=== PATIENT | male | born 1955 | race Caucasian/White ===

== ENCOUNTER 2017-02-02 13:23 | Observation (INO) | payer OTHER ==
[~2017-02-02] VITALS: Ht 182.9 cm; Wt 101.8 kg
[~2017-02-02 13:23] MED LIST: ASPI81TA28 PO; CLON1TAB3 PO; FLUO40CA8 PO; QUET1TAB34 PO
[2017-02-02] MEDS ORDERED: ASPIRIN 324 MG CHEW PO STA (14:16)
[2017-02-02] MEDS ORDERED: NITROGLYCERIN 0.4 MG SL PER TAB CHARGE SL STA (14:16)
--- NOTE | 2017-02-02 14:22 | EMERGENCY ROOM VISIT NOTE ---
History First contact with patient: 14:06 Chief Complaint: CHEST PAIN Stated Complaint: CHEST PAINS FOR TWO DAYS Nursing Triage Summary: Triage note: pt reports right sided chest pain yesterday "but it went away." pt reports right chest pain again started at 1200 today. History of Present Illness The patient is a 61 year old male who presents to the Emergency Room with complaints of chest pain. The patient states that he developed chest pain yesterday while working on his tractor. He states the pain was in the right anterior chest. It was associated with shortness of breath. He states that with time and rest it went away. The patient states that again today while eating approximately 2 hours ago he developed pain in the right anterior chest. He rates his discomfort a 7/10. He describes it as sharp and states it feels like someone punched him in the chest. The patient has had mild shortness of breath. The patient states that activity or walking seems to make the pain come on. He denies any earache, sore throat, cough, fever. He denies any abdominal pain, nausea or vomiting. He denies any extremity swelling. He denies any pain with deep inspiration. The patient has a history of TIA. He does take baby aspirin daily. The patient believes he had a normal stress test 4-5 years ago. The patient does not follow regularly with a primary care physician. He states he has not had his glucose, cholesterol or blood pressure monitored. The patient states that his father has had heart problems. The patient states that his mother of a myocardial infarction in her 70s. Review of Systems A 10 system review of systems was completed with positives and pertinent negatives listed in the HPI. Past Medical/Surgical History Medical Problems: (1) Chest pain (2) TIA (transient ischemic attack) Social History Smoking Status: Current Every Day Smoker Housing Status: lives with family Current/Historical Medications Scheduled Aspirin (Aspirin Ec), 81 MG PO DAILY Clonazepam (Klonopin), 1 MG PO HS Fluoxetine (Prozac), 40 MG PO DAILY Gabapentin (Neurontin), 600 MG PO BID Gabapentin (Neurontin), 1,200 MG PO HS Quetiapine Fumarate (Seroquel), 100 MG PO HS Allergies Coded Allergies: No Known Allergies (Unverified , 11/14/15) Physical Exam Vital Signs Date Time Temp Pulse Resp B/P Pulse Ox O2 Delivery O2 Flow Rate FiO2 02/02/17 16:00 81 23 130/75 95 Room Air 02/02/17 13:57 92 02/02/17 13:30 37.0 99 18 160/82 95 Room Air Physical Exam VITALS: Vitals are noted on the nurse's note and reviewed by myself. Vital signs stable. The patient is afebrile. He is not tachycardic, tachypneic or hypoxic. GENERAL: This is 61-year-old male, in no acute distress, nondiaphoretic, well- developed well-nourished. SKIN: The skin was without rashes, erythema, edema, or bruising. There is no tenting of the skin. Capillary reflex less than 2 seconds. HEAD: Normocephalic atraumatic. EARS: External auditory canals clear, tympanic membranes pearly hayward without erythema or effusion bilaterally. EYES: Pupils equal round and reactive to light and accommodation. Conjunctivae without injection, sclerae without icterus. Extraocular movements intact. NOSE: Patent, turbinates without inflammation or discharge. MOUTH: Mucous membranes moist. Tonsils are not enlarged. Pharynx without erythema or exudate. Uvula midline. Airway patent. Tongue does not deviate. NECK: Supple without nuchal rigidity. No JVD. HEART: Regular rate and rhythm without murmurs gallops or rubs. LUNGS: Clear to auscultation bilaterally without wheezes, rales or rhonchi. No retractions or accessory muscle use. ABDOMEN: Positive bowel sounds x 4. Soft, nontender, without masses or organomegaly. Lobato sign negative. MUSCULOSKELETAL: No muscle atrophy, erythema, or edema noted. Full range of motion in all extremities. Normal gait. Strength 5/5 throughout. NEURO: Patient was alert and oriented to person place and time. No focal neurological deficits. Medical Decision & Procedures ER Provider Diagnostic Interpretation: CHEST ONE VIEW PORTABLE CLINICAL HISTORY: Chest pain. COMPARISON STUDY: Chest CT January 02, 2011. FINDINGS: Lung volumes are normal. There is no pneumothorax or pleural effusion. There is no consolidation to suggest pneumonia. Mild interstitial thickening is present. This may be chronic. Cardiac size is at upper limits of normal. IMPRESSION: Mild interstitial thickening which is likely chronic. Interstitial lung disease is favored. No superimposed consolidation identified. Laboratory Results 02/02/17 14:36 Red Blood Count 4.65, Mean Corpuscular Volume 84.9, Mean Corpuscular Hemoglobin 28.6, Mean Corpuscular Hemoglobin Concent 33.7, Mean Platelet Volume 10.4, Neutrophils (%) (Auto) 57.3, Lymphocytes (%) (Auto) 24.0, Monocytes (%) (Auto) 14.3, Eosinophils (%) (Auto) 4.0, Basophils (%) (Auto) 0.4, Neutrophils # (Auto ) 4.11, Lymphocytes # (Auto) 1.72, Monocytes # (Auto) 1.03, Eosinophils # (Auto ) 0.29, Basophils # (Auto) 0.03 02/02/17 14:36 Test 02/02/17 14:36 White Blood Count 7.18 K/uL (4.8-10.8) Red Blood Count 4.65 M/uL (4.7-6.1) Hemoglobin 13.3 g/dL (14.0-18.0) Hematocrit 39.5 % (42-52) Mean Corpuscular Volume 84.9 fL (80-100) Mean Corpuscular Hemoglobin 28.6 pg (25-34) Mean Corpuscular Hemoglobin Concent 33.7 g/dl (32-36) Platelet Count 282 K/uL (130-400) Mean Platelet Volume 10.4 fL (7.4-10.4) Neutrophils (%) (Auto) 57.3 % Lymphocytes (%) (Auto) 24.0 % Monocytes (%) (Auto) 14.3 % Eosinophils (%) (Auto) 4.0 % Basophils (%) (Auto) 0.4 % Neutrophils # (Auto) 4.11 K/uL (1.4-6.5) Lymphocytes # (Auto) 1.72 K/uL (1.2-3.4) Monocytes # (Auto) 1.03 K/uL (0.11-0.59) Eosinophils # (Auto) 0.29 K/uL (0-0.5) Basophils # (Auto) 0.03 K/uL (0-0.2) RDW Standard Deviation 44.8 fL (36.4-46.3) RDW Coefficient of Variation 14.4 % (11.5-14.5) Immature Granulocyte % (Auto) 0.0 % Immature Granulocyte # (Auto) 0.00 K/uL (0.00-0.02) Prothrombin Time 11.3 SECONDS (9.0-12.0) Prothromb Time International Ratio 1.1 (0.9-1.1) Activated Partial Thromboplast Time 31.5 SECONDS (21.0-31.0) Partial Thromboplastin Ratio 1.2 Urine Color DK YELLOW Urine Appearance CLEAR (CLEAR) Urine pH 5.5 (4.5-7.5) Urine Specific [place] 1.026 (1.000-1.030) Urine Protein NEG (NEG) Urine Glucose (UA) NEG (NEG) Urine Ketones NEG (NEG) Urine Occult Blood NEG (NEG) Urine Nitrite NEG (NEG) Urine Bilirubin NEG (NEG) Urine Urobilinogen NEG (NEG) Urine Leukocyte Esterase NEG (NEG) Anion Gap 6.0 mmol/L (3-11) Est Creatinine Clear Calc Drug Dose 87.4 ml/min Estimated GFR () 82.4 Estimated GFR (Non- 71.1 BUN/Creatinine Ratio 16.2 (10-20) Calcium Level 8.2 mg/dl (8.5-10.1) Total Bilirubin 0.4 mg/dl (0.2-1) Aspartate Amino Transf (AST/SGOT) 32 U/L (15-37) Alanine Aminotransferase (ALT/SGPT) 30 U/L (12-78) Alkaline Phosphatase 53 U/L (45-117) Total Creatine Kinase 221 U/L (39-308) Creatine Kinase MB 5.7 ng/ml (0.5-3.6) Creatine Kinase MB Ratio 2.6 (0-3.0) Troponin I 0.449 ng/ml (0-0.045) Total Protein 7.0 gm/dl (6.4-8.2) Albumin 3.5 gm/dl (3.4-5.0) Globulin 3.5 gm/dl (2.5-4.0) Albumin/Globulin Ratio 1.0 (0.9-2) Medications Administered Medications (Trade) Dose Ordered Sig/James Route Start Time Stop Time Status Last Admin Dose Admin Aspirin (Aspirin Chew) 324 mg NOW STAT PO 02/02/17 14:16 02/02/17 14:18 DC 02/02/17 14:25 324 MG Nitroglycerin (Nitrostat Tab) 0.4 mg NOW STAT SL 02/02/17 14:16 02/02/17 14:18 DC 02/02/17 14:25 0.4 MG Procedure The patient was monitored on a director of cardiac cath lab. They maintained a normal sinus rhythm without ectopy. ECG Indication: chest pain Rate (beats per minute): 95 Rhythm: normal sinus Findings: no acute ischemic change Change: no significant change ED Course The patient was seen and examined. Previous visits were reviewed. The patient does not have a fever or leukocytosis. He does not have any significant electrolyte abnormalities. Troponin was elevated at 0.449. INR was 1.1. Urinalysis is negative. EKG does not reveal any acute ischemia or arrhythmia Chest x-ray does not reveal any acute finding The patient was given 325 mg oral aspirin and one 0.4 mg sublingual nitroglycerin. His pain resolved. The patient presents to the emergency department with exertional chest pain which is improved with nitroglycerin. He also has an elevated troponin. The patient likely has acute coronary syndrome. He requires further evaluation and management in the hospital. The case was discussed with the [facility] hospitalist service and they will evaluate the patient. The patient was also seen and examined by who agrees with the assessment and treatment plan. Medical Decision DIFFERENTIAL DIAGNOSIS: Aortic dissection, myocarditis, pericarditis, cervical disc disease, costochondritis, herpes zoster, rib fracture, pleuritis, pneumonia , pulmonary embolus, tension pneumothorax, anxiety disorder, somatoform disorder , choledocholithiasis, status, esophagitis, esophageal spasm, esophageal reflux , esophageal rupture, pancreatitis, peptic ulcer disease, cardiac ischemia, ST elevation VA, acute coronary syndrome, arrhythmia, coronary artery vasospasm. vavular heart disease, coronary artery disease, among others. Impression Primary Impression: Acute coronary syndrome Departure Information Referrals Miguel Ángel Rodriguez M.D. (PCP) Patient Instructions My [facility]
[2017-02-02 14:46] LABS: BASO % 0.4 %; BASO ABS # 0.03 K/uL (0-0.2); COMPLETE YES; HEMATOCRIT 39.5 % (42-52); LYMPH ABS # 1.72 K/uL (1.2-3.4); MEAN CELL VOLUME 84.9 fL (80-100); MEAN CORPUSCULAR HEMOGLOBIN 28.6 pg (25-34); MEAN CORPUSCULAR HGB CONC 33.7 g/dl (32-36); MEAN PLATELET VOLUME 10.4 fL (7.4-10.4); MONO % 14.3 %; NEUT % 57.3 %; PLATELET COUNT 282 K/uL (130-400); RED BLOOD COUNT 4.65 M/uL (4.7-6.1); WHITE BLOOD COUNT 7.18 K/uL (4.8-10.8)
[2017-02-02 14:58] LABS: INR 1.1 (0.9-1.1); PARTIAL THROMBOPLASTIN RATIO 1.2; PROTHROMBIN TIME (PATIENT) 11.3 SECONDS (9.0-12.0)
[2017-02-02 15:04] LABS: BUN/CREATININE RATIO 16.2 (10-20); CALCIUM 8.2 mg/dl (8.5-10.1); CREATININE 1.1 mg/dl (0.60-1.40); POTASSIUM 3.7 mmol/L (3.5-5.1)
--- NOTE | 2017-02-02 15:11 | EMERGENCY ROOM VISIT NOTE ---
ED Visit Note First contact with patient: 14:06 This Patient was discussed with the physician administrative assistant receptionist, Lashawn Burger PA-C. The pertinent historical and physical exam findings were confirmed. I agree with the studies ordered and with the interpretations of these studies. I agree with the disposition and care plan.
[2017-02-02 15:15] LABS: CKMB/CK RATIO 2.6 (0-3.0)
[2017-02-02 15:18] LABS: URINE APPEARANCE CLEAR (CLEAR); URINE BILIRUBIN NEG (NEG); URINE COLOR DK YELLOW; URINE NITRITE NEG (NEG); URINE PH 5.5 (4.5-7.5); URINE SPECIFIC GRAVITY 1.026 (1.000-1.030); UROBILINOGEN NEG (NEG); ZZUR CULT IF INDIC CLEAN CATCH NO
[2017-02-02 15:19] LABS: MANUAL MICROSCOPIC REQUIRED? NO; REVIEW REQ? NO
[2017-02-02] MEDS ORDERED: GABA600T PO (15:19)
[2017-02-02] MEDS ORDERED: NRN/600 PO (15:19)
--- NOTE | 2017-02-02 15:29 | DIAGNOSTIC IMAGING REPORT ---
CHEST ONE VIEW PORTABLE CLINICAL HISTORY: Chest pain. COMPARISON STUDY: Chest CT January 02, 2011. FINDINGS: Lung volumes are normal. There is no pneumothorax or pleural effusion. There is no consolidation to suggest pneumonia. Mild interstitial thickening is present. This may be chronic. Cardiac size is at upper limits of normal. IMPRESSION: Mild interstitial thickening which is likely chronic. Interstitial lung disease is favored. No superimposed consolidation identified. Electronically signed by: Keron Swift M.D. 02/02/2017 3:28 PM Dictated Date/Time: 02/02/2017 3:27 PM
--- NOTE | 2017-02-02 16:13 | History and Physical ---
History & Physical Date & Time of Service: Feb 02, 2017 at 15:58 Chief Complaint: Chest Pains For Two Days Primary Care Physician: Miguel Ángel Rodriguez M.D. History of Present Illness Source: patient, family This patient is a pleasant 61-year-old male that presents to the emergency department complaining of a burning right-sided chest pain that started yesterday afternoon when he was working on his tractor. It lasted approximately 1 hour. The pain returned today when the patient was eating lunch at [employer] with his . He also has associated shortness of breath. He thinks that his symptoms were worse when he was up working. Yesterday when he felt the pain he sat down, which seemed to improve the pain. He denies any nausea, sweating or heart palpitations. He does intermittently feel dizzy, however this is been going on for several years. He contributes this to side effects of gabapentin that he takes for chronic left-sided pain. The patient denies any personal history of coronary artery disease. He had a normal stress test many years ago. He does occasionally smoke cigarettes and cigars. He has a strong family history of cardiac disease. EKG done in the ER shows normal sinus rhythm. No signs of ischemia. History of prominent however is elevated at 0.449. 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) Multi-Drug Resistant Organisms History of MDRO: No Allergies Coded Allergies: No Known Allergies (Unverified , 11/14/15) Home Medications Scheduled Aspirin (Aspirin Ec), 81 MG PO DAILY Clonazepam (Klonopin), 1 MG PO HS Fluoxetine (Prozac), 40 MG PO DAILY Gabapentin (Neurontin), 600 MG PO BID Gabapentin (Neurontin), 1,200 MG PO HS Quetiapine Fumarate (Seroquel), 100 MG PO HS Review of Systems 10 system review performed and negative unless noted in HPI or below Physical Exam Vital Signs Date Time Temp Pulse Resp B/P Pulse Ox O2 Delivery O2 Flow Rate FiO2 02/02/17 13:57 92 02/02/17 13:30 37.0 99 18 160/82 95 Room Air General Appearance: no apparent distress Head: normocephalic Eyes: PERRL, EOMI ENT: + pertinent finding (oral mucosa slightly dry) Neck: no JVD Respiratory/Chest: lungs clear Cardiovascular: regular rate, rhythm Abdomen/GI: normal bowel sounds, non tender, soft Extremities/Musculoskelatal: no calf tenderness, + pertinent finding (trace pitting edema in the left lower extremity. No erythema or tenderness appreciated. No erythema or edema in the right lower extremity.) Neurologic/Psych: no motor/sensory deficits, oriented x 3 Skin: warm/dry Diagnostics Laboratory Results Results Past 24 Hours Test 02/02/17 14:36 Range/Units White Blood Count 7.18 4.8-10.8 K/uL Red Blood Count 4.65 4.7-6.1 M/uL Hemoglobin 13.3 14.0-18.0 g/dL Hematocrit 39.5 42-52 % Mean Corpuscular Volume 84.9 80-100 fL Mean Corpuscular Hemoglobin 28.6 25-34 pg Mean Corpuscular Hemoglobin Concent 33.7 32-36 g/dl Platelet Count 282 130-400 K/uL Mean Platelet Volume 10.4 7.4-10.4 fL Neutrophils (%) (Auto) 57.3 % Lymphocytes (%) (Auto) 24.0 % Monocytes (%) (Auto) 14.3 % Eosinophils (%) (Auto) 4.0 % Basophils (%) (Auto) 0.4 % Neutrophils # (Auto) 4.11 1.4-6.5 K/uL Lymphocytes # (Auto) 1.72 1.2-3.4 K/uL Monocytes # (Auto) 1.03 0.11-0.59 K/uL Eosinophils # (Auto) 0.29 0-0.5 K/uL Basophils # (Auto) 0.03 0-0.2 K/uL RDW Standard Deviation 44.8 36.4-46.3 fL RDW Coefficient of Variation 14.4 11.5-14.5 % Immature Granulocyte % (Auto) 0.0 % Immature Granulocyte # (Auto) 0.00 0.00-0.02 K/uL Prothrombin Time 11.3 9.0-12.0 SECONDS Prothromb Time International Ratio 1.1 0.9-1.1 Activated Partial Thromboplast Time 31.5 21.0-31.0 SECONDS Partial Thromboplastin Ratio 1.2 Urine Color DK YELLOW Urine Appearance CLEAR CLEAR Urine pH 5.5 4.5-7.5 Urine Specific [place] 1.026 1.000-1.030 Urine Protein NEG NEG Urine Glucose (UA) NEG NEG Urine Ketones NEG NEG Urine Occult Blood NEG NEG Urine Nitrite NEG NEG Urine Bilirubin NEG NEG Urine Urobilinogen NEG NEG Urine Leukocyte Esterase NEG NEG Sodium Level 140 136-145 mmol/L Potassium Level 3.7 3.5-5.1 mmol/L Chloride Level 106 98-107 mmol/L Carbon Dioxide Level 28 21-32 mmol/L Anion Gap 6.0 3-11 mmol/L Blood Urea Nitrogen 18 7-18 mg/dl Creatinine 1.10 0.60-1.40 mg/dl Est Creatinine Clear Calc Drug Dose 87.4 ml/min Estimated GFR () 82.4 Estimated GFR (Non- 71.1 BUN/Creatinine Ratio 16.2 10-20 Random Glucose 132 70-99 mg/dl Calcium Level 8.2 8.5-10.1 mg/dl Total Bilirubin 0.4 0.2-1 mg/dl Aspartate Amino Transf (AST/SGOT) 32 15-37 U/L Alanine Aminotransferase (ALT/SGPT) 30 12-78 U/L Alkaline Phosphatase 53 45-117 U/L Total Creatine Kinase 221 39-308 U/L Creatine Kinase MB 5.7 0.5-3.6 ng/ml Creatine Kinase MB Ratio 2.6 0-3.0 Troponin I 0.449 0-0.045 ng/ml Total Protein 7.0 6.4-8.2 gm/dl Albumin 3.5 3.4-5.0 gm/dl Globulin 3.5 2.5-4.0 gm/dl Albumin/Globulin Ratio 1.0 0.9-2 EKG Normal sinus rhythm Rate 95 bpm No ischemic changes noted No significant change when compared to previous EKG from 2013 Impression Assessment and Plan 61-year-old male presents emergency department with chest pain relieved with nitro. Story is fairly convincing for cardiac disease chest pain -observe in telemetry -Begin heparin drip -Cardiology consult -check echo -follow cardiac enzymes every 8 hr x 2 -daily EKG -EKG with worsening pain -continue ASA -Start low dose statin, b britany -continue nitroglycerin SL for CP -check lipids Hx interstitial lung dz-->at higher risk for PE. CP is somewhat atypical -? possible CT chest -start with BLE US History of chronic pain -Continue Neurontin 600 mg in the morning and 1200 mg at night Depression -Continue Prozac 40 mg daily, Seroquel 100 mg HS, Klonopin 1 mg HS DVT prophylaxis -Heparin drip as noted above -Teds, SCDs CODE STATUS -LEVEL I FULL CODE Level of Care Telemetry Resuscitation Status FULL RESUSCITATION VTE Prophylaxis VTE Risk Assessment Done? Y/N: Yes Given or contraindicated: Other Anticoagulation, T.E.D. Stockings, SCD's Reviewed: Pt Seen/Exam by Me History Physician Keeper Helper Supervision Note: I interviewed and examined the patient. Discussed with CIRA Palacios and agree with findings and plan as documented in the note. Any exceptions or clarifications are listed here: Patient is a 61-year-old male with a history of CVA with residual left-sided hemiparesis and chronic left-sided pain, depression, and headaches, who presents to the ER with intermittent right-sided chest pain since yesterday. His chest pain was relieved in the ER after being given aspirin and sublingual nitroglycerin. His initial troponin was elevated at 0.449. His ECG showed no acute ischemic changes. He has not noted any swelling in his lower extremities. He did have some associated shortness of breath with the chest pain. He has a history of chronic interstitial lung disease and pulmonary nodules for which he was lost to follow-up since he was seen by a door framer about 6 years ago. Vitals reviewed-hypertensive upon arrival No acute distress, AAO 3 Regular rate and rhythm, no murmurs gallops or rubs, normal S1-S2 Lungs clear to auscultation bilaterally except fine crackles at the left base Abdomen positive bowel sounds soft, nontender, nondistended, no hepatosplenomegaly Extremities trace pitting edema in the left leg Skin no rashes Patient is a 61-year-old male here with right-sided chest pain that came on with exertion was relieved with rest and with nitroglycerin, with a positive troponin. He is being admitted for NSTEMI. -Discussed case with airfield manager on-call -Starting heparin drip, beta britany, statin, aspirin, Nitropaste -Trend troponins -Check echo -Checking CT angiogram of the chest to rule out PE, checking Dopplers of the lower extremities given mild edema to rule out DVT Documented By: Alejandra Costa
[2017-02-02] MEDS ORDERED: ONDANSETRON INJ 2 MG/ML 2 ML VIAL IV PRN (16:15)
[2017-02-02] MEDS ORDERED: ACETAMINOPHEN 325 MG TAB PO PRN (16:15)
[2017-02-02] MEDS ORDERED: ALUMINUM/MAGNESIUM/SIMETH (MAALOX MAX) 30 ML UDC PO PRN (16:15)
[2017-02-02] MEDS ORDERED: IV FLUIDS COMPLETED PRN (16:45)
[2017-02-02] MEDS ORDERED: SODIUM CHLORIDE 0.9% 500ML 500 ML IV STA (17:18)
[2017-02-02] MEDS ORDERED: HEPARIN 25000 UNIT/500 ML D5W ONE (17:22)
[2017-02-02] MEDS ORDERED: OPTIRAY 320 IV PRN (17:30)
[2017-02-02] MEDS ORDERED: MoRPHine SULFATE 2 MG/ML CARP IV PRN (18:00)
--- NOTE | 2017-02-02 18:37 | DIAGNOSTIC IMAGING REPORT ---
CT ANGIOGRAM OF THE CHEST CLINICAL HISTORY: Right-sided chest pain COMPARISON STUDY: 12/23/2010, chest x-ray dated 02/02/2017 TECHNIQUE: Following the IV administration of 115 mL of [id number]-320, CT angiogram of the thorax was performed from the thoracic inlet to the lung bases utilizing the pulmonary embolus protocol. Images are reviewed in the axial, sagittal, and coronal planes. IV contrast was administered without complication. MIP imaging was performed. CT DOSE: 711.54 mGy.cm FINDINGS: Mediastinal and hilar lymph nodes are the upper limits of normal in size. There was no evidence of thoracic aortic dilatation. There were no pulmonary artery filling defects to indicate acute pulmonary embolism. No pleural effusions are visualized. There is no focal pulmonary consolidation. There is mild subpleural reticulation. There is subpleural cyst/honeycombing within the lung apices. There is a 5 mm left lower lobe pulmonary nodule as visualized in image #120/[id number]. There is a 4 mm subpleural left lower lobe pulmonary nodule as visualized in image #124/[id number]. There is a third 4 mm left lower lobe pulmonary nodule as visualized on image #133/[id number]. Each of these nodules were present the prior December 2010 study. IMPRESSION: 1. No CT evidence of acute pulmonary embolism 2. No evidence of acute parenchymal consolidation 3. Subcentimeter pulmonary nodules similar to 2011 4. Underlying interstitial lung disease with biapical subpleural honeycombing Electronically signed by: Chapin Mcdaniel M.D. 02/02/2017 6:36 PM Dictated Date/Time: 02/02/2017 6:25 PM
[2017-02-02 18:45] VITALS: BP 137/79; PULSE 85; TEMP 37
[2017-02-02 19:06] VITALS: BP 130/75; TEMP 37; O2SAT 95; Ht 182.9 cm; Wt 101.8 kg
[2017-02-02] MEDS: NITROGLYCERIN OINT 2% 1GM PACKET EXT SCH (19:19)
[2017-02-02 19:42] VITALS: BP 141/86; PULSE 77; TEMP 36.7; O2SAT 95
--- NOTE | 2017-02-02 21:11 | DIAGNOSTIC IMAGING REPORT ---
ULTRASOUND VENOUS DOPPLER LWR EXT BILA CLINICAL HISTORY: Leg swelling COMPARISON STUDY: No previous studies for comparison. FINDINGS: Real-time and color flow Doppler imaging were performed. Flow was seen within the femoral, popliteal and calf veins with no intraluminal thrombus demonstrated. The saphenous vein is patent. There is a small complex left-sided popliteal cyst. IMPRESSION: No evidence of lower extremity DVT. Electronically signed by: Chapin Mcdaniel M.D. 02/02/2017 9:10 PM Dictated Date/Time: 02/02/2017 9:10 PM
[2017-02-02] MEDS: METOPROLOL TARTRATE 25 MG TAB PO SCH (21:20)
[2017-02-02] MEDS ORDERED: NURSING VERBAL MED ORDER ONE (22:00)
[2017-02-02] MEDS: QUETIAPINE FUMARATE 100 MG TAB PO SCH (22:27)
[2017-02-02] MEDS: CLONAZEPAM 1 MG TAB PO SCH (22:27)
[2017-02-02] MEDS: GABAPENTIN 600 MG TAB PO SCH (22:27)
[2017-02-02 23:45] LABS: PARTIAL THROMBOPLASTIN RATIO 2.4
[2017-02-02 23:47] LABS: CKMB/CK RATIO 3.4 (0-3.0)
[2017-02-02 23:52] VITALS: BP 101/64; PULSE 61; TEMP 36.8; O2SAT 92
[2017-02-03] VITALS (9 sets, daily range): BP systolic 96–131; BP diastolic 61–74; PULSE 60–76; TEMP 36.6–36.8; O2SAT 93–98
[2017-02-03] MEDS: NITROGLYCERIN OINT 2% 1GM PACKET EXT SCH ×4 (01:03→18:28)
[2017-02-03 06:31] LABS: BASO % 0.4 %; BASO ABS # 0.03 K/uL (0-0.2); COMPLETE YES; EOS % 3.8 %; HEMATOCRIT 38.5 % (42-52); IG% 0.2 %; LYMPH % 23.6 %; LYMPH ABS # 1.92 K/uL (1.2-3.4); MEAN CELL VOLUME 85.7 fL (80-100); MEAN CORPUSCULAR HEMOGLOBIN 28.3 pg (25-34); MEAN PLATELET VOLUME 10.5 fL (7.4-10.4); MONO % 14.4 %; NEUT % 57.6 %; PLATELET COUNT 261 K/uL (130-400); RED BLOOD COUNT 4.49 M/uL (4.7-6.1); WHITE BLOOD COUNT 8.14 K/uL (4.8-10.8)
[2017-02-03 06:49] LABS: PARTIAL THROMBOPLASTIN RATIO 2.9
[2017-02-03 06:59] LABS: BUN/CREATININE RATIO 15.3 (10-20); CALCIUM 8.2 mg/dl (8.5-10.1); CREATININE 0.98 mg/dl (0.60-1.40); MAGNESIUM 2.5 mg/dl (1.8-2.4); POTASSIUM 4.1 mmol/L (3.5-5.1)
[2017-02-03 07:11] LABS: CHOLESTEROL/HDL RATIO 3.2; CKMB/CK RATIO 3.7 (0-3.0)
[2017-02-03 07:30] LABS: ESTIMATED AVERAGE GLUCOSE 123 mg/dl; HA1C FLAG Normal (Normal)
[2017-02-03] MEDS: ASPIRIN 81 MG ECTAB PO SCH (07:34)
[2017-02-03] MEDS: METOPROLOL TARTRATE 25 MG TAB PO SCH ×2 (07:35→20:45)
[2017-02-03] MEDS: FLUOXETINE HCL 20 MG CAP PO SCH (07:37)
[2017-02-03] MEDS ORDERED: ATORVASTATIN 20 MG TAB PO SCH (09:00)
[2017-02-03] MEDS: HEPARIN 25,000 UNIT/500ML D5W 500 ML IV PRN (09:04)
--- NOTE | 2017-02-03 10:35 | Hospitalist Progress Note ---
Hospitalist Progress Note Date of Service Feb 03, 2017. Subjective Pt evaluation today including: conversation w/ patient, conversation w/ family , physical exam, chart review Voiding: no voiding problems Respiratory: No cough, No dyspnea at rest, No dyspnea on exertion, No hemoptysis, No problem reported, No see HPI, No shortness of breath, No sputum, No wheezing Cardiovascular: No PND, No chest pain, No claudication, No edema, No orthopnea, No palpitations, No problem reported, No see HPI Abdomen: No GI bleeding, No constipation, No diarrhea, No nausea, No pain, No problem reported, No see HPI, No vomiting Medications Medications (Trade) Dose Ordered Sig/James Route Start Time Stop Time Status Last Admin Dose Admin Aspirin (Aspirin Chew) 324 mg NOW STAT PO 02/02/17 14:16 02/02/17 14:18 DC 02/02/17 14:25 324 MG Nitroglycerin (Nitrostat Tab) 0.4 mg NOW STAT SL 02/02/17 14:16 02/02/17 14:18 DC 02/02/17 14:25 0.4 MG Nitroglycerin (Nitroglycerin 2% Oint) 1 inch Q6H EXT 02/02/17 19:00 03/04/17 16:14 02/03/17 07:31 1 INCH Heparin Sodium/ Dextrose 1 ea Q15M N/A 02/02/17 17:00 02/02/17 17:29 DC 02/02/17 17:20 1 EA Metoprolol Tartrate (Lopressor Tab) 12.5 mg BID PO 02/02/17 21:00 03/04/17 20:59 02/03/17 07:35 12.5 MG Atorvastatin Calcium (Lipitor Tab) 20 mg QAM PO 02/03/17 09:00 03/05/17 08:59 02/03/17 07:36 20 MG Heparin Sodium/ Dextrose 99539 unit 25,000 unit STK-MED ONCE .ROUTE 02/02/17 17:22 02/02/17 17:23 DC 02/02/17 17:19 25,000 UNIT Sodium Chloride 500 ml @ 999 mls/hr Q31M STAT IV 02/02/17 17:18 02/02/17 17:48 DC 02/02/17 18:45 999 MLS/HR Heparin Sodium/ Dextrose (Heparin 25,000 Unit/500ml D5W) 500 ml @ 30 mls/hr [id number] PRN IV 02/02/17 17:30 03/04/17 17:29 02/03/17 09:04 32 MLS/HR Aspirin (Ecotrin Tab) 81 mg QAM PO 02/03/17 09:00 03/05/17 08:59 02/03/17 07:34 81 MG Fluoxetine HCl (Prozac Cap) 40 mg DAILY PO 02/03/17 09:00 03/05/17 08:59 02/03/17 07:37 40 MG Quetiapine Fumarate (seroQUEL TAB) 100 mg HS PO 02/02/17 22:30 03/04/17 22:29 02/02/17 22:27 100 MG Gabapentin (Neurontin Tab) 1,200 mg HS PO 02/02/17 22:30 03/04/17 22:29 02/02/17 22:27 1,200 MG Clonazepam (Klonopin Tab) 1 mg HS PO 02/02/17 22:30 03/04/17 22:29 02/02/17 22:27 1 MG Objective Vital Signs Date Time Temp Pulse Resp B/P Pulse Ox O2 Delivery O2 Flow Rate FiO2 02/03/17 07:55 36.8 72 18 131/69 96 02/03/17 04:26 36.8 60 20 96/61 94 Room Air 02/03/17 00:01 95 Room Air 02/02/17 23:52 36.8 61 18 101/64 92 Room Air 02/02/17 19:42 36.7 77 22 141/86 95 Room Air 02/02/17 19:06 37.0 23 130/75 95 Room Air 02/02/17 18:45 37.0 85 22 137/79 02/02/17 16:00 81 23 130/75 95 Room Air 02/02/17 13:57 92 02/02/17 13:30 37.0 99 18 160/82 95 Room Air Physical Exam General Appearance: WD/WN, no apparent distress Eyes: normal inspection, PERRL, EOMI ENT: normal ENT inspection, hearing grossly normal, TMs normal Neck: supple, no adenopathy, thyroid normal, no JVD Respiratory/Chest: chest non-tender, lungs clear, normal breath sounds Cardiovascular: regular rate, rhythm, no edema, no gallop, no JVD Abdomen: normal bowel sounds, non tender, soft, no organomegaly Extremities: normal range of motion, non-tender, normal inspection, no pedal edema 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, no motor/sensory deficits, alert, oriented x 3 Skin: normal color Laboratory Results Last 24 Hours Test 02/02/17 14:36 02/02/17 23:10 02/03/17 06:10 White Blood Count 7.18 K/uL 8.14 K/uL Red Blood Count 4.65 M/uL 4.49 M/uL Hemoglobin 13.3 g/dL 12.7 g/dL Hematocrit 39.5 % 38.5 % Mean Corpuscular Volume 84.9 fL 85.7 fL Mean Corpuscular Hemoglobin 28.6 pg 28.3 pg Mean Corpuscular Hemoglobin Concent 33.7 g/dl 33.0 g/dl Platelet Count 282 K/uL 261 K/uL Mean Platelet Volume 10.4 fL 10.5 fL Neutrophils (%) (Auto) 57.3 % 57.6 % Lymphocytes (%) (Auto) 24.0 % 23.6 % Monocytes (%) (Auto) 14.3 % 14.4 % Eosinophils (%) (Auto) 4.0 % 3.8 % Basophils (%) (Auto) 0.4 % 0.4 % Neutrophils # (Auto) 4.11 K/uL 4.69 K/uL Lymphocytes # (Auto) 1.72 K/uL 1.92 K/uL Monocytes # (Auto) 1.03 K/uL 1.17 K/uL Eosinophils # (Auto) 0.29 K/uL 0.31 K/uL Basophils # (Auto) 0.03 K/uL 0.03 K/uL RDW Standard Deviation 44.8 fL 45.0 fL RDW Coefficient of Variation 14.4 % 14.4 % Immature Granulocyte % (Auto) 0.0 % 0.2 % Immature Granulocyte # (Auto) 0.00 K/uL 0.02 K/uL Prothrombin Time 11.3 SECONDS Prothromb Time International Ratio 1.1 Activated Partial Thromboplast Time 31.5 SECONDS 62.6 SECONDS 74.4 SECONDS Partial Thromboplastin Ratio 1.2 2.4 2.9 Urine Color DK YELLOW Urine Appearance CLEAR Urine pH 5.5 Urine Specific [place] 1.026 Urine Protein NEG Urine Glucose (UA) NEG Urine Ketones NEG Urine Occult Blood NEG Urine Nitrite NEG Urine Bilirubin NEG Urine Urobilinogen NEG Urine Leukocyte Esterase NEG Sodium Level 140 mmol/L 142 mmol/L Potassium Level 3.7 mmol/L 4.1 mmol/L Chloride Level 106 mmol/L 108 mmol/L Carbon Dioxide Level 28 mmol/L 29 mmol/L Anion Gap 6.0 mmol/L 5.0 mmol/L Blood Urea Nitrogen 18 mg/dl 15 mg/dl Creatinine 1.10 mg/dl 0.98 mg/dl Est Creatinine Clear Calc Drug Dose 87.4 ml/min 95.9 ml/min Estimated GFR () 82.4 94.7 Estimated GFR (Non- 71.1 81.7 BUN/Creatinine Ratio 16.2 15.3 Random Glucose 132 mg/dl 103 mg/dl Calcium Level 8.2 mg/dl 8.2 mg/dl Magnesium Level 2.5 mg/dl 2.5 mg/dl Total Bilirubin 0.4 mg/dl 0.7 mg/dl Aspartate Amino Transf (AST/SGOT) 32 U/L 24 U/L Alanine Aminotransferase (ALT/SGPT) 30 U/L 25 U/L Alkaline Phosphatase 53 U/L 48 U/L Total Creatine Kinase 221 U/L 186 U/L 152 U/L Creatine Kinase MB 5.7 ng/ml 6.4 ng/ml 5.6 ng/ml Creatine Kinase MB Ratio 2.6 3.4 3.7 Troponin I 0.449 ng/ml 0.831 ng/ml 1.110 ng/ml Total Protein 7.0 gm/dl 6.6 gm/dl Albumin 3.5 gm/dl 3.2 gm/dl Globulin 3.5 gm/dl Albumin/Globulin Ratio 1.0 Estimated Average Glucose 123 mg/dl Hemoglobin A1c 5.9 % Direct Bilirubin 0.1 mg/dl Triglycerides Level 101 mg/dl Cholesterol Level 142 mg/dl HDL Cholesterol 44 mg/dl LDL Cholesterol, Calculated 78 mg/dl VLDL Cholesterol, Calculated 20 mg/dl Cholesterol/HDL Ratio 3.2 Diagnostic Results [~ rep ct add3]] CT ANGIOGRAM OF THE CHEST CLINICAL HISTORY: Right-sided chest pain COMPARISON STUDY: 12/23/2010, chest x-ray dated 02/02/2017 TECHNIQUE: Following the IV administration of 115 mL of [id number]-320, CT angiogram of the thorax was performed from the thoracic inlet to the lung bases utilizing the pulmonary embolus protocol. Images are reviewed in the axial, sagittal, and coronal planes. IV contrast was administered without complication. MIP imaging was performed. CT DOSE: 711.54 mGy.cm FINDINGS: Mediastinal and hilar lymph nodes are the upper limits of normal in size. There was no evidence of thoracic aortic dilatation. There were no pulmonary artery filling defects to indicate acute pulmonary embolism. No pleural effusions are visualized. There is no focal pulmonary consolidation. There is mild subpleural reticulation. There is subpleural cyst/honeycombing within the lung apices. There is a 5 mm left lower lobe pulmonary nodule as visualized in image #120/[id number]. There is a 4 mm subpleural left lower lobe pulmonary nodule as visualized in image #124/333. There is a third 4 mm left lower lobe pulmonary nodule as visualized on image #133/333. Each of these nodules were present the prior December 2010 study. IMPRESSION: 1. No CT evidence of acute pulmonary embolism 2. No evidence of acute parenchymal consolidation 3. Subcentimeter pulmonary nodules similar to 2011 4. Underlying interstitial lung disease with biapical subpleural honeycombing Electronically signed by: Chapin Mcdaniel M.D. Assessment and Plan CP right sided, No prior cardiac history. Troponins peaked at 1.0. CT chest is neg for PE EKG with no acute STT changes. Venous dopplers of LEs is neg. for DVT. Pt currently CP free. Will continue with NTG paste, ASA, Heparin gtt, statin, Spoke with Cardiology- OK to start POs. Will check TTE. For c.cath on Sunday
--- NOTE | 2017-02-03 12:34 | CARDIOLOGY PROGRESS NOTE ---
DATE: 02/03/2017 TIME: 11:49 a.m. SUBJECTIVE: Dr. Arshad evaluated Mr. Lewis last evening. His dictation was dictated but has not yet been transcribed into the medical record. Mr. Lewis had right-sided chest discomfort a few days ago with exertion which resolved with rest. Yesterday he had an episode for approximately 30 minutes which responded to nitroglycerin once again on the right side which was nonradiating. He also appears to may have had some mild shortness of breath. He has been chest pain free since admission. He denies shortness of breath, syncope, near syncope, palpitations or edema. He denies any bleeding. He does have a history of TIAs, but it has been quite some time and he cannot recall his last episode. OBJECTIVE: VITAL SIGNS: Temperature is 36.7 degrees, heart rate 76 beats per minute, respiration rate 16, blood pressure 110/74 mmHg, oxygen saturation 98% on room air, weight 103.2 kg. GENERAL: No acute distress. He is alert. NECK: No JVD. CARDIAC EXAM: No ventricular heave. Regular, normal S1, S2. No audible murmurs, rubs or gallops. LUNGS: Clear to auscultation bilaterally without wheezes, rales or rhonchi. ABDOMEN: Soft, nontender, nondistended, normoactive bowel sounds, no bruits noted. EXTREMITIES: 2+ radial pulses bilaterally. 2+ dorsalis pedis pulse bilaterally. No cyanosis or edema. PSYCHIATRIC: Affect appears appropriate. MEDICATIONS: Include aspirin 81 mg daily, Lipitor 20 mg daily, heparin drip per protocol, metoprolol 12.5 mg p.o. b.i.d., nitroglycerin ointment 1 inch q. 6 hours. Telemetry personally reviewed. No arrhythmia. Sinus rhythm. ECG on presentation demonstrated sinus rhythm at 95 beats per minute. Echocardiogram is pending. LABORATORY DATA: White blood cell count is 8.14, hemoglobin 12.7, platelets 261. Sodium 142, potassium 4.1, BUN 15, creatinine 0.98, magnesium 2.5. Troponin is 1.1 and climbing. It initially was 0.449. LDL 78, HDL 44, triglycerides 101. PTT 74.4. CT scan of the chest report reviewed. No pulmonary emboli. No evidence of acute parenchymal consolidation. There was subcentimeter pulmonary nodules similar to 2011. Underlying interstitial lung disease with biapical subpleural honeycombing. Lower extremity Doppler report reviewed. No evidence of lower extremity DVT. ASSESSMENT AND PLAN: 1. Acute non-ST elevation myocardial infarction: No further chest discomfort. Continue aspirin 81 mg daily. Continue heparin drip. Continue low-dose beta-britany. Recommend high intensity statin therapy. We discussed coronary angiography which has been recommended. Risks and benefits were discussed with him in detail. He was made aware that CT surgery is not available at this facility. There is no urgent indication for cardiac catheterization. This will likely be performed on Sunday. Keep n.p.o. after midnight. Echocardiogram is pending. 2. Repeat ECG. 3. Statin therapy: Recommend high intensity statin therapy and therefore atorvastatin will be increased to 40 mg daily given suspicion for ischemic heart disease. 4. Disposition: Cardiology will continue to follow. The patient's care has been discussed with the attending physician, Dr. Ng.
[2017-02-03 15:50] LABS: PARTIAL THROMBOPLASTIN RATIO 2.6
--- NOTE | 2017-02-03 18:35 | ECHOCARDIOGRAM REPORT ---
*NOTICE TO RECEIVING [employer] This information is strictly Confidential and protected under [place] law. [place] law prohibits you from making any further disclosure of this information unless further disclosure is expressly permitted by the written consent of the person to whom it pertains or is authorized by law. A general authorization for the release of medical or other information is not sufficient for this purpose. Hospital accepts no responsibility if the information is made available to any other person, INCLUDING THE PATIENT. Interpretation Summary * Name: ZEN MEDRANO Study Date: 02/03/2017 06:47 AM BP: 96/61 mmHg * Patient Location: [facility] [place] HR: 60 * : 1955 (M/d/yyyy) Gender: Male Height: 72 in * Age: 61 yrs Ethnicity: CA Weight: 238 lb * Ordering Physician: Jessika Palacios * Performed By: Carol Franco * * Reason For Study: CHEST PAIN * BSA: 2.3 m2 * -- Conclusions -- * 1. Normal left ventricular size and systolic function. EF 60-65%. No regional wall motion abnormalities. Mild left ventricular hypertrophy. * 2. Mildly dilated right ventricle with normal systolic function. * 3. No significant valvular abnormalities. * 4. Normal estimated right ventricular systolic pressure. * 5. No prior study available for comparison. Procedure Details * A complete two-dimensional transthoracic echocardiogram was performed (2D, M-mode, Doppler and color flow Doppler). Left Ventricle * Normal left ventricular size and systolic function. EF 60-65%. No regional wall motion abnormalities. Mild left ventricular hypertrophy. Right Ventricle * Mildly dilated right ventricle with normal systolic function. * The right ventricular systolic function is normal as assessed by tricuspid annular plane systolic excursion (TAPSE) (normal >1.5 cm). Atria * The left atrium is borderline dilated. * The right atrium is borderline dilated. * There is no evidence of atrial septal defect, but resolution does not allow assessment for a patent foramen ovale. Mitral Valve * The mitral valve is grossly normal. * There is no mitral valve stenosis. * Significant mitral regurgitation is absent. Tricuspid Valve * The tricuspid valve is not well visualized, but is grossly normal. * There is no tricuspid stenosis. * There is trace tricuspid regurgitation. Aortic Valve * The aortic valve is normal in structure and function. * The aortic valve is trileaflet. * No hemodynamically significant valvular aortic stenosis. * No aortic regurgitation is present. Pulmonic Valve * The pulmonary valve is inadequately visualized, but the Doppler data is adequate for interpretation. * There is no pulmonic valvular stenosis. * Trace pulmonic valvular regurgitation. Great Vessels * The aortic root is normal size. * Ascending aorta of normal dimension Pericardium/Pleural * There is no pericardial effusion. Great Vessels * Normal inferior vena cava size and collapsability with sniff indicates a normal right atrial pressure of 3 mmHg MMode 2D Measurements and Calculations IVSd 1.2 cm IVSs 2.0 cm LVIDd 4.7 cm LVIDs 3.1 cm LVPWd 1.0 cm LVPWs 1.8 cm IVS/LVPW 1.2 FS 34.9 % EDV(Teich) 102.0 ml ESV(Teich) 36.5 ml EF(Teich) 64.2 % EDV(cubed) 103.3 ml ESV(cubed) 28.5 ml EF(cubed) 72.5 % % IVS thick 62.1 % % LVPW thick 80.9 % LV mass(C)d 189.8 grams LV mass(C)dI 82.7 grams/m\S\2 LV mass(C)s 244.1 grams LV mass(C)sI 106.4 grams/m\S\2 SV(Teich) 65.4 ml SI(Teich) 28.5 ml/m\S\2 SV(cubed) 74.9 ml SI(cubed) 32.6 ml/m\S\2 Ao root diam 3.7 cm Ao root area 10.6 cm\S\2 ACS 1.9 cm LA dimension 3.6 cm asc Aorta Diam 3.6 cm LA/Ao 0.98 LVOT diam 2.2 cm LVOT area 3.8 cm\S\2 LVAd ap4 34.0 cm\S\2 LVLd ap4 8.7 cm EDV(MOD-sp4) 106.6 ml EDV(sp4-el) 113.1 ml LVAs ap4 18.7 cm\S\2 LVLs ap4 7.4 cm ESV(MOD-sp4) 39.6 ml ESV(sp4-el) 40.1 ml EF(MOD-sp4) 62.9 % EF(sp4-el) 64.5 % SV(MOD-sp4) 67.1 ml SI(MOD-sp4) 29.2 ml/m\S\2 SV(sp4-el) 72.9 ml SI(sp4-el) 31.8 ml/m\S\2 Doppler Measurements and Calculations MV E max varinder 96.0 cm/sec MV A max varinder 89.2 cm/sec MV E/A 1.1 MV dec time 0.24 sec Ao V2 max 116.4 cm/sec Ao max PG 5.4 mmHg Ao max PG (full) 2.1 mmHg DINORA(V,A) 3.0 cm\S\2 DINORA(V,D) 3.0 cm\S\2 LV V1 max PG 3.3 mmHg LV V1 max 91.5 cm/sec TV E max varinder 52.2 cm/sec PA V2 max 65.2 cm/sec PA max PG 1.7 mmHg TR max varinder 227.7 cm/sec RVSP(TR) 23.8 mmHg RAP systole 3.0 mmHg
[2017-02-03 18:39] LABS: BLOOD UREA NITROGEN 20 mg/dl (7-18); CALCIUM 8.4 mg/dl (8.5-10.1); CARBON DIOXIDE 25 mmol/L (21-32); CHLORIDE 107 mmol/L (98-107); GLUCOSE 106 mg/dl (70-99); SODIUM 141 mmol/L (136-145)
[2017-02-03] MEDS: CLONAZEPAM 1 MG TAB PO SCH (20:44)
[2017-02-03] MEDS: QUETIAPINE FUMARATE 100 MG TAB PO SCH (20:46)
[2017-02-03] MEDS: GABAPENTIN 600 MG TAB PO SCH (20:48)
[2017-02-04] VITALS (9 sets, daily range): BP systolic 110–138; BP diastolic 64–79; PULSE 62–70; TEMP 36.5–36.9; O2SAT 94–99
[2017-02-04] MEDS: HEPARIN 25,000 UNIT/500ML D5W 500 ML IV PRN ×2 (00:46→17:45)
[2017-02-04] MEDS: NITROGLYCERIN OINT 2% 1GM PACKET EXT SCH ×4 (01:37→19:00)
[2017-02-04 06:21] LABS: BASO % 0.5 %; BASO ABS # 0.03 K/uL (0-0.2); COMPLETE YES; EOS % 4.9 %; HEMATOCRIT 39.3 % (42-52); IG% 0.2 %; LYMPH % 36.6 %; LYMPH ABS # 2.24 K/uL (1.2-3.4); MEAN CELL VOLUME 86.2 fL (80-100); MEAN CORPUSCULAR HEMOGLOBIN 28.1 pg (25-34); MEAN CORPUSCULAR HGB CONC 32.6 g/dl (32-36); MEAN PLATELET VOLUME 11.2 fL (7.4-10.4); MONO % 17.8 %; PLATELET COUNT 275 K/uL (130-400); RED BLOOD COUNT 4.56 M/uL (4.7-6.1); WHITE BLOOD COUNT 6.12 K/uL (4.8-10.8)
[2017-02-04 06:39] LABS: PARTIAL THROMBOPLASTIN RATIO 2.7
[2017-02-04 06:54] LABS: BUN/CREATININE RATIO 17.5 (10-20); CALCIUM 8.6 mg/dl (8.5-10.1); POTASSIUM 4.1 mmol/L (3.5-5.1)
[2017-02-04] MEDS: ASPIRIN 81 MG ECTAB PO SCH (07:40)
[2017-02-04] MEDS: FLUOXETINE HCL 20 MG CAP PO SCH (07:41)
[2017-02-04] MEDS: ATORVASTATIN 20 MG TAB PO SCH (07:41)
[2017-02-04] MEDS: METOPROLOL TARTRATE 25 MG TAB PO SCH ×2 (07:41→21:19)
--- NOTE | 2017-02-04 10:56 | CARDIOLOGY PROGRESS NOTE ---
DATE: 02/04/2017 TIME: 10:12 a.m. SUBJECTIVE: Mr. Lewis denies any further chest pain. He did have a headache and the nitro paste was removed and his headache did resolve. He denies shortness of breath, syncope, near syncope, or palpitations. He denies bleeding such as melena, hematochezia, hematuria. OBJECTIVE: VITAL SIGNS: Temperature 36.8 degrees, heart rate 70 beats per minute, respiration rate 18, blood pressure 138/79 mmHg. Oxygen saturation 99% on room air, weight 102.9 kg. GENERAL: No acute distress. He is alert. NECK: No appreciable JVD. CARDIAC EXAM: No ventricular heave. Normal S1, S2, regular. No murmurs, rubs, or gallops. LUNGS: Clear to auscultation bilaterally without wheezes, rales or rhonchi. ABDOMEN: Soft, nontender, nondistended. Normoactive bowel sounds. EXTREMITIES: No cyanosis or edema. No palpable cords. PSYCHIATRIC: Affect appears appropriate. MEDICATIONS: Include aspirin 81 mg daily, atorvastatin 40 mg daily, heparin drip per protocol, metoprolol tartrate 12.5 mg p.o. b.i.d. ECG performed this morning personally reviewed. Sinus bradycardia at 59 beats per minute. Otherwise normal ECG. Echocardiogram performed yesterday demonstrated normal LV size, systolic function. EF 60-65%. Normal wall motion. Mild LVH. Mild RV dilation with normal systolic function. No significant valvular abnormalities. Normal estimated right ventricular systolic pressure. Telemetry personally reviewed. No arrhythmia. ASSESSMENT AND PLAN: 1. Acute non-ST elevation myocardial infarction: Peak troponin was slightly over 1. No wall motion abnormalities on echo. Unremarkable ECG. No further anginal symptoms. Continue aspirin 81 mg daily. Continue heparin drip. Continue high intensity statin therapy and beta britany as tolerated. Coronary angiography planned tentatively for tomorrow. No urgent indication for coronary angiography as he has been chest pain free. 2. Statin therapy: Continue high intensity statin therapy. 3. Headache: likely secondary from the nitrate therapy. The headache has resolved with discontinuation of the nitrate therapy. 4. Disposition: Cardiology will continue to follow. Cardiology care will be resumed by Dr. Arshad, who did the initial consultation on the day of admission.
--- NOTE | 2017-02-04 11:23 | Hospitalist Progress Note ---
Hospitalist Progress Note Date of Service Feb 04, 2017. Subjective Pt evaluation today including: conversation w/ patient, physical exam, chart review Voiding: no voiding problems Respiratory: No cough, No dyspnea at rest, No dyspnea on exertion, No hemoptysis, No problem reported, No see HPI, No shortness of breath, No sputum, No wheezing Cardiovascular: No PND, No chest pain, No claudication, No edema, No orthopnea, No palpitations, No problem reported, No see HPI Abdomen: No GI bleeding, No constipation, No diarrhea, No nausea, No pain, No problem reported, No see HPI, No vomiting Neurologic: No balance problems, No memory loss, No numbness/tingling, No paralysis, No problem reported, No see HPI, No vertigo, No weakness Medications Medications (Trade) Dose Ordered Sig/James Route Start Time Stop Time Status Last Admin Dose Admin Atorvastatin Calcium (Lipitor Tab) 20 mg QAM PO 02/03/17 09:00 02/03/17 11:57 DC 02/03/17 07:36 20 MG Aspirin (Ecotrin Tab) 81 mg QAM PO 02/03/17 09:00 03/05/17 08:59 02/03/17 07:34 81 MG Fluoxetine HCl (Prozac Cap) 40 mg DAILY PO 02/03/17 09:00 03/05/17 08:59 02/03/17 07:37 40 MG Objective Vital Signs Date Time Temp Pulse Resp B/P Pulse Ox O2 Delivery O2 Flow Rate FiO2 02/04/17 04:00 94 Room Air 02/04/17 03:47 36.6 68 18 128/64 94 Room Air 02/04/17 00:01 94 Room Air 02/04/17 00:00 36.5 64 18 127/66 94 Room Air 02/03/17 20:00 93 Room Air 02/03/17 19:32 36.6 74 16 128/67 93 Room Air 02/03/17 16:00 Room Air 02/03/17 15:36 36.6 68 16 122/72 95 Room Air 02/03/17 12:00 Room Air 02/03/17 11:29 36.7 76 16 110/74 98 02/03/17 08:00 96 Room Air 02/03/17 07:55 36.8 72 18 131/69 96 Physical Exam General Appearance: WD/WN, no apparent distress, + mild distress Eyes: PERRL, EOMI ENT: normal ENT inspection, hearing grossly normal Neck: supple, no adenopathy, thyroid normal Respiratory/Chest: chest non-tender, lungs clear Cardiovascular: regular rate, rhythm, no edema, no gallop, no JVD, no murmur Abdomen: normal bowel sounds, non tender, soft, no organomegaly Extremities: normal range of motion Neurologic/Psychiatric: county records management officer II-XII nml as tested Laboratory Results Last 24 Hours Test 02/03/17 15:24 02/03/17 17:50 02/03/17 18:53 02/03/17 22:15 Activated Partial Thromboplast Time 66.3 SECONDS Partial Thromboplastin Ratio 2.6 Sodium Level 141 mmol/L Potassium Level mmol/L 4.1 mmol/L Chloride Level 107 mmol/L Carbon Dioxide Level 25 mmol/L Anion Gap 9.0 mmol/L Blood Urea Nitrogen 20 mg/dl Creatinine 1.10 mg/dl Est Creatinine Clear Calc Drug Dose 85.4 ml/min Estimated GFR () 82.4 Estimated GFR (Non- 71.1 BUN/Creatinine Ratio 18.0 Random Glucose 106 mg/dl Calcium Level 8.4 mg/dl Troponin I 0.419 ng/ml Test 02/04/17 05:20 White Blood Count 6.12 K/uL Red Blood Count 4.56 M/uL Hemoglobin 12.8 g/dL Hematocrit 39.3 % Mean Corpuscular Volume 86.2 fL Mean Corpuscular Hemoglobin 28.1 pg Mean Corpuscular Hemoglobin Concent 32.6 g/dl Platelet Count 275 K/uL Mean Platelet Volume 11.2 fL Neutrophils (%) (Auto) 40.0 % Lymphocytes (%) (Auto) 36.6 % Monocytes (%) (Auto) 17.8 % Eosinophils (%) (Auto) 4.9 % Basophils (%) (Auto) 0.5 % Neutrophils # (Auto) 2.45 K/uL Lymphocytes # (Auto) 2.24 K/uL Monocytes # (Auto) 1.09 K/uL Eosinophils # (Auto) 0.30 K/uL Basophils # (Auto) 0.03 K/uL RDW Standard Deviation 45.6 fL RDW Coefficient of Variation 14.5 % Immature Granulocyte % (Auto) 0.2 % Immature Granulocyte # (Auto) 0.01 K/uL Activated Partial Thromboplast Time 69.6 SECONDS Partial Thromboplastin Ratio 2.7 Sodium Level 142 mmol/L Potassium Level 4.1 mmol/L Chloride Level 107 mmol/L Carbon Dioxide Level 27 mmol/L Anion Gap 8.0 mmol/L Blood Urea Nitrogen 18 mg/dl Creatinine 1.00 mg/dl Est Creatinine Clear Calc Drug Dose 93.8 ml/min Estimated GFR () 92.4 Estimated GFR (Non- 79.7 BUN/Creatinine Ratio 17.5 Random Glucose 97 mg/dl Calcium Level 8.6 mg/dl Diagnostic Results * Name: ZEN MEDRANO Study Date: 02/03/2017 06:47 AM BP: 96/61 mmHg * Patient Location: [facility] [place] HR: 60 * : 1955 (M/d/yyyy) Gender: Male Height: 72 in * Age: 61 yrs Ethnicity: NM Weight: 238 lb * Ordering Physician: Jessika Palacios * Performed By: Carol Franco * * Reason For Study: CHEST PAIN * BSA: 2.3 m2 * -- Conclusions -- * 1. Normal left ventricular size and systolic function. EF 60-65%. No regional wall motion abnormalities. Mild left ventricular hypertrophy. * 2. Mildly dilated right ventricle with normal systolic function. * 3. No significant valvular abnormalities. * 4. Normal estimated right ventricular systolic pressure. * 5. No prior study available for comparison. Procedure Details * A complete two-dimensional transthoracic echocardiogram was performed (2D, M-mode, Doppler and color flow Doppler). Left Ventricle * Normal left ventricular size and systolic function. EF 60-65%. No regional wall motion abnormalities. Mild left ventricular hypertrophy. Right Ventricle * Mildly dilated right ventricle with normal systolic function. * The right ventricular systolic function is normal as assessed by tricuspid annular plane systolic excursion (TAPSE) (normal >1.5 cm). Atria * The left atrium is borderline dilated. * The right atrium is borderline dilated. * There is no evidence of atrial septal defect, but resolution does not allow assessment for a patent foramen ovale. Mitral Valve * The mitral valve is grossly normal. * There is no mitral valve stenosis. * Significant mitral regurgitation is absent. Tricuspid Valve * The tricuspid valve is not well visualized, but is grossly normal. * There is no tricuspid stenosis. * There is trace tricuspid regurgitation. Aortic Valve * The aortic valve is normal in structure and function. * The aortic valve is trileaflet. * No hemodynamically significant valvular aortic stenosis. * No aortic regurgitation is present. Pulmonic Valve * The pulmonary valve is inadequately visualized, but the Doppler data is adequate for interpretation. * There is no pulmonic valvular stenosis. * Trace pulmonic valvular regurgitation. Great Vessels * The aortic root is normal size. * Ascending aorta of normal dimension Pericardium/Pleural * There is no pericardial effusion. Great Vessels * Normal inferior vena cava size and collapsability with sniff indicates a normal right atrial pressure of 3 mmHg Assessment and Plan CP right sided, No prior cardiac history. Pt remains CP free. Troponins peaked at 1.[address] chest is neg for PE EKG with no acute STT changes. Venous dopplers of LEs is neg. for DVT. Will continue with NTG paste, ASA, Heparin gtt, statin, Spoke with Cardiology- OK to start POs. TTE results noted. For c.cath on Sunday NPO x MN.
[2017-02-04] MEDS: CLONAZEPAM 1 MG TAB PO SCH (21:18)
[2017-02-04] MEDS: QUETIAPINE FUMARATE 100 MG TAB PO SCH (21:18)
[2017-02-04] MEDS: GABAPENTIN 600 MG TAB PO SCH (21:18)
[2017-02-05] VITALS (17 sets, daily range): BP systolic 107–131; BP diastolic 58–81; PULSE 54–69; TEMP 36.6–36.7; O2SAT 90–98
[2017-02-05] MEDS: NITROGLYCERIN OINT 2% 1GM PACKET EXT SCH ×4 (01:00→19:41)
[2017-02-05 06:27] LABS: BASO % 0.5 %; BASO ABS # 0.03 K/uL (0-0.2); COMPLETE YES; EOS % 5.1 %; HEMATOCRIT 40.3 % (42-52); IG% 0.2 %; LYMPH % 36.3 %; LYMPH ABS # 2.34 K/uL (1.2-3.4); MEAN CELL VOLUME 85.9 fL (80-100); MEAN CORPUSCULAR HEMOGLOBIN 28.8 pg (25-34); MEAN CORPUSCULAR HGB CONC 33.5 g/dl (32-36); MEAN PLATELET VOLUME 11.1 fL (7.4-10.4); MONO % 15.5 %; NEUT % 42.4 %; PLATELET COUNT 270 K/uL (130-400); RED BLOOD COUNT 4.69 M/uL (4.7-6.1); WHITE BLOOD COUNT 6.45 K/uL (4.8-10.8)
[2017-02-05 06:44] LABS: PARTIAL THROMBOPLASTIN RATIO 2.4
[2017-02-05 06:54] LABS: BUN/CREATININE RATIO 13.2 (10-20); CALCIUM 8.5 mg/dl (8.5-10.1); CREATININE 1.1 mg/dl (0.60-1.40); POTASSIUM 3.7 mmol/L (3.5-5.1)
[2017-02-05] MEDS: ATORVASTATIN 20 MG TAB PO SCH (07:19)
[2017-02-05] MEDS: ASPIRIN 81 MG ECTAB PO SCH (07:19)
[2017-02-05] MEDS: FLUOXETINE HCL 20 MG CAP PO SCH (07:20)
--- NOTE | 2017-02-05 07:57 | CARDIOLOGY CONSULTATION ---
DATE OF CONSULTATION: 02/02/2017 REFERRING PHYSICIAN: Alejandra Costa MD CHIEF COMPLAINT: Chest pain. HISTORY OF PRESENT ILLNESS: Mr. Julius Lewis is a 61-year-old gentleman without a known history of cardiac disease who yesterday noticed the onset of right-sided chest discomfort while he was working on a tractor. These symptoms were described as an aching sensation in the precordial area, primarily right-sided without radiation to the neck or back. The symptoms themselves were associated with some mild shortness of breath but no significant diaphoresis. The patient did change his activity and went and rested. The symptoms themselves resolved over the course of an hour without any other intervention. The patient was asymptomatic until the following day where he experienced the same symptoms of chest discomfort and breathing difficulty while eating. These symptoms persisted and he presented to [facility] where he was administered nitroglycerin with relief. The patient denies symptoms of this nature in the past. He does have left-sided chest and arm discomfort that is described as a tingling or atypical type of pain. This has been present since a cerebrovascular accident. In general, the patient is fairly sedentary. He appears to be limited by his painful legs. He is able to perform routine activities without limiting dyspnea or chest discomfort but more significant activity is limited by pain in his knees and legs. He denies symptoms of orthopnea or paroxysmal nocturnal dyspnea. He is noted to snore by his but has no diagnosis of obstructive sleep apnea. He occasionally notices a brief palpitation which lasts for several seconds and is not associated with the other symptoms. It does not appear to be associated with activity. It has not changed recently and has episodes of dizziness. He has never suffered a syncopal episode. At the time of his interview, the patient is feeling comfortable. He is having no symptoms of chest discomfort. He has no dyspnea currently. PAST MEDICAL HISTORY: Significant for: 1. Cerebrovascular accident, possibly multiple. He is well cultured in nature and diagnosed only after advanced imaging and interview with a neurologist. 2. Anxiety and depression. 3. Neurologic pain. PAST SURGICAL HISTORY: Includes surgery on the right hand. OUTPATIENT MEDICATIONS: Include aspirin, clonazepam, fluoxetine, gabapentin and Seroquel. MEDICAL ALLERGIES: No known medical allergies. FAMILY HISTORY: He has a family history of coronary artery disease but no premature coronary disease. 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 He has a history of tobacco abuse where he occasionally smokes a cigarette but does use smokeless tobacco as well. He denies significant alcohol use. REVIEW OF SYSTEMS: A complete 10-system review of systems was performed and the pertinent positives noted in the history of present illness. He denied any additional constitutional symptoms recently, such as fevers or chills or fatigue. He has not noticed any swelling in his lower extremities. He does report perhaps some weight gain and maybe increasing abdominal girth but this is over an extended period of time. He denies any change in his eating habits, bowel habits or bladder habits. The remainder of the review of systems was negative. PHYSICAL EXAMINATION: GENERAL: The patient does not appear to be in acute distress. He is a pleasant individual who is alert and oriented. His mood and affect appear normal. He answered all questions appropriately. VITAL SIGNS: Include blood pressure 160/82, his pulse was 99. HEENT: His sclerae are anicteric. Pupils are equal, reactive to light and accommodation. Extraocular movements were intact. Palpation of submandibular region did not reveal any significant lymphadenopathy. NECK: The carotids are palpable bilaterally. I do not appreciate any bruits on auscultation. There is no evidence of jugular venous distention. The thyroid is not enlarged. LUNGS: Auscultation of both lung lima reveal them to be clear. There were no rales, wheezes or rhonchi. He had normal respiratory effort without use of accessory muscles. CARDIAC: Revealed him to be in a regular rate and rhythm. S1 and S2 were normal. There were no murmurs on auscultation. PMI was not markedly displaced on palpation. ABDOMEN: Soft and nontender and slightly obese. EXTREMITIES: Evaluation of both wrists revealed radial pulses that are equal in intensity. There is no evidence of cyanosis or clubbing. Evaluation of lower extremities did not reveal any significant peripheral edema. SKIN: I do not appreciate any rashes on examination today. LABORATORY STUDIES: Include a white cell count of 7.1, hemoglobin of 13 and platelet count was 282. Sodium was 140, potassium was 3.7, BUN was 18, creatinine was 1.1. Liver function tests were normal. Troponin was 0.44, total CK was 221. A 12-lead EKG was obtained at the time of admission which revealed the patient to be in a sinus rhythm with no significant ST or T-wave changes. Single-view chest x-ray was also obtained which was reportedly normal. There was some interstitial thickening but no consolidation. ASSESSMENT AND PLAN: 1. Non-ST elevation myocardial infarction. The patient had relatively atypical chest pain symptoms with an elevation in his cardiac biomarkers, likely reflecting some ischemia from yesterday's event. He has some risk factors for coronary disease to include a history of cerebrovascular accident and tobacco abuse. His EKG is normal, maybe he is currently symptom free. It would seem reasonable at this point to treat him like an acute coronary syndrome based on the atypical nature of his symptoms. The possibility of pulmonary embolus is also being entertained. The patient has been placed on heparin infusion and he did receive aspirin. He has also been administered beta britany. At this point, given his hemodynamic stability and absence of additional symptoms, it seems reasonable to trend his biomarkers and consider coronary angiography for additional evaluation in the absence of an alternate etiology such as pulmonary embolus. 2. Tobacco abuse. The patient will be counseled regarding the need to discontinue tobacco use. FINAL RECOMMENDATIONS: 1. Continue heparin infusion for 48-72 hours. 2. Continue daily aspirin therapy. 3. Daily beta britany therapy. 4. Recommend institution of antilipid therapy according to current guidelines, certainly high dose of atorvastatin in the presence of suspected ACS and absence of pulmonary embolus. 5. Discontinue tobacco. 6. In the absence of pulmonary embolus will evaluate for etiology for elevations in troponin. Consider coronary angiography for additional diagnosis and potential therapy.
[2017-02-05] MEDS: HEPARIN 25,000 UNIT/500ML D5W 500 ML IV PRN (10:27)
[2017-02-05] MEDS: METOPROLOL TARTRATE 25 MG TAB PO SCH ×2 (10:45→21:09)
--- NOTE | 2017-02-05 10:57 | CARDIOLOGY PROGRESS NOTE ---
DATE: 02/05/2017 SUBJECTIVE: This morning, Mr. Lewis claims to be feeling well. He has no recurrent symptoms of chest discomfort. He denies significant breathing difficulty and has had no noticeable palpitations. He has not had any dizziness or lightheadedness. He has been ambulatory around the room without symptoms. PHYSICAL EXAMINATION: GENERAL: He was alert and oriented. His mood and affect appeared normal. He answered all questions appropriately. CURRENT VITAL SIGNS: Include a blood pressure 122/74 with a pulse of 65. HEENT: Sclerae anicteric. LUNGS: Auscultation of both lung lima reveals them to be clear. He had good air movement. CARDIAC: Revealed him to be in a regular rhythm without murmurs. LABORATORY STUDIES: Obtained today include a white cell count of 6.4, hemoglobin of 13.5, and a platelet count of 270. Sodium is 143, potassium is 3.7, BUN was 15, creatinine was 1.1. ASSESSMENT AND PLAN: The patient did undergo echocardiography which revealed preserved left ventricular systolic function without significant valvular disease. ASSESSMENT AND PLAN: 1. Non-ST elevation myocardial infarction. Despite the patient's atypical symptoms, he did have elevation in his cardiac biomarkers. He did have some risk factors of cardiac disease, and would seem reasonable to proceed with invasive evaluation. I did describe the risks, benefits and alternatives to cardiac angiography to the patient today and he is willing to proceed. He has been started on a standard regimen to consist of an aspirin and a beta britany as well as high dose atorvastatin. Will plan on additional therapy based on the results of his angiography.
[2017-02-05] MEDS ORDERED: NITROGLYCERIN/D5W 100MCG/ML 20ML SYR ONE (13:12)
[2017-02-05] MEDS ORDERED: FENTANYL CITRATE INJ 50 MCG/1 ML 2 ML VIAL ONE ×2 (13:12→13:59)
[2017-02-05] MEDS ORDERED: HEPARIN SOD (PORCINE) 1000 UNIT/ML 10 ML VIAL ONE (13:12)
[2017-02-05] MEDS ORDERED: MIDAZOLAM HCL 1 MG/ML 2ML VIAL ONE ×2 (13:12→14:23)
[2017-02-05] MEDS ORDERED: NiCARDipine HCL INJ 2.5 MG/ML 10 ML AMP ONE (13:12)
--- NOTE | 2017-02-05 13:38 | Procedure Note ---
Pre-Mod Sedation Assessment General Date of Moderate Sedation: Feb 05, 2017. Vital Signs: Vital Signs Past 12 Hours Date Time Temp Pulse Resp B/P Pulse Ox O2 Delivery O2 Flow Rate FiO2 02/05/17 12:00 Room Air 02/05/17 11:48 36.7 64 18 127/78 95 Room Air 02/05/17 08:00 Room Air 02/05/17 07:59 36.6 65 18 122/74 96 Room Air 02/05/17 05:20 36.6 54 16 118/58 95 Room Air 02/05/17 04:59 95 Room Air 02/05/17 04:00 54 16 118/58 94 Room Air Review Cardiovascular: regular rate, rhythm, no edema, no gallop, no JVD, no murmur, normal peripheral pulses Abdomen: non tender Lungs: lungs clear Pre-Sedation Airway Assessment Oral Cavity: Dentures Able to Visualize Vocal Cords: No Short Thick Neck: Yes Hx of Sleep Apnea: No Smoking Status: Current Every Day Smoker Mallampati Classification: Class III Procedure Planning Contraindications-for Mod Sed: None Yes Notes The planned sedation has been discussed with the patient and consent obtained. I have identified the patient, determined the appropriateness of sedation and have assessed the patient immediately prior to the procedure. All medicine(s) and interventions are by my order.
[2017-02-05] MEDS ORDERED: EPTIFIBATIDE 2 MG/ML 10 ML VIAL IV ONE (14:13)
[2017-02-05] MEDS ORDERED: EPTIFIBATIDE 0.75 MG/ML 75MG VIAL IV ONE (14:13)
[2017-02-05] MEDS ORDERED: CLOPIDOGREL BISULFATE 300 MG TAB PO ONE (14:14)
[2017-02-05] MEDS ORDERED: ONDANSETRON INJ 2 MG/ML 2 ML VIAL IV PRN (15:00)
[2017-02-05] MEDS ORDERED: ATROPINE SULFATE 0.1 MG/ML 5ML SYR IV PRN (15:00)
[2017-02-05] MEDS ORDERED: EPTIFIBATIDE BOLUS / DRIP IV ONE (15:00)
--- NOTE | 2017-02-05 15:02 | Procedure Note ---
Post-Mod Sedation Assessment General Date of Moderate Sedation Feb 05, 2017. Vital Signs: Vital Signs Past 12 Hours Date Time Temp Pulse Resp B/P Pulse Ox O2 Delivery O2 Flow Rate FiO2 02/05/17 14:48 65 16 141/87 98 Room Air 02/05/17 14:43 65 16 153/87 98 Room Air 02/05/17 14:38 63 16 121/62 98 Room Air 02/05/17 14:33 65 16 110/56 98 Room Air 02/05/17 12:00 Room Air 02/05/17 11:48 36.7 64 18 127/78 95 Room Air 02/05/17 08:00 Room Air 02/05/17 07:59 36.6 65 18 122/74 96 Room Air 02/05/17 05:20 36.6 54 16 118/58 95 Room Air 02/05/17 04:59 95 Room Air 02/05/17 04:00 54 16 118/58 94 Room Air Review - Discharge Criteria Vital Signs Stable: Yes Alert/Oriented/Conversant: Yes Returned to Baseline Mental St: Yes Nausea Absent/Minimal: Yes Pain/Discomfort/Absent/Minimal: Yes Normal/Baseline Respirations: Yes Active Bleeding?: No Pt Received D/C Instructions: N/A Prescriptions Given: None Specific Proced. D/C Criteria Distal Pulses Present (Cardiac: Yes Groin site assessed-Card Cath: N/A Voided Prior To Discharge: N/A Discharged Patients Adult Escort/Transportation: N/A
[2017-02-05] MEDS: SODIUM CHLORIDE 0.9% 1000ML 1,000 ML IV SCH ×2 (15:37→21:38)
[2017-02-05 15:45] LABS: BASO % 0.5 %; BASO ABS # 0.04 K/uL (0-0.2); HEMATOCRIT 40.6 % (42-52); IG% 0.1 %; LYMPH % 26.8 %; LYMPH ABS # 2.26 K/uL (1.2-3.4); MEAN CELL VOLUME 83.9 fL (80-100); MEAN CORPUSCULAR HEMOGLOBIN 28.1 pg (25-34); MEAN PLATELET VOLUME 10.7 fL (7.4-10.4); MONO % 12.8 %; NEUT % 55.8 %; PLATELET COUNT 315 K/uL (130-400); RED BLOOD COUNT 4.84 M/uL (4.7-6.1); WHITE BLOOD COUNT 8.44 K/uL (4.8-10.8)
[2017-02-05 17:03] LABS: COMPLETE YES; MEAN CORPUSCULAR HGB CONC 33.5 g/dl (32-36)
--- NOTE | 2017-02-05 17:14 | Cardiac Catheterization ---
Procedure Note Procedure Date Feb 05, 2017. Pre-Procedure Diagnosis Non STEMI AUC Score 7 Post-Procedure Diagnosis Severe CAD, Successful PCI, Elevated Intracardiac Pressures Procedure(s) Performed Coronary Angiography, Left Heart Cath, PTCA, Drug Eluting Stent Portfolio Analyst Dr. Madison Music Orchestrator(s) Moy Fletcher, RTR Estimated Blood Loss 30 ml Medication(s) Clopidogrel (600 mg PO post PCI), Fentanyl, Heparin, Integrilin, Nicardipine ( Intra arterial and intracoronary), Versed, Lidocaine 1% Summary of Findings Clinical indications: Non ST elevation myocardial infarction. Catheterization site: 6 [place] slender glide sheath right radial artery. Diagnostic catheter: 5 [place] brachial 3.5 diagnostic catheter. Interventional equipment: 6 [place]ian JR4 guide catheter,Lyles Xience 4 X 23 mm drug-eluting stent,Lyles 4.5 X 12 mm NC Trek, [place] guidewire. Protocol: Following performance of diagnostic angiography PCI was performed. Left heart catheterization was performed using the brachial 3.5 diagnostic catheter. Intravenous heparin and Integrilin were given to achieve therapeutic activated clotting time. The stent was deployed in a direct fashion to the mid RCA at a pressure of 18 atmospheres for duration of 45 seconds. Three balloon inflations were performed with the noncompliant balloon to maximum pressure of 18 atmospheres and maximum duration of 18 seconds. Follow-up angiography was then performed from orthogonal projections with the guidewire in place and the guidewire withdrawn. Hemostasis: Terumo TR band. Complications: None. Findings: Fluoroscopy reveals mild coronary calcifications. The coronary circulation was right dominant. Large caliber left main without obstructive disease giving rise to medium caliber left anterior descending and left circumflex coronary arteries. The very proximal LAD had a 10-20% stenosis. It then gave rise to a small caliber 1st diagonal artery which had a 0-10% stenosis. It then gave rise to a small caliber 2nd diagonal artery which also had a 0-10% stenosis. The mid LAD had a 10-20% stenosis. The latter mid LAD gave rise to a small caliber 3rd diagonal artery. The distal LAD terminated at the apex as a very small caliber vessel. The very proximal left circumflex gave rise to a long small to medium caliber marginal artery. 20% proximal marginal stenosis. Following the origin of marginal circumflex became a very small caliber vessel. The mid circumflex gave rise to a very small caliber 2nd marginal artery. The right coronary was a large caliber vessel. Ostial and very proximal 30% stenosis. Could not exclude catheter-induced spasm. On final angiograms of the RCA there appeared to be a 20% ostial and proximal stenosis. The proximal RCA had a 20-30% stenosis. The mid RCA had a 90% eccentric and discrete lesion. Appearance of an ulcerated plaque. Associated thrombus. The distal RCA gave rise to a long small to medium caliber acute marginal artery with Lobo extensive inferior distribution. The distal RCA at 10 -20% stenosis. The distal RCA then gave rise to a small caliber and short posterior descending artery without obstructive disease. It then gave rise to a long medium caliber posterolateral artery which had 0-10% stenosis. JOSETTE 3 flow on diagnostic angiography. Following stent deployment the residual stenosis in the mid RCA was 0-10%. JOSETTE 3 flow. No dissection, thrombus, perforation, or distal embolic event. Plan: Intravenous Integrilin for 18 hours. Dual antiplatelet therapy for at least 1 year. Aspirin therapy indefinitely. AVA-inhibitor, beta-britany, and statin therapy. Hemodynamics Rest Ao: 122/70/92 mm Hg Final Ao: 124/72/93 mm Hg LV: 112/34 mm Hg Recommendations Medical therapy and/or Counseling, PCI without planned CABG Specimens None Radiation Exposure (mGy) 3032 Contrast (mls) 170 ml Visipaque Fluids (cc crystalloids) 115 Drains None Anesthesia IV versed,fentanyl. Lidocaine 1 % for local anesthesia. Procedural Complication(s) None Disposition PCU ACC Data Cardiac Status Clinical evaluation leading to the procedure CAD Presntation: Non STEMI Anginal Classification: CCS IV Heart Failure: No Cardiogenic Shock w/in 24Hrs: No Cardiac Arrest w/in 24Hrs: No Imaging studies past 6 months: Yes (Echocardiogram 02/03/17 with normal LV wall motion, LVEF 60-65%.) Stress studies past 6 months: No Standard Exercise Stress Test: No Stress Echocardiogram: No Stress Testing w/SPECT MPI: No Cardiac CTA: No Coronary Anatomy Dominant: Right Left Main (% Stenosis): Normal LAD (% Stenosis): Proximal (10-20), Mid (10-20) D1 (% Stenosis): Proximal (0-10), Mid (0-10) D2 (% Stenosis): Proximal (0-10), Mid (0-10) OM1 (% Stenosis): Proximal (20) OM2 (% Stenosis): Normal RCA (% Stenosis): Ostial (20), Proximal (20,20-30), Mid (Discrete,eccentric 90 % bracketed by 30% stenoses), Distal (10-20) R PDA (% Stenosis): Normal R PL1 (% Stenosis): Proximal (0-10) AM (% Stenosis): Normal Left Ventricular Angiography EF (%): NA Diagnostic Physician's Name: Ronny Madison M.D. Status: Elective Closure Device Percutaneous Entry Location: Radial Closure Device: Radial Band Recommendations: Medical therapy and/or Counseling, PCI without planned CABG PCI Indication: PCI for high risk Non-STEMI Lesion Segment Name: Mid RCA Culprit Artery: Yes Stenosis Prior to Rx (%): 90 Chronic Total Occlusion: No IVUS: No FFR: No Pre-Procedure OJSETTE Flow: 3 Lesion Complexity: Non-High/Non-C Lesion Length (mm): 19 Thrombus Present: Yes Bifurcation Lesion: No Guidewire Across Lesion: Yes Guidewire: Stenosis Post-Procedure (%): 0-10 Post-Procedure JOSETTE Flow: 3 Device(s) Deployed: Yes Type of Device(s): Xience 4 X 23 mm ANDREINA. Post dilated with 4.5 X 12 mm NC balloon. Intraprocedure Events Significant Dissection: No Perforation: No
--- NOTE | 2017-02-05 18:55 | Progress Note ---
Subjective Date of Service: Feb 05, 2017. Subjective Pt evaluation today including: conversation w/ patient, physical exam, chart review, lab review, review of inpatient medication list feeling good no chest pain post cath notes fairly poor eating habits fairly nil exercise habits has trouble w OA of knees but willing to make changes minimal but (+) tobacco use (smoking but not daily) believes should be easy to quit that totally Problem List Medical Problems: (1) Acute coronary syndrome Status: Acute Review of Systems ros otherwise negative except for as above Objective Vital Signs Date Time Temp Pulse Resp B/P Pulse Ox O2 Delivery O2 Flow Rate FiO2 02/05/17 18:00 66 20 112/67 93 Room Air 02/05/17 17:00 67 18 120/76 94 Room Air 02/05/17 16:30 58 16 107/78 92 Room Air 02/05/17 16:05 98 Room Air 02/05/17 16:00 69 20 131/76 94 Room Air 02/05/17 15:45 68 17 112/71 90 Room Air 02/05/17 15:30 116/72 02/05/17 15:15 67 20 119/65 92 Room Air 02/05/17 14:48 65 16 141/87 98 Room Air 02/05/17 14:43 65 16 153/87 98 Room Air 02/05/17 14:38 63 16 121/62 98 Room Air 02/05/17 14:33 65 16 110/56 98 Room Air 02/05/17 12:00 Room Air 02/05/17 11:48 36.7 64 18 127/78 95 Room Air 02/05/17 08:00 Room Air 02/05/17 07:59 36.6 65 18 122/74 96 Room Air 02/05/17 05:20 36.6 54 16 118/58 95 Room Air 02/05/17 04:59 95 Room Air 02/05/17 04:00 54 16 118/58 94 Room Air 02/05/17 00:01 Room Air 02/04/17 23:04 36.6 62 18 110/64 95 Room Air 02/04/17 20:00 Room Air 02/04/17 18:55 36.8 64 18 138/70 97 Room Air Physical Exam General Appearance: no apparent distress Eyes: EOMI ENT: hearing grossly normal Neck: trachea midline Respiratory/Chest: no respiratory distress, no accessory muscle use Neurologic/Psychiatric: recovery agent II-XII nml as tested, alert, normal mood/affect Skin: normal color, warm/dry Laboratory Results Last 24 Hours Test 02/05/17 05:08 02/05/17 08:07 02/05/17 14:06 02/05/17 14:34 White Blood Count 6.45 K/uL Red Blood Count 4.69 M/uL Hemoglobin 13.5 g/dL Hematocrit 40.3 % Mean Corpuscular Volume 85.9 fL Mean Corpuscular Hemoglobin 28.8 pg Mean Corpuscular Hemoglobin Concent 33.5 g/dl Platelet Count 270 K/uL Mean Platelet Volume 11.1 fL Neutrophils (%) (Auto) 42.4 % Lymphocytes (%) (Auto) 36.3 % Monocytes (%) (Auto) 15.5 % Eosinophils (%) (Auto) 5.1 % Basophils (%) (Auto) 0.5 % Neutrophils # (Auto) 2.74 K/uL Lymphocytes # (Auto) 2.34 K/uL Monocytes # (Auto) 1.00 K/uL Eosinophils # (Auto) 0.33 K/uL Basophils # (Auto) 0.03 K/uL RDW Standard Deviation 44.9 fL RDW Coefficient of Variation 14.3 % Immature Granulocyte % (Auto) 0.2 % Immature Granulocyte # (Auto) 0.01 K/uL Activated Partial Thromboplast Time 62.7 SECONDS Partial Thromboplastin Ratio 2.4 Sodium Level 143 mmol/L Potassium Level 3.7 mmol/L Chloride Level 107 mmol/L Carbon Dioxide Level 29 mmol/L Anion Gap 7.0 mmol/L Blood Urea Nitrogen 15 mg/dl Creatinine 1.10 mg/dl Est Creatinine Clear Calc Drug Dose 85.3 ml/min Estimated GFR () 82.4 Estimated GFR (Non- 71.1 BUN/Creatinine Ratio 13.2 Random Glucose 107 mg/dl Calcium Level 8.5 mg/dl 25-Hydroxy Vitamin D Total 18.3 ng/ml Kaolin Activated Coagulation Time 343 SECONDS 281 SECONDS Test 02/05/17 15:27 White Blood Count 8.44 K/uL Red Blood Count 4.84 M/uL Hemoglobin 13.6 g/dL Hematocrit 40.6 % Mean Corpuscular Volume 83.9 fL Mean Corpuscular Hemoglobin 28.1 pg Mean Corpuscular Hemoglobin Concent 33.5 g/dl Platelet Count 315 K/uL Mean Platelet Volume 10.7 fL Neutrophils (%) (Auto) 55.8 % Lymphocytes (%) (Auto) 26.8 % Monocytes (%) (Auto) 12.8 % Eosinophils (%) (Auto) 4.0 % Basophils (%) (Auto) 0.5 % Neutrophils # (Auto) 4.71 K/uL Lymphocytes # (Auto) 2.26 K/uL Monocytes # (Auto) 1.08 K/uL Eosinophils # (Auto) 0.34 K/uL Basophils # (Auto) 0.04 K/uL RDW Standard Deviation 44.5 fL RDW Coefficient of Variation 14.3 % Immature Granulocyte % (Auto) 0.1 % Immature Granulocyte # (Auto) 0.01 K/uL Assessment and Plan CAD w NSTEMI -med managmenet as ordered. discussed -lifestyle change discussed in depth -stable -hopefully home tomorrow
[2017-02-05] MEDS: EPTIFIBATIDE INJ 75 MG PREMIXED IV SCH (19:02)
[2017-02-05] MEDS: CLONAZEPAM 1 MG TAB PO SCH (21:05)
[2017-02-05] MEDS: GABAPENTIN 600 MG TAB PO SCH (21:07)
[2017-02-05] MEDS: QUETIAPINE FUMARATE 100 MG TAB PO SCH (21:07)
[2017-02-06 00:01] VITALS: O2SAT 98
[2017-02-06] MEDS: NITROGLYCERIN OINT 2% 1GM PACKET EXT SCH ×2 (01:00→07:00)
[2017-02-06] MEDS: EPTIFIBATIDE INJ 75 MG PREMIXED IV SCH ×2 (01:45→03:45)
[2017-02-06 04:00] VITALS: BP 111/71; PULSE 57; TEMP 36.5; O2SAT 94
[2017-02-06 05:57] LABS: PARTIAL THROMBOPLASTIN RATIO 1.2
[2017-02-06] MEDS: SODIUM CHLORIDE 0.9% 1000ML 1,000 ML IV SCH (06:34)
[2017-02-06 07:52] VITALS: BP 134/85; PULSE 70; TEMP 36.7; O2SAT 97
[2017-02-06] MEDS: ATORVASTATIN 20 MG TAB PO SCH (07:56)
[2017-02-06] MEDS: METOPROLOL TARTRATE 25 MG TAB PO SCH (07:56)
[2017-02-06] MEDS: FLUOXETINE HCL 20 MG CAP PO SCH (07:56)
[2017-02-06] MEDS: ASPIRIN 81 MG ECTAB PO SCH (07:56)
[2017-02-06] MEDS ORDERED: Integrelin infusion --> STOP ORDER ONE (08:00)
[2017-02-06] MEDS ORDERED: CLOPIDOGREL BISULFATE 75 MG TAB PO SCH (09:00)
[2017-02-06] MEDS ORDERED: ERGOCALCIFEROL 50,000 INTER.UNIT CAP PO SCH (09:00)
[2017-02-06] MEDS ORDERED: LISINOPRIL 5 MG TAB PO SCH (09:00)
[2017-02-06] MEDS ORDERED: ASPIRIN 81 MG ECTAB PO SCH (09:00)
[2017-02-06] MEDS ORDERED: CHOLECALCIFEROL 1000 INTER.UNIT TAB PO SCH (09:00)
[2017-02-06] MEDS ORDERED: LPT20 PO (10:28)
[2017-02-06] MEDS ORDERED: VTMD1000 PO (10:28)
[2017-02-06] MEDS ORDERED: LSN5 PO (10:28)
[2017-02-06] MEDS ORDERED: LPR25 PO (10:28)
[2017-02-06] MEDS ORDERED: PLV75 PO (10:28)
[2017-02-06] MEDS ORDERED: NTRGSL4 SL (10:28)
[2017-02-06] MEDS ORDERED: VTMD PO (10:28)
--- NOTE | 2017-02-06 10:42 | Discharge Instructions ---
Discharge Instructions Date of Service Feb 06, 2017. Admission Reason for Admission: Chest Pain Discharge Discharge Diagnosis / Problem: NSTEMI (small heart attack) Discharge Goals Goal(s): Improve disease control, Learn about illness, Diagnostic testing, Therapeutic intervention Activity Recommendations Activity Limitations: as noted below . Instructions / Follow-Up Instructions / Follow-Up our main goals here are what we'd call "secondary prevention" (ie - working as hard as we can to make sure this heart attack is your last) -meds -- as we discussed, meds alone are about 80% protective of you coming back with further problems // lifestyle changes alone are about 65% protective -- meaning (with a little "fudged math" that if you do everything right with lifestyle, and stick with your meds, there's about a 95% chance you won't be back! meds: aspirin and plavix (clopidogrel) -- these act as antiplatelet kind of blood thinners - when a heart attack happens, it's usually because a plaque in your coronary artery splits open, and your body reacts like you cut your finger -- by forming a clot -- so these meds act together to try to keep blood flowing through your coronaries. because of the stent, you'll likely need to be on both for at least a year. of course, with any blood thinner, there can be an increased risk of bleeding. if you have a cut or bleed that you can put pressure on, hold pressure continuously for 10 minutes. if it doesn't resolve with 10 minutes of pressure (or it's bleeding you can't put pressure on -- like pooping or vomiting blood) then come to the ER metoprolol - this is a blood pressure medicine in a class called beta blockers - it takes strain off your heart by slowing heart rate some and relaxing the heart muscle - reducing demand for blood flow. common side effects would be feeling weak/lightheaded or dizzy. if this happens, it usually goes away quickly as your body adapts to the meds; if it doesn't then dr blake or your clinical administrator might need to adjust things lisinopril - this is in a class of blood pressure meds called "david inhibitors" which reduces the production of a hormone that squeezes down the artery going to your kidneys. because kidneys take ~20% of all blood flow, meds like this can really reduce how hard your heart has to push, making far less demand on the heart wall. usually very well tolerated, about 1 out of 20 people will get an annoying dry cough (which stops if the med is stopped) and a very small percentage have kidneys that get upset at the lack of high pressure coming down the renal artery -- to screen for this we would want you to get labs (BMP) in about 1-2 weeks; however, for the huge majority of patients, having reduced pressure "banging" at their kidneys actually are quite protective. atorvastatin - this med serves two roles. "primary" risk reduction is that it will lower your cholesterol making you less quick to form new plaques/blockages ; "secondary" protection is that statin medicines (unlike other cholesterol meds ) actually stabilize the plaques that are already in your arteries, making the primary event of plaque rupture far less likely to happen lifestyle changes: -work towards a [facility] diet - heavy in fruits and vegetables, lean meats. low in saturated fats and simple/starchy/sugary carbs. as a fellow [facility], the bready and potatoey foods will probably be the toughest to get rid of. work on getting rid of the simple sugars like tea or cookies first, then work towards slowly eliminating the bread/potato type foods. as we discussed, eating something good doesn't undo the harm of eating something bad - so the overall goal is getting away from the lousy foods while adding in healthy ones -exercise - after cardiology gives you the "greenlight" we'll want you to work towards a goal of 30 minutes of light cardiovascular exercise a day. with your knees, something like a recumbent exercise bike is probably the best and easiest option -tobacco - smoking is SO corrosive on your arteries that everything above will be exceedingly less effective if you continue to smoke. since you're not smoking much and you're pretty sure it'll be easy to quit - we'd recommend you never smoke again. if you're having trouble quitting, talk more with dr blake about options to help "mariana" harpal sun instructions: Home Care: * Take your medications exactly as directed. Don't skip doses. * Remember that recovery after a heart attack takes time. Plan to rest for at lease 4-8 weeks while you recover. Then return to normal activity when your doctor says it's okay. * Ask your doctor about joining a heart rehabilitation program. * Tell your doctor if you are feeling depressed. Feelings of sadness are common after a heart attack, but it is important that you speak to someone if you are feeling overwhelmed by these feelings. * If you are having chest pain, call 911 for an ambulance. Do NOT drive yourself to the hospital. * Ask your family members to learn CPR. * Learn to take your own blood pressure and pulse. Keep a record of your results. Ask your doctor when you should seek emergency medical attention. He or she will tell you which blood pressure reading is dangerous. Lifestyle Changes: * Maintain a healthy weight. Get help to lose any extra pounds. * Cut back on salt. * Limit canned, dried, packaged, and fast foods. * Don't add salt to your food. * Season foods with herbs instead of salt when you cook. * Break the smoking habit. Enroll in a stop-smoking program to improve your chances of success. * Limit fatty foods. * Check your lipid levels regularly. (Your doctor can show you how to do this.) * Build up your activity according to your doctor's recommendation. * Ask your doctor when it's okay to resume sexual activity. * Tell your doctor about any erectile dysfunction (ED) medication you are taking. Some ED medications are not safe if you take certain heart medications. * Try to manage stress. Follow Up: It is important for you to keep your follow up appointments with your medical provider. Current Hospital Diet Patient's current hospital diet: AHA Diet (Heart Healthy) Discharge Diet Recommended Diet: AHA Diet (Heart Healthy) (as we discussed - move to a "mediterannean" kind of diet - really heavy in fruits and vegetables, lean meats. low in saturated "bad" fats and low in sugary/starchy "bad" carbs) Pending Studies Studies pending at discharge: no Laboratory Results Hemoglobin A1c Test 02/03/17 06:10 Range/Units Estimated Average Glucose 123 mg/dl Hemoglobin A1c 5.9 H 4.5-5.6 % Lipid Panel Test 02/03/17 06:10 Range/Units Triglycerides Level 101 0-150 mg/dl Cholesterol Level 142 0-200 mg/dl HDL Cholesterol 44 mg/dl Cholesterol/HDL Ratio 3.2 LDL Cholesterol, Calculated 78 mg/dl Medical Emergencies . Who to Call and When: Medical Emergencies: If at any time you feel your situation is an emergency, please call 911 immediately. Call 911 immediately or go to your nearest Emergency Room if you experience any of the following: Warning Signs and Symptoms of a Heart Attack * Chest pain that is not relieved by medication * Shortness of breath . Non-Emergent Contact Non-Emergency issues call your: Primary Care Provider, Slack Cooper . . "Provider Documentation" section prepared by Andre Gomes. AMI Core Measures Reason no ASA as I/P: Treatment provided - N/A Reason no ASA at D/C: Treatment provided - N/A Reason no statin as I/P: Treatment provided - N/A Reason no statin at D/C: Treatment provided - N/A VTE Core Measure Inpt VTE Proph given/why not?: Other Anticoagulation, T.E.D. Stockings, SCD's
[2017-02-06 11:22] VITALS: BP 134/85; PULSE 70; TEMP 36.7; O2SAT 97
--- NOTE | 2017-02-06 14:51 | CARDIOLOGY PROGRESS NOTE ---
DATE: 02/06/2017 SUBJECTIVE: This morning, Mr. Lewis claims to be feeling good. He has been ambulatory around his room without difficulties. No recurrent chest discomfort, no significant shortness of breath, no pain in his wrist or right arm. PHYSICAL EXAMINATION: GENERAL: He is alert and oriented. His mood and affect appear normal. VITAL SIGNS: Include blood pressure of 138/85 with pulse of 70. HEENT: Sclerae are anicteric. LUNGS: Auscultation of lungs reveal the reveals them to be clear. CARDIAC EXAMINATION: Revealed him to be in regular rate and rhythm. I did not appreciate any murmurs on exam. EXTREMITIES: Evaluation of his right wrist revealed good radial pulse without evidence of cyanosis or clubbing. He had a warm hand. ASSESSMENT AND PLAN: Non-ST elevation myocardial infarction. The patient is doing well, subsequent to percutaneous coronary intervention involving the right coronary yesterday. He has been started adequate medical regimen to include beta britany, AVA inhibitor, aspirin, Plavix and atorvastatin. He has not had any recurrent symptoms. At this point we will plan on following patient in the clinic in 1-2 weeks' time for continued management of coronary artery disease. LIZY
--- NOTE | 2017-02-06 19:07 | Discharge Summary ---
Discharge Summary Date of Service Feb 06, 2017. Discharge Summary Admission Date: Feb 02, 2017 at 16:20 Discharge Date: Feb 06, 2017 Discharge Disposition: Home Principal Diagnosis: NSTEMI, CAD Procedures: Procedure Note Procedure Date Feb 05, 2017. Pre-Procedure Diagnosis Non STEMI AUC Score 7 Post-Procedure Diagnosis Severe CAD, Successful PCI, Elevated Intracardiac Pressures Procedure(s) Performed Coronary Angiography, Left Heart Cath, PTCA, Drug Eluting Stent Hearing Aid Specialist Dr. Madison Ware[employer] Traffic Supervisor(s) Moy Fletcher RTR Estimated Blood Loss 30 ml Medication(s) Clopidogrel (600 mg PO post PCI), Fentanyl, Heparin, Integrilin, Nicardipine ( Intra arterial and intracoronary), Versed, Lidocaine 1% Hemodynamics Rest Ao: 122/70/92 mm Hg Final Ao: 124/72/93 mm Hg LV: 112/34 mm Hg Recommendations Medical therapy and/or Counseling, PCI without planned CABG Specimens None Radiation Exposure (mGy) 3032 Contrast (mls) 170 ml Visipaque Fluids (cc crystalloids) 115 Drains None Anesthesia IV versed,fentanyl. Lidocaine 1 % for local anesthesia. Procedural Complication(s) None Disposition PCU ACC Data Cardiac Status Clinical evaluation leading to the procedure CAD Presntation: Non STEMI Anginal Classification: CCS IV Heart Failure: No Cardiogenic Shock w/in 24Hrs: No Cardiac Arrest w/in 24Hrs: No Imaging studies past 6 months: Yes (Echocardiogram 02/03/17 with normal LV wall motion, LVEF 60-65%.) Stress studies past 6 months: No Standard Exercise Stress Test: No Stress Echocardiogram: No Stress Testing w/SPECT MPI: No Cardiac CTA: No Coronary Anatomy Dominant: Right Left Main (% Stenosis): Normal LAD (% Stenosis): Proximal (10-20), Mid (10-20) D1 (% Stenosis): Proximal (0-10), Mid (0-10) D2 (% Stenosis): Proximal (0-10), Mid (0-10) OM1 (% Stenosis): Proximal (20) OM2 (% Stenosis): Normal RCA (% Stenosis): Ostial (20), Proximal (20,20-30), Mid (Discrete,eccentric 90 % bracketed by 30% stenoses), Distal (10-20) R PDA (% Stenosis): Normal R PL1 (% Stenosis): Proximal (0-10) AM (% Stenosis): Normal Left Ventricular Angiography EF (%): NA Diagnostic Physician's Name: Ronny Madison M.D. Status: Elective Closure Device Percutaneous Entry Location: Radial Closure Device: Radial Band Recommendations: Medical therapy and/or Counseling, PCI without planned CABG PCI Indication: PCI for high risk Non-STEMI Lesion Segment Name: Mid RCA Culprit Artery: Yes Stenosis Prior to Rx (%): 90 Chronic Total Occlusion: No IVUS: No FFR: No Pre-Procedure JOSETTE Flow: 3 Lesion Complexity: Non-High/Non-C Lesion Length (mm): 19 Thrombus Present: Yes Bifurcation Lesion: No Guidewire Across Lesion: Yes Guidewire: Stenosis Post-Procedure (%): 0-10 Post-Procedure JOSETTE Flow: 3 Device(s) Deployed: Yes Type of Device(s): Xience 4 X 23 mm ANDREINA. Post dilated with 4.5 X 12 mm NC balloon. Intraprocedure Events Significant Dissection: No Perforation: No Hemoglobin A1c Test 02/03/17 06:10 Range/Units Estimated Average Glucose 123 mg/dl Hemoglobin A1c 5.9 H 4.5-5.6 % Lipid Panel Test 02/03/17 06:10 Range/Units Triglycerides Level 101 0-150 mg/dl Cholesterol Level 142 0-200 mg/dl HDL Cholesterol 44 mg/dl Cholesterol/HDL Ratio 3.2 LDL Cholesterol, Calculated 78 mg/dl ULTRASOUND VENOUS DOPPLER LWR EXT BILA CLINICAL HISTORY: Leg swelling COMPARISON STUDY: No previous studies for comparison. FINDINGS: Real-time and color flow Doppler imaging were performed. Flow was seen within the femoral, popliteal and calf veins with no intraluminal thrombus demonstrated. The saphenous vein is patent. There is a small complex left-sided popliteal cyst. IMPRESSION: No evidence of lower extremity DVT. Electronically signed by: Chapin Mcdaniel M.D. 02/02/2017 9:10 PM Dictated Date/Time: 02/02/2017 9:10 PM [~ rep ct add3]] CT ANGIOGRAM OF THE CHEST CLINICAL HISTORY: Right-sided chest pain COMPARISON STUDY: 12/23/2010, chest x-ray dated 02/02/2017 TECHNIQUE: Following the IV administration of 115 mL of [id number]-320, CT angiogram of the thorax was performed from the thoracic inlet to the lung bases utilizing the pulmonary embolus protocol. Images are reviewed in the axial, sagittal, and coronal planes. IV contrast was administered without complication. MIP imaging was performed. CT DOSE: 711.54 mGy.cm FINDINGS: Mediastinal and hilar lymph nodes are the upper limits of normal in size. There was no evidence of thoracic aortic dilatation. There were no pulmonary artery filling defects to indicate acute pulmonary embolism. No pleural effusions are visualized. There is no focal pulmonary consolidation. There is mild subpleural reticulation. There is subpleural cyst/honeycombing within the lung apices. There is a 5 mm left lower lobe pulmonary nodule as visualized in image #120/[id number]. There is a 4 mm subpleural left lower lobe pulmonary nodule as visualized in image #124/[id number]. There is a third 4 mm left lower lobe pulmonary nodule as visualized on image #133/[id number]. Each of these nodules were present the prior December 2010 study. IMPRESSION: 1. No CT evidence of acute pulmonary embolism 2. No evidence of acute parenchymal consolidation 3. Subcentimeter pulmonary nodules similar to 2011 4. Underlying interstitial lung disease with biapical subpleural honeycombing Electronically signed by: Chapin Mcdaniel M.D. 02/02/2017 6:36 PM Dictated Date/Time: 02/02/2017 6:25 PM Consultations: cardiology Medication Reconciliation New Medications: Nitroglycerin (Nitrostat) 0.4 Mg/1 Tab Subl 1 TAB SL UD PRN for Chest Pain, #30 TAB Atorvastatin (Atorvastatin Calcium) 20 Mg Tab 40 MG PO QAM, #30 TAB Cholecalciferol (Vitamin D3) 1,000 Inter.unit Tab 2000 INTER.UNIT PO QAM, #30 TAB Clopidogrel Bisulfate (Clopidogrel) 75 Mg Tab 75 MG PO QAM, #30 TAB Ergocalciferol (Vitamin D) 50,000 Interunit Cap 51631 INTERUNIT PO Tu@0900, #8 CAP Lisinopril (Lisinopril) 5 Mg Tab 5 MG PO QAM, #30 TAB Metoprolol Tartrate (Lopressor) 25 Mg Tab 12.5 MG PO BID, #30 TAB Continued Medications: Aspirin (Aspirin Ec) 81 Mg Tab 81 MG PO DAILY Clonazepam (Klonopin) 1 Mg Tab 1 MG PO HS, TAB Fluoxetine (Prozac) 40 Mg Cap 40 MG PO DAILY, 0 Refills Gabapentin (Neurontin) 600 Mg Tab 600 MG PO BID, TAB TAKE IN AM AFTERNOON Gabapentin (Neurontin) 600 Mg Tab 1200 MG PO HS, TAB Quetiapine Fumarate (Seroquel) 100 Mg Tab 100 MG PO HS, TAB Discharge Exam Physical Exam: General Appearance: no apparent distress ENT: hearing grossly normal Neck: trachea midline Respiratory/Chest: no respiratory distress, no accessory muscle use Neurologic/Psychiatric: health and safety coordinator II-XII nml as tested, alert, normal mood/affect Skin: normal color, warm/dry Hospital Course CAD w NSTEMI -med managmenet as ordered. discussed meds in detail med by med w indications, ADRs, risks/benefits -discussed lifestyle change again in detail discussing diet, exercise (once given the OK by cardiology) and urgent/immediate need for tobacco cessation -pt, and daughter present for discussion safe/stable for home PCP f/u in short order, cardiology later this month Total Time Spent: Greater than 30 minutes This includes examination of the patient, discharge planning, medication reconciliation, and communication with other providers. Discharge Instructions Please refer to the electronic Patient Visit Report (Discharge Instructions) for additional information. Additional Copies To Miguel Ángel Rodriguez M.D.; Miguel Ángel Arshad MD
[2017-03-29] MEDS ORDERED: TRMCR115 TOP (17:04)
[2017-03-29] MEDS ORDERED: ANT25 PO (17:04)
[2017-03-29] MEDS ORDERED: ZVRO EXT (19:09)
[2017-07-28] MEDS ORDERED: ATV/1 PO (17:21)
[2017-07-28] MEDS ORDERED: ONDA4TAB46 PO (17:21)
[2017-07-28] MEDS ORDERED: TEMA-79 PO (17:21)
[2017-07-28] MEDS ORDERED: PRVC/40 PO (17:21)
[2017-07-28] MEDS ORDERED: ASPI81TA28 PO (17:21)
[2017-07-28] MEDS ORDERED: TACR1CAP PO ×2 (17:21)
[2017-07-28] MEDS ORDERED: AZAT50TA17 PO (17:21)
[2017-07-28] MEDS ORDERED: OMEP20CA9 PO (17:21)
[2017-07-28] MEDS ORDERED: MAGN1TAB19 PO (17:21)
[2017-07-28] MEDS ORDERED: FAMO20TA11 PO (17:21)
[2017-07-28] MEDS ORDERED: PRED-301 PO (17:21)
== END 2017-02-06 11:45 | disposition home or self-care (01) ==
LOC: ENRESERVTM → ENRESERVDT → C.EDB 13:25 → C.2E 16:20
PROVIDERS: ADMIT Family Medicine; ATTEND Family Medicine
DX: I21.4 Non-ST elevation (NSTEMI) myocardial infarction (principal); I25.10 Atherosclerotic heart disease of native coronary artery without angina pectoris; I69.354 Hemiplegia and hemiparesis following cerebral infarction affecting left non-dominant side; F32.9 Major depressive disorder, single episode, unspecified; F17.210 Nicotine dependence, cigarettes, uncomplicated; F17.290 Nicotine dependence, other tobacco product, uncomplicated; F17.220 Nicotine dependence, chewing tobacco, uncomplicated; Z79.82 Long term (current) use of aspirin; Z79.899 Other long term (current) drug therapy; Z82.49 Family history of ischemic heart disease and other diseases of the circulatory system

== ENCOUNTER 2017-03-28 21:22 | Observation (INO) | payer OTHER ==
[~2017-03-28] VITALS: Ht 167.6 cm; Wt 93.0 kg
[~2017-03-28 21:22] MED LIST changes: +GABA600T PO; +LPR25 PO; +LPT20 PO; +LSN5 PO; +NRN/600 PO; +NTRGSL4 SL; +PLV75 PO; +VTMD PO; +VTMD1000 PO
[2017-03-28 23:07] LABS: BASO % 0.3 %; BASO ABS # 0.02 K/uL (0-0.2); COMPLETE YES; EOS % 2.4 %; HEMATOCRIT 40.4 % (42-52); IG% 0.1 %; LYMPH ABS # 1.51 K/uL (1.2-3.4); MEAN CELL VOLUME 85.6 fL (80-100); MEAN CORPUSCULAR HEMOGLOBIN 28.4 pg (25-34); MEAN CORPUSCULAR HGB CONC 33.2 g/dl (32-36); MEAN PLATELET VOLUME 10.4 fL (7.4-10.4); MONO % 14.7 %; NEUT % 63.5 %; PLATELET COUNT 296 K/uL (130-400); RED BLOOD COUNT 4.72 M/uL (4.7-6.1); WHITE BLOOD COUNT 7.96 K/uL (4.8-10.8)
[2017-03-28] MEDS ORDERED: MECLIZINE HCL 25 MG TAB PO STA (23:11)
[2017-03-28 23:15] LABS: ALT/SGPT 22 U/L (12-78); BLOOD UREA NITROGEN 17 mg/dl (7-18); BUN/CREATININE RATIO 15.3 (10-20); CALCIUM 8.8 mg/dl (8.5-10.1); CARBON DIOXIDE 29 mmol/L (21-32); CHLORIDE 105 mmol/L (98-107); GLUCOSE 122 mg/dl (70-99); POTASSIUM 3.7 mmol/L (3.5-5.1); SODIUM 140 mmol/L (136-145)
[2017-03-28 23:18] LABS: ALB/GLOB RATIO 0.8 (0.9-2); ALKALINE PHOSPHATASE 53 U/L (45-117); AST/SGOT 16 U/L (15-37)
[2017-03-29] VITALS (7 sets, daily range): BP systolic 99–139; BP diastolic 56–73; PULSE 61–69; TEMP 36.6–36.9; O2SAT 94–96; Ht 167.6 cm; Wt 93.0 kg
--- NOTE | 2017-03-29 00:21 | EMERGENCY ROOM VISIT NOTE ---
History Report prepared by Donavan: Byron Prince Under the Supervision of: Dr. yTrell Cedeno M.D. First contact with patient: 23:05 Chief Complaint: DIZZY Stated Complaint: DIZZY Nursing Triage Summary: Dizziness. Dizzy since he was discharged from the hospital s/p CO one month ago. History of Present Illness The patient is a 61 year old male who presents to the Emergency Room with complaints of constant dizziness beginning 3 hours ago. He states "it feels like the world is spinning". He states that his symptoms have improved since they began. He also complains of body soreness. The patient denies any headache , neck pain, or visual changes. He states that he occasionally has blurred vision. He states that he has had dizziness recently, but not as severely as today. Per family, the patient "didn't feel good" earlier this week. The patient notes that he had heart attack about a month ago, and had a stent placed. Source of History: patient, family Onset: 3 hours ago Quality: other (dizziness) Timing: constant Associated Symptoms: No headache, No neck pain Note: The patient also complains of body soreness and occasional blurred vision. He denies any visual changes. Review of Systems See HPI for pertinent positives & negatives. A total of 10 systems reviewed and were otherwise negative. Past Medical & Surgical Medical Problems: (1) Chest pain (2) TIA (transient ischemic attack) (3) Vertigo Family History No pertinent family history stated. Social History Smoking Status: Current Some Day Smoker Marital Status: Housing Status: lives with family Occupation Status: retired Current/Historical Medications Scheduled Aspirin (Aspirin Ec), 81 MG PO DAILY Atorvastatin (Atorvastatin Calcium), 40 MG PO QAM Cholecalciferol (Vitamin D3), 2,000 INTER.UNIT PO QAM Clonazepam (Klonopin), 1 MG PO HS Clopidogrel Bisulfate (Clopidogrel), 75 MG PO QAM Ergocalciferol (Vitamin D), 50,000 INTERUNIT PO Tu@0900 Fluoxetine (Prozac), 40 MG PO DAILY Gabapentin (Neurontin), 600 MG PO BID Gabapentin (Neurontin), 1,200 MG PO HS Lisinopril (Lisinopril), 5 MG PO QAM Metoprolol Tartrate (Lopressor), 12.5 MG PO BID Quetiapine Fumarate (Seroquel), 100 MG PO HS Scheduled PRN Nitroglycerin (Nitrostat), 1 TAB SL UD PRN for Chest Pain Allergies Coded Allergies: No Known Allergies (Unverified , 03/29/17) Physical Exam Vital Signs Date Time Temp Pulse Resp B/P Pulse Ox O2 Delivery O2 Flow Rate FiO2 03/29/17 01:04 63 18 134/89 94 Room Air 03/29/17 01:03 69 03/29/17 00:00 67 18 123/79 94 Room Air 03/28/17 22:18 62 14 127/80 94 Room Air 03/28/17 21:32 69 119/75 75 132/86 74 144/86 03/28/17 21:28 65 03/28/17 21:27 37.1 69 17 128/82 94 Room Air Physical Exam GENERAL: Patient is well appearing and in minimal distress. Mildly drowsy. HEENT: No acute trauma, normocephalic atraumatic, mucous membranes moist, no nasal congestion, no scleral icterus. NECK: No stridor, no adenopathy, no meningismus, trachea is midline. LUNGS: No dyspnea. Clear to auscultation and equal bilaterally. No wheeze, no rhonchi. HEART: Regular rate and rhythm. No murmurs, rubs, gallops appreciated. ABDOMEN: Soft, nontender, bowel sounds positive, no masses appreciated, no peritonitis. BACK: No midline tenderness, no CVA tenderness EXTREMITIES: Normal motion all extremities, no cyanosis, no edema. NEUROLOGIC: Alert and oriented, no acute motor or sensory deficits, no focal weakness, cranial nerves grossly intact. SKIN: No rash, no jaundice, no diaphoresis Medical Decision & Procedures ER Provider Diagnostic Interpretation: CT results per statrad and my review. CT HEAD: Findings: No hemorrhage, hydrocephalus, early ischemic changes, or intracranial mass effect. Moderate underlying chronic microvascular ischemic changes. Chronic appearing lacunar infarct within the left thalamus. Grossly unremarkable appearance of unenhanced orbits and overlying soft tissues. Clear paranasal sinuses and mastoid air cells. Impression: No acute intracranial abnormality. X ray results are stated below per my interpretation: Chest: 1 view: No infiltrate, no effusion, normal cardiac border. Enlarged heart similar to previous. Chronic lung disease similar to previous. Laboratory Results 03/28/17 22:20 Red Blood Count 4.72, Mean Corpuscular Volume 85.6, Mean Corpuscular Hemoglobin 28.4, Mean Corpuscular Hemoglobin Concent 33.2, Mean Platelet Volume 10.4, Neutrophils (%) (Auto) 63.5, Lymphocytes (%) (Auto) 19.0, Monocytes (%) (Auto) 14.7, Eosinophils (%) (Auto) 2.4, Basophils (%) (Auto) 0.3, Neutrophils # (Auto ) 5.06, Lymphocytes # (Auto) 1.51, Monocytes # (Auto) 1.17, Eosinophils # (Auto ) 0.19, Basophils # (Auto) 0.02 03/28/17 22:20 Test 03/28/17 22:20 White Blood Count 7.96 K/uL (4.8-10.8) Red Blood Count 4.72 M/uL (4.7-6.1) Hemoglobin 13.4 g/dL (14.0-18.0) Hematocrit 40.4 % (42-52) Mean Corpuscular Volume 85.6 fL (80-100) Mean Corpuscular Hemoglobin 28.4 pg (25-34) Mean Corpuscular Hemoglobin Concent 33.2 g/dl (32-36) Platelet Count 296 K/uL (130-400) Mean Platelet Volume 10.4 fL (7.4-10.4) Neutrophils (%) (Auto) 63.5 % Lymphocytes (%) (Auto) 19.0 % Monocytes (%) (Auto) 14.7 % Eosinophils (%) (Auto) 2.4 % Basophils (%) (Auto) 0.3 % Neutrophils # (Auto) 5.06 K/uL (1.4-6.5) Lymphocytes # (Auto) 1.51 K/uL (1.2-3.4) Monocytes # (Auto) 1.17 K/uL (0.11-0.59) Eosinophils # (Auto) 0.19 K/uL (0-0.5) Basophils # (Auto) 0.02 K/uL (0-0.2) RDW Standard Deviation 42.3 fL (36.4-46.3) RDW Coefficient of Variation 13.4 % (11.5-14.5) Immature Granulocyte % (Auto) 0.1 % Immature Granulocyte # (Auto) 0.01 K/uL (0.00-0.02) Anion Gap 6.0 mmol/L (3-11) Est Creatinine Clear Calc Drug Dose 81.5 ml/min Estimated GFR () 82.4 Estimated GFR (Non- 71.1 BUN/Creatinine Ratio 15.3 (10-20) Calcium Level 8.8 mg/dl (8.5-10.1) Total Bilirubin 0.3 mg/dl (0.2-1) Aspartate Amino Transf (AST/SGOT) 16 U/L (15-37) Alanine Aminotransferase (ALT/SGPT) 22 U/L (12-78) Alkaline Phosphatase 53 U/L (45-117) Troponin I < 0.015 ng/ml (0-0.045) Total Protein 7.2 gm/dl (6.4-8.2) Albumin 3.3 gm/dl (3.4-5.0) Globulin 3.9 gm/dl (2.5-4.0) Albumin/Globulin Ratio 0.8 (0.9-2) Laboratory results as reviewed by me. Medications Administered Medications (Trade) Dose Ordered Sig/James Route Start Time Stop Time Status Last Admin Dose Admin Meclizine HCl (Antivert Tab) 25 mg NOW STAT PO 03/28/17 23:11 03/28/17 23:12 DC 03/28/17 23:16 25 MG ECG Indication: other (dizziness) Rate (beats per minute): 70 Rhythm: normal sinus Findings: no acute ischemic change, no ectopy ED Course 6: The patient was evaluated in room A2. A complete history and physical exam was performed. 2311: Ordered Antivert Tab 25 mg PO. 0008: I reassessed the patient. He is too unsteady to reach the bathroom, and would like to stay. 0021: Upon reevaluation, the patient is resting comfortably. Discussed results and treatment plan with the patient. He verbalized understanding and agreement with the treatment plan. The patient will be evaluated for further management. Medical Decision Differential diagnoses include Benign positional vertigo, Dehydration, Hypovolemia, Anemia, Tumor, Infection, Hypoglycemia, Electrolyte abnormalities, Cardiac sources, Intracerebral event, Toxicologic, Neurologic, as well as others were entertained. 61 yr old male arrives with vertiginous like symptoms keeping him from ambulating without difficulty. Meclizine without much improvement. Work-up benign other than noted old lacunar infarcts. Chronically unwell appearing male with persistent dizziness and recent cath will need to come in for stroke rule out and further evaluation. Stable throughout ED stay otherwise. No evidence of cardiac cause. Given on and off symptoms for several weeks, this just being more severe I do not feel that he would be TPA candidate, especially given minimal symptoms. Suspect BPPV / secondary to left ear effusion but can' t send home if unable to talk normally. Consults Time Called: 9 Consulting Physician: Dr. Pascual MIMS Returned Call: [phone] Discussed the patient's case. The patient will be evaluated for further treatment and disposition. Impression Primary Impression: Dizziness Additional Impressions: Ambulatory dysfunction Acute effusion of left ear Scribe Attestation The scribe's documentation has been prepared under my direction and personally reviewed by me in its entirety. I confirm that the note above accurately reflects all work, treatment, procedures, and medical decision making performed by me. Departure Information Dispostion Being Evaluated By Hospitalist Referrals Miguel Ángel Rodriguez M.D. (PCP) Patient Instructions My [facility] Stroke History Time Last Known Well 8pm Stroke t-PA Criteria Reviewed Does NOT meet criteria for t-PA Reason t-PA Not Given Treatment not indicated, Contraindicated Problem Qualifiers
[2017-03-29] MEDS ORDERED: MECLIZINE HCL 12.5 MG TAB PO PRN (00:45)
--- NOTE | 2017-03-29 00:55 | History and Physical ---
History & Physical Date & Time of Service: March 29, 2017 at 00:53 Chief Complaint: DIZZY Primary Care Physician: Miguel Ángel Rodriguez M.D. History of Present Illness Source: patient 61 y/o M Hx CAD and NSTEMI 01/19. Pt developed acute onset vertigo beginning at - He denies CP, SOB, palpitations. The pt states he had a suspected TIA . He does not know if he had a complete workup at that time. Social History Smoking Status: Current Some Day Smoker Marital Status: Housing status: lives with significant other Occupational Status: retired Multi-Drug Resistant Organisms History of MDRO: No Allergies Coded Allergies: No Known Allergies (Unverified , 03/29/17) Home Medications Scheduled Aspirin (Aspirin Ec), 81 MG PO DAILY Atorvastatin (Atorvastatin Calcium), 40 MG PO QAM Cholecalciferol (Vitamin D3), 2,000 INTER.UNIT PO QAM Clonazepam (Klonopin), 1 MG PO HS Clopidogrel Bisulfate (Clopidogrel), 75 MG PO QAM Ergocalciferol (Vitamin D), 50,000 INTERUNIT PO Tu@0900 Fluoxetine (Prozac), 40 MG PO DAILY Gabapentin (Neurontin), 600 MG PO BID Gabapentin (Neurontin), 1,200 MG PO HS Lisinopril (Lisinopril), 5 MG PO QAM Metoprolol Tartrate (Lopressor), 12.5 MG PO BID Quetiapine Fumarate (Seroquel), 100 MG PO HS Scheduled PRN Nitroglycerin (Nitrostat), 1 TAB SL UD PRN for Chest Pain Physical Exam Vital Signs Date Time Temp Pulse Resp B/P Pulse Ox O2 Delivery O2 Flow Rate FiO2 03/29/17 00:00 67 18 123/79 94 Room Air 03/28/17 22:18 62 14 127/80 94 Room Air 03/28/17 21:32 69 119/75 75 132/86 74 144/86 03/28/17 21:28 65 03/28/17 21:27 37.1 69 17 128/82 94 Room Air Diagnostics Laboratory Results Results Past 24 Hours Test 03/28/17 22:20 Range/Units White Blood Count 7.96 4.8-10.8 K/uL Red Blood Count 4.72 4.7-6.1 M/uL Hemoglobin 13.4 14.0-18.0 g/dL Hematocrit 40.4 42-52 % Mean Corpuscular Volume 85.6 80-100 fL Mean Corpuscular Hemoglobin 28.4 25-34 pg Mean Corpuscular Hemoglobin Concent 33.2 32-36 g/dl Platelet Count 296 130-400 K/uL Mean Platelet Volume 10.4 7.4-10.4 fL Neutrophils (%) (Auto) 63.5 % Lymphocytes (%) (Auto) 19.0 % Monocytes (%) (Auto) 14.7 % Eosinophils (%) (Auto) 2.4 % Basophils (%) (Auto) 0.3 % Neutrophils # (Auto) 5.06 1.4-6.5 K/uL Lymphocytes # (Auto) 1.51 1.2-3.4 K/uL Monocytes # (Auto) 1.17 0.11-0.59 K/uL Eosinophils # (Auto) 0.19 0-0.5 K/uL Basophils # (Auto) 0.02 0-0.2 K/uL RDW Standard Deviation 42.3 36.4-46.3 fL RDW Coefficient of Variation 13.4 11.5-14.5 % Immature Granulocyte % (Auto) 0.1 % Immature Granulocyte # (Auto) 0.01 0.00-0.02 K/uL Sodium Level 140 136-145 mmol/L Potassium Level 3.7 3.5-5.1 mmol/L Chloride Level 105 98-107 mmol/L Carbon Dioxide Level 29 21-32 mmol/L Anion Gap 6.0 3-11 mmol/L Blood Urea Nitrogen 17 7-18 mg/dl Creatinine 1.10 0.60-1.40 mg/dl Est Creatinine Clear Calc Drug Dose 81.5 ml/min Estimated GFR () 82.4 Estimated GFR (Non- 71.1 BUN/Creatinine Ratio 15.3 10-20 Random Glucose 122 70-99 mg/dl Calcium Level 8.8 8.5-10.1 mg/dl Total Bilirubin 0.3 0.2-1 mg/dl Aspartate Amino Transf (AST/SGOT) 16 15-37 U/L Alanine Aminotransferase (ALT/SGPT) 22 12-78 U/L Alkaline Phosphatase 53 45-117 U/L Troponin I < 0.015 0-0.045 ng/ml Total Protein 7.2 6.4-8.2 gm/dl Albumin 3.3 3.4-5.0 gm/dl Globulin 3.9 2.5-4.0 gm/dl Albumin/Globulin Ratio 0.8 0.9-2
[2017-03-29] MEDS ORDERED: PHARMACIST DISCHARGE MED REC CONSULT PRN (01:00)
[2017-03-29] MEDS ORDERED: IV FLUIDS COMPLETED PRN (02:30)
[2017-03-29] MEDS ORDERED: MAGNESIUM HYDROXIDE SUSP 30 ML UDC PO PRN (02:30)
[2017-03-29] MEDS ORDERED: ACETAMINOPHEN 325 MG TAB PO PRN (02:30)
[2017-03-29] MEDS ORDERED: ALUMINUM/MAGNESIUM/SIMETH (MAALOX MAX) 30 ML UDC PO PRN (02:30)
[2017-03-29] MEDS ORDERED: POLYETHYLENE (MIRALAX) 17 GM PACK PO PRN (02:30)
[2017-03-29] MEDS ORDERED: ONDANSETRON INJ 2 MG/ML 2 ML VIAL IV PRN (02:30)
--- NOTE | 2017-03-29 02:42 | History and Physical ---
History & Physical Date of Service March 29, 2017. History & Physical History of Present Illness Source: patient 61 y/o M Hx CAD and NSTEMI 01/19, TIAs, HTN. Pt presents following acute onset of dizziness/vertigo which began at 8pm. He denies a headache, CP, nausea/ vomiting or fevers. He is unable to ambulate at present as his balance is significantly impaired. Past Medical/Surgical History 1) CAD - NSTEMO 01/15 - ANDREINA to mid RCA 2) Hx TIAs - states he follows with Dr. Jacobs and his last TIA was 1-2 years prior 3) HTN 4) Depression Family History Both parents owing to an [place] Social History Stets he quit smoking 2 months prior Smoking Status: Former Smoker Multi-Drug Resistant Organisms History of MDRO: No Allergies Coded Allergies: No Known Allergies (Unverified , 03/29/17) Home Medications Scheduled Aspirin (Aspirin Ec), 81 MG PO DAILY Atorvastatin (Atorvastatin Calcium), 40 MG PO QAM Cholecalciferol (Vitamin D3), 2,000 INTER.UNIT PO QAM Clonazepam (Klonopin), 1 MG PO HS Clopidogrel Bisulfate (Clopidogrel), 75 MG PO QAM Ergocalciferol (Vitamin D), 50,000 INTERUNIT PO Tu@0900 Fluoxetine (Prozac), 40 MG PO DAILY Gabapentin (Neurontin), 600 MG PO BID Gabapentin (Neurontin), 1,200 MG PO HS Lisinopril (Lisinopril), 5 MG PO QAM Metoprolol Tartrate (Lopressor), 12.5 MG PO BID Quetiapine Fumarate (Seroquel), 100 MG PO HS Scheduled PRN Nitroglycerin (Nitrostat), 1 TAB SL UD PRN for Chest Pain Review of Systems Constitutional: No chills, No fever, No sweats Eyes: No eye pain, No worsening of vision ENT: No hearing loss, No nasal symptoms, No unusual epistaxis Respiratory: No cough, No sputum, No wheezing Cardiovascular: No PND, No chest pain, No orthopnea Abdomen: No nausea, No pain, No vomiting Musculoskeletal: No joint pain Genitourinary - Male: No dysuria, No hematuria, No urinary frequency, No urinary urgency Neurologic: + balance problems, + vertigo, No memory loss, No paralysis Psychiatric: No anhedonism, No depression symptoms Endocrine: No fatigue Hematologic / Lymphatic: No abnormal bleeding/bruising Integumentary: No rash Allergic / Immunologic: No environmental allergies Physical Ex - H&P Physical Exam General Appearance: + pertinent finding (Overweight middle-aged male who prefers to keep his eyes closed) Head: normocephalic, atraumatic Eyes: normal inspection, EOMI ENT: normal ENT inspection, pharynx normal Neck: supple, no JVD Respiratory/Chest: chest non-tender, lungs clear, normal breath sounds, no respiratory distress, no accessory muscle use Cardiovascular: regular rate, rhythm, no edema, no gallop, no JVD, no murmur, normal peripheral pulses Abdomen/GI: normal bowel sounds, non tender, soft Back: normal inspection, no CVA tenderness, no muscle spasm, normal range of motion Extremities/Musculoskelatal: normal inspection, no calf tenderness, normal capillary refill, no pedal edema, normal range of motion Neurologic/Psych: title i paraprofessional II-XII nml as tested, no motor/sensory deficits, + pertinent finding (exam is limited as his mobility is impaired by vertigo and coordination could not acurately be gauged ) Skin: normal color, warm/dry, no rash Diagnostics - H&P Diagnostics Impression - H&P Impression Assessment and Plan 61 y/o M Hx CAD and NSTEMI 01/19, TIAs, HTN. Pt presents following acute onset of dizziness/vertigo which began at 8pm. He denies a headache, CP, nausea/ vomiting or fevers. He is unable to ambulate at present as his balance is significantly impaired. 1) Acute vertigo - pt is high risk for CVA - previous MRI 01/17 states nonspecific white matter foci - does not specifically state evidence of CVA. Pt is currently taking ASA and Plavix owing to CAD. We will cont both. He is assigned to telemetry under a CVA protocol and will be evaluated by his Neurologist. An MRI/MRA and carotid US are pending. Statin dose increased. 2) CAD - no evidence of ACS - recent RCA stent - cont ASA, Plavix, Statin. 3) HTN - pts Lisinopril held pending r/o of a TIA/CVA 4) Depression - he had taken his meds including Quetiapine and Clonazepam prior to arrival which may be further impairing the evaluation. Full code - Heparin prophylaxis Total time for this admit including review of labs, meds, imaging, EKG - discussion with pt and ER attending 38 min Level of Care Telemetry Resuscitation Status FULL RESUSCITATION VTE Prophylaxis Given or contraindicated: Unfractionated heparin SQ
[2017-03-29] MEDS: NSS + 20MEQ KCL 1000ML 1,000 ML IV SCH ×2 (05:23→15:37)
[2017-03-29 06:35] LABS: ESTIMATED AVERAGE GLUCOSE 126 mg/dl; HA1C FLAG Normal (Normal)
--- NOTE | 2017-03-29 06:58 | DIAGNOSTIC IMAGING REPORT ---
CT OF THE HEAD WITHOUT CONTRAST CLINICAL HISTORY: Vertigo. COMPARISON STUDY: MRI of the brain January 06, 2015. CT DOSE: 614.27 mGy.cm TECHNIQUE: Helical axial images of the head were obtained without IV contrast. Automated exposure control was utilized for the study. FINDINGS: No acute intracranial hemorrhage, midline shift or mass effect is present. Ventricular system is normal. Basilar cisterns are patent. There are no extra-axial collections. Scattered white matter hypodensities suggest small vessel disease. A 6 mm lacunar infarct within the left thalamus or posterior limb of the left internal capsule is noted. There are no significant calvarial abnormalities. IMPRESSION: No acute intracranial findings. Electronically signed by: Keron Swift M.D. 03/29/2017 6:57 AM Dictated Date/Time: 03/29/2017 6:54 AM
--- NOTE | 2017-03-29 07:19 | DIAGNOSTIC IMAGING REPORT ---
BILATERAL CAROTID DOPPLER STUDY HISTORY: Stroke symptoms. COMPARISON: Carotid Doppler 05/18/2009. TECHNIQUE: Real-time, grayscale, and color Doppler sonography of the carotid arteries was performed. Imaging reviewed in the transverse and longitudinal planes. All measurements were calculated based on NASCET criteria. FINDINGS: Antegrade flow is seen in the bilateral vertebral arteries. The brachial pressures are hemodynamically similar. The peak systolic velocity within the right ICA is 55 cm/s. The right systolic ratio is 0.7. The peak systolic velocity within the left ICA is 48 cm/s. The left systolic ratio is 0.7. IMPRESSION: No hemodynamically significant stenosis seen within the carotid arteries. Electronically signed by: Diego Lam M.D. 03/29/2017 7:18 AM Dictated Date/Time: 03/29/2017 7:17 AM
--- NOTE | 2017-03-29 08:07 | DIAGNOSTIC IMAGING REPORT ---
CHEST ONE VIEW PORTABLE HISTORY: vertiginous symptoms COMPARISON: Chest 02/02/2017. FINDINGS: Mild chronic interstitial thickening. Stable mild cardiomegaly. No pneumothorax. No pleural effusions. No evidence for pulmonary edema. No new focal lung consolidations. IMPRESSION: Stable mild chronic interstitial thickening and mild cardiomegaly. Electronically signed by: Diego Lam M.D. 03/29/2017 8:06 AM Dictated Date/Time: 03/29/2017 8:05 AM
[2017-03-29] MEDS: GABAPENTIN 600 MG TAB PO SCH ×2 (08:13→13:27)
--- NOTE | 2017-03-29 08:47 | Neurology Consultation ---
Neurology Consultation Date of Consultation: March 29, 2017. Attending Physician: Reynaldo Garner MD Primary Care Physician: Miguel Ángel Rodriguez M.D. Reason for Consultation: vertigo History of Present Illness Source: patient, hospital records 61 year old male with a chief complaint of vertigo that began 3 hours LOW [employer], spinning sensation, associated tinnitus, currently improved, was worse with movement, no headache, vision change or weakness. PMH CAD, stent, on ASA/Plavix, also HTN BP normal upon arrival, ECG sinus rhythm CTH, no hemorrhage or acute process, does have chronic cerebrovascular disease. There is a chronic 6 mm lacunar infarct within the left thalamus. A carotid duplex is negative for hemodynamically significant stenosis. Past Medical/Surgical History Medical Problems: (1) Acute coronary syndrome Status: Acute (2) Acute effusion of left ear Status: Acute (3) Ambulatory dysfunction Status: Acute (4) Dizziness Status: Acute Family History noncontributory Social History Marital Status: Housing Status: lives with family Occupation Status: retired Allergies Coded Allergies: No Known Allergies (Unverified , 03/29/17) Current Inpatient Medications Current Inpatient Medications Medications (Trade) Dose Ordered Sig/James Route Start Time Stop Time Status Last Admin Dose Admin Aspirin (Ecotrin Tab) 81 mg DAILY PO 03/29/17 09:00 04/28/17 08:59 03/29/17 08:13 81 MG Cholecalciferol (Vitamin D Tab) 2,000 inter.unit QAM PO 03/29/17 09:00 04/28/17 08:59 03/29/17 08:12 2,000 INTER.UNIT Clonazepam (Klonopin Tab) 1 mg HS PO 03/29/17 21:00 04/28/17 20:59 Clopidogrel Bisulfate (plAVix TAB) 75 mg QAM PO 03/29/17 09:00 04/28/17 08:59 03/29/17 08:12 75 MG Fluoxetine HCl (Prozac Cap) 40 mg DAILY PO 03/29/17 09:00 04/28/17 08:59 03/29/17 08:12 40 MG Gabapentin (Neurontin Tab) 1,200 mg HS PO 03/29/17 21:00 04/28/17 20:59 Gabapentin (Neurontin Tab) 600 mg BID@0900,1400 PO 03/29/17 09:00 04/28/17 08:59 03/29/17 08:13 600 MG Metoprolol Tartrate (Lopressor Tab) 12.5 mg BID PO 03/29/17 09:00 04/28/17 08:59 03/29/17 08:13 12.5 MG Quetiapine Fumarate (seroQUEL TAB) 100 mg HS PO 03/29/17 21:00 04/28/17 20:59 Meclizine HCl 12.5 mg 12.5 mg Q6H PRN PO 03/29/17 00:45 04/28/17 00:44 Potassium Chloride/Sodium Chloride (Nss + 20meq KCl 1000ml) 1,000 ml @ 100 mls/hr Q10H IV 03/29/17 04:30 03/30/17 00:29 03/29/17 05:23 100 MLS/HR Atorvastatin Calcium (Lipitor Tab) 40 mg QAM PO 03/29/17 09:00 04/28/17 08:59 03/29/17 08:13 40 MG Miscellaneous Information (Pharmacist Discharge Med Rec Consult) 1 ea UD PRN N/A 03/29/17 01:00 04/28/17 00:59 Miscellaneous (Iv Fluids Completed) 1 ea PRN PRN N/A 03/29/17 02:30 03/29/18 02:29 Heparin Sodium (Porcine) (Heparin Sq 5000 Unit/0.5ml) 5,000 unit Q8 SQ 03/29/17 06:00 04/28/17 05:59 UNV Acetaminophen (Tylenol Tab) 650 mg Q4H PRN PO 03/29/17 02:30 04/28/17 02:29 Al Hydrox/Mg Hydrox/Simethicone (Maalox Max Susp) 15 ml Q4H PRN PO 03/29/17 02:30 04/28/17 02:29 Magnesium Hydroxide (Milk Of Magnesia Susp) 30 ml Q12H PRN PO 03/29/17 02:30 04/28/17 02:29 Ondansetron HCl (Zofran Inj) 4 mg Q6H PRN IV 03/29/17 02:30 04/28/17 02:29 Polyethylene (Miralax Powder Packet) 17 gm DAILY PRN PO 03/29/17 02:30 04/28/17 02:29 Review of Systems A full 10 point review of systems was obtained from this patient with pertinent positives and negatives described in the history of present illness. All other systems reviewed and are negative. Physical Exam Vital Signs (Past 24 Hrs): Date Time Temp Pulse Resp B/P Pulse Ox O2 Delivery O2 Flow Rate FiO2 03/29/17 07:59 36.8 62 18 131/69 96 03/29/17 04:00 96 Room Air 03/29/17 03:15 36.6 63 20 139/67 96 Room Air 03/29/17 02:53 37.1 64 18 112/64 94 03/29/17 02:00 61 18 96/58 94 Room Air 03/29/17 01:04 63 18 134/89 94 Room Air 03/29/17 01:03 69 03/29/17 00:00 67 18 123/79 94 Room Air 03/28/17 22:18 62 14 127/80 94 Room Air 03/28/17 21:32 69 119/75 75 132/86 74 144/86 03/28/17 21:28 65 03/28/17 21:27 37.1 69 17 128/82 94 Room Air The patient is a well-developed elderly male, no acute distress. He is alert and oriented to person place and time, recent and remote memory intact. He is able to name objects and repeat phrases. Reads text without difficulty. Fund of knowledge normal. Vocabulary normal. Attention and concentration normal. Visual lima full to confrontation. Visual acuity normal. Pupils equal round reactive to light and accommodation. Eye movements normal. No nystagmus. Facial sensation intact. There is no facial droop or facial weakness. Palate elevates to midline. Tongue protrudes to midline. Shoulder shrug and hearing intact bilaterally. Sensation intact to light touch, temperature, vibration, and proprioception for all 4 limbs. Deep tendon reflexes are 2+ for the arms and legs bilaterally. Plantar responses downgoing bilaterally. There is no dysmetria with finger to nose or heel to waller bilaterally. Ophthalmoscopic examination reveals normal-appearing optic nerves and posterior elements, no papilledema or hemorrhages. Carotid pulses normal bilaterally, no bruits. Musculoskeletal examination reveals normal strength and tone for all 4 limbs proximally and distally. No atrophy or fasciculations. Gait and station normal. Laboratory Results Past 24 Hours: 03/28/17 22:20 Red Blood Count 4.72, Mean Corpuscular Volume 85.6, Mean Corpuscular Hemoglobin 28.4, Mean Corpuscular Hemoglobin Concent 33.2, Mean Platelet Volume 10.4, Neutrophils (%) (Auto) 63.5, Lymphocytes (%) (Auto) 19.0, Monocytes (%) (Auto) 14.7, Eosinophils (%) (Auto) 2.4, Basophils (%) (Auto) 0.3, Neutrophils # (Auto ) 5.06, Lymphocytes # (Auto) 1.51, Monocytes # (Auto) 1.17, Eosinophils # (Auto ) 0.19, Basophils # (Auto) 0.02 03/28/17 22:20 Test 03/28/17 22:20 White Blood Count 7.96 K/uL (4.8-10.8) Red Blood Count 4.72 M/uL (4.7-6.1) Hemoglobin 13.4 g/dL (14.0-18.0) Hematocrit 40.4 % (42-52) Mean Corpuscular Volume 85.6 fL (80-100) Mean Corpuscular Hemoglobin 28.4 pg (25-34) Mean Corpuscular Hemoglobin Concent 33.2 g/dl (32-36) Platelet Count 296 K/uL (130-400) Mean Platelet Volume 10.4 fL (7.4-10.4) Neutrophils (%) (Auto) 63.5 % Lymphocytes (%) (Auto) 19.0 % Monocytes (%) (Auto) 14.7 % Eosinophils (%) (Auto) 2.4 % Basophils (%) (Auto) 0.3 % Neutrophils # (Auto) 5.06 K/uL (1.4-6.5) Lymphocytes # (Auto) 1.51 K/uL (1.2-3.4) Monocytes # (Auto) 1.17 K/uL (0.11-0.59) Eosinophils # (Auto) 0.19 K/uL (0-0.5) Basophils # (Auto) 0.02 K/uL (0-0.2) RDW Standard Deviation 42.3 fL (36.4-46.3) RDW Coefficient of Variation 13.4 % (11.5-14.5) Immature Granulocyte % (Auto) 0.1 % Immature Granulocyte # (Auto) 0.01 K/uL (0.00-0.02) Anion Gap 6.0 mmol/L (3-11) Est Creatinine Clear Calc Drug Dose 81.5 ml/min Estimated GFR () 82.4 Estimated GFR (Non- 71.1 BUN/Creatinine Ratio 15.3 (10-20) Estimated Average Glucose 126 mg/dl Hemoglobin A1c 6.0 % (4.5-5.6) Calcium Level 8.8 mg/dl (8.5-10.1) Total Bilirubin 0.3 mg/dl (0.2-1) Aspartate Amino Transf (AST/SGOT) 16 U/L (15-37) Alanine Aminotransferase (ALT/SGPT) 22 U/L (12-78) Alkaline Phosphatase 53 U/L (45-117) Troponin I < 0.015 ng/ml (0-0.045) Total Protein 7.2 gm/dl (6.4-8.2) Albumin 3.3 gm/dl (3.4-5.0) Globulin 3.9 gm/dl (2.5-4.0) Albumin/Globulin Ratio 0.8 (0.9-2) Impression Probably peripheral vertigo, (vestibular neuritis or BPPV) A small posterior circulation stroke cannot be excluded. Plan Check Brain MRI Continue aspirin and Plavix which this patient has been taking for quite some time and seems to be tolerating quite well. Further recommendations to be made pending completion of MRI
[2017-03-29] MEDS ORDERED: ATORVASTATIN 40 MG TAB PO SCH (09:00)
[2017-03-29] MEDS ORDERED: CHOLECALCIFEROL 1000 INTER.UNIT TAB PO SCH (09:00)
[2017-03-29] MEDS ORDERED: FLUOXETINE HCL 20 MG CAP PO SCH (09:00)
[2017-03-29] MEDS ORDERED: CLOPIDOGREL BISULFATE 75 MG TAB PO SCH (09:00)
[2017-03-29] MEDS ORDERED: METOPROLOL TARTRATE 25 MG TAB PO SCH (09:00)
[2017-03-29] MEDS ORDERED: ASPIRIN 81 MG ECTAB PO SCH (09:00)
[2017-03-29 11:04] LABS: INR 1.1 (0.9-1.1); PARTIAL THROMBOPLASTIN RATIO 1.2; PROTHROMBIN TIME (PATIENT) 11.5 SECONDS (9.0-12.0)
[2017-03-29] MEDS ORDERED: MAGIC MOUTHWASH PO SCH (11:30)
[2017-03-29] MEDS: HEPARIN SOD 5000 UNIT/0.5 ML CARP SQ SCH ×2 (13:27→14:43)
[2017-03-29] MEDS: DEXAMETHASONE CONC SOLN 3.75 MG, NYSTATIN SUSP 30 ML, DiphenhydrAMINE HCL SYRUP 300 MG,... PO SCH ×10 (13:27→16:17)
[2017-03-29] MEDS ORDERED: NURSING VERBAL MED ORDER ONE (16:00)
[2017-03-29] MEDS ORDERED: DIAZEPAM 5MG TAB PO SCH (17:00)
[2017-03-29] MEDS ORDERED: TRMCR115 TOP (17:04)
[2017-03-29] MEDS ORDERED: ANT25 PO (17:04)
[2017-03-29] MEDS ORDERED: ACYCLOVIR 5% OINT 15 GM TUBE EXT SCH (17:15)
--- NOTE | 2017-03-29 18:50 | DIAGNOSTIC IMAGING REPORT ---
Brain MRI WITHOUT CONTRAST HISTORY: Mental status change cava TECHNIQUE: Multiplanar multisequence MRI of the brain was performed without the use of contrast. COMPARISON STUDY: 01/06/2015 FINDINGS: No evidence for an acute ischemic event. Considerable chronic small vessel change of the periventricular and deep white matter regions. Ventricular system is midline. Internal moderate joint the sella and parasellar regions are unremarkable. Canals are symmetric. IMPRESSION: 1. No acute intracranial abnormality. 2. Considerable chronic small vessel change. 3. No change from the prior exam. Electronically signed by: Jason Johnson M.D. 03/29/2017 6:49 PM Dictated Date/Time: 03/29/2017 6:46 PM
[2017-03-29] MEDS ORDERED: ZVRO EXT (19:09)
--- NOTE | 2017-03-29 19:16 | Discharge Instructions ---
Discharge Instructions Date of Service March 29, 2017. Admission Reason for Admission: Vertigo Discharge Discharge Diagnosis / Problem: Vertigo, likely due to "BPV" (benign positional vertigo) from the right ear Discharge Goals Goal(s): Learn about illness, Diagnostic testing, Therapeutic intervention Activity Recommendations Activity Limitations: as noted below For the next 2 days recommend AGAINST driving or operating heavy machinery in the event you have an attack of vertigo. You may resume driving when you have not had any vertigo/dizziness AND you have not taken any vertigo medication FOR AT LEAST 24 hours. . Instructions / Follow-Up Instructions / Follow-Up From Dr. Tobin - 1. vertigo - * you likely have a condition called "BPV" - Benign Positional Vertigo * it is a problem of the inner ear * please see the dedicated handout for more details * please follow a low salt diet; this sometimes prevents symptoms * you can take meclizine every 6 hours as needed for symptoms * if you continue to experience attacks of vertigo, hearing difficulties, and ringing please obtain a referral to ENT ([id number]) to rule out a condition called Meniere's Disease 2. rash on left leg - * use triamcinolone cream three times a day in small amounts for about 10 days * change your soap to aveeno or dove or neutrogena when you take a bath * apply plenty of moisturizer to the affected area as well * see your family doctor if it persists 3. fever blisters - * you can use the sample of zovirax given at the hospital * apply the cream 5 x's a day for 4 days then stop Again your MRI scan did NOT show evidence of a stroke Please follow-up with your family doctor in 5-7 days Return to [facility] if - 1. your vertigo returns and it is not responding to the meclizine medication 2. you develop severe vomiting associated with vertigo 3. you develop visual difficulties associated with the vertigo 4. you develop problems walking when the vertigo is happening Current Hospital Diet Patient's current hospital diet: AHA Diet (Heart Healthy) Discharge Diet Recommended Diet: AHA Diet (Heart Healthy) Procedures Procedures Performed: MRI brain - no evidence of stroke or tumor. Pending Studies Studies pending at discharge: no Laboratory Results Hemoglobin A1c Test 03/28/17 22:20 Range/Units Estimated Average Glucose 126 mg/dl Hemoglobin A1c 6.0 H 4.5-5.6 % Lipid Panel Test 02/03/17 06:10 Range/Units Triglycerides Level 101 0-150 mg/dl Cholesterol Level 142 0-200 mg/dl HDL Cholesterol 44 mg/dl Cholesterol/HDL Ratio 3.2 LDL Cholesterol, Calculated 78 mg/dl Medical Emergencies . Who to Call and When: Medical Emergencies: If at any time you feel your situation is an emergency, please call 911 immediately. . Non-Emergent Contact Non-Emergency issues call your: Primary Care Provider Call Non-Emergent contact if: temperature is above 100.5, you have any medication questions . . "Provider Documentation" section prepared by Maulik Tobin. . VTE Core Measure Inpt VTE Proph given/why not?: SCD's
[2017-03-29] MEDS ORDERED: CLONAZEPAM 1 MG TAB PO SCH (21:00)
[2017-03-29] MEDS ORDERED: QUETIAPINE FUMARATE 100 MG TAB PO SCH (21:00)
[2017-03-29] MEDS ORDERED: GABAPENTIN 600 MG TAB PO SCH (21:00)
--- NOTE | 2017-04-03 23:32 | Discharge Summary ---
Discharge Summary Date of Service April 03, 2017. Discharge Summary Admission Date: March 29, 2017 at 02:29 Discharge Date: March 29, 2017 Discharge Disposition: Home Principal Diagnosis: peripheral vertigo - improved Problems/Secondary Diagnoses: 1. h/o TIA / stroke 2. CAD s/p NSTEMI 3. HSV fever blisters 4. chronic rash - left leg 5. HTN 6. hyperlipidemia Procedures: 1. MRI brain - IMPRESSION: 1. No acute intracranial abnormality. 2. Considerable chronic small vessel change. 3. No change from the prior exam. 2. Carotid duplex study negative for ICA stenosis. 3. CT head - old left-sided lacunar infarct. Consultations: neurology - Len Workman MD physical therapy Medication Reconciliation New Medications: Triamcinolone Acet (Triamcinolone Acetonide) 45 Appln/15 Gm Cr 1 APPLN TOP TID for 10 Days, #15 GM 0 Refills 0.1% cream; apply in thin amounts to rash on left ankle area Acyclovir (Zovirax) 45 Appln/15 Gm Oint 1 APPLN EXT five times daily for 4 Days, #1 apply to both lips Meclizine HCl (Meclizine HCl) 25 Mg Tab 25 MG PO Q6H PRN for dizziness/vertigo, #30 TAB 0 Refills Continued Medications: Aspirin (Aspirin Ec) 81 Mg Tab 81 MG PO DAILY Atorvastatin (Atorvastatin Calcium) 20 Mg Tab 40 MG PO QAM, #30 TAB Cholecalciferol (Vitamin D3) 1,000 Inter.unit Tab 2000 INTER.UNIT PO QAM, #30 TAB Clonazepam (Klonopin) 1 Mg Tab 1 MG PO HS, TAB Clopidogrel Bisulfate (Clopidogrel) 75 Mg Tab 75 MG PO QAM, #30 TAB Ergocalciferol (Vitamin D) 50,000 Interunit Cap 75210 INTERUNIT PO Tu@0900, #8 CAP Fluoxetine (Prozac) 40 Mg Cap 40 MG PO DAILY, 0 Refills Gabapentin (Neurontin) 600 Mg Tab 600 MG PO BID, TAB TAKE IN AM AFTERNOON Gabapentin (Neurontin) 600 Mg Tab 1200 MG PO HS, TAB Lisinopril (Lisinopril) 5 Mg Tab 5 MG PO QAM, #30 TAB Metoprolol Tartrate (Lopressor) 25 Mg Tab 12.5 MG PO BID, #30 TAB Nitroglycerin (Nitrostat) 0.4 Mg/1 Tab Subl 1 TAB SL UD PRN for Chest Pain, #30 TAB Quetiapine Fumarate (Seroquel) 100 Mg Tab 100 MG PO HS, TAB Discharge Exam Physical Exam: General Appearance: no apparent distress Eyes: PERRL, EOMI, + pertinent finding (nystagmus, horizontal, fast component to the right ) ENT: pharynx normal, + pertinent finding (HSV fever blisters on both lips ) Neck: no JVD Respiratory/Chest: lungs clear, no respiratory distress, no accessory muscle use Cardiovascular: regular rate, rhythm, no gallop, no murmur, normal peripheral pulses Abdomen / GI: normal bowel sounds, non tender, soft, no organomegaly Extremities: no pedal edema Neurologic/Psychiatric: no motor/sensory deficits, alert, normal mood/affect , normal reflexes, oriented x 3, + pertinent finding (no dysmetria with finger/ nose/finger maneuver ) Skin: + rash (left leg, over the achilles region) Hospital Course HISTORY OF PRESENT ILLNESS: 61 y/o male with history of CAD s/p NSTEMI 01/19, TIAs, and HTN who presented following the acute onset of dizziness/vertigo which began at 8pm on the night of admission. He denied a headache, chest pain, visual field cuts, nausea/ vomiting or fevers. He was unable to ambulate as his balance was significantly impaired. HOSPITAL COURSE: The patient's acute vertigo was felt to be peripheral in origin based on his negative MRI brain as well as his vestibular evaluation by physical therapy. His vertigo was likely due to BPV or labrynthitis. His presentation was felt NOT to be due to TIA. He quickly improved with use of meclizine as well as Lashanda Maneuver performed by physical therapy. During his brief stay telemetry, labs, and other imaging including carotid duplex were entirely normal. The patient mentioned chronic tinnitus and some hearing loss. If he continues with vertigo attacks associated with tinnitus and/or hearing loss consider ENT referral to rule out Meniere's disease. All other medical problems remained stable while hospitalized. Total Time Spent: Greater than 30 minutes This includes examination of the patient, discharge planning, medication reconciliation, and communication with other providers. Discharge Instructions Please refer to the electronic Patient Visit Report (Discharge Instructions) for additional information. Follow-Up see Dr. Miguel Ángel Rodriguez, PCP, within 1 week Additional Copies To Miguel Ángel Rodriguez M.D.
[2017-07-28] MEDS ORDERED: OMEP20CA9 PO (17:21)
[2017-07-28] MEDS ORDERED: FAMO20TA11 PO (17:21)
[2017-07-28] MEDS ORDERED: PRVC/40 PO (17:21)
[2017-07-28] MEDS ORDERED: TACR1CAP PO ×2 (17:21)
[2017-07-28] MEDS ORDERED: TEMA-79 PO (17:21)
[2017-07-28] MEDS ORDERED: ATV/1 PO (17:21)
[2017-07-28] MEDS ORDERED: MAGN1TAB19 PO (17:21)
[2017-07-28] MEDS ORDERED: PRED-301 PO (17:21)
[2017-07-28] MEDS ORDERED: ONDA4TAB46 PO (17:21)
[2017-07-28] MEDS ORDERED: ASPI81TA28 PO (17:21)
[2017-07-28] MEDS ORDERED: AZAT50TA17 PO (17:21)
== END 2017-03-29 19:50 | disposition home or self-care (01) ==
LOC: ENRESERVTM → ENRESERVDT → EDBD 21:22 → C.EDA 21:24 → C.2T 03-29 01:58 → UNDOADMOB 03-29 01:58 → C.2T 03-29 02:29 → UNDODISOB 03-29 19:50
PROVIDERS: ADMIT Internal Medicine; ATTEND Internal Medicine
DX: H81.11 Benign paroxysmal vertigo, right ear (principal); R42 Dizziness and giddiness; R21 Rash and other nonspecific skin eruption; B00.1 Herpesviral vesicular dermatitis; I25.10 Atherosclerotic heart disease of native coronary artery without angina pectoris; I10 Essential (primary) hypertension; Z95.5 Presence of coronary angioplasty implant and graft; Z79.82 Long term (current) use of aspirin; Z79.02 Long term (current) use of antithrombotics/antiplatelets; F32.9 Major depressive disorder, single episode, unspecified; Z87.891 Personal history of nicotine dependence; Z86.73 Personal history of transient ischemic attack (TIA), and cerebral infarction without residual deficits; Z79.899 Other long term (current) drug therapy

== ENCOUNTER → 2017-04-13 | Outpatient (CLI) | payer OTHER ==
[~2017-04-13] MED LIST changes: +ACYC5CRE4 TOP; +ANT25 PO; +ATOR-24 PO; +ATV/1 PO; +AZAT50TA17 PO; +CHOL1TAB46 PO; +CLOP1TAB15 PO; +FAMO20TA11 PO; +FLUO10CA48 PO; +LISI-729 PO; +MAGN1TAB19 PO; +MECL1TAB42 PO; +METO25TA56 PO; +NTRGSL/4 UT; +OMEP20CA9 PO; +ONDA4TAB46 PO; +OXYC-57 PO; +PANT40TA PO; +PRED-301 PO; +PRVC/40 PO; +SRQ/100 PO; +TACR1CAP PO; +TEMA-79 PO; +TRMCR115 TOP; +TRMCR515 TOP; +ZVRO EXT
[2017-04-13 17:05] LABS: BASO % 0.5 %; BASO ABS # 0.03 K/uL (0-0.2); COMPLETE YES; EOS % 4.5 %; HEMATOCRIT 41.4 % (42-52); IG% 0.2 %; LYMPH % 30.1 %; LYMPH ABS # 1.69 K/uL (1.2-3.4); MEAN CELL VOLUME 86.8 fL (80-100); MEAN CORPUSCULAR HEMOGLOBIN 28.3 pg (25-34); MEAN CORPUSCULAR HGB CONC 32.6 g/dl (32-36); MEAN PLATELET VOLUME 10.8 fL (7.4-10.4); MONO % 17.1 %; NEUT % 47.6 %; PLATELET COUNT 306 K/uL (130-400); RED BLOOD COUNT 4.77 M/uL (4.7-6.1); WHITE BLOOD COUNT 5.61 K/uL (4.8-10.8)
[2017-04-13 17:41] LABS: ALT/SGPT 24 U/L (12-78); BLOOD UREA NITROGEN 20 mg/dl (7-18); BUN/CREATININE RATIO 16.5 (10-20); CALCIUM 8.9 mg/dl (8.5-10.1); CARBON DIOXIDE 29 mmol/L (21-32); CHLORIDE 105 mmol/L (98-107); GLUCOSE 106 mg/dl (70-99); POTASSIUM 4.4 mmol/L (3.5-5.1); SODIUM 142 mmol/L (136-145)
[2017-04-13 17:52] LABS: ALB/GLOB RATIO 0.9 (0.9-2); ALKALINE PHOSPHATASE 57 U/L (45-117); AST/SGOT 22 U/L (15-37)
== END | disposition home or self-care (01) ==
LOC: C.LABBFT 17:15
PROVIDERS: ATTEND Physician Assistant Medical
DX: E55.9 Vitamin D deficiency, unspecified (principal); I25.10 Atherosclerotic heart disease of native coronary artery without angina pectoris

== ENCOUNTER → 2017-08-27 | Outpatient (CLI) | payer OTHER ==
[~2017-08-27] MED LIST changes: -ACYC5CRE4 TOP; -ANT25 PO; -ATOR-24 PO; -CHOL1TAB46 PO; -CLON1TAB3 PO; -CLOP1TAB15 PO; -FLUO10CA48 PO; -FLUO40CA8 PO; -GABA600T PO; -LISI-729 PO; -LPR25 PO; -LPT20 PO; -LSN5 PO; -MECL1TAB42 PO; -METO25TA56 PO; -NRN/600 PO; -NTRGSL/4 UT; -NTRGSL4 SL; -OXYC-57 PO; -PANT40TA PO; -PLV75 PO; -QUET1TAB34 PO; -SRQ/100 PO; -TRMCR115 TOP; -TRMCR515 TOP; -VTMD PO; -VTMD1000 PO; -ZVRO EXT
[2017-08-27 16:48] LABS: URINE APPEARANCE CLEAR (CLEAR); URINE BILIRUBIN NEG (NEG); URINE COLOR YELLOW; URINE NITRITE NEG (NEG); URINE PH 5.5 (4.5-7.5); URINE SPECIFIC GRAVITY 1.028 (1.000-1.030); UROBILINOGEN NEG (NEG)
[2017-08-27 16:56] LABS: MANUAL MICROSCOPIC REQUIRED? NO; REVIEW REQ? NO
== END | disposition home or self-care (01) ==
LOC: C.LAB1850 15:19
PROVIDERS: ATTEND Internal Medicine Clinical Cardiac Electrophysiology
DX: I25.10 Atherosclerotic heart disease of native coronary artery without angina pectoris (principal)

== ENCOUNTER 2017-09-24 14:48 | Inpatient (IN) | payer OTHER ==
[~2017-09-24] VITALS: Ht 167.6 cm; Wt 101.6 kg
[2017-09-24] MEDS ORDERED: ONDANSETRON INJ 2 MG/ML 2 ML VIAL IV STA (15:01)
--- NOTE | 2017-09-24 15:06 | EMERGENCY ROOM VISIT NOTE ---
History Report prepared by [place]: Luciana Rodgers Under the Supervision of: Dr. Asa Bentley D.O. 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 Right abdomen hematoma, abrasion. Pain 8/10. History of Present Illness The patient is a 62 year old male who presents to the Emergency Room with complaints of a laceration. He is accompanied by his . He reports he was grinding earlier today, around 1300 this afternoon, when a wheel came off, and flew into the RLQ of his abdomen. He rates his discomfort as an 8/10 in severity. He was wearing a flannel shirt at the time. He does not take daily blood thinners. His Tetanus injection is up to date. He denies any recent back pain or chest pain. Source of History: patient Onset: 1300 today Position: abdomen (RLQ) Symptom Intensity: 8/10 Timing: constant Associated Symptoms: No chest pain, No back pain Review of Systems See HPI for pertinent positives & negatives. A total of 10 systems reviewed and were otherwise negative. Past Medical & Surgical Medical Problems: (1) Chest pain (2) Hematoma (3) TIA (transient ischemic attack) (4) Vertigo Social History Smoking Status: Former Smoker Alcohol Use: occasionally Drug Use: none Marital Status: Housing Status: lives with family Occupation Status: retired Current/Historical Medications Scheduled Acyclovir Topical (Zovirax), 1 APPLN TOP 5XD Aspirin (Aspirin Ec), 81 MG PO DAILY Atorvastatin (Lipitor), 40 MG PO DAILY Cholecalciferol (Vitamin D3), 5,000 UNITS PO DAILY Clonazepam (Klonopin), 1 MG PO HS Clopidogrel (Plavix), 75 MG PO QAM Fluoxetine (Prozac), 10 MG PO DAILY Fluoxetine (Prozac), 40 MG PO DAILY Gabapentin (Neurontin), 600 MG PO AM& AFTERNOON Gabapentin (Neurontin), 1,200 MG PO HS Lisinopril (Zestril), 5 MG PO DAILY Metoprolol Tartrate (Lopressor) (Lopressor), 12.5 MG PO BID Nitroglycerin (Nitrostat), 0.4 MG UT PRN Pantoprazole (Protonix), 40 MG PO DAILY Quetiapine Fumarate (Seroquel), 100 MG PO HS Scheduled PRN Meclizine Hcl (Meclizine Hcl), 25 MG PO Q6H PRN for Dizziness or Vertigo Triamcinolone Acet (Triamcinolone Acetonide), 1 APPLN TOP TIDX 10DAYS PRN for UNDECIDED Allergies Coded Allergies: No Known Allergies (Unverified , 03/29/17) Physical Exam Vital Signs Date Time Temp Pulse Resp B/P (MAP) Pulse Ox O2 Delivery O2 Flow Rate FiO2 09/24/17 17:01 65 09/24/17 17:00 67 20 139/81 97 Room Air 09/24/17 15:40 65 20 144/92 97 Room Air 09/24/17 14:49 36.5 83 18 156/82 96 Room Air Physical Exam GENERAL: Patient is awake, alert, somewhat anxious appearing and uncomfortable. EYES: The conjunctivae are clear. The pupils are round and reactive. EARS, NOSE, MOUTH AND THROAT: The nose is without any evidence of any deformity. Mucous membranes are moist tongue is midline NECK: The neck is nontender and supple. RESPIRATORY: Normal respiratory effort is noted there is no evidence of wheezing rhonchi or rales CARDIOVASCULAR: Regular rate and rhythm noted there no murmurs rubs or gallops normal S1 normal S2 GASTROINTESTINAL: The abdomen is mildly distended and soft. There was a large area of ecchymosis and abrasion over the RLQ. The area is significantly tender to palpation. BACK: No midline tenderness or or step-off noted range of motion in flexion extension as well as rotation no signs of muscle spasm noted MUSCULOSKELETAL/EXTREMITIES: There is no evidence of gross deformity full range of motion is noted in the hips and shoulders SKIN: There is no obvious evidence of any rash. There are no petechiae, pallor or cyanosis noted. NEUROLOGIC: Patient is awake alert and oriented x3 Medical Decision & Procedures ER Provider Diagnostic Interpretation: SINGLE VIEW CHEST CLINICAL HISTORY: Generalized abdominal pain. FINDINGS: An AP, portable, upright chest radiograph is obtained. No prior studies are available for comparison at the time of dictation. The examination is degraded by portable technique and patient rotation. The heart is top normal for projection. The mediastinal contour is within normal limits. Nonspecific interstitial thickening is noted. No airspace consolidation or large pleural effusion is identified. No pneumothorax is seen. The skeletal structures appear osteopenic. There are healed left-sided rib fractures. IMPRESSION: No acute cardiopulmonary abnormality. Electronically signed by: Ascencion Wong M.D. 09/24/2017 3:40 PM ABD/PELVIS IV AND ORAL CONT CT DOSE: 987.79 mGycm HISTORY: Trauma trauma TECHNIQUE: Multiaxial CT images of the abdomen and pelvis were performed following the use of intravenous and oral contrast. A dose lowering technique was utilized adhering to the principles of ALARA. COMPARISON STUDY: None. FINDINGS: Lung bases are clear. The liver spleen and pancreas are unremarkable. Kidneys negative for hydronephrosis. There is 1.5 cm lower pole left renal cyst and a 1 cm mid pole right renal cyst. Pancreas is moderately fatty replaced. Bowel pattern throughout is considered nonobstructive. There is no evidence for free air or pneumatosis. Bladder is midline. There are findings of edematous change of the anterior right abdominal wall. There is mild edematous change of the right rectus musculature. Within the subcutaneous fat best seen on image 45 is a 4.5 x 4.2 cm round soft tissue structure contains several high density linear internal components. This suggests a posttraumatic hemorrhage. The very small high density component potentially relate to small active bleeding sources and less likely small foreign bodies given their configuration. There is moderate edematous changes subcutaneous fat anterior and inferior to the hematoma. There is no evidence for an intra-abdominal or intrapelvic post traumatic abnormality. There is moderate degenerative changes of the osseous structures throughout. No lytic or blastic process is identified. IMPRESSION: 1. Focal soft tissue edematous change anterolateral right mid abdominal wall. 2. There is a 4.5 x 4.2 cm rounded density seen centrally within this edematous region highly suggestive of posttraumatic hematoma. 3. Small linear slightly serpiginous foci of high density within the hematoma suggesting very small active foci of bleeding and less likely partially radiopaque foreign bodies. 4. No evidence for an acute intra-abdominal or intrapelvic abnormality. The above report was generated using voice recognition software. It may contain grammatical, syntax or spelling errors. Electronically signed by: Jason Johnson M.D. 09/24/2017 4:27 PM Laboratory Results 09/24/17 15:15 Red Blood Count 4.57, Mean Corpuscular Volume 85.6, Mean Corpuscular Hemoglobin 28.2, Mean Corpuscular Hemoglobin Concent 33.0, Mean Platelet Volume 10.5, Neutrophils (%) (Auto) 62.2, Lymphocytes (%) (Auto) 24.4, Monocytes (%) (Auto) 11.2, Eosinophils (%) (Auto) 1.6, Basophils (%) (Auto) 0.4, Neutrophils # (Auto ) 5.57, Lymphocytes # (Auto) 2.19, Monocytes # (Auto) 1.00, Eosinophils # (Auto ) 0.14, Basophils # (Auto) 0.04 Test 09/24/17 15:15 09/24/17 15:27 09/24/17 17:00 White Blood Count 8.96 K/uL (4.8-10.8) Red Blood Count 4.57 M/uL (4.7-6.1) Hemoglobin 12.9 g/dL (14.0-18.0) Hematocrit 39.1 % (42-52) Mean Corpuscular Volume 85.6 fL (80-100) Mean Corpuscular Hemoglobin 28.2 pg (25-34) Mean Corpuscular Hemoglobin Concent 33.0 g/dl (32-36) Platelet Count 272 K/uL (130-400) Mean Platelet Volume 10.5 fL (7.4-10.4) Neutrophils (%) (Auto) 62.2 % Lymphocytes (%) (Auto) 24.4 % Monocytes (%) (Auto) 11.2 % Eosinophils (%) (Auto) 1.6 % Basophils (%) (Auto) 0.4 % Neutrophils # (Auto) 5.57 K/uL (1.4-6.5) Lymphocytes # (Auto) 2.19 K/uL (1.2-3.4) Monocytes # (Auto) 1.00 K/uL (0.11-0.59) Eosinophils # (Auto) 0.14 K/uL (0-0.5) Basophils # (Auto) 0.04 K/uL (0-0.2) RDW Standard Deviation 42.1 fL (36.4-46.3) RDW Coefficient of Variation 13.6 % (11.5-14.5) Immature Granulocyte % (Auto) 0.2 % Immature Granulocyte # (Auto) 0.02 K/uL (0.00-0.02) Prothrombin Time 11.4 SECONDS (9.0-12.0) Prothromb Time International Ratio 1.1 (0.9-1.1) Activated Partial Thromboplast Time 32.4 SECONDS (21.0-31.0) Partial Thromboplastin Ratio 1.2 Bedside Hemoglobin 13.9 g/dl (14.0-18.0) Bedside Hematocrit 41 % (42-52) Bedside Sodium 140 mEq/L (135-144) Bedside Potassium 4.0 mEq/L (3.3-5.0) Bedside Chloride 101 mEq/L (101-112) Bedside Total CO2 27 mEq/l (24-31) Anion Gap 17.0 mmol/L (16-25) Bedside Blood Urea Nitrogen 20 mg/dl (7-18) Bedside Creatinine 1.2 mg/dl (0.6-1.3) Bedside Glucose (other) 90 mg/dl (70-99) Bedside Ionized Calcium (Best) 1.17 mmol/l (1.12-1.32) Urine Color YELLOW Urine Appearance CLEAR (CLEAR) Urine pH 6.5 (4.5-7.5) Urine Specific [place] <= 1.005 (1.000-1.030) Urine Protein NEG (NEG) Urine Glucose (UA) NEG (NEG) Urine Ketones NEG (NEG) Urine Occult Blood NEG (NEG) Urine Nitrite NEG (NEG) Urine Bilirubin NEG (NEG) Urine Urobilinogen NEG (NEG) Urine Leukocyte Esterase NEG (NEG) Laboratory results per my review. Medications Administered Medications (Trade) Dose Ordered Sig/James Route Start Time Stop Time Status Last Admin Dose Admin Morphine Sulfate (MoRPHine SULFATE INJ) 4 mg Q15M PRN IV 09/24/17 15:15 09/24/17 19:00 09/24/17 15:33 4 MG Ondansetron HCl (Zofran Inj) 4 mg NOW STAT IV 09/24/17 15:01 09/24/17 15:04 DC 09/24/17 15:33 4 MG ED Course 1458: The patient was evaluated in room A4. A complete history and physical examination were performed. 1501: Zofran 4 mg IV. 1515: Morphine Sulfate 4 mg IV. 1630: I reevaluated the patient. He is resting comfortably. 1655: I discussed the patients case with Dr. Hernandez, [facility] Surgery. The patient will be further evaluated. 1717: I discussed the patients case with Dr. Beckman [facility] Hospitalist. The patient will be further evaluated. 1730: I reevaluated the patient. He is feeling well and resting. I discussed his results and my recommendation he remain in the hospital for further evaluation and management and he verbalized complete understanding and agreement. Medical Decision Prior records/ancillary studies reviewed. Triage Nursing notes reviewed. The patient's history was concerning for traumatic injury Differential diagnosis: Etiologies such as fracture, dislocation, intra-abdominal, pneumothorax, intrathoracic , intracranial, neurologic, as well as other traumatic pathologies were entertained. The patient is a 62-year-old male who presented to the emergency department after an injury to his abdomen. The patient was using a feed grinder when the machinery fell apart and he was struck in the abdomen. The patient had a very significant hematoma on evaluation. There was an abrasion but no definite break in the skin. 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 The patient currently takes Plavix because he had a cardiac catheterization with a drug-eluting stent in February of this year. I discussed the patient's laboratory and radiographic studies with him. He was treated with IV fluids IV pain medicine and IV antiemetics. On subsequent reevaluation he was significantly improved but because of his findings I discussed his case with the on-call general surgeon as well as the on-call [facility] hospitalist group. They've agreed to evaluate the patient in the emergency department for further management and disposition. Medication Reconcilliation Current Medication List: was personally reviewed by me Blood Pressure Screening Patient's blood pressure: Elevated blood pressure Blood pressure disposition: Elevated BP felt to be situational Consults Time Called: 165 Consulting Physician: Dr. Hernandez, [facility] General Surgery Returned Call: 165 I discussed the patients case with Dr. Hernandez [facility] General Surgery. The patient will be further evaluated. Additional Consults: Time Called: 171 Consulted Physician: Dr. Beckman [facility] Hospitalist Returned Call: [phone] Additional Comments: I discussed the patients case with Dr. Beckman [facility] Hospitalist. The patient will be further evaluated. Impression Primary Impression: Blunt abdominal trauma Additional Impression: Rectus sheath hematoma Scribe Attestation The scribe's documentation has been prepared under my direction and personally reviewed by me in its entirety. I confirm that the note above accurately reflects all work, treatment, procedures, and medical decision making performed by me. Departure Information Dispostion Being Evaluated By Hospitalist Miguel Ángel Hamilton M.D. (PCP) Patient Instructions My [facility] Problem Qualifiers Primary Impression: Blunt abdominal trauma Encounter type: initial encounter Qualified Codes: S39.81XA - Other specified injuries of abdomen, initial encounter Additional Impression: Rectus sheath hematoma Encounter type: initial encounter Qualified Codes: S30.1XXA - Contusion of abdominal wall, initial encounter
[2017-09-24] MEDS ORDERED: OPTIRAY 320 IV PRN (15:15)
[2017-09-24 15:28] LABS: BASO % 0.4 %; BASO ABS # 0.04 K/uL (0-0.2); COMPLETE YES; EOS % 1.6 %; HEMATOCRIT 39.1 % (42-52); IG% 0.2 %; LYMPH % 24.4 %; LYMPH ABS # 2.19 K/uL (1.2-3.4); MEAN CELL VOLUME 85.6 fL (80-100); MEAN CORPUSCULAR HEMOGLOBIN 28.2 pg (25-34); MEAN PLATELET VOLUME 10.5 fL (7.4-10.4); MONO % 11.2 %; NEUT % 62.2 %; PLATELET COUNT 272 K/uL (130-400); RED BLOOD COUNT 4.57 M/uL (4.7-6.1); WHITE BLOOD COUNT 8.96 K/uL (4.8-10.8)
[2017-09-24] MEDS: MoRPHine SULFATE 4 MG/ML 1 ML CARP\\VIAL IV PRN ×2 (15:33→18:42)
[2017-09-24 15:37] LABS: INR 1.1 (0.9-1.1); PARTIAL THROMBOPLASTIN RATIO 1.2; PROTHROMBIN TIME (PATIENT) 11.4 SECONDS (9.0-12.0)
[2017-09-24 15:40] LABS: ISTAT CREATININE 1.2 mg/dl (0.6-1.3); ISTAT HEMOGLOBIN 13.9 g/dl (14.0-18.0); ISTAT IONIZED CALCIUM 1.17 mmol/l (1.12-1.32)
--- NOTE | 2017-09-24 15:42 | DIAGNOSTIC IMAGING REPORT ---
SINGLE VIEW CHEST CLINICAL HISTORY: Generalized abdominal pain. FINDINGS: An AP, portable, upright chest radiograph is obtained. No prior studies are available for comparison at the time of dictation. The examination is degraded by portable technique and patient rotation. The heart is top normal for projection. The mediastinal contour is within normal limits. Nonspecific interstitial thickening is noted. No airspace consolidation or large pleural effusion is identified. No pneumothorax is seen. The skeletal structures appear osteopenic. There are healed left-sided rib fractures. IMPRESSION: No acute cardiopulmonary abnormality. Electronically signed by: Ascencion Wong M.D. 09/24/2017 3:40 PM Dictated Date/Time: 09/24/2017 3:39 PM
--- NOTE | 2017-09-24 16:28 | DIAGNOSTIC IMAGING REPORT ---
ABD/PELVIS IV AND ORAL CONT CT DOSE: 987.79 mGycm HISTORY: Trauma trauma TECHNIQUE: Multiaxial CT images of the abdomen and pelvis were performed following the use of intravenous and oral contrast. A dose lowering technique was utilized adhering to the principles of ALARA. COMPARISON STUDY: None. FINDINGS: Lung bases are clear. The liver spleen and pancreas are unremarkable. Kidneys negative for hydronephrosis. There is 1.5 cm lower pole left renal cyst and a 1 cm mid pole right renal cyst. Pancreas is moderately fatty replaced. Bowel pattern throughout is considered nonobstructive. There is no evidence for free air or pneumatosis. Bladder is midline. There are findings of edematous change of the anterior right abdominal wall. There is mild edematous change of the right rectus musculature. Within the subcutaneous fat best seen on image 45 is a 4.5 x 4.2 cm round soft tissue structure contains several high density linear internal components. This suggests a posttraumatic hemorrhage. The very small high density component potentially relate to small active bleeding sources and less likely small foreign bodies given their configuration. There is moderate edematous changes subcutaneous fat anterior and inferior to the hematoma. There is no evidence for an intra-abdominal or intrapelvic post traumatic abnormality. There is moderate degenerative changes of the osseous structures throughout. No lytic or blastic process is identified. IMPRESSION: 1. Focal soft tissue edematous change anterolateral right mid abdominal wall. 2. There is a 4.5 x 4.2 cm rounded density seen centrally within this edematous region highly suggestive of posttraumatic hematoma. 3. Small linear slightly serpiginous foci of high density within the hematoma suggesting very small active foci of bleeding and less likely partially radiopaque foreign bodies. 4. No evidence for an acute intra-abdominal or intrapelvic abnormality. The above report was generated using voice recognition software. It may contain grammatical, syntax or spelling errors. Electronically signed by: Jason Johnson M.D. 09/24/2017 4:27 PM Dictated Date/Time: 09/24/2017 4:22 PM
[2017-09-24] MEDS ORDERED: ATOR-24 PO (16:45)
[2017-09-24] MEDS ORDERED: CLON1TAB3 PO (16:47)
[2017-09-24] MEDS ORDERED: CLOP1TAB15 PO (16:48)
[2017-09-24] MEDS ORDERED: FLUO10CA48 PO (16:49)
[2017-09-24] MEDS ORDERED: FLUO40CA8 PO (16:50)
[2017-09-24] MEDS ORDERED: NRN/600 PO ×2 (16:52→16:53)
[2017-09-24] MEDS ORDERED: LISI-729 PO (16:54)
[2017-09-24] MEDS ORDERED: MECL1TAB42 PO (16:56)
[2017-09-24] MEDS ORDERED: METO25TA56 PO (16:58)
[2017-09-24] MEDS ORDERED: NTRGSL/4 UT (16:59)
[2017-09-24] MEDS ORDERED: PANT40TA PO (17:03)
[2017-09-24] MEDS ORDERED: SRQ/100 PO (17:04)
[2017-09-24] MEDS ORDERED: CHOL1TAB46 PO (17:06)
[2017-09-24] MEDS ORDERED: TRMCR515 TOP (17:09)
[2017-09-24] MEDS ORDERED: ACYC5CRE4 TOP (17:11)
[2017-09-24 17:19] LABS: MANUAL MICROSCOPIC REQUIRED? NO; REVIEW REQ? NO; URINE APPEARANCE CLEAR (CLEAR); URINE BILIRUBIN NEG (NEG); URINE COLOR YELLOW; URINE NITRITE NEG (NEG); URINE PH 6.5 (4.5-7.5); URINE SPECIFIC GRAVITY <= 1.005 (1.000-1.030); UROBILINOGEN NEG (NEG)
[2017-09-24] MEDS ORDERED: ACETAMINOPHEN 325 MG TAB PO PRN (17:45)
[2017-09-24] MEDS ORDERED: ONDANSETRON INJ 2 MG/ML 2 ML VIAL IV PRN (17:45)
[2017-09-24] MEDS ORDERED: TRIAMCINOLONE ACET 0.1% CR 15 GM TUBE EXT PRN (17:45)
[2017-09-24] MEDS ORDERED: POLYETHYLENE (MIRALAX) 17 GM PACK PO PRN (17:45)
[2017-09-24] MEDS ORDERED: NITROGLYCERIN 0.4 MG SL PER TAB CHARGE UT PRN (17:45)
[2017-09-24] MEDS ORDERED: ALUMINUM/MAGNESIUM/SIMETH (MAALOX MAX) 30 ML UDC PO PRN (17:45)
[2017-09-24] MEDS ORDERED: MoRPHine SULFATE 2 MG/ML CARP IV PRN (17:45)
[2017-09-24] MEDS ORDERED: MECLIZINE HCL 25 MG TAB PO PRN (17:45)
[2017-09-24] MEDS ORDERED: MAGNESIUM HYDROXIDE SUSP 30 ML UDC PO PRN (17:45)
--- NOTE | 2017-09-24 17:57 | History and Physical ---
History & Physical Date & Time of Service: Sep 24, 2017 at 17:45 Chief Complaint: Large Lac To Abd From Head Wood Grinder Primary Care Physician: Miguel Ángel Rodriguez M.D. History of Present Illness Source: patient, family, clinic records, hospital records Patient is a pleasant 62 y/o male, with PMHx of CAD s/p NSTEMI w/ ANDREINA to mid RCA in February 2017, TIAs, HTN, depression, and GERD, who presented to the ED because of an injury to R mid abdomen. He was working under his car today with a universal grinder tool when it fell apart and hit him in the stomach. Denies laceration. Denies any other injuries. Pain is currently a 6/10. Patient denies any fever, chills, sweats, lightheadedness, dizziness, vision changes, CP, palpitations, edema, SOB, wheezing, cough, abdominal pain, nausea, vomiting, diarrhea, urinary symptoms, melena, numbness/tingling, weakness, anxiety/depression, or new skin discoloration/changes. Past Medical/Surgical History CAD TIAs HTN depression GERD Surgical history: s/p NSTEMI w/ ANDREINA to mid RCA in February 2017 Family History Mother and father- [place] Social History Smoking Status: Former Smoker Drug Use: none Marital Status: Housing status: lives with significant other Occupational Status: retired Multi-Drug Resistant Organisms History of MDRO: No Allergies Coded Allergies: No Known Allergies (Unverified , 03/29/17) Home Medications Scheduled Acyclovir Topical (Zovirax), 1 APPLN TOP 5XD Aspirin (Aspirin Ec), 81 MG PO DAILY Atorvastatin (Lipitor), 40 MG PO DAILY Cholecalciferol (Vitamin D3), 5,000 UNITS PO DAILY Clonazepam (Klonopin), 1 MG PO HS Clopidogrel (Plavix), 75 MG PO QAM Fluoxetine (Prozac), 10 MG PO DAILY Fluoxetine (Prozac), 40 MG PO DAILY Gabapentin (Neurontin), 600 MG PO AM& AFTERNOON Gabapentin (Neurontin), 1,200 MG PO HS Lisinopril (Zestril), 5 MG PO DAILY Metoprolol Tartrate (Lopressor) (Lopressor), 12.5 MG PO BID Nitroglycerin (Nitrostat), 0.4 MG UT PRN Pantoprazole (Protonix), 40 MG PO DAILY Quetiapine Fumarate (Seroquel), 100 MG PO HS Scheduled PRN Meclizine Hcl (Meclizine Hcl), 25 MG PO Q6H PRN for Dizziness or Vertigo Triamcinolone Acet (Triamcinolone Acetonide), 1 APPLN TOP TIDX 10DAYS PRN for UNDECIDED Physical Exam Vital Signs Date Time Temp Pulse Resp B/P (MAP) Pulse Ox O2 Delivery O2 Flow Rate FiO2 09/24/17 17:01 65 09/24/17 17:00 67 20 139/81 97 Room Air 09/24/17 15:40 65 20 144/92 97 Room Air 09/24/17 14:49 36.5 83 18 156/82 96 Room Air General Appearance: no apparent distress Head: normocephalic, atraumatic Eyes: normal inspection, PERRL ENT: hearing grossly normal Neck: supple Respiratory/Chest: lungs clear, no respiratory distress, no accessory muscle use Cardiovascular: regular rate, rhythm Abdomen/GI: normal bowel sounds, soft, + tenderness (R mid abdomen region ), + pertinent finding (+brusining and swelling to R mid abdomen region ) Back: normal inspection Extremities/Musculoskelatal: no calf tenderness, no pedal edema Neurologic/Psych: alert, normal mood/affect, oriented x 3 Skin: normal color, warm/dry, no rash Diagnostics Laboratory Results Results Past 24 Hours Test 09/24/17 15:15 09/24/17 15:27 09/24/17 17:00 Range/Units White Blood Count 8.96 4.8-10.8 K/uL Red Blood Count 4.57 4.7-6.1 M/uL Hemoglobin 12.9 14.0-18.0 g/dL Hematocrit 39.1 42-52 % Mean Corpuscular Volume 85.6 80-100 fL Mean Corpuscular Hemoglobin 28.2 25-34 pg Mean Corpuscular Hemoglobin Concent 33.0 32-36 g/dl Platelet Count 272 130-400 K/uL Mean Platelet Volume 10.5 7.4-10.4 fL Neutrophils (%) (Auto) 62.2 % Lymphocytes (%) (Auto) 24.4 % Monocytes (%) (Auto) 11.2 % Eosinophils (%) (Auto) 1.6 % Basophils (%) (Auto) 0.4 % Neutrophils # (Auto) 5.57 1.4-6.5 K/uL Lymphocytes # (Auto) 2.19 1.2-3.4 K/uL Monocytes # (Auto) 1.00 0.11-0.59 K/uL Eosinophils # (Auto) 0.14 0-0.5 K/uL Basophils # (Auto) 0.04 0-0.2 K/uL RDW Standard Deviation 42.1 36.4-46.3 fL RDW Coefficient of Variation 13.6 11.5-14.5 % Immature Granulocyte % (Auto) 0.2 % Immature Granulocyte # (Auto) 0.02 0.00-0.02 K/uL Prothrombin Time 11.4 9.0-12.0 SECONDS Prothromb Time International Ratio 1.1 0.9-1.1 Activated Partial Thromboplast Time 32.4 21.0-31.0 SECONDS Partial Thromboplastin Ratio 1.2 Bedside Hemoglobin 13.9 14.0-18.0 g/dl Bedside Hematocrit 41 42-52 % Bedside Sodium 140 135-144 mEq/L Bedside Potassium 4.0 3.3-5.0 mEq/L Bedside Chloride 101 101-112 mEq/L Bedside Total CO2 27 24-31 mEq/l Anion Gap 17.0 16-25 mmol/L Bedside Blood Urea Nitrogen 20 7-18 mg/dl Bedside Creatinine 1.2 0.6-1.3 mg/dl Bedside Glucose (other) 90 70-99 mg/dl Bedside Ionized Calcium (Best) 1.17 1.12-1.32 mmol/l Urine Color YELLOW Urine Appearance CLEAR CLEAR Urine pH 6.5 4.5-7.5 Urine Specific [place] <= 1.005 1.000-1.030 Urine Protein NEG NEG Urine Glucose (UA) NEG NEG Urine Ketones NEG NEG Urine Occult Blood NEG NEG Urine Nitrite NEG NEG Urine Bilirubin NEG NEG Urine Urobilinogen NEG NEG Urine Leukocyte Esterase NEG NEG Diagnostic Radiology SINGLE VIEW CHEST CLINICAL HISTORY: Generalized abdominal pain. FINDINGS: An AP, portable, upright chest radiograph is obtained. No prior studies are available for comparison at the time of dictation. The examination is degraded by portable technique and patient rotation. The heart is top normal for projection. The mediastinal contour is within normal limits. Nonspecific interstitial thickening is noted. No airspace consolidation or large pleural effusion is identified. No pneumothorax is seen. The skeletal structures appear osteopenic. There are healed left-sided rib fractures. IMPRESSION: No acute cardiopulmonary abnormality. Electronically signed by: Ascencion Wong M.D. 09/24/2017 3:40 PM Dictated Date/Time: 09/24/2017 3:39 PM The status of this report is Signed. Draft = Not yet reviewed or approved by Radiologist. Signed = Reviewed and approved by Radiologist. ABD/PELVIS IV AND ORAL CONT CT DOSE: 987.79 mGycm HISTORY: Trauma trauma TECHNIQUE: Multiaxial CT images of the abdomen and pelvis were performed following the use of intravenous and oral contrast. A dose lowering technique was utilized adhering to the principles of ALARA. COMPARISON STUDY: None. FINDINGS: Lung bases are clear. The liver spleen and pancreas are unremarkable. Kidneys negative for hydronephrosis. There is 1.5 cm lower pole left renal cyst and a 1 cm mid pole right renal cyst. Pancreas is moderately fatty replaced. Bowel pattern throughout is considered nonobstructive. There is no evidence for free air or pneumatosis. Bladder is midline. There are findings of edematous change of the anterior right abdominal wall. There is mild edematous change of the right rectus musculature. Within the subcutaneous fat best seen on image 45 is a 4.5 x 4.2 cm round soft tissue structure contains several high density linear internal components. This suggests a posttraumatic hemorrhage. The very small high density component potentially relate to small active bleeding sources and less likely small foreign bodies given their configuration. There is moderate edematous changes subcutaneous fat anterior and inferior to the hematoma. There is no evidence for an intra-abdominal or intrapelvic post traumatic abnormality. There is moderate degenerative changes of the osseous structures throughout. No lytic or blastic process is identified. IMPRESSION: 1. Focal soft tissue edematous change anterolateral right mid abdominal wall. 2. There is a 4.5 x 4.2 cm rounded density seen centrally within this edematous region highly suggestive of posttraumatic hematoma. 3. Small linear slightly serpiginous foci of high density within the hematoma suggesting very small active foci of bleeding and less likely partially radiopaque foreign bodies. 4. No evidence for an acute intra-abdominal or intrapelvic abnormality. The above report was generated using voice recognition software. It may contain grammatical, syntax or spelling errors. Electronically signed by: Jason Johnson M.D. 09/24/2017 4:27 PM Dictated Date/Time: 09/24/2017 4:22 PM The status of this report is Signed. Draft = Not yet reviewed or approved by Radiologist. Signed = Reviewed and approved by Radiologist Impression Assessment and Plan Patient is a pleasant 62 y/o male, with PMHx of CAD s/p NSTEMI w/ ANDREINA to mid RCA in February 2017, TIAs, HTN, depression, and GERD, who presented to the ED because of an injury to R mid abdomen. R mid abdominal hematoma: - Admit to med/surg - Stop Plavix and ASA- discussed w/ cardiology, Dr. White - IV Morphine and Percocet PRN for pain control - Obtain US tomorrow AM to monitor hematoma - Tetanus shot up-to-date - Follow H&H - General surgery consulted, appreciate recommendations CAD s/p NSTEMI w/ ANDREINA to mid RCA in February 2017- follows w/ Dr. Arshad: - Continue Lopressor 12.5 mg BID - Holding Plavix and ASA as above Depression: Continue Klonopin 1 mg HS, Prozac 50 mg daily, Seroquel 100 mg HS HTN: Continue Lisinopril 5 mg daily HLD: Continue Lipitor 40 mg daily GERD: Continue Protonix DVT prophylaxis: Chemical anticoagulation contraindicated due to hematoma Code Status: LEVEL I, FULL Dispo: From home, lives w/ family- no discharge needs anticipated PA Physician Supervision Note: I interviewed and examined the patient. Discussed with Kera BATEMAN and agree with findings and plan as documented in the note. Any exceptions or clarifications are listed here: None Patient instructed in the right abdomen wall with a pieces from a angle universal grinder tool sustaining a large rectus sheath hematoma with concern for active bleeding patient typically takes aspirin and Plavix due to recent cardiac intervention. Patient otherwise is hemodynamically stable and has only significant pain. Vital signs showed me afebrile blood pressures 139/81 heart rate 65 Cardiac exam is regular without murmurs lungs are clear abdomen is markedly tender there is a 6 cm ovoid ecchymotic area with abrasion within it however his overall right abdominal wall is markedly tender to touch General surgery is following with us were holding his aspirin and Plavix continue his antihypertensive antidepressant GERD treatment will follow with ultrasound assessment and hemoglobin in the morning Documented By: Obed Beckman Level of Care Med/Surg Resuscitation Status FULL RESUSCITATION VTE Prophylaxis VTE Risk Assessment Done? Y/N: Yes Risk Level: Moderate Given or contraindicated: Contraindicated
[2017-09-24 18:54] VITALS: O2SAT 95
[2017-09-24 19:00] VITALS: BP 156/88; PULSE 69; TEMP 36.7; O2SAT 96; Ht 167.6 cm; Wt 101.6 kg
--- NOTE | 2017-09-24 19:03 | SURGICAL CONSULTATION ---
DATE OF CONSULTATION: 09/24/2017 I have been asked by Dr. Bentley to see this 62-year-old male who was working with a rotary surface grinder in his home. He thought he caught something on the rotary surface grinder, it broke and a piece of which struck him on the right side of his abdomen just below the costal margin. He presented to the Emergency Room complaining of pain and swelling in that area. The pain and swelling is localized to that area. There is no generalized abdominal pain. He has not had any nausea or vomiting. He has not had any injury to any other part of his body. He is on Plavix, had he had a drug-eluting stent placed during a cardiac catheterization in February of this year. A CT scan of the abdomen and pelvis was obtained which shows a 4.5 x 4.2 cm rounded density essentially within an edematous region that is highly suggestive of posttraumatic hematoma. There is a small linear serpiginous foci of high density within the hematoma suggested very small active foci of bleeding and less likely partial radiopaque foreign body. PAST MEDICAL HISTORY: Includes chest pain, coronary artery disease status post stent placement, old MA, TIA and vertigo. MEDICATIONS: Please see H&P. ALLERGIES: None. PHYSICAL EXAMINATION: GENERAL: Reveals a gentleman who appears comfortable and in no acute distress. VITAL SIGNS: Blood pressure 139/81, heart rate 67, respirations 20, temperature 36.5, pulse oximetry is 97% on room air. HEENT: Reveals the sclerae to be anicteric. Mucous membranes are moist. ABDOMEN: Normoactive bowel sounds, is soft. There is an area of swelling in the right upper quadrant below the costal margin that has a purple color to it without evidence of skin disruption, but more of an abrasion. This is tender directly over that area, but there is no diffuse abdominal tenderness. LABORATORY DATA: WBC 8.96, H&H 12.9 and 39.1, and platelet count 272,000. RADIOLOGY: As per HPI. ASSESSMENT AND PLAN: This patient was struck in the abdomen by a portion of a rotary surface grinder. He has a hematoma of the abdominal wall without evidence of an intraabdominal component. He is on Plavix which cannot be discontinued due to his drug-eluting stent. Would continue to follow the hematoma and his H&H. I would not recommend surgical intervention immediately. I explained that to the patient. He understands. Thank you for allowing me to see this patient and participate in his care.
[2017-09-24] MEDS: ACYCLOVIR 5% OINT 15 GM TUBE EXT SCH (19:43)
[2017-09-24 20:07] LABS: ALT/SGPT 24 U/L (12-78); AST/SGOT 20 U/L (15-37); BLOOD UREA NITROGEN 20 mg/dl (7-18); BUN/CREATININE RATIO 16.2 (10-20); CALCIUM 8.7 mg/dl (8.5-10.1); CARBON DIOXIDE 29 mmol/L (21-32); CHLORIDE 103 mmol/L (98-107); CREATININE 1.22 mg/dl (0.60-1.40); GLUCOSE 91 mg/dl (70-99); POTASSIUM 3.9 mmol/L (3.5-5.1); SODIUM 138 mmol/L (136-145)
[2017-09-24 20:10] LABS: ALKALINE PHOSPHATASE 61 U/L (45-117)
[2017-09-24] MEDS ORDERED: CLONAZEPAM 1 MG TAB PO SCH (21:00)
[2017-09-24] MEDS ORDERED: QUETIAPINE FUMARATE 100 MG TAB PO SCH (21:00)
[2017-09-24] MEDS ORDERED: GABAPENTIN 600 MG TAB PO SCH (21:00)
[2017-09-24] MEDS: METOPROLOL TARTRATE 25 MG TAB PO SCH (22:00)
[2017-09-24 22:55] VITALS: BP 126/74; PULSE 65; TEMP 36.6; O2SAT 93
[2017-09-24] MEDS: OXYCODONE/ACETAMINOPHEN 5-325 TAB PO PRN (23:22)
[2017-09-25] MEDS: ACYCLOVIR 5% OINT 15 GM TUBE EXT SCH ×3 (05:56→12:39)
[2017-09-25 06:21] LABS: HEMATOCRIT 40.4 % (42-52); MEAN CELL VOLUME 86.7 fL (80-100); MEAN CORPUSCULAR HEMOGLOBIN 28.3 pg (25-34); MEAN CORPUSCULAR HGB CONC 32.7 g/dl (32-36); MEAN PLATELET VOLUME 10.5 fL (7.4-10.4); PLATELET COUNT 287 K/uL (130-400); RED BLOOD COUNT 4.66 M/uL (4.7-6.1); WHITE BLOOD COUNT 7.34 K/uL (4.8-10.8)
[2017-09-25 07:00] VITALS: BP 101/64; PULSE 60; TEMP 36.6; O2SAT 93
--- NOTE | 2017-09-25 08:10 | DIAGNOSTIC IMAGING REPORT ---
ULTRASOUND ABDOMINAL WALL NONVASCULAR CLINICAL HISTORY: Abdominal wall hematoma. COMPARISON STUDY: Abdominal CT dated 09/24/2017. FINDINGS: Real-time, grayscale, and color flow sonography of the right lower quadrant abdominal wall is performed at the site of interest. There is a complex hypoechoic collection which measures 5.2 x 3.4 x 3.6 cm. When correlated with recent CT scan this is consistent with a subcutaneous hematoma. No internal flow is seen on color imaging. IMPRESSION: There is a complex nonvascular hypoechoic fluid collection in the right lower quadrant abdominal wall at the site of interest. When correlated with yesterday's CT scan the appearance is consistent with a hematoma. Dictated: 09/25/2017 6:56 AM Transcribed: 09/25/2017 8:10 AM [facility] Electronically signed by: Ascencion Wong M.D. 09/25/2017 8:17 AM Dictated Date/Time: 09/25/2017 6:56 AM
[2017-09-25] MEDS: OXYCODONE/ACETAMINOPHEN 5-325 TAB PO PRN ×2 (08:17→15:16)
[2017-09-25] MEDS: METOPROLOL TARTRATE 25 MG TAB PO SCH (08:18)
[2017-09-25] MEDS: GABAPENTIN 600 MG TAB PO SCH ×2 (08:19→14:02)
[2017-09-25] MEDS ORDERED: PANTOprazole SOD 40 MG TAB PO SCH (09:00)
[2017-09-25] MEDS ORDERED: CHOLECALCIFEROL 1000 INTER.UNIT TAB PO SCH (09:00)
[2017-09-25] MEDS ORDERED: FLUOXETINE HCL 20 MG CAP PO SCH (09:00)
[2017-09-25] MEDS ORDERED: ATORVASTATIN 40 MG TAB PO SCH (09:00)
[2017-09-25] MEDS ORDERED: LISINOPRIL 5 MG TAB PO SCH (09:00)
[2017-09-25] MEDS ORDERED: FLUOXETINE HCL 10 MG CAP PO SCH (09:00)
--- NOTE | 2017-09-25 12:07 | Surgery Progress Note ---
Surgery Progress Note Date of Service Sep 25, 2017. Subjective + diet (tolerating diet), No nausea, No vomiting Pain unchanged Objective Vital Signs: Date Time Temp Pulse Resp B/P (MAP) Pulse Ox O2 Delivery O2 Flow Rate FiO2 09/25/17 08:00 Room Air 09/25/17 07:00 36.6 60 17 101/64 (76) 93 Room Air 09/24/17 23:20 Room Air 09/24/17 22:55 36.6 65 16 126/74 (91) 93 Room Air 09/24/17 19:00 36.7 69 15 156/88 Room Air 09/24/17 19:00 Room Air 09/24/17 19:00 36.7 69 15 156/88 (110) 96 Room Air 09/24/17 18:54 62 20 131/85 95 09/24/17 18:42 63 20 165/88 96 Room Air 09/24/17 17:01 65 09/24/17 17:00 67 20 139/81 97 Room Air 09/24/17 15:40 65 20 144/92 97 Room Air 09/24/17 14:49 36.5 83 18 156/82 96 Room Air Abdomen: normal bowel sounds, non distended, soft, + pertinent finding (Area of swelling has decreased in maximum diameter, ore surrounding ecchymosis) Laboratory Results: Results Past 24 Hours Test 09/24/17 15:15 09/24/17 15:27 09/24/17 17:00 09/25/17 06:00 Range/Units White Blood Count 8.96 7.34 4.8-10.8 K/uL Red Blood Count 4.57 4.66 4.7-6.1 M/uL Hemoglobin 12.9 13.2 14.0-18.0 g/dL Hematocrit 39.1 40.4 42-52 % Mean Corpuscular Volume 85.6 86.7 80-100 fL Mean Corpuscular Hemoglobin 28.2 28.3 25-34 pg Mean Corpuscular Hemoglobin Concent 33.0 32.7 32-36 g/dl Platelet Count 272 287 130-400 K/uL Mean Platelet Volume 10.5 10.5 7.4-10.4 fL Neutrophils (%) (Auto) 62.2 % Lymphocytes (%) (Auto) 24.4 % Monocytes (%) (Auto) 11.2 % Eosinophils (%) (Auto) 1.6 % Basophils (%) (Auto) 0.4 % Neutrophils # (Auto) 5.57 1.4-6.5 K/uL Lymphocytes # (Auto) 2.19 1.2-3.4 K/uL Monocytes # (Auto) 1.00 0.11-0.59 K/uL Eosinophils # (Auto) 0.14 0-0.5 K/uL Basophils # (Auto) 0.04 0-0.2 K/uL RDW Standard Deviation 42.1 43.6 36.4-46.3 fL RDW Coefficient of Variation 13.6 13.8 11.5-14.5 % Immature Granulocyte % (Auto) 0.2 % Immature Granulocyte # (Auto) 0.02 0.00-0.02 K/uL Prothrombin Time 11.4 9.0-12.0 SECONDS Prothromb Time International Ratio 1.1 0.9-1.1 Activated Partial Thromboplast Time 32.4 21.0-31.0 SECONDS Partial Thromboplastin Ratio 1.2 Sodium Level 138 136-145 mmol/L Potassium Level 3.9 3.5-5.1 mmol/L Chloride Level 103 98-107 mmol/L Carbon Dioxide Level 29 21-32 mmol/L Anion Gap 6.0 17.0 16-25 mmol/L Blood Urea Nitrogen 20 7-18 mg/dl Creatinine 1.22 0.60-1.40 mg/dl Est Creatinine Clear Calc Drug Dose 68.3 ml/min Estimated GFR () 72.2 Estimated GFR (Non- 62.3 BUN/Creatinine Ratio 16.2 10-20 Random Glucose 91 70-99 mg/dl Calcium Level 8.7 8.5-10.1 mg/dl Total Bilirubin 0.4 0.2-1 mg/dl Direct Bilirubin < 0.1 0-0.2 mg/dl Aspartate Amino Transf (AST/SGOT) 20 15-37 U/L Alanine Aminotransferase (ALT/SGPT) 24 12-78 U/L Alkaline Phosphatase 61 45-117 U/L Total Protein 7.6 6.4-8.2 gm/dl Albumin 3.8 3.4-5.0 gm/dl Lipase 57 73-393 U/L Bedside Hemoglobin 13.9 14.0-18.0 g/dl Bedside Hematocrit 41 42-52 % Bedside Sodium 140 135-144 mEq/L Bedside Potassium 4.0 3.3-5.0 mEq/L Bedside Chloride 101 101-112 mEq/L Bedside Total CO2 27 24-31 mEq/l Bedside Blood Urea Nitrogen 20 7-18 mg/dl Bedside Creatinine 1.2 0.6-1.3 mg/dl Bedside Glucose (other) 90 70-99 mg/dl Bedside Ionized Calcium (Best) 1.17 1.12-1.32 mmol/l Urine Color YELLOW Urine Appearance CLEAR CLEAR Urine pH 6.5 4.5-7.5 Urine Specific [place] <= 1.005 1.000-1.030 Urine Protein NEG NEG Urine Glucose (UA) NEG NEG Urine Ketones NEG NEG Urine Occult Blood NEG NEG Urine Nitrite NEG NEG Urine Bilirubin NEG NEG Urine Urobilinogen NEG NEG Urine Leukocyte Esterase NEG NEG Assessment & Plan Abdominal wall hematoma H&H stable Continue conservative measures No surgical indication at this time
[2017-09-25] MEDS ORDERED: OXYC-57 PO (14:26)
--- NOTE | 2017-09-25 14:44 | Discharge Instructions ---
Discharge Instructions Date of Service Sep 25, 2017. Admission Reason for Admission: Hematoma Discharge Discharge Diagnosis / Problem: hematoma Discharge Goals Goal(s): Decrease discomfort, Improve disease control, Diagnostic testing Activity Recommendations Activity Limitations: per Instructions/Follow-up section Please resume your previous activity slowly, take the next few days easy without too much activity. Do not drive if you take any Percoset Restart your Plavix (clopidegral) and aspirin tomorrow. Please have your blood drawn tomorrow and Sunday (09/28). You will need to have your blood drawn at the hospital on Sunday as the offices will be closed for the holidays Please follow up with Dr. Rodriguez within a week. The Nurse Navigator will call with appointment . Current Hospital Diet Patient's current hospital diet: AHA Diet (Heart Healthy) Discharge Diet Recommended Diet: AHA Diet (Heart Healthy) Procedures Procedures Performed: Abdomen ultrasound, xray and CT scan Pending Studies Studies pending at discharge: no Medical Emergencies . Who to Call and When: Medical Emergencies: If at any time you feel your situation is an emergency, please call 911 immediately. . Non-Emergent Contact Non-Emergency issues call your: Primary Care Provider Call Non-Emergent contact if: your pain is not controlled, your pain is concerning you, you have any medication questions . Past History Medical & Surgical History: (1) Rectus sheath hematoma . "Provider Documentation" section prepared by Marie Xiao. . VTE Core Measure Inpt VTE Proph given/why not?: Contraindicated
[2017-09-25 14:54] VITALS: BP 101/64; PULSE 60; TEMP 36.6; O2SAT 93
--- NOTE | 2017-09-25 17:24 | Discharge Summary ---
Discharge Summary Date of Service Sep 25, 2017. (Marie Xiao CRNP) Discharge Summary Admission Date: Sep 24, 2017 at 17:43 Discharge Date: Sep 25, 2017 Discharge Disposition: Home Principal Diagnosis: Hematoma Problems/Secondary Diagnoses: CAD, NSTEMI with ANDREINA to RCA in 2017, TIA, HTN, depression, GERD Procedures: Abd US 09/25/17 IMPRESSION: There is a complex nonvascular hypoechoic fluid collection in the right lower quadrant abdominal wall at the site of interest. When correlated with yesterday's CT scan the appearance is consistent with a hematoma Abd CT IMPRESSION: 1. Focal soft tissue edematous change anterolateral right mid abdominal wall. 2. There is a 4.5 x 4.2 cm rounded density seen centrally within this edematous region highly suggestive of posttraumatic hematoma. 3. Small linear slightly serpiginous foci of high density within the hematoma suggesting very small active foci of bleeding and less likely partially radiopaque foreign bodies. 4. No evidence for an acute intra-abdominal or intrapelvic abnormality. CXR IMPRESSION: No acute cardiopulmonary abnormality. (Maire Xiao CRNP) Medication Reconciliation New Medications: Oxycodone/Acetaminophen 5MG/325MG (Percocet 5MG/325MG) Tab 1 TAB PO Q4H PRN for Pain for 3 Days, #18 TAB PAIN Continued Medications: Acyclovir Topical (Zovirax) 5 % Cre 1 APPLN TOP 5XD, GM APPLY TO LIPS, NEEDED. Aspirin (Aspirin Ec) 81 Mg Tab 81 MG PO DAILY Atorvastatin (Lipitor) 40 Mg Tab 40 MG PO DAILY, TAB Cholecalciferol (Vitamin D3) 5,000 Unit Tab 5000 UNITS PO DAILY Clonazepam (Klonopin) 1 Mg Tab 1 MG PO HS, TAB Clopidogrel (Plavix) 75 Mg Tab 75 MG PO QAM, TAB Fluoxetine (Prozac) 10 Mg Cap 10 MG PO DAILY, CAP TAKE WITH 40MG = 50MG DAILY. Fluoxetine (Prozac) 40 Mg Cap 40 MG PO DAILY, CAP TAKE WITH 10MG = 50MG DAILY. Gabapentin (Neurontin) 600 Mg Tab 600 MG PO AM& AFTERNOON, TAB Gabapentin (Neurontin) 600 Mg Tab 1200 MG PO HS, TAB Lisinopril (Zestril) 5 Mg Tab 5 MG PO DAILY, TAB Meclizine Hcl (Meclizine Hcl) 25 Mg Tab 25 MG PO Q6H PRN for Dizziness or Vertigo, TAB Metoprolol Tartrate (Lopressor) (Lopressor) 25 Mg Tab 12.5 MG PO BID, TAB Nitroglycerin (Nitrostat) 0.4 Mg Tab 0.4 MG UT PRN, BTL NEEDED FOR CHEST PAIN : ONE TABLET UNDER THE TONGUE EVERY 5 MINUTES UP TO 3 DOSES. Pantoprazole (Protonix) 40 Mg Tab 40 MG PO DAILY, #30 TAB Quetiapine Fumarate (Seroquel) 100 Mg Tab 100 MG PO HS, TAB Triamcinolone Acet (Triamcinolone Acetonide) 45 Appln/15 Gm Cr 1 APPLN TOP TIDX 10DAYS PRN for UNDECIDED APPLY TO RASH ON LEFT ANKLE, NEEDED. Discharge Exam ROS Constitutional: no chills, aches, sweats or fever Respiratory: no sob,cough, sputum, or wheezing Cardiac: no chest pain, palpitations, edema, orthopnea or lightheadedness GI: 5/10 pain right abdomen, nausea, vomiting, diarrhea or constipation : no dysuria or hesitancy Extremities: no joint pain or weakness Skin: no rash PE General: no distress Eyes: normal inspection, PERLL Respiratory: chest non tender, clear to auscultation, normal breath sounds, no respiratory distress, no accessory muscle use Cardiac: regular rate and rhythm, no rub or gallop, no murmur, no edema, no jvd GI/: active bowel sounds, right abdominal tenderness, soft, non distended Extremities: normal range of motion, normal strength, non tender Neuro/Psych: alert and oriented x 3, normal mood and affect Skin: normal color, dry, right abdomen ecchymotic with scab and edema (Mraie Xiao ., PAUL) Hospital Course Mr. Lewis is a 62 year old male here with injury to right middle abdomen after working under his car 09/25/17 with a contour grinder when it fell apart and hit him in the stomach. PMHx of CAD s/p NSTEMI w/ ANDREINA to mid RCA in February 2017, TIAs , HTN, depression, and GERD. R rectus sheath hematoma: - Admitted to med/surg - CT abdomen showed rectus sheath hematoma - Plavix and ASA was stopped for 09/24- per discussion with cardiology. To be restarted 09/26 after discussing with surgery - IV Morphine and Percocet PRN for pain control in patient, home with 3 day supply of q4h percoset prn - US 09/25 showed that the hematoma was stable, H&H and vital signs supported this - Discussed discharge with surgery and they agreed that patient was stable to go today, 09/25 - follow up CBC tomorrow 09/26 and Friday 09/28 (Sunday labwork to be reviewed by myself as offices are closed) CAD s/p NSTEMI w/ ANDREINA to mid RCA in February 2017- follows w/ Dr. Arshad: - Continued Lopressor 12.5 mg BID -Plavix, ASA to restart 09/26 Depression: Continued Klonopin 1 mg HS, Prozac 50 mg daily, Seroquel 100 mg HS HTN: Continued Lisinopril 5 mg daily HLD: Continued Lipitor 40 mg daily GERD: Continued Protonix Total Time Spent: Less than 30 minutes This includes examination of the patient, discharge planning, medication reconciliation, and communication with other providers. (Marie Xiao CRNP) Attending Discharge Note & Attestation: Pt seen/examined, chart reviewed, discharge care plan d/w LEAD PERFORMANCE SUPPORT ANALYSTSATYA Xiao. I agree w/ the roberson components of her documentation. 62yo male who presented after sustaining trauma to his abdominal wall with development of a right-sided rectus sheath hematoma. He was admitted for observation and to trend his H/H and ensure he had no ongoing bleeding. Seen by surgery who recommended nonoperative management. On hospital day #2 an abdominal ultrasound showed his hematoma was stable/ unchanged in size; H/H remained stable. Although his asa/plavix were held during this stay surgery felt they could be resumed about 24 hours after discharge. He will return for repeat CBC in 3 days to ensure stability. Discharge exam - gen - nad heart - RRR lungs - CTA b/l abd - soft, right-sided hematoma with overlying ecchymoses, tender over this region, BS+ ext - no edema Maulik Tobin MD (Maulik Tobin MD) Discharge Instructions Please refer to the electronic Patient Visit Report (Discharge Instructions) for additional information. (Marie Xiao CRNP) Follow-Up SunOct 03 at 11:[address] Rodriguez's office w/ Radha Fuentes PA-C (Marie Xiao, PAUL) Additional Copies To Radha Fuentes P.A.
== END 2017-09-25 15:21 | disposition home or self-care (01) | DRG 605 ==
LOC: C.EDB 14:49 → C.MSW 17:43 → ENRESERV 17:55
PROVIDERS: ADMIT Internal Medicine; ATTEND Internal Medicine
DX: S30.1XXA Contusion of abdominal wall, initial encounter (principal); I25.10 Atherosclerotic heart disease of native coronary artery without angina pectoris; I10 Essential (primary) hypertension; F32.9 Major depressive disorder, single episode, unspecified; E78.5 Hyperlipidemia, unspecified; K21.9 Gastro-esophageal reflux disease without esophagitis; Z79.82 Long term (current) use of aspirin; Z79.02 Long term (current) use of antithrombotics/antiplatelets; Z87.891 Personal history of nicotine dependence; Z86.73 Personal history of transient ischemic attack (TIA), and cerebral infarction without residual deficits; Y93.H9 Activity, other involving exterior property and land maintenance, building and construction; W20.8XXA Other cause of strike by thrown, projected or falling object, initial encounter; Z95.5 Presence of coronary angioplasty implant and graft; Y92.009 Unspecified place in unspecified non-institutional (private) residence as the place of occurrence of the external cause

== ENCOUNTER 2019-07-22 15:36 | Inpatient (IN) ==
[2019-07-22] MEDS ORDERED: NITROGLYCERIN 2% OINTMENT 30GM TUBE EXT STA (16:16)
--- NOTE | 2019-07-22 16:35 | XRay Report ---
XR chest 1V portable CLINICAL HISTORY: Chest Pain dyspnea COMPARISON STUDY: 09/24/2017 FINDINGS: Mild stable chronic megaly. Lungs are clear. Diaphragms are smooth. No focal infiltrate. IMPRESSION: No acute process. Mild stable cardiomegaly. The above report was generated using voice recognition software. It may contain grammatical, syntax or spelling errors. Electronically signed by: Jason Johnson M.D. 07/22/2019 4:34 PM
[2019-07-22 16:38] LABS: Basophils # (auto) 0.03 K/uL (0-0.2); Basophils % (auto) 0.4 %; Eosinophils # (auto) 0.28 K/uL (0-0.5); Hematocrit (blood only) 40.6 % (42-52); Hemoglobin 13.4 g/dL (14.0-18.0); Immature Granulocytes # (auto) 0.01 K/uL (0.00-0.02); Immature Granulocytes % (auto) 0.1 %; Lymphocytes # (auto) 2.18 K/uL (1.2-3.4); Mean Corpuscular Hemoglobin 28.7 pg (25-34); Mean Corpuscular Volume 86.9 fL (80-100); Mean Platelet Volume 10.4 fL (7.4-10.4); Monocytes # (auto) 0.98 K/uL (0.11-0.59); Monocytes % (auto) 13.9 %; Neutrophils # (auto) 3.55 K/uL (1.4-6.5); Neutrophils % (auto) 50.6 %; Platelet Count 261 K/uL (130-400); RDW Coefficient of Variation 13.9 % (11.5-14.5); RDW Standard Deviation 44.2 fL (36.4-46.3); Red Blood Count 4.67 M/uL (4.7-6.1); White Blood Count 7.03 K/uL (4.8-10.8)
[2019-07-22 16:56] LABS: Albumin Level 3.8 gm/dl (3.4-5.0); BUN Creatinine Ratio 19.5 (10-20); Calcium 8.7 mg/dl (8.5-10.1); Creatinine Clr Calc Pharmacy 64.4 ml/min; Est GFR (African American) 66.4; Est GFR (Non-African American) 57.3
[2019-07-22 16:59] LABS: Bilirubin,Total 0.4 mg/dl (0.2-1); Globulin 3.7 gm/dl (2.5-4.0); Total Protein 7.5 gm/dl (6.4-8.2)
[2019-07-22] MEDS ORDERED: MoRPHine SULFATE 2 MG/ML CARP IV PRN (17:55)
[2019-07-22] MEDS ORDERED: ALUMINUM/MAGNESIUM SUSP 30 ML UDC PO PRN (17:55)
[2019-07-22] MEDS ORDERED: MAGNESIUM HYDROXIDE SUSP 30 ML UDC PO PRN (17:55)
[2019-07-22] MEDS ORDERED: ACETAMINOPHEN 325 MG TAB PO PRN (17:55)
[2019-07-22] MEDS ORDERED: ZOLPIDEM TARTRATE 5 MG TAB PO PRN (17:55)
[2019-07-22] MEDS ORDERED: NITROGLYCERIN SL 0.4 MG/TAB TAB SL PRN (17:55)
--- NOTE | 2019-07-22 17:55 | History & Physical Report ---
Date of Service July 22, 2019 Assessment & Plan (1) Unstable angina: Admit patient to telemetry Vitals as per protocol Continue aspirin and Plavix Serial cardiac enzymes, first set is negative EKG has no ST elevation, but nonspecific changes Repeat EKG as needed chest pain Patient was instructed to let us know immediately if he develop chest pain Nitropaste Sublingual nitro as needed chest pain Continue metoprolol Continue Lipitor Cardiology consult in [facility] for DVT prophylaxis (2) CAD (coronary artery disease): As above Patient said that he is compliant with his meds (3) Essential hypertension: Continue metoprolol 25 mg p.o. twice daily Currently controlled (4) Dyslipidemia: Continue Lipitor 40 mg p.o. daily Check lipids panel (5) Stroke syndrome: (6) Pre-diabetes: Continue Lipitor/aspirin/Plavix check hemoglobin A1c (7) Gastroesophageal reflux disease: Pepcid versus PPI History of Present Illness 63 years old man with past medical history of essential hypertension, dyslipidemia, GERD, CAD status post non-STEMI in 2017 with placement of ANDREINA to mid RCA. Patient was in his regular state of health until about 3 days ago when he started having intermittent substernal chest pain that referred to the base of his neck. Initially he thought it might be reflux. Pain is not related to exertion, has been coming on and off until today where the pain became more severe and more persistent localized in the substernal area and the base of the neck. Pain is associated with diaphoresis, shortness of breath, denies any dizziness. No aggravating or relieving factors. After presenting to the ED today pain was relieved by nitroglycerin. Patient did take his aspirin and Plavix this morning. Currently smoking. Strong family history for heart disease in all siblings Patient will be admitted for further evaluation and management rule out ACS Primary Care Provider: Miguel Ángel Rodriguez MD Allergies Allergy/AdvReac Type Severity Reaction Status Date / Time No Known Allergies Allergy Unknown Unverified 07/22/19 16:57 Home Medications Home Medications Medication Instructions Recorded Confirmed Type lisinopril 5 mg tablet 5 mg PO DAILY #30 tab 05/05/19 07/22/19 Rx aspirin 81 mg tablet 81 mg PO DAILY tab 05/24/19 07/22/19 History cholecalciferol (vitamin D3) 5,000 5,000 units PO DAILY #30 tab 05/24/19 07/22/19 History unit tablet dronabinol 5 mg capsule 5 mg PO QPM cap 05/24/19 07/22/19 History fluoxetine 40 mg capsule 40 mg PO DAILY #30 cap 05/24/19 07/22/19 History gabapentin 600 mg tablet 600 mg PO BID #120 tab 05/24/19 07/22/19 History meclizine 25 mg tablet 25 mg PO Q6 PRN tab 05/24/19 07/22/19 History metformin ER 500 mg 1,000 mg PO DAILY #60 tab 05/24/19 07/22/19 History tablet,extended release 24 hr metoprolol tartrate 25 mg tablet 12.5 mg PO BID #60 tab 05/24/19 07/22/19 History nitroglycerin 0.4 mg sublingual 0.4 mg SL Q5M PRN tab 05/24/19 07/22/19 History tablet clopidogrel 75 mg tablet 75 mg PO DAILY #30 tab 06/09/19 07/22/19 Rx quetiapine 100 mg tablet 100 mg PO HS #30 tab 06/13/19 07/22/19 Rx rosuvastatin 5 mg tablet 5 mg PO HS #30 tab 07/09/19 07/22/19 Rx pantoprazole 40 mg tablet,delayed 40 mg PO DAILY #30 tab 07/15/19 07/22/19 Rx release fluoxetine 10 mg PO DAILY 07/22/19 07/22/19 History gabapentin [Neurontin] 1,200 mg PO HS 07/22/19 07/22/19 History Past Med/Surg History Medical History Vitamin D deficiency (Acute) Stroke syndrome (Acute) Spinal stenosis (Acute) Pre-diabetes (Acute) Osteoarthritis of knee (Acute) NSTEMI (non-ST elevated myocardial infarction) (Acute) Multiple pulmonary nodules (Acute) Memory loss (Acute) Interstitial lung disease (Acute) Gastroesophageal reflux disease (Acute) Depression with anxiety (Acute) Common migraine without aura (Acute) Calcific tendinitis (Acute) Bilateral knee pain (Acute) BPV (benign positional vertigo) (Acute) Atherosclerosis of [place] coronary artery without angina pectoris (Acute) Anemia (Acute) Abdominal hematoma (Acute) Surgical History History of arthroscopy of knee Family History Brother Heart disease Alcoholism Idiopathic pulmonary fibrosis Mother Diabetes Social History Feels Safe at Home: Yes Smoking Status: Current every day smoker Review of Systems Review of Systems: Review of system Constitutional: No fever / no chills / no sweats / no weakness / no fatigue Eyes: no blurring of vision / no eye pain / no discharge / no redness ENT: no hearing loss / no epistaxis /no swallowing problems Respiratory: no cough / no wheezing / no SOB / no hemoptysis Cardiovascular: Chest pain with diaphoresis as mentioned above/ no lower extremity edema / no palpitation Abdomen: no pain / no nausea / no vomiting / no constipation Musculoskeletal: no joint pain / no muscle pain / no joint swelling Genitourinary: no dysuria / no incontinence / no urinary retention Neurologic: no focal weakness / no numbness/tingling / no ataxia Psychiatric: no depression symptoms / no anxiety / no insomnia Endocrine: no excessive thirst / no excessive urination Hematologic: no abnormal bleeding / no bruising / no LN swelling Skin: No rash / no pallor Physical Exam Physical Exam: Physical examination General obese but appears to be comfortable, not in acute distress HEENT: Atraumatic , normocephalic /no jaundice /no pallor /anicteric /no dry mucous membrane /normal external ear inspection Neck: Supple /no swelling /central trach Heart: S1/S2 normal/regular rate and rhythm/no gallop /no rub /no murmur Lungs: Clear to auscultation bilaterally/normal chest with expansion/no rhonchi/no rales/no wheezing/no use of accessory muscles of respiration Abdomen: Soft/nontender/no guarding/no rebound/no organomegaly/no pulsatile mass Musculoskeletal: No swelling/no edema/no tenderness/normal range of motion Neuro exam: Awake alert oriented 3/cranial nerves II through XII appear to be intact/sensation intact/moves all extremities/no abnormal movements Psychiatric evaluation: No depressed mood/normal affect Skin: No rash on exposed skin area/no erythema Extremity: Normal pulse/no pitting edema/no clubbing or cyanosis Endocrine/lymphatic: No obvious lymphadenopathy /no lymphedema Results & Data Vital Signs (Past 12 Hours) Vital Signs Temp Pulse Resp BP Pulse Ox 07/22/19 16:28 95 07/22/19 15:40 36.7 C 75 20 129/84 96 PG Care Time/CCT Total # of Minutes Spent Total Time Spent with Patient: Total time spent is greater than 50% in coordination of care (as documented) at patient's floor/unit and/or counseling patient:
[2019-07-22] MEDS ORDERED: MECLIZINE HCL 25 MG TAB PO PRN (17:59)
[2019-07-22] MEDS ORDERED: SODIUM CHLORIDE 0.9% 1000ML 1,000 ML IV SCH (18:00)
[2019-07-22] MEDS: METOPROLOL TARTRATE 25 MG TAB PO SCH (20:23)
[2019-07-22] MEDS: HEPARIN SOD 5,000 UNIT/0.5 ML VIAL SQ SCH (20:24)
[2019-07-22] MEDS: PANTOprazole 40 MG TAB PO SCH (20:26)
[2019-07-22] MEDS ORDERED: DRONABINOL 2.5 MG CAP PO SCH (21:00)
[2019-07-22] MEDS ORDERED: QUETIAPINE FUMARATE 100 MG TABLET PO SCH (21:00)
[2019-07-22] MEDS ORDERED: ROSUVASTATIN CALCIUM 5 MG TAB PO SCH (21:00)
[2019-07-22] MEDS ORDERED: GABAPENTIN 600 MG TAB PO SCH (21:00)
--- NOTE | 2019-07-22 22:12 | Emergency Department Note ---
Entered by Barby Barillas acting as a scribe for Obed Lucas MD History of Present Illness General Chief complaint: Cardiac Assessment Stated complaint: CHEST PAINS AND WEAKNESS LAST 2 DAYS Source: patient Limitations: no limitations History of Present Illness Onset (ago): hour(s) 2 Location: chest Radiation: non-radiation Pain Consistency: + constant Maximum Pain Intensity: 6 Current Pain Intensity: 5 (5-6) Quality: + constant Relieved By: + other (Nitroglycerin) Associated symptoms: + cough, + shortness of breath and + weakness The patient is a 63 year old male who presents to the Emergency Room with complaints of constant central chest pain that began 2 days ago. He rates the pain as a 5-6/10 in severity. The patient reports that these symptoms feel similar to those he experienced during his NSTEMI 2 years ago. The patient denies any radiation of the pain. He notes that drinking water provided some relief. The patient states that eating does not modify the pain. He complains of persistent weakness beginning two days ago. The patient complains of SOB with the chest pain. He complains of a cough. The patient denies any chest tightness/heaviness, abdominal pain, fevers, and new lower extremity swelling/pain. He notes that he took a Nitroglycerin this morning, and it provided some relief. Home Medications Home Medications Medication Instructions Recorded Confirmed Type lisinopril 5 mg tablet 5 mg PO DAILY #30 tab 05/05/19 07/22/19 Rx aspirin 81 mg tablet 81 mg PO DAILY tab 05/24/19 07/22/19 History cholecalciferol (vitamin D3) 5,000 5,000 units PO DAILY #30 tab 05/24/19 07/22/19 History unit tablet dronabinol 5 mg capsule 5 mg PO QPM cap 05/24/19 07/22/19 History fluoxetine 40 mg capsule 40 mg PO DAILY #30 cap 05/24/19 07/22/19 History gabapentin 600 mg tablet 600 mg PO BID #120 tab 05/24/19 07/22/19 History meclizine 25 mg tablet 25 mg PO Q6 PRN tab 05/24/19 07/22/19 History metformin ER 500 mg 1,000 mg PO DAILY #60 tab 05/24/19 07/22/19 History tablet,extended release 24 hr metoprolol tartrate 25 mg tablet 12.5 mg PO BID #60 tab 05/24/19 07/22/19 History nitroglycerin 0.4 mg sublingual 0.4 mg SL Q5M PRN tab 05/24/19 07/22/19 History tablet clopidogrel 75 mg tablet 75 mg PO DAILY #30 tab 06/09/19 07/22/19 Rx quetiapine 100 mg tablet 100 mg PO HS #30 tab 06/13/19 07/22/19 Rx rosuvastatin 5 mg tablet 5 mg PO HS #30 tab 07/09/19 07/22/19 Rx pantoprazole 40 mg tablet,delayed 40 mg PO DAILY #30 tab 07/15/19 07/22/19 Rx release fluoxetine 10 mg PO DAILY 07/22/19 07/22/19 History gabapentin [Neurontin] 1,200 mg PO HS 07/22/19 07/22/19 History Allergies Allergy/AdvReac Type Severity Reaction Status Date / Time No Known Allergies Allergy Unknown Unverified 07/22/19 16:57 Past Med/Surg History Medical History Vitamin D deficiency (Acute) Stroke syndrome (Acute) Spinal stenosis (Acute) Pre-diabetes (Acute) Osteoarthritis of knee (Acute) NSTEMI (non-ST elevated myocardial infarction) (Acute) Multiple pulmonary nodules (Acute) Memory loss (Acute) Interstitial lung disease (Acute) Gastroesophageal reflux disease (Acute) Depression with anxiety (Acute) Common migraine without aura (Acute) Calcific tendinitis (Acute) Bilateral knee pain (Acute) BPV (benign positional vertigo) (Acute) Atherosclerosis of [place] coronary artery without angina pectoris (Acute) Anemia (Acute) Abdominal hematoma (Acute) Surgical History History of arthroscopy of knee Family History Brother Heart disease Alcoholism Idiopathic pulmonary fibrosis Mother Diabetes Social History Preferred Language: Vincentian Communication Ability: Effective Critical Care Physician Required: No Beliefs That Will Affect Care: None Current Living Situation: Spouse Other Information That Helps Us Care for You: No Feels Safe at Home: Yes Safety Concerns: Feels Safe At This Time Smoking Status: Current every day smoker Tobacco Type: cigarettes and smokeless tobacco ; Cigarettes Per Day: 3 ; Do You Dip or Chew Tobacco: Yes ; Tobacco Cessation Education Requested by Patient: No Hx Alcohol Use: No Hx Substance Use: No Review of Systems See HPI for pertinent positives & negatives. and A total of 10 systems reviewed and were otherwise negative Physical Exam Vital Signs Vital Signs - 24 hr 07/22/19 15:40 07/22/19 16:28 07/22/19 16:30 Temperature 36.7 C Temperature Source Oral Sepsis Recent Fever Within 48 Hours No Sepsis New/Unexplained Change in Mental Status No Sepsis Action Taken by Nursing No Action Required Pulse Rate 75 62 Pulse Rate from SpO2 Sensor 64 Pulse Rhythm Regular Pulse Strength Normal Respiratory Rate 20 16 Respiratory Effort / Characteristics Non-Labored Spontaneous Respiratory Depth Normal Respiratory Pattern Regular Blood Pressure 129/84 157/80 H Blood Pressure Mean 99 105 Blood Pressure Position Sitting Pulse Oximetry 96 95 95 Oxygen Delivery Method Room Air Room Air 07/22/19 16:53 07/22/19 17:00 07/22/19 17:30 Temperature Temperature Source Sepsis Recent Fever Within 48 Hours Sepsis New/Unexplained Change in Mental Status Sepsis Action Taken by Nursing Pulse Rate 62 63 60 Pulse Rate from SpO2 Sensor 64 63 61 Pulse Rhythm Pulse Strength Respiratory Rate 16 21 18 Respiratory Effort / Characteristics Respiratory Depth Respiratory Pattern Blood Pressure 131/76 115/78 Blood Pressure Mean 94 90 Blood Pressure Position Pulse Oximetry 96 97 96 Oxygen Delivery Method Constitutional: Vital signs reviewed. Eyes: Pupils are equal round reactive to light. Conjunctiva are noninjected. ENT: Pharynx is clear without erythema or exudate. Mucous membranes are moist. Neck supple without meningeal signs. Respiratory: Mild expiratory wheeze at the right base only. No rales. Breath sounds are equal bilaterally. Cardiovascular: Regular rate and rhythm. No rubs or gallops. GI: Soft, nondistended and nontender. Bowel sounds are present. Musculoskeletal: No peripheral edema. No lower extremity tenderness. Integumentary: No cyanosis. Neurological: The patient is awake and alert. No focal deficits. Psychiatric: Normal affect. Course 161: The patient was evaluated in room B07. A complete history and physical exam was performed. 1716: I reevaluated the patient. He stated that he chest pain was completely gone. 1726: I spoke with Dr. Michael Bowling, [facility] hospitalist, about the patients case. Dr. Michael Bowling will further evaluate the patient. Consultations Consultation #1: I spoke with Dr. Michael Bowling, [facility] hospitalist, about the patients case. Dr. Michael Bowling will further evaluate the p atient. Time: 17:26 Administered Medications Acetaminophen (Tylenol) 650 mg PO Q4H PRN PRN Reason: Pain or Fever Stop: 08/21/19 17:54 Last Admin: 07/22/19 19:57 Dose: 650 mg Documented by: [id number] Dronabinol (Marinol) 5 mg PO PM DERIK Stop: 08/21/19 20:59 Last Admin: 07/22/19 20:25 Dose: 5 mg Documented by: [id number] Gabapentin (Neurontin) 1,200 mg PO HS DERIK Stop: 08/21/19 20:59 Last Admin: 07/22/19 20:26 Dose: 1,200 mg Documented by: [id number] Heparin Sodium (Porcine) (Heparin Sodium (Porcine)) 5,000 units SQ Q8 DERIK Stop: 08/21/19 21:59 Last Admin: 07/22/19 20:24 Dose: Not Given Documented by: [id number] Sodium Chloride (Nss 1000ml) 1,000 mls @ 60 mls/hr IV .[id number] DERIK Stop: 08/21/19 17:59 Last Admin: 07/22/19 20:00 Dose: 60 mls/hr Documented by: [id number] Metoprolol Tartrate (Lopressor) 12.5 mg PO BID DERIK Stop: 08/21/19 20:59 Last Admin: 07/22/19 20:23 Dose: Not Given Documented by: [id number] Morphine Sulfate (Morphine Sulfate) 2 mg IV Q30M PRN PRN Reason: Chest Pain Stop: 08/05/19 17:54 Last Admin: 07/22/19 19:07 Dose: 2 mg Documented by: [id number] Pantoprazole Sodium (Protonix) 40 mg PO DAILY DERIK Stop: 08/21/19 17:59 Last Admin: 07/22/19 20:26 Dose: 40 mg Documented by: [id number] Quetiapine Fumarate (Seroquel) 100 mg PO HS DERIK Stop: 08/21/19 20:59 Last Admin: 07/22/19 20:26 Dose: 100 mg Documented by: [id number] Rosuvastatin Calcium (Crestor) 5 mg PO HS DERIK Stop: 08/21/19 20:59 Last Admin: 07/22/19 20:25 Dose: 5 mg Documented by: [id number] Discontinued Medications Nitroglycerin (Nitro-Bid 2%) 1 inch EXT NOW STA Stop: 07/22/19 16:17 Last Admin: 07/22/19 16:43 Dose: 1 inch Documented by: [id number] Medical Decision Making Differential Diagnosis The differential diagnosis includes: unstable angina, AL, pleurisy, GERD, and pneumonia. Medical Records Attestation: I reviewed the patient's medical records. I did perform a limited focused review of portions of the patient's old chart on the electronic medical record. The patient has a record of NSTEMI with stent pl acement to the RCA in 2017. Home Medications Current Medication List: was personally reviewed by me Laboratory Data Attestation: I reviewed the patient's lab results. Result diagrams: 07/22/19 16:25 07/22/19 16:25 Lab Results 07/22/19 07/22/19 07/22/19 Range/Units 16:25 16:25 16:33 WBC 7.03 (4.8-10.8) K/uL RBC 4.67 L (4.7-6.1) M/uL Hgb 13.4 L (14.0-18.0) g/dL Hct 40.6 L (42-52) % MCV 86.9 (80-100) fL MCH 28.7 (25-34) pg MCHC 33.0 (32-36) g/dL RDW Std Deviation 44.2 (36.4-46.3) fL RDW Coeff of Huber 13.9 (11.5-14.5) % Plt Count 261 (130-400) K/uL MPV 10.4 (7.4-10.4) fL Immature Gran % (Auto) 0.1 % Neut % (Auto) 50.6 % Lymph % (Auto) 31.0 % [place] % (Auto) 13.9 % Eos % (Auto) 4.0 % Baso % (Auto) 0.4 % Immature Gran # (Auto) 0.01 (0.00-0.02) K/uL Neut # (Auto) 3.55 (1.4-6.5) K/uL Lymph # (Auto) 2.18 (1.2-3.4) K/uL [place] # (Auto) 0.98 H (0.11-0.59) K/uL Eos # (Auto) 0.28 (0-0.5) K/uL Baso # (Auto) 0.03 (0-0.2) K/uL Sodium 140 (136-145) mmol/L Potassium 4.0 (3.5-5.1) mmol/L Chloride 106 (98-107) mmol/L Carbon Dioxide 27 (21-32) mmol/L Anion Gap 7.0 (3-11) BUN 25 H (7-18) mg/dl Creatinine 1.30 (0.6-1.4) mg/dl Est Cr Clr Drug Dosing 64.4 ml/min Est GFR ( Amer) 66.4 Est GFR (Non-Af Amer) 57.3 BUN/Creatinine Ratio 19.5 (10-20) Glucose 120 H (70-99) mg/dl Calcium 8.7 (8.5-10.1) mg/dl Total Bilirubin 0.4 (0.2-1) mg/dl AST 19 (15-37) U/L ALT 24 (12-78) U/L Alkaline Phosphatase 53 (45-117) U/L POC Troponin I < 0.03 (0-0.045) ng/ml Total Protein 7.5 (6.4-8.2) gm/dl Albumin 3.8 (3.4-5.0) gm/dl Globulin 3.7 (2.5-4.0) gm/dl Albumin/Globulin Ratio 1.0 (0.9-2) Lipase 51 L (73-393) U/L Imaging Data Radiologist's Impression: Radiology results as stated below per my review and the radiologist's interpretation: XR chest 1V portable CLINICAL HISTORY: Chest Pain dyspnea COMPARISON STUDY: 09/24/2017 FINDINGS: Mild stable chronic megaly. Lungs are clear. Diaphragms are smooth. No focal infiltrate. IMPRESSION: No acute process. Mild stable cardiomegaly. The above report was generated using voice recognition software. It may contain grammatical, syntax or spelling errors. Electronically signed by: Jason Johnson M.D. 07/22/2019 4:34 PM ECG Data Attestation: I personally reviewed and interpreted this ECG as follows: Indication: chest pain Rate (beats per minute): 65 Rhythm: normal sinus Findings: no PVC and no ST elevation Blood Pressure Blood Pressure Findings: Normal blood pressure Blood Pressure Disposition: did not require urgent referral MDM Narrative I did evaluate the patient as noted above. The patient is presenting with chest pain which she states is similar to when he had his end STEMI. He did have an aspirin prior to arrival. IV access was established. The patient was placed on a continuous security monitor. I did order and personally review the patient's 12-lead EKG as described above. He does not have any acute ischemia on his twelve-lead EKG. I did order and personally reviewed the images of the ethan joseph's chest x-ray as described above. He has stable cardiomegaly. I did order and review the patient's blood work as noted in the electronic medical record. Troponin is negative. CBC and electrolytes are unremarkable other than a very mild anemia. I did treat patient with nitroglycerin paste 1 inch to the anterior chest wall. On reevaluation patient states his chest pain is completely resolved. I did discuss the test results with the patient. I did recommend hospitalization for further evaluation. I did discuss the case with the hospitalist and case assembler. Impression & Plan Chest pain, precordial Discharge Plan Visit Data *Final* Discharge Date/Time: 07/22/19 19:09 Chief Complaint: Cardiac Assessment Stated Complaint: CHEST PAINS AND WEAKNESS LAST 2 DAYS ED Provider: Obed Lucas Discharge Problem: Chest pain, precordial Patient Disposition: Admitted As Inpatient Discharge Instructions Interventions: ED Discharge Assessment Last Done: 07/22/19 19:09 The scribe's documentation has been prepared under my direction and personally reviewed by me in its entirety. I confirm that the note above accurately reflects all work, treatment, procedures, and medical decision making performed by me.
[2019-07-22] MEDS: NITROGLYCERIN 2% OINTMENT 30GM TUBE EXT SCH (23:32)
[2019-07-23] MEDS: NITROGLYCERIN 2% OINTMENT 30GM TUBE EXT SCH (05:30)
[2019-07-23] MEDS: HEPARIN SOD 5,000 UNIT/0.5 ML VIAL SQ SCH (05:30)
[2019-07-23 06:32] LABS: Basophils # (auto) 0.03 K/uL (0-0.2); Basophils % (auto) 0.4 %; Eosinophils # (auto) 0.26 K/uL (0-0.5); Eosinophils % (auto) 3.6 %; Hematocrit (blood only) 39.5 % (42-52); Hemoglobin 12.7 g/dL (14.0-18.0); Immature Granulocytes # (auto) 0.02 K/uL (0.00-0.02); Immature Granulocytes % (auto) 0.3 %; Lymphocytes % (auto) 21.9 %; Mean Corpuscular Hemoglobin 28.2 pg (25-34); Mean Corpuscular Hgb Conc 32.2 g/dL (32-36); Mean Corpuscular Volume 87.6 fL (80-100); Mean Platelet Volume 10.3 fL (7.4-10.4); Monocytes # (auto) 1.23 K/uL (0.11-0.59); Monocytes % (auto) 16.8 %; Neutrophils # (auto) 4.18 K/uL (1.4-6.5); Platelet Count 239 K/uL (130-400); RDW Standard Deviation 44.7 fL (36.4-46.3); Red Blood Count 4.51 M/uL (4.7-6.1); White Blood Count 7.32 K/uL (4.8-10.8)
[2019-07-23 06:43] LABS: Estimated Average Glucose 126 mg/dl
[2019-07-23 07:02] LABS: Alanine Aminotransferase 20 U/L (12-78); Albumin Level 3.2 gm/dl (3.4-5.0); Aspartate Aminotransferase 18 U/L (15-37); BUN Creatinine Ratio 20.7 (10-20); Blood Urea Nitrogen 23 mg/dl (7-18); Calcium 8.4 mg/dl (8.5-10.1); Carbon Dioxide 28 mmol/L (21-32); Chloride 108 mmol/L (98-107); Cholesterol 130 mg/dl (0-200); Creatinine Clr Calc Pharmacy 74.2 ml/min; Est GFR (African American) 80.3; Est GFR (Non-African American) 69.3; Glucose 100 mg/dl (70-99); Potassium 4.2 mmol/L (3.5-5.1); Sodium 141 mmol/L (136-145); Triglycerides 143 mg/dl (0-150); VLDL Cholesterol 29 mg/dl
[2019-07-23 07:06] LABS: Alkaline Phosphatase 46 U/L (45-117); Bilirubin,Total 0.7 mg/dl (0.2-1); Chol HDL Ratio 3; Globulin 3.4 gm/dl (2.5-4.0); HDL Cholesterol 38 mg/dl; LDL Cholesterol Calculated 63 mg/dl; Total Protein 6.6 gm/dl (6.4-8.2); Troponin I < 0.015 ng/ml (0-0.045)
[2019-07-23] MEDS: METOPROLOL TARTRATE 25 MG TAB PO SCH (08:44)
[2019-07-23] MEDS: PANTOprazole 40 MG TAB PO SCH (08:44)
[2019-07-23] MEDS ORDERED: CHOLECALCIFEROL 1,000 UNITS TAB PO SCH (09:00)
[2019-07-23] MEDS ORDERED: FLUOXETINE HCL 20 MG CAP PO SCH (09:00)
[2019-07-23] MEDS ORDERED: ASPIRIN 81 MG ECTAB PO SCH (09:00)
[2019-07-23] MEDS ORDERED: FLUOXETINE HCL 10 MG CAP PO SCH (09:00)
[2019-07-23] MEDS ORDERED: CLOPIDOGREL BISULFATE 75 MG TAB PO SCH (09:00)
[2019-07-23] MEDS ORDERED: GABAPENTIN 600 MG TAB PO SCH (09:00)
[2019-07-23] MEDS ORDERED: ATROPINE SULFATE 0.1 MG/ML 10ML SYR IV ONE (09:21)
[2019-07-23] MEDS ORDERED: DOBUTamine HCL 12.5 MG/ML 20 ML VIAL IV ONE (09:21)
[2019-07-23] MEDS ORDERED: METOPROLOL TARTRATE 1 MG/ML VIAL IV ONE (09:21)
--- NOTE | 2019-07-23 09:55 | Cardiology Consultation ---
Date of Consultation July 23, 2019 Assessment & Plan (1) CAD (coronary artery disease): He has a known history of coronary disease having previously undergone PCI to the mid RCA. At the time of his catheterization in 2017 he had very minor nonobstructive disease in the remaining territories. He has not followed up in Cardiology Clinic since that time. However, he has been maintained on dual anti- platelet therapy, metoprolol, lisinopril and rosuvastatin. Depending on the results of his evaluation today we could consider discontinuing his clopidogrel. (2) Chest pain, precordial: Some elements of his symptoms are concerning for coronary disease or unstable angina. However some of the character of his symptoms are atypical. The prolonged nature of his symptoms without elevations biomarkers also speaks against a coronary etiology. He seems to have difficulty recalling the events which occurred 2 years ago. I do not believe his current symptoms are similar to those experienced in 2017. Given his known disease in the atypical nature of his features in the absence of biomarker elevation I think a noninvasive evaluation would be helpful. Unfortunately, he cannot ambulate very far and were performed exercise stress testing. We will order a dobutamine echocardiogram. If the results of that test is normal he could certainly be discharged. Plavix could be discontinued at that time as well. History of Present Illness Reason for Consultation: Patient is 63-year-old gentle with a history of coronary disease having previously undergone percutaneous intervention in 2017 to the right coronary artery. He claims to have been in his usual state of health until several days ago. Without provocation patient began to experience symptoms of a stabbing chest discomfort and left precordium. He states this was moderate in intensity. At times it did radiate into the throat. He claims that it was constant in nature but waxed and waned in severity. It seemed to be slightly worse with activity and improved when sitting down. He did not find a specific position which improved discomfort. Breathing did not appear to make this discomfort worse. He does not seem to have worsening breathing over that period of time. He did not report symptoms of diaphoresis. He denies dizziness or lightheadedness. Again, the symptoms were fairly constant for 2 days. It did awaken him from sleep at times as well. Yesterday the symptoms seemed to have resolved however he became notably fatigued and weak. He states he had some difficulty doing routine activities due to the symptoms. He therefore presents to the hospital for evaluation. This morning claims to be feeling well. He states he is not currently having symptoms of chest discomfort. He did not report symptoms of dysphagia or odynophagia. He does report symptoms of reflux on occasion. He has not had nausea or vomiting. He has a chronic cough due to smoking. This is not worsened recently. No symptoms of fevers or chills. In general he is a sedentary person he is limited both by fatigue as well as knee discomfort. Attending Physician: Maulik Holedr MD Allergies Allergy/AdvReac Type Severity Reaction Status Date / Time No Known Allergies Allergy Unknown Unverified 07/22/19 16:57 Home Medications Home Medications Medication Instructions Recorded Confirmed Type lisinopril 5 mg tablet 5 mg PO DAILY #30 tab 05/05/19 07/22/19 Rx aspirin 81 mg tablet 81 mg PO DAILY tab 05/24/19 07/22/19 History cholecalciferol (vitamin D3) 5,000 5,000 units PO DAILY #30 tab 05/24/19 07/22/19 History unit tablet dronabinol 5 mg capsule 5 mg PO QPM cap 05/24/19 07/22/19 History fluoxetine 40 mg capsule 40 mg PO DAILY #30 cap 05/24/19 07/22/19 History gabapentin 600 mg tablet 600 mg PO BID #120 tab 05/24/19 07/22/19 History meclizine 25 mg tablet 25 mg PO Q6 PRN tab 05/24/19 07/22/19 History metformin ER 500 mg 1,000 mg PO DAILY #60 tab 05/24/19 07/22/19 History tablet,extended release 24 hr metoprolol tartrate 25 mg tablet 12.5 mg PO BID #60 tab 05/24/19 07/22/19 History nitroglycerin 0.4 mg sublingual 0.4 mg SL Q5M PRN tab 05/24/19 07/22/19 History tablet clopidogrel 75 mg tablet 75 mg PO DAILY #30 tab 06/09/19 07/22/19 Rx quetiapine 100 mg tablet 100 mg PO HS #30 tab 06/13/19 07/22/19 Rx rosuvastatin 5 mg tablet 5 mg PO HS #30 tab 07/09/19 07/22/19 Rx pantoprazole 40 mg tablet,delayed 40 mg PO DAILY #30 tab 07/15/19 07/22/19 Rx release fluoxetine 10 mg PO DAILY 07/22/19 07/22/19 History gabapentin [Neurontin] 1,200 mg PO HS 07/22/19 07/22/19 History Patient History Medical History Vitamin D deficiency (Acute) Stroke syndrome (Acute) Spinal stenosis (Acute) Pre-diabetes (Acute) Osteoarthritis of knee (Acute) NSTEMI (non-ST elevated myocardial infarction) (Acute) Multiple pulmonary nodules (Acute) Memory loss (Acute) Interstitial lung disease (Acute) Gastroesophageal reflux disease (Acute) Depression with anxiety (Acute) Common migraine without aura (Acute) Calcific tendinitis (Acute) Bilateral knee pain (Acute) BPV (benign positional vertigo) (Acute) Atherosclerosis of [place] coronary artery without angina pectoris (Acute) Anemia (Acute) Abdominal hematoma (Acute) Surgical History History of arthroscopy of knee Family History Brother Heart disease Alcoholism Idiopathic pulmonary fibrosis Mother Diabetes Social History Preferred Language: [place] Communication Ability: Effective Cream Dipper Required: No Beliefs That Will Affect Care: None Current Living Situation: Spouse Other Information That Helps Us Care for You: No Feels Safe at Home: Yes Safety Concerns: Feels Safe At This Time Smoking Status: Current every day smoker Tobacco Type: cigarettes and smokeless tobacco ; Cigarettes Per Day: 3 ; Do You Dip or Chew Tobacco: Yes ; Tobacco Cessation Education Requested by Patient: No Hx Alcohol Use: No Hx Substance Use: No Review of Systems Review of Systems: All systems reviewed & are unremarkable except as noted in HPI & below Per HPI. Physical Exam Physical Exam: The patient is alert and oriented. Mood and affect appeared normal. He answered all questions appropriately. HEENT: Pupils are equal and reactive to light and accommodation. Extraocular movements are intact. The sclerae are anicteric. Neuro: Cranial nerves intact Neck: Patient's neck is supple. He has palpable carotid pulses bilaterally w ithout bruits on auscultation. There is no evidence of jugular venous distention. The thyroid is not enlarged. Lungs: Clear to auscultation bilaterally. He has good air movement without use of accessory muscles. No rales wheezes or rhonchi. Cardiac: Heart demonstrates a regular rate and rhythm. Normal S1 and S2. No murmurs on examination. Pulses: The patient has palpable radial pulses bilaterally that are equal in intensity Extremities: There was no evidence of hypoperfusion. There is no cyanosis or clubbing. There is no edema. Skin: I did not appreciate any rashes on examination today. Results & Data Vital Signs (Past 12 Hours) Vital Signs Temp Pulse Resp BP Pulse Ox 07/23/19 08:13 36.5 C 56 L 17 142/77 H 95 07/23/19 05:22 36.5 C 57 L 19 118/71 94 07/22/19 23:54 36.5 C 57 L 16 107/64 94 Laboratory Results Abnormal Lab Results 07/22/19 07/22/19 07/22/19 16:25 16:25 16:33 WBC 7.03 RBC 4.67 L Hgb 13.4 L Hct 40.6 L MCV 86.9 MCH 28.7 MCHC 33.0 RDW Std Deviation 44.2 RDW Coeff of Huber 13.9 Plt Count 261 MPV 10.4 Immature Gran % (Auto) 0.1 Neut % (Auto) 50.6 Lymph % (Auto) 31.0 [place] % (Auto) 13.9 Eos % (Auto) 4.0 Baso % (Auto) 0.4 Immature Gran # (Auto) 0.01 Neut # (Auto) 3.55 Lymph # (Auto) 2.18 [place] # (Auto) 0.98 H Eos # (Auto) 0.28 Baso # (Auto) 0.03 Sodium 140 Potassium 4.0 Chloride 106 Carbon Dioxide 27 Anion Gap 7.0 BUN 25 H Creatinine 1.30 Est Cr Clr Drug Dosing 64.4 Est GFR ( Amer) 66.4 Est GFR (Non-Af Amer) 57.3 BUN/Creatinine Ratio 19.5 Glucose 120 H Estimat Average Glucose Hemoglobin A1c Calcium 8.7 Total Bilirubin 0.4 AST 19 ALT 24 Alkaline Phosphatase 53 POC Troponin I < 0.03 Troponin I Total Protein 7.5 Albumin 3.8 Globulin 3.7 Albumin/Globulin Ratio 1.0 Triglycerides Cholesterol LDL Cholesterol, Calc VLDL Cholesterol, Calc HDL Cholesterol Cholesterol/HDL Ratio Lipase 51 L 07/23/19 07/23/19 07/23/19 00:15 06:14 06:14 WBC 7.32 RBC 4.51 L Hgb 12.7 L Hct 39.5 L MCV 87.6 MCH 28.2 MCHC 32.2 RDW Std Deviation 44.7 RDW Coeff of [place] 14.0 Plt Count 239 MPV 10.3 Immature Gran % (Auto) 0.3 Neut % (Auto) 57.0 Lymph % (Auto) 21.9 [place] % (Auto) 16.8 Eos % (Auto) 3.6 Baso % (Auto) 0.4 Immature Gran # (Auto) 0.02 Neut # (Auto) 4.18 Lymph # (Auto) 1.60 [place] # (Auto) 1.23 H Eos # (Auto) 0.26 Baso # (Auto) 0.03 Sodium Potassium Chloride Carbon Dioxide Anion Gap BUN Creatinine Est Cr Clr Drug Dosing Est GFR ( Amer) Est GFR (Non-Af Amer) BUN/Creatinine Ratio Glucose Estimat Average Glucose 126 Hemoglobin A1c 6.0 H Calcium Total Bilirubin AST ALT Alkaline Phosphatase POC Troponin I Troponin I < 0.015 Total Protein Albumin Globulin Albumin/Globulin Ratio Triglycerides Cholesterol LDL Cholesterol, Calc VLDL Cholesterol, Calc HDL Cholesterol Cholesterol/HDL Ratio Lipase 07/23/19 06:14 WBC RBC Hgb Hct MCV MCH MCHC RDW Std Deviation RDW Coeff of Huber Plt Count MPV Immature Gran % (Auto) Neut % (Auto) Lymph % (Auto) [place] % (Auto) Eos % (Auto) Baso % (Auto) Immature Gran # (Auto) Neut # (Auto) Lymph # (Auto) [place] # (Auto) Eos # (Auto) Baso # (Auto) Sodium 141 Potassium 4.2 Chloride 108 H Carbon Dioxide 28 Anion Gap 5.0 BUN 23 H Creatinine 1.11 Est Cr Clr Drug Dosing 74.2 Est GFR ( Amer) 80.3 Est GFR (Non-Af Amer) 69.3 BUN/Creatinine Ratio 20.7 H Glucose 100 H Estimat Average Glucose Hemoglobin A1c Calcium 8.4 L Total Bilirubin 0.7 AST 18 ALT 20 Alkaline Phosphatase 46 POC Troponin I Troponin I < 0.015 Total Protein 6.6 Albumin 3.2 L Globulin 3.4 Albumin/Globulin Ratio 1.0 Triglycerides 143 Cholesterol 130 LDL Cholesterol, Calc 63 VLDL Cholesterol, Calc 29 HDL Cholesterol 38 Cholesterol/HDL Ratio 3 Lipase Diagnostic Findings Chest x-ray retained the time admission. No acute cardiopulmonary process. Echocardiogram obtained on 02/03/2017 revealed preserved LV systolic function. No significant valvular abnormalities. No wall motion abnormalities. ECG Additional Comments: Normal sinus rhythm. Normal EKG. PG Care Time/CCT Total # of Minutes Spent Total Time Spent with Patient: Total time spent is greater than 50% in coordination of care (as documented) at patient's floor/unit and/or counseling patient:
--- NOTE | 2019-07-23 13:11 | Discharge Summary ---
Date of Service July 23, 2019 Discharge Data Allergies Allergy/AdvReac Type Severity Reaction Status Date / Time No Known Allergies Allergy Unknown Unverified 07/22/19 16:57 Consultations 07/22/19 17:17 ED Decision to Admit Stat 07/22/19 17:55 Consult Cardiology Routine Hospital Course (1) Unstable angina: Admit patient to telemetry Vitals as per protocol Continue aspirin and Plavix Serial cardiac enzymes, first set is negative EKG has no ST elevation, but nonspecific changes Repeat EKG as needed chest pain Patient was instructed to let us know immediately if he develop chest pain Nitropaste Sublingual nitro as needed chest pain Continue metoprolol Continue Lipitor Cardiology consult in [facility] for DVT prophylaxis (2) CAD (coronary artery disease): As above Patient said that he is compliant with his meds (3) Essential hypertension: Continue metoprolol 25 mg p.o. twice daily Currently controlled (4) Dyslipidemia: Continue Lipitor 40 mg p.o. daily Check lipids panel (5) Stroke syndrome: (6) Pre-diabetes: Continue Lipitor/aspirin/Plavix check hemoglobin A1c (7) Gastroesophageal reflux disease: Pepcid versus PPI Discharge Plan Discharge Items Patient Disposition: Home - Self-Care Reason For Visit: UNSTABLE ANGINA Discharge Diagnosis: Gastroesophageal reflux Activity: Resume your previous activity Non-emergency contact: Primary Care Provider Call non-emergency contact if: you have any medication questions Follow-up/Referrals: Christiano Rodriguez MD [Primary Care Provider] - Diet: Regular Addtl Attending Provider Instructions: You were diagnosed with gastroesophageal reflux. Recommend taking pantoprazole regularly over the next 30 days then discuss with your primary care physician whether a longer course is warranted or possibly only need to take as needed. Stand-Alone Forms: My [facility] Medications and DC Order Prescriptions: No Action lisinopril 5 mg tablet 5 mg PO DAILY Qty: 30 RF: 5 clopidogrel 75 mg tablet 75 mg PO DAILY Qty: 30 RF: 5 quetiapine 100 mg tablet 100 mg PO HS Qty: 30 RF: 5 rosuvastatin 5 mg tablet 5 mg PO HS Qty: 30 RF: 5 pantoprazole 40 mg tablet,delayed release (DR/EC) 40 mg PO DAILY Qty: 30 RF: 5 aspirin 81 mg tablet 81 mg PO DAILY RF: 0 dronabinol 5 mg capsule 5 mg PO QPM RF: 0 fluoxetine 40 mg capsule 40 mg PO DAILY Qty: 30 RF: 0 gabapentin 600 mg tablet 600 mg PO BID Qty: 120 RF: 0 meclizine 25 mg tablet 25 mg PO Q6 PRN (Reason: dizzyness) RF: 0 metformin 500 mg tablet extended release 24 hr 1,000 mg PO DAILY Qty: 60 RF: 0 metoprolol tartrate 25 mg tablet 12.5 mg PO BID Qty: 60 RF: 0 nitroglycerin 0.4 mg tablet, sublingual 0.4 mg SL Q5M PRN (Reason: chest pain) RF: 0 cholecalciferol (vitamin D3) 5,000 unit tablet 5,000 units PO DAILY Qty: 30 RF: 0 gabapentin [Neurontin] 600 mg tablet 1,200 mg PO HS RF: 0 fluoxetine 10 mg capsule 10 mg PO DAILY RF: 0 Krames/Other Patient Handouts: A1C, Prediabetes, Diabetes Healthy Meals, Diabetes Carbs, Diabetes Exercise Benefits, Diabetes Exercise Get Started, Diabetes Activity Tips Admission Data Admit Date/Time: 07/22/19 17:55 Attending Provider: Maulik Holder Admit Provider: Michael Mathew Primary Care Provider: Christiano Rodriguez Other Providers: Michael Mathew ; Christiano Arshad
[2019-07-23] MEDS ORDERED: PERFLUTREN LIPID MICROSPHERE (DEFINITY) IV ONE (13:21)
[2019-07-24] MEDS ORDERED: LISINOPRIL 5 MG TAB PO SCH (09:00)
== END 2019-07-23 13:28 | disposition home or self-care (01) | DRG 303 ==
LOC: ED 15:36 → 2S 17:55 → SUATTDRO 17:55 → 2S 19:09

== ENCOUNTER 2022-02-16 06:35 | Observation (INO) ==
--- NOTE | 2022-02-02 14:30 | PAT Medication Instructions ---
Medication Instructions Date of Service February 02, 2022 Home Medications Medication Instructions Recorded rosuvastatin 5 mg tablet 5 mg PO HS #90 tab 03/18/21 metoprolol tartrate 25 mg tablet 12.5 mg PO BID #60 tab 11/21/21 quetiapine 100 mg tablet 100 mg PO HS #30 tab 12/08/21 aspirin 81 mg tablet,delayed release 81 mg PO QAM cholecalciferol (vitamin D3) 25 mcg (1,000 unit) capsule 25 mcg PO QAM gabapentin 600 mg tablet See Rx Instructions PO UD rosuvastatin 5 mg tablet 5 mg PO HS metoprolol tartrate 25 mg tablet 12.5 mg PO BID quetiapine 100 mg tablet 100 mg PO HS amitriptyline 25 mg tablet 25 mg PO HS clopidogrel 75 mg tablet 75 mg PO QAM duloxetine 60 mg capsule,delayed release 60 mg PO QAM hydrocodone 5 mg-acetaminophen 325 mg tablet 1 tab PO Q6H PRN lisinopril 5 mg tablet 20 mg PO QAM metformin 500 mg tablet,extended release 24 hr 1,000 mg PO QAM pantoprazole 40 mg tablet,delayed release 40 mg PO QAM Continue as directed gabapentin 600 mg tablet See Rx Instructions PO UD ASK your prescriber and surgeon aspirin 81 mg tablet,delayed release 81 mg PO QAM clopidogrel 75 mg tablet 75 mg PO QAM DO NOT take the morning of surgery cholecalciferol (vitamin D3) 25 mcg (1,000 unit) capsule 25 mcg PO QAM lisinopril 5 mg tablet 20 mg PO QAM metformin 500 mg tablet,extended release 24 hr 1,000 mg PO QAM Take morning of surgery With a small sip of water, OTHERWISE NOTHING TO EAT OR DRINK AFTER MIDNIGHT: metoprolol tartrate 25 mg tablet 12.5 mg PO BID duloxetine 60 mg capsule,delayed release 60 mg PO QAM hydrocodone 5 mg-acetaminophen 325 mg tablet 1 tab PO Q6H PRN(okay to take up to 4 hours prior to surgery if needed) pantoprazole 40 mg tablet,delayed release 40 mg PO QAM Take evening before surgery rosuvastatin 5 mg tablet 5 mg PO HS metoprolol tartrate 25 mg tablet 12.5 mg PO BID quetiapine 100 mg tablet 100 mg PO HS amitriptyline 25 mg tablet 25 mg PO HS hydrocodone 5 mg-acetaminophen 325 mg tablet 1 tab PO Q6H PRN(if needed) Other Notes If you have any questions please call us at [phone] or [phone] or [phone] or [phone]
--- NOTE | 2022-02-07 15:05 | Anesthesiology Consultation ---
Date of Service February 07, 2022 Assessment & Plan (1) Encounter for pre-operative examination: - COVID screening: Per assessment on 02/07: No known COVID-19 positive contacts or current COVID-19 related symptoms. Travel screen negative. Surgeon arranging preop COVID testing. Awaiting results. - Check BSG AM DOS - PCP office visit (01/30/22): "Osteoarthritis of both knees is severe and pain is uncontrolled. Goal is resolution of symptoms. He will continue with care of [facility] sports medicine and I did send a note to our nursing staff asking them to contact orthopedics to see if they can get patient on a surgical schedule to have TKA.. CAD is chronic and stable. Negative dobutamine stress test completed last month.. Dysphagia.. Increased dose of pantoprazole from 40 mg once daily to twice daily.. Strongly encouraged EGD, which patient declines at this time." - Cardiology office visit (12/05/21): "He is generally very inactive especially as he has residual of numbness on his left side with gait disturbance from a CVA many years ago. He also has n very limiting knee pain. He thinks he could get up a flight of stairs without getting S OB but has no stairs in his house and is not sure when he last tried to do so.. I will have him undergo a dobutamine stress test to help risk stratify prior to his surgery.. Lisinopril should be increased to 20 mg daily as his pressures have been slightly too high, especially given his history of CAD and stroke." - Cardiology addendum (12/28/21): "Mr. Lewis's stress echo was negative for inducible ischemia, no further testing needed prior to surgery. His RCRI calculation for 30-day risk of , [place] or cardiac arrest is 10.1%." - Medication instructions: patient made aware that in order for spinal anesthesia, Plavix needs to be held 7 days prior to surgery. Patient voiced understanding/will check if okay with prescriber. Chart Review Chart Review: Acceptable Risk for Surgery and Patient seen in Pre Admission Testing Teaching & Discussion Pre-Anesthesia Teaching/Discussion Notes: Instructed NPO after midnight before surgery,except medications with 15 cc of water. Medication instructions provided according to the PAT guidelines. History Surgery Operation Date: 02/16/22 09:10 Proposed Procedures p Left Total Knee Arthroplasty - González Jimenez MD Height/Weight Height: 5 ft 7 in Weight: 107.4 kg Allergies Allergy/AdvReac Type Severity Reaction Status Date / Time levofloxacin Allergy Intermediate Per Verified 02/07/22 09:31 records- redness/rash (pt denies) Medications Home Medications Medication Instructions Recorded Confirmed Last Taken aspirin 81 mg tablet,delayed 81 mg PO QAM 09/16/20 02/02/22 Unknown release cholecalciferol (vitamin D3) 25 25 mcg PO QAM 09/16/20 02/02/22 Unknown mcg (1,000 unit) capsule gabapentin 600 mg tablet See Rx Instructions PO UD tab 09/16/20 02/02/22 Unknown rosuvastatin 5 mg tablet 5 mg PO HS #90 tab 03/18/21 02/02/22 Unknown metoprolol tartrate 25 mg tablet 12.5 mg PO BID #60 tab 11/21/21 02/02/22 Unknown quetiapine 100 mg tablet 100 mg PO HS #30 tab 12/08/21 02/02/22 Unknown amitriptyline 25 mg tablet 25 mg PO HS 02/02/22 02/02/22 Unknown cholecalciferol (vitamin D3) 25 25 mcg PO QAM 02/02/22 02/02/22 Unknown mcg (1,000 unit) tablet (Vitamin D3) clopidogrel 75 mg tablet 75 mg PO QAM 02/02/22 02/02/22 Unknown duloxetine 60 mg capsule,delayed 60 mg PO QAM 02/02/22 02/02/22 Unknown release hydrocodone 5 mg-acetaminophen 325 1 tab PO Q6H PRN 02/02/22 02/02/22 Unknown mg tablet lisinopril 5 mg tablet 20 mg PO QAM 02/02/22 02/02/22 Unknown metformin 500 mg tablet,extended 1,000 mg PO QAM 02/02/22 02/02/22 Unknown release 24 hr pantoprazole 40 mg tablet,delayed 40 mg PO QAM 02/02/22 02/02/22 Unknown release Past Medical History Medical History Anemia Chronic- hgb baseline 12-13s Atherosclerosis of [place] coronary artery without angina pectoris BPV (benign positional vertigo) CAD (coronary artery disease) PCI to the mid RCA (2016) Chronic back pain Cervical, lumbar (No cervical ROM limitations per pt) Chronic obstructive pulmonary disease Common migraine without aura CVA (cerebral vascular accident) Remote hx (+ TIAs) > residual left sided tingling Depression with anxiety Gastroesophageal reflux disease History of COVID-19 Dx 08/2020 ([place]) > symptoms at time: cold symptoms > resolved Interstitial lung disease Memory loss Multiple pulmonary nodules NSTEMI (non-ST elevated myocardial infarction) Remote hx Osteoarthritis of knee Pre-diabetes Spinal stenosis Exercise / Class Metabolic Activity II 4-5 Yardwork/Stairs/Walk up hill (one FS (no CP, No SOB)) Past Family History Family History Brother Heart disease Alcoholism Idiopathic pulmonary fibrosis Mother Diabetes Past Surgical History Surgical History History of arthroscopy of knee History of cardiac cath Stent x1 (2016) History of esophagogastroduodenoscopy (EGD) History of hand surgery REPAIR NERVE/LACERATION RIGHT Past Anesthesia History No Hx of Anesthesia Complications and No Family Hx of Anesthesia Complications History of PONV No Hx of PONV and Hx of Motion Sickness Social History Smoking Status: Light tobacco smoker tobacco type: cigarettes and smokeless tobacco Smoking cigarettes per day: 1-2 cig/day (total tobacco use x several years) Do You Dip or Chew Tobacco: Yes (1 CAN PER WEEK > advised none DOS) Hx Alcohol Use: No Hx Substance Use: No Review of Systems Patient denies chest pain, shortness of breath, dyspnea on exertion, fever, chills, cough, wheezing, palpitations. Physical Exam Vital Signs VITALS BP 147/87 P 80 TEMP 98.2 SP02 96%RA RESP 18 PHYSICAL Full cervical extension range of motion. Full TMJ range of motion. TMD 3 finger breaths Mallampati Score 3 Dentition: full dentures upper/lower Lungs: clear throughout to auscultation Cardiac: regular rate and rhythm, no murmurs noted Spine: normal Carotid arteries: negative bruit Extremities: no edema Lab Results Anesthesia Preop Results Results Anesthesia Widget: WBC 8.25 K/uL (4.8-10.8) 02/07/22 Hgb 13.2 g/dL (14.0-18.0) L 02/07/22 Hct 40.2 % (42-52) L 02/07/22 Plt 300 K/uL (130-400) 02/07/22 Na 139 mmol/L (136-145) 02/07/22 K 4.5 mmol/L (3.5-5.1) 02/07/22 Cl 103 mmol/L (98-107) 02/07/22 CO2 29 mmol/L (21-32) 02/07/22 BUN 16 mg/dl (6-23) 02/07/22 Creat 1.17 mg/dl (0.6-1.4) 02/07/22 Glucose Level 108 mg/dl (70-99(Fasting)) H 02/07/22 PT 11.2 Seconds (9.0-12.0) 02/07/22 PTT 31.1 Seconds (21.0-31.0) H 02/07/22 INR 1.1 (0.9-1.1) 02/07/22 Urine Color Dark Yellow 02/07/22 Urine Appearance Clear (Clear) 02/07/22 Urine pH 7.5 (4.5-7.5) 02/07/22 Urine Specific [place] 1.023 (1.000-1.030) 02/07/22 Urine Protein Negative (Negative) 02/07/22 Urine Glucose (UA) Negative (Negative) 02/07/22 Urine Ketones Trace (Negative) H 02/07/22 Urine Blood Negative (Negative) 02/07/22 Urine Nitrite Negative (Negative) 02/07/22 Urine Bilirubin Negative (Negative) 02/07/22 Urine Urobilinogen Negative (Negative) 02/07/22 Urine Leukocyte Esterase Negative (Negative) 02/07/22 Blood Type A Positive 02/07/22 Antibody Screen NEGATIVE 02/07/22 Testing Laboratory Results 01/30/22 HGBA1C 6.1% Electrocardiogram Date: 12/05/21 NSR at 71bpm. Normal ECG. Stress Test Date: 12/26/21 Type: DSE Negative dobutamine stress echo and EKG for ischemia 93% MPHR. Rest EF 65%. Mild concentric LVH. Cardiac Catheterization Date: 02/05/17 Coronary Anatomy Dominant: Right Left Main (% Stenosis): Normal LAD (% Stenosis): Proximal (10-20), Mid (10-20) D1 (% Stenosis): Proximal (0-10), Mid (0-10) D2 (% Stenosis): Proximal (0-10), Mid (0-10) OM1 (% Stenosis): Proximal (20) OM2 (% Stenosis): Normal RCA (% Stenosis): Ostial (20), Proximal (20,20-30), Mid (Discrete,eccentric 90% bracketed by 30% stenoses), Distal (10-20) R PDA (% Stenosis): Normal R PL1 (% Stenosis): Proximal (0-10) AM (% Stenosis): Normal Xience 4 X 23 mm ANDREINA. Post dilated with 4.5 X 12 mm NC balloon. Other Testing Carotid doppler (06/17/20): No hemodynamically significant stenosis seen within the carotid arteries. Moderate plaque formation bilaterally
--- NOTE | 2022-02-08 15:06 | History & Physical Report ---
Date of Service February 08, 2022 Assessment & Plan (1) Osteoarthritis of left knee: Plan: PRE-OP Diagnosis: Left Knee osteoarthritis Planned Procedure: Left total knee arthroplasty Plan: Patient is scheduled to undergo this procedure at the [facility] with 23-hour observation admission on February 16, [address] González Jimenez. Risks and complications of the procedure such as: Infection, bleeding, pain, scarring, nerve or blood vessel damage, weakness, wound problems, stiffness, incomplete relief of symptoms, hardware failure, hardware loosening, wear, fracture, tendon or ligament injury, blood clots, embolism, heart attack stroke or were explained the patient his visit today. Informed consent to perform the procedure was obtained. Patient also understands the risks of proceeding with surgical invention during the COVID-19 pandemic. Patient is currently asymptomatic and understands that he will need to be tested prior to surgery. We have already obtained preoperative medical clearance from the patient's primary care provider Albina Jimenez PA-C and his blister packaging machine operator Marie MILLER. Patient is scheduled to meet with anesthesia the hospital later this morning. While there he will obtain a CBC with differential, complete metabolic panel, PT/INR, blood type and screen, urinalysis, urine culture and sensitivity, EKG, hemoglobin A1c and a nasal culture for MRSA. During today's visit we reviewed the total knee packet. We discussed antibiotic use following joint replacement surgery. I provided the patient with orders to obtain a walker, a raised toilet seat and a shower chair. We discussed prescriptions that the patient will be provided with upon discharge from the hospital for pain control. Patient states that [facility]-home physical therapy for the first 2 weeks postoperatively. I advised him that we will have him on his prescription Plavix and aspirin for DVT prophylaxis following surgery. Patient is scheduled for 2-week postoperative follow-up with myself on March 03 at 2:30 PM. At that appointment we will remove his dressings, provide him with an order for outpatient physical therapy along with his rehab protocol. History of Present Illness Chief Complaint: Chief Complaint: Bilateral knee pain left greater than right Primary Care Provider: NO PCP History of Present Illness (including history relevant to procedure): This 58-year-old male presents the clinic today for his preoperative history and physical. Patient states he has a 10 to 15-year history of bilateral knee pain. 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 Patient localizes most of his pain to the anteromedial medial and lateral aspects of the knees. He states he has had multiple corticosteroid injections in both knees in the past with good relief of his pain. He also states that he has had arthroscopic surgery in both knees several years ago. He states that the pain now is starting to affect his activities of daily living. Review Of Systems: A 12 point review of systems is performed is unremarkable except for those things stated in the HPI past medical history. Past Medical History: Problems: Osteoarthritis of knees, bilateral Polypharmacy Prediabetes Memory loss Neuropathy, peripheral CAD (coronary artery disease) Brain TIA Depression Tobacco user Myocardial infarction Hypercholesterolemia GERD Procedure History Procedure Procedure Date Comments PCI - Percutaneous coronary intervention 2019 EMG - Electromyography [facility]ilateral [facility]rosc[facility] Unremarkable study. No evidence of polyneuropathy, myopathy, or radiculopathy in the left arm or leg Allergies and Sensitivities: No Known Medication Allergies Social history: Patient states that he smokes 1 to 2 cigarettes/day. He denies alcohol or illicit drug use Family history: Noncontributory Current Home Meds: (Last Updated 02/07 13:55) DULoxetine (DULoxetine 60 mg oral delayed release capsule) 60 mg PO Daily QUEtiapine (QUEtiapine 100 mg oral tablet) 100 mg PO Daily acetaminophen-HYDROcodone (acetaminophen-HYDROcodone 325 mg-5 mg oral tablet) 1 tab PO q6h PRN: as needed for pain as needed for PAIN amitriptyline (amitriptyline 25 mg oral tablet) TAKE ONE TABLET BY MOUTH AT BEDTIME aspirin (aspirin 81 mg oral delayed release tablet) 81 mg PO Daily cholecalciferol (Vitamin D3 1000 intl units (25 mcg) oral capsule) 1,000 Int_Unit PO Daily clopidogrel (clopidogrel 75 mg oral tablet) 75 mg PO Daily gabapentin (gabapentin 600 mg oral tablet) 1,200 mg PO tid lisinopril (lisinopril 20 mg oral tablet) 20 mg PO Daily metFORMIN (MetFORMIN (Eqv-Glucophage XR) 500 mg oral tablet, extended release) TAKE 2 TABLETS BY MOUTH DAILY metoprolol (Metoprolol Tartrate 25 mg oral tablet) 12.5 mg PO bid nitroglycerin (nitroglycerin 0.4 mg sublingual tablet) PRN: chest pain 1 tab SL pantoprazole (pantoprazole 40 mg oral delayed release tablet) 40 mg PO bid for heartburn rosuvastatin (rosuvastatin 5 mg oral tablet) 5 mg PO Daily Initial Wt: 02/07 109.0 kg 240 lb Studies (relevant to the procedure): X-rays done include 3 views of each knee as well as long-leg alignment films. On the 3-view series, he has severe osteoarthritis, [id number] in the medial compartment of both knees with evidence of some early bone loss in the medial tibial plateau on the left knee. Tricompartmental osteophyte formation is noted. 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 Allergies Allergy/AdvReac Type Severity Reaction Status Date / Time levofloxacin Allergy Intermediate Per Verified 02/07/22 09:31 records- redness/rash (pt denies) Home Medications Medication Instructions Recorded Confirmed Type aspirin 81 mg tablet,delayed 81 mg PO QAM 09/16/20 02/02/22 History release cholecalciferol (vitamin D3) 25 25 mcg PO QAM 09/16/20 02/02/22 History mcg (1,000 unit) capsule gabapentin 600 mg tablet See Rx Instructions PO UD tab 09/16/20 02/02/22 History rosuvastatin 5 mg tablet 5 mg PO HS #90 tab 03/18/21 02/02/22 Rx metoprolol tartrate 25 mg tablet 12.5 mg PO BID #60 tab 11/21/21 02/02/22 Rx quetiapine 100 mg tablet 100 mg PO HS #30 tab 12/08/21 02/02/22 Rx amitriptyline 25 mg tablet 25 mg PO HS 02/02/22 02/02/22 History cholecalciferol (vitamin D3) 25 25 mcg PO QAM 02/02/22 02/02/22 History mcg (1,000 unit) tablet (Vitamin D3) clopidogrel 75 mg tablet 75 mg PO QAM 02/02/22 02/02/22 History duloxetine 60 mg capsule,delayed 60 mg PO QAM 02/02/22 02/02/22 History release hydrocodone 5 mg-acetaminophen 325 1 tab PO Q6H PRN 02/02/22 02/02/22 History mg tablet lisinopril 5 mg tablet 20 mg PO QAM 02/02/22 02/02/22 History metformin 500 mg tablet,extended 1,000 mg PO QAM 02/02/22 02/02/22 History release 24 hr pantoprazole 40 mg tablet,delayed 40 mg PO QAM 02/02/22 02/02/22 History release Past Med/Surg History Medical History Anemia Chronic- hgb baseline 12-13s Atherosclerosis of [place] coronary artery without angina pectoris BPV (benign positional vertigo) CAD (coronary artery disease) PCI to the mid RCA (2016) Chronic back pain Cervical, lumbar (No cervical ROM limitations per pt) Chronic obstructive pulmonary disease Common migraine without aura CVA (cerebral vascular accident) Remote hx (+ TIAs) > residual left sided tingling Depression with anxiety Gastroesophageal reflux disease History of COVID-19 Dx [place]/2020 ([place]) > symptoms at time: cold symptoms > resolved Interstitial lung disease Memory loss Multiple pulmonary nodules NSTEMI (non-ST elevated myocardial infarction) Remote hx Osteoarthritis of knee Pre-diabetes Spinal stenosis Surgical History History of arthroscopy of knee History of cardiac cath Stent x1 (2016) History of esophagogastroduodenoscopy (EGD) History of hand surgery REPAIR NERVE/LACERATION RIGHT Family History Brother Heart disease Alcoholism Idiopathic pulmonary fibrosis Mother Diabetes Social History Smoking Status: Light tobacco smoker Cigarettes Per Day: 1-2 cig/day (total tobacco use x several years); Second Hand Exposure: No; Hx Alcohol Use: No Hx Substance Use: No Preferred Language: Kazakh Communication Ability: Effective News Video Editor Required: No Beliefs That Will Affect Care: None Current Living Situation: Spouse current occupational status: disabled Feels Safe at Home: Yes Assistive Devices: Denture - Upper, Denture - Lower and Glasses Review of Systems All systems reviewed & are unremarkable except as noted in Subjective Physical Exam Physical Exam: Physical Exam: (relevant to the procedure, including heart and lung evaluation) General: Alert and oriented x3 with proper grooming and hygiene Eyes: Pupils are equal react to light with accommodation. Extraocular movements are intact Throat: Deferred due to COVID-19 precautions Cardiac: Regular rate and rhythm with no murmurs or gallops appreciated Lungs: Clear to auscultation throughout no wheezing, rales or rhonchi Abdomen: Mildly obese, nondistended, nontender with normoactive bowel sounds Extremities: Left knee: Extension to 40 degrees flexion to 108 degrees. Tenderness to palpation of the medial lateral joint space of the knee is flexed. Patella is not mobile due to arthritic change within the patellofemoral joint. There is no laxity with varus or valgus stressing. Patient is neurovascular intact in left lower extremity. Neuro: Cranial nerves II through XII are intact no motor or sensory deficit Skin: Normal appearance no open skin areas or discharge Results & Data ([facility]) Diagnostic Findings Studies (relevant to the procedure): X-rays done include 3 views of each knee as well as long-leg alignment films. On the 3-view series, he has severe osteoarthritis, [id number] in the medial compartment of both knees with evidence of some early bone loss in the medial tibial plateau on the left knee. Tricompartmental osteophyte formation is noted. 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
[~2022-02-16 06:35] MED LIST changes: +ACETAMINOPHEN 500 MG TAB PO SCH; -ASPI81TA28 PO; -ATV/1 PO; -AZAT50TA17 PO; +CeleBREX 200 MG CAP PO SCH; -FAMO20TA11 PO; +FAMOTIDINE 20 MG TAB PO SCH; +LR 500ML BOLUS, THEN 15ML/HR IV SCH; +LR 60ML/HR IV SCH; -MAGN1TAB19 PO; -OMEP20CA9 PO; -ONDA4TAB46 PO; -PRED-301 PO; -PRVC/40 PO; +ROPIVACAINE 0.5% HCL/PF 150 MG, BUPIVACAINE 0.75% MPF 20 ML, EPINEPHrine 0.15 MG, Ketor... INFIL SCH; +Scopolamine 1 MG TDSY TD SCH; -TACR1CAP PO; -TEMA-79 PO; +TRANEXAMIC ACID 1,000 MG **IV Intra-op IV SCH; +TRANEXAMIC ACID 1,000 MG **IV Pre-op IV SCH; +dexAMETHasone 4 MG TAB PO SCH; +traMADol HCL 50 MG TABLET PO SCH
[2022-02-16] MEDS ORDERED: PHENYLEPHRINE 100MCG/ML 5ML SYR ONE (07:35)
[2022-02-16] MEDS ORDERED: PROPOFOL IV EMULSION 10 MG/ML 20 ML VIAL IV ONE (07:35)
[2022-02-16] MEDS ORDERED: LIDOCAINE 2% 2 ML VIAL/AMP(20MG/ML) INFIL ONE (07:35)
[2022-02-16] MEDS ORDERED: ePHEDrine sulfate 50 MG/ML SYR ONE (07:35)
[2022-02-16] MEDS ORDERED: fentaNYL citrate 100 MCG/2 ML VIAL ONE (07:36)
[2022-02-16] MEDS ORDERED: MIDAZOLAM HCL 1 MG/ML 2ML VIAL ONE (07:36)
[2022-02-16] MEDS ORDERED: BUPIVACAINE 0.5 % 5 MG/1 ML PF 10ML VIAL ONE (07:43)
[2022-02-16] MEDS ORDERED: ePHEDrine sulfate 50 MG/ML AMP IV PRN (08:15)
[2022-02-16] MEDS ORDERED: ONDANSETRON INJ 2 MG/ML 2 ML VIAL IV PRN ×2 (08:15→11:52)
[2022-02-16] MEDS ORDERED: ATROPINE SULFATE 0.1 MG/ML 10ML SYR IV PRN (08:15)
--- NOTE | 2022-02-16 09:05 | History & Physical Bridge Note ---
Date of Service February 16, 2022 History & Physical Bridge Note I have examined the patient, reviewed the History & Physical and in the interval since the performance of the History & Physical I have noted the following changes of clinical significance: patient reports he stopped his aspirin and plavix on Sunday (2 days ago). His manager social responsibility recommended stopping 7 days ago. I told him we can still proceed with surgery, however, his risk of bleeding and blood transfusion is elevated. He would like to proceed. Will keep him overnight in the hospital for monitoring, physical therapy in AM. No other changes.
[2022-02-16] MEDS ORDERED: ORTHO JOINT ANESTHETIC ONE (09:14)
[2022-02-16] MEDS ORDERED: LABETALOL HCL IV 5 MG/ML 20ML IV ONE ×2 (10:10→10:13)
[2022-02-16] MEDS ORDERED: NEOSTIGMINE METHYLSULFATE 1 MG/ML 10ML VIAL ONE (10:11)
[2022-02-16] MEDS ORDERED: GLYCOPYRROLATE 0.2 MG/ML VIAL ONE (10:11)
[2022-02-16] MEDS ORDERED: ALBUTEROL HFA INHALER 8.5 GM ONE (10:11)
[2022-02-16] MEDS ORDERED: ONDANSETRON INJ 2 MG/ML 2 ML VIAL ONE (10:11)
[2022-02-16] MEDS ORDERED: ROCURONIUM BROMIDE 10 MG/ML 5 ML VIAL IV ONE (10:11)
[2022-02-16] MEDS ORDERED: TRANEXAMIC ACID 1,000 MG in 0.9 % SODIUM CHLORIDE 100 ML IR SCH (10:15)
--- NOTE | 2022-02-16 11:49 | Operative Report ---
Post Operative Report Pre & Post Diagnosis Operation Date: 02/16/22 09:20 Pre-Op Diagnosis: Left knee osteoarthritis, genu varum Post-Op Diagnosis: Left knee osteoarthritis, genu varum I identified the patient and participated in the time-out.: Yes Procedure Operation Date: 02/16/22 09:20 Actual Procedures p Left Total Knee Arthroplasty 22 modifier should be added due to the increased risk for medical complications and surgical complications as result of his severe genu varum, history of cardiac disease on blood thinners, and social determinants of health. González Jimenez MD Surgeon González Jimenez MD Life Skills Consultant Lewis Prasad MD, THERESA Gallardo PA-C, and Barby Post MS-2 Estimated Blood Loss 50 Findings Consistent with Post-Op Diagnosis Specimens Bone and soft tissue contents left knee Anesthesia Type General Regional Complications none Disposition Disposition: Recovery Room Indications 66-year-old male, with left knee osteoarthritis refractory to conservative management. X-rays demonstrate severe genu varum with the weightbearing axis passing medial to the medial tibial plateau on his standing long-leg films. He is developing some bony erosion of his medial tibial plateau. He has significant medical comorbidities including cardiac disease status post stenting on aspirin and Plavix. 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 It is not clear if he did not follow this instruction due to lack of understanding or some other social determinative health, but he did not stop his aspirin and Plavix until Sunday of this week, 2 days ago This precluded him from receiving a spinal anesthetic. I discussed with him that we could proceed with surgery however he would be at a slightly increased risk for hematoma and increased blood loss. Description of Procedure Patient was identified in the preoperative holding area where the surgical site, left knee, was marked. Patient was brought back to the operating room, placed on the operating room table, and IV sedation was administered. All bony prominences were padded. Perioperative antibiotics and tranexamic acid were administered. Exam under anesthesia was performed. This demonstrated an 8 degree flexion contracture and severe genu varum. Range of motion was a 200 degrees. Stable to varus and valgus stress test at 8 and 30 degrees. The s urgical site was prepped and draped in the normal sterile fashion. Prior to incision a multidisciplinary timeout was called. All in the room were in agreement. We began by exsanguinating the limb with an Esmarch bandage. Tourniquet was inflated to 250 mmHg. A 16 cm long incision was made over the anterior aspect of the knee. I dissected through the subcutaneous tissues to the level of the fascia. Full-thickness flaps were raised above the fascia. A median parapatellar arthrotomy was made. Half the fat pad was excised. A medial release was performed with Bovie electrocautery on the proximal tibia. Synovitis in the knee and suprapatellar pouch was removed. The patella was then everted and held with 2 towel clips. The thickness of the patella was measured at 26 mm. Patellar resection was performed. Caliper showed the patella thickness now to be 17 mm. A size 38 mm trial was placed and had a great fit. The 3 drill holes were placed then the trial button was placed. The patellar thickness was now 26 mm which I was very happy with. The patellar trial was then removed, the patella was everted and the knee was flexed up. Osteophytes were removed from the femoral condyles and intercondylar notch. The ACL and PCL were excised. Intramedullary drill guide was drilled into the femur. Distal femoral cutting guide was placed set at 5 degrees of valgus to resect 11 mm off the distal femur. Distal femoral resection was made without difficulty. The tibia was then exposed. The lateral meniscus was sharply excised. The tibial cutting jig was positioned to resect 10 mm off the less involved compartment. The jig was then pinned in position and the tibial cut was made. We then brought the knee into full extension. Lamina spreaders were placed. The medial meniscus was excised. The extension block was then placed for 6 mm thickness poly. This gave us full extension and excellent stability to varus and valgus. Next the knee was flexed up and the femoral sizing guide was placed. The patient sized to a size 7 femur. The 3 degree external rotation jig was used to create 2 holes in the distal femur. The jig was removed and the holes were compared to Whitesides axis and the epicondylar axis. We were happy with the rotation, and therefore placed a size three 4-in-1 cutting jig and pinned this into position. Our 4 cuts were made. The cutting jig was removed. The flexion block was then placed with the knee held at 90 degrees. There was excellent stability to varus and valgus at 90 degrees with no gapping medially or laterally. Next the box cutting jig was placed on the distal femur. The box cut was made and the femoral trial was impacted into position. The tibia was sized to a size 7 for a all polyethylene fixed-bearing component. The tibial tray was positioned in external rotation on the cut tibial surface and the knee was brought through a full range of motion. We then pinned the tibial tray into position and used the intramedullary drill followed by the keel punch. The trial polyethylene was then placed and the knee was brought through a full range of motion. I was very happy with the stability through a full range of motion, and the patellar tracking was excellent. Next the trial components were removed. A bone plug was made for the intramedullary drill hole in the distal femur to decrease the risk of hematoma in the knee. I then injected the posterior capsule and periosteum with the periarticular injection cocktail. The bone cuts were then irrigated and dried while the cement was mixed on the back table. The femoral component was cemented on first. Excess cement was removed. A lap sponge was placed over the femoral component for protection, then the tibia was subluxated anteriorly. The all polyethylene tibial component was then cemented in place. Again excess cement was removed. The knee was brought into full extension and held there until the cement cured. The patella was cemented and clamped. Dilute Betadine solution was then allowed to irrigate the knee while the cement cured. Once the cement was fully cured, the tourniquet was let down and meticulous hemostasis was ensured. The wound was irrigated out with copious amounts normal saline. The knee was brought through a full range of motion and we were very happy with the patella tracking and the stability. We then began to close. Interrupted 0 Vicryl suture was used to repair the patellar retinaculum in [id number] fashion. The quadriceps and patellar tendons were run with #1 Ethibond. The deep dermal layer was closed with interrupted 2-0 Vicryl. Dermabond and Zipline was used for the skin. A compressive dressing was placed. Patient's sedation was lifted and was transferred to recovery room in stable condition. Summary of implants: Depuy Attune Posterior Stabilized Cemented Femur, size 7 Attune All-polyethylene tibial component, posterior stabilized 6 mm thickness, size 7 Attune patella medialized dome, size 38 2 batches of simplex high viscosity bone cement Postoperative course: Patient will be admitted to the floor for pain control and monitoring. Weightbearing as tolerated with a walker with no knee range of motion for 48 hours. Resume aspirin and Plavix for DVT prophylaxis. I attest to the content of the Intraoperative Record and any orders documented therein. Any exceptions are noted below.
[2022-02-16] MEDS ORDERED: PHARMACY GLYCEMIC MGMT CONSULT PRN (11:52)
[2022-02-16] MEDS ORDERED: diphenhydrAMINE 50 MG/ML VIAL IV PRN (11:52)
[2022-02-16] MEDS ORDERED: TAMSULOSIN HCL 0.4 MG CAP PO PRN (11:52)
[2022-02-16] MEDS ORDERED: NALOXONE HCL 0.4 MG/1 ML VIAL/CARP IV PRN (11:52)
[2022-02-16] MEDS ORDERED: ALUMINUM/MAGNESIUM SUSP 30 ML UDC PO PRN (11:52)
[2022-02-16] MEDS ORDERED: bisacodyL 10 MG SUPP PR PRN (11:52)
[2022-02-16] MEDS ORDERED: METOCLOPRAMIDE HCL INJ 5 MG/ML 2 ML VIAL IV PRN (11:52)
[2022-02-16] MEDS ORDERED: MAGNESIUM HYDROXIDE SUSP 30 ML UDC PO PRN (11:52)
--- NOTE | 2022-02-16 11:52 | Operative Report ---
Post Operative Report Pre & Post Diagnosis Operation Date: 02/16/22 09:20 Pre-Op Diagnosis: Left knee osteoarthritis Post-Op Diagnosis: Left knee osteoarthritis I identified the patient and participated in the time-out.: Yes Procedure Operation Date: 02/16/22 09:20 Actual Procedures p Left Total Knee Arthroplasty(Left) - González Jimeenz MD Surgeon González Jimenez MD Hammer Smith Lewis Prasad MD, THERESA Gallardo PA-C, and Barby Post MS-2 Estimated Blood Loss 50 Findings Consistent with Post-Op Diagnosis Specimens none Description of Procedure I was present during the entire procedure assisting with positioning, prepping, draping, wound retraction, wound closure, dressing and immobilizer placement. Fellow also present. I served as an extra set of hands during the case. Please see Dr. Jimenez procedure note for specifics of the case. I attest to the content of the Intraoperative Record and any orders documented therein. Any exceptions are noted below.
--- NOTE | 2022-02-16 11:53 | Operative Report ---
Post Operative Report Pre & Post Diagnosis Operation Date: 02/16/22 09:20 Pre-Op Diagnosis: Left knee osteoarthritis Post-Op Diagnosis: Left knee osteoarthritis I identified the patient and participated in the time-out.: Yes Procedure Operation Date: 02/16/22 09:20 Actual Procedures p Left Total Knee Arthroplasty(Left) - González Jimenez MD Surgeon Rakan Jimenez MD Exploitation Analyst Lewis Prasad MD, THERESA Gallardo PA-C, and Barby Post MS-2 Estimated Blood Loss 50 Findings Consistent with Post-Op Diagnosis Consistent with post op diagnosis Specimens No specimens. Description of Procedure I participated in prepping dressing and assisted Dr. Jimenez during the procedure. Please see Dr. Jimenez note. I attest to the content of the Intraoperative Record and any orders documented therein. Any exceptions are noted below. Supervising Physician Co-Signing Physician Notes Dr. Jimenez
[2022-02-16] MEDS: fentaNYL citrate 100 MCG/2 ML VIAL IV PRN ×2 (11:55→12:21)
[2022-02-16] MEDS ORDERED: HYDROCODONE/ACETAMOPHEN 5/325MG TAB PO PRN (11:57)
[2022-02-16] MEDS ORDERED: KETOROLAC TROMETHAMINE 15 MG/ML VIAL IV SCH (12:00)
[2022-02-16] MEDS ORDERED: GABAPENTIN 600 MG TAB PO SCH ×2 (12:00→21:00)
[2022-02-16] MEDS: HYDROmorphone INJ 2 MG/ML SYR/VIAL IV PRN ×3 (12:30→12:56)
--- NOTE | 2022-02-16 12:39 | Anesthesiology Progress Note ---
Date of Service February 16, 2022 Anesthesia Post Procedure Vital Signs Vital Signs: Temp Pulse Pulse Resp BP Pulse Ox 02/16/22 12:30 92 H 19 127/88 93 02/16/22 12:20 87 17 117/86 95 02/16/22 12:10 75 12 124/89 98 02/16/22 12:00 76 12 120/85 98 02/16/22 11:53 36.1 C L 97 H 18 127/76 95 02/16/22 07:24 36.8 C 95 H 24 154/85 H 100 Pain Intensity Left Knee: Pain Intensity: 6 Transfer of Care Handoff Completed per policy Notes Mental Status: alert / awake / arousable and participated in evaluation Patient Amnestic to Procedure: Yes Nausea / Vomiting: adequately controlled Pain: adequately controlled Airway Patency, RR, SpO2: stable & adequate BP & HR: stable & adequate Hydration State: stable & adequate Anesthetic Complications: no major complications apparent and Pt Satisfied with anesthetic care
--- NOTE | 2022-02-16 12:47 | XRay Report ---
TWO VIEWS LEFT KNEE CLINICAL HISTORY: Postoperative examination. FINDINGS: AP and crosstable lateral portable views of the left knee are obtained. A left knee arthrop lasty is in near anatomic alignment. There has been undersurface remodeling of the patella. No acute fracture is seen. Anterior bandages in place. There are expected postoperative changes around the kne e including soft tissue edema and subcutaneous gas. IMPRESSION: Expected postoperative changes status post left knee arthroplasty. No acute fracture is s een. ACT 112: Negative or not required by law. Electronically signed by: Ascencion Wong M.D. 02/16/2022 12:46 PM
[2022-02-16] MEDS ORDERED: NovoLIN-N (NPH) PER UNIT CHARGE SQ ONE (14:00)
[2022-02-16] MEDS ORDERED: CARBOHYDRATES FOR HYPOGLYCEMIA PO PRN (14:00)
[2022-02-16] MEDS ORDERED: GLUCAGON FOR INJ 1 MG VIAL IM PRN (14:00)
[2022-02-16] MEDS ORDERED: GLUCOSE 10 TABS/TUBE PO PRN (14:00)
[2022-02-16] MEDS ORDERED: GLUCOSE 40% GEL 15 GM TUBE PO PRN (14:00)
[2022-02-16] MEDS ORDERED: DEXTROSE 50% 50 ML SYRINGE IV PRN (14:00)
--- NOTE | 2022-02-16 14:08 | Pharmacy Report ---
Pharmacy Glycemic Short Note 2 - Date of Service February 16, 2022 - Glycemic Short BSG Results (Last 24 hours): 02/16/22 02/16/22 07:09 11:56 POC Glucose 115 H 132 H OUTPATIENT ANTIDIABETIC REGIMEN: * metformin XR 1000 mg PO qAM * HbA1C = 6.2% (06/07/20) ASSESSMENT: * Mr Lewis is a 66 y/o M with a PMH of T2DM on oral medications. Patient underwent knee replacement today. He received dexamethasone 8 mg PO preop and 4 mg topically. * BSGs prior to surgery were 115-132 mg/dL. * For steroid hyperglycemia, will give NPH 25 units x 1 (0.3 units/kg of adjusted body weight- reduced dose due to time between dose of dexamethasone and administration of steroid). * Novolog weight-based stress of 2 * Hold metformin for now. PLAN FOR INPATIENT GLYCEMIC CONTROL: * Hold outpatient oral diabetes medications * Basal insulin * NPH 25 units SQ x 1 * Bolus insulin * NovoLog per scale ACHS or Q6hrs while NPO * Goal Range: Low 110 mg/dL - High 140 mg/dL * Correction Factor: 20 mg/dL/unit * Nutritional / Prandial insulin per carb ratio of 1 unit per 6 grams CHO consumed
[2022-02-16] MEDS ORDERED: Nursing to Pharmacy Communication SCH (14:15)
[2022-02-16] MEDS: ACETAMINOPHEN 500 MG TAB PO SCH ×2 (14:20→22:14)
[2022-02-16] MEDS: SODIUM CHLORIDE 0.9% 1000ML 1,000 ML IV SCH (14:21)
[2022-02-16] MEDS: INSULIN ASPART PER UNIT SC SCH ×3 (15:26→21:19)
[2022-02-16] MEDS: KETOROLAC TROMETHAMINE 15 MG/ML VIAL IV SCH ×2 (15:32→21:07)
[2022-02-16] MEDS: Scopolamine CHECK PATCH PLACEMENT SCH (16:23)
[2022-02-16] MEDS: oxyCODONE HCL IR 5 MG TAB (IMMEDIATE RELEASE) PO PRN ×2 (17:48→18:22)
[2022-02-16] MEDS: ceFAZolin 2000MG 2,000 MG/15 ML SYR IV SCH (18:23)
[2022-02-16] MEDS ORDERED: ROSUVASTATIN CALCIUM 5 MG TAB PO SCH (21:00)
[2022-02-16] MEDS ORDERED: SENNA 8.6 MG TAB PO SCH (21:00)
[2022-02-16] MEDS ORDERED: AMITRIPTYLINE HCL 25 MG TAB PO SCH (21:00)
[2022-02-16] MEDS ORDERED: CeleBREX 200 MG CAP PO SCH (21:00)
[2022-02-16] MEDS ORDERED: QUEtiapine FUMARATE 100 MG TABLET PO SCH (21:00)
[2022-02-16] MEDS: DOCUSATE SODIUM 100 MG CAP PO SCH (21:07)
[2022-02-16] MEDS: METOPROLOL TARTRATE 25 MG TAB PO SCH (21:09)
[2022-02-17] MEDS: SODIUM CHLORIDE 0.9% 1000ML 1,000 ML IV SCH (00:16)
[2022-02-17] MEDS: Scopolamine CHECK PATCH PLACEMENT SCH ×2 (00:17→09:08)
[2022-02-17] MEDS: KETOROLAC TROMETHAMINE 15 MG/ML VIAL IV SCH ×2 (02:25→09:25)
[2022-02-17] MEDS: ceFAZolin 2000MG 2,000 MG/15 ML SYR IV SCH (02:25)
[2022-02-17] MEDS: oxyCODONE HCL IR 5 MG TAB (IMMEDIATE RELEASE) PO PRN ×2 (05:00→09:07)
[2022-02-17] MEDS: ACETAMINOPHEN 500 MG TAB PO SCH (05:01)
[2022-02-17] MEDS ORDERED: Nursing to Pharmacy Communication SCH (05:15)
[2022-02-17 07:44] LABS: BUN Creatinine Ratio 21.8 (10-20); Calcium 8.1 mg/dl (8.5-10.1); Creatinine Clr Calc Pharmacy 61.1 ml/min; Est GFR (African American) 63.2 ml/min; Est GFR (Non-African American) 54.5 ml/min
[2022-02-17 07:51] LABS: Hematocrit (blood only) 33.1 % (42-52); Hemoglobin 10.7 g/dL (14.0-18.0); Mean Corpuscular Hemoglobin 28.7 pg (25-34); Mean Corpuscular Hgb Conc 32.3 g/dL (32-36); Mean Corpuscular Volume 88.7 fL (80-100); Mean Platelet Volume 10.4 fL (7.4-10.4); Platelet Count 252 K/uL (130-400); RDW Coefficient of Variation 13.8 % (11.5-14.5); RDW Standard Deviation 45.3 fL (36.4-46.3); Red Blood Count 3.73 M/uL (4.7-6.1); White Blood Count 19.03 K/uL (4.8-10.8)
[2022-02-17] MEDS ORDERED: MULTIVITAMIN TAB PO SCH (09:00)
[2022-02-17] MEDS ORDERED: DULoxetine HCL 60 MG CAP PO SCH (09:00)
[2022-02-17] MEDS ORDERED: CHOLECALCIFEROL 1,000 UNITS 25 MCG TAB PO SCH (09:00)
[2022-02-17] MEDS ORDERED: metFORMIN HCL ER 500 MG TABCR PO SCH ×2 (09:00)
[2022-02-17] MEDS ORDERED: PANTOprazole 40 MG TAB PO SCH (09:00)
[2022-02-17] MEDS ORDERED: NON-FORMULARY MEDICATION (Cholecalciferol (Vitamin D3) [Vitamin D3] 25 mcg (1,000 unit) Ta PO SCH (09:00)
[2022-02-17] MEDS ORDERED: ASPIRIN 81 MG ECTAB PO SCH (09:00)
[2022-02-17] MEDS ORDERED: lisinopril 20 MG TAB PO SCH (09:00)
[2022-02-17] MEDS ORDERED: CLOPIDOGREL BISULFATE 75 MG TAB PO SCH (09:00)
[2022-02-17] MEDS: METOPROLOL TARTRATE 25 MG TAB PO SCH (09:07)
[2022-02-17] MEDS: DOCUSATE SODIUM 100 MG CAP PO SCH (09:25)
[2022-02-17] MEDS: INSULIN ASPART PER UNIT SC SCH ×2 (09:25→12:30)
--- NOTE | 2022-02-17 09:40 | Orthopedic Progress Note ---
Date of Service February 17, 2022 Assessment & Plan (1) Osteoarthritis of left knee: Plan: Weight bearing as tolerated with walker to assist in ambulation Knee immobilizer when OOB x 48 hours after surgery. Can remove for PT/OT Dressing saturated, changed to new silverlon today. Home health/PT x 2 weeks with [facility] Frequently ice and elevate You may shower on Post op Day 3. Leave Silverlon dressing in tact. No baths, hot tubs or swimming pools. Keep incision clean and dry. DVT prophylaxis: Resume Plaxiv, Aspirin 81mg twice a day for 6 weeks, LEILA compression stockings for 3 weeks Pain control: oxycodone 5mg q 6 hours as needed, Tylenol 500-1000mg q 8 hours, diclofenac Keflex as prescribed for infection prophylaxis. Follow up as scheduled in 2 weeks with [facility]. Please call out office sooner if you have any questions or concerns Admission and Anticipated Discharge Date Admission Date: February 16, 2022 Subjective Pt was seen and examined bedside. POD #1 s/p total knee arthroplasty. Pt was admitted last night for observation. No major events over night. Vitals are stable. Labs unremarkable. X-rays show normal post operative changes. Pt reports they are doing well and pain is controlled. They are tolerating PO intake and voiding adequate amounts. Working well with PT/OT. Pt denies F/C, N/V/D, SOB, CP. Pt deemed medically stable and ready for discharge. Physical Exam Physical Exam: General: Pt laying in hospital bed AA&O, in NAD, calm and cooperative during exam Lower Extremity: Dressing in tact but saturated. Bloody drainage noted coming from Silverlong. Removed and reapplied silverlong dressing. Incisions clean, dry and with minimal drainage and no surrounding erythema, warmth or purulent drainage. Pt has full ROM of ankle and all 5 digits. Pt has 5/5 strength with resisted DF/PF. SLR in tact. Calf supple and non tender. NVI with sensation to light touch distally and good distal pulses present. Lower extremity noted to have good color and temperature with no signs of vascular or lymphatic insuff iciency. Results & Data ([facility]) Vital Signs (Past 12 Hours) Vital Signs Temp Pulse Resp BP Pulse Ox 02/17/22 08:22 36.6 C 83 18 124/70 100 02/17/22 02:26 36.9 C 84 108/66 95 02/16/22 21:59 36.9 C 92 H 16 106/64 91 Laboratory Results 02/17/22 02/17/22 02/16/22 Range/Units 07:01 07:01 20:34 WBC 19.03 H (4.8-10.8) K/uL RBC 3.73 L (4.7-6.1) M/uL Hgb 10.7 L (14.0-18.0) g/dL Hct 33.1 L (42-52) % MCV 88.7 (80-100) fL MCH 28.7 (25-34) pg MCHC 32.3 (32-36) g/dL RDW Std Deviation 45.3 (36.4-46.3) fL RDW Coeff of Huber 13.8 (11.5-14.5) % Plt Count 252 (130-400) K/uL MPV 10.4 (7.4-10.4) fL Absolute Nucleated RBC 0.00 (0-0) K/uL Nucleated RBC % (auto) 0.0 % Sodium 134 L (136-145) mmol/L Potassium 5.0 (3.5-5.1) mmol/L Chloride 103 (98-107) mmol/L Carbon Dioxide 24 (21-32) mmol/L Anion Gap 7 (3-11) BUN 29 H (6-23) mg/dl Creatinine 1.33 (0.6-1.4) mg/dl Est Cr Clr Drug Dosing 61.1 ml/min Est GFR ( Amer) 63.2 ml/min Est GFR (Non-Af Amer) 54.5 ml/min BUN/Creatinine Ratio 21.8 H (10-20) Glucose 123 H (70-99(Fasting)) mg/dl POC Glucose 157 H (70-99) mg/dl Calcium 8.1 L (8.5-10.1) mg/dl 02/16/22 02/16/22 02/16/22 Range/Units 17:09 14:20 11:56 WBC (4.8-10.8) K/uL RBC (4.7-6.1) M/uL Hgb (14.0-18.0) g/dL Hct (42-52) % MCV (80-100) fL MCH (25-34) pg MCHC (32-36) g/dL RDW Std Deviation (36.4-46.3) fL RDW Coeff of Huber (11.5-14.5) % Plt Count (130-400) K/uL MPV (7.4-10.4) fL Absolute Nucleated RBC (0-0) K/uL Nucleated RBC % (auto) % Sodium (136-145) mmol/L Potassium (3.5-5.1) mmol/L Chloride (98-107) mmol/L Carbon Dioxide (21-32) mmol/L Anion Gap (3-11) BUN (6-23) mg/dl Creatinine (0.6-1.4) mg/dl Est Cr Clr Drug Dosing ml/min Est GFR ( Amer) ml/min Est GFR (Non-Af Amer) ml/min BUN/Creatinine Ratio (10-20) Glucose (70-99(Fasting)) mg/dl POC Glucose 152 H 149 H 132 H (70-99) mg/dl Calcium (8.5-10.1) mg/dl
--- NOTE | 2022-02-17 11:32 | Discharge Summary ---
Date of Service February 17, 2022 Admission HPI Per Admitting Provider History of Present Illness (including history relevant to procedure): This 58-year-old male presents the clinic today for his preoperative history and physical. Patient states he has a 10 to 15-year history of bilateral knee pain. 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 Patient localizes most of his pain to the anteromedial medial and lateral aspects of the knees. He states he has had multiple corticosteroid injections in both knees in the past with good relief of his pain. He also states that he has had arthroscopic surgery in both knees several years ago. He states that the pain now is starting to affect his activities of daily living. Review Of Systems: A 12 point review of systems is performed is unremarkable except for those things stated in the HPI past medical history. Past Medical History: Problems: Osteoarthritis of knees, bilateral Polypharmacy Prediabetes Memory loss Neuropathy, peripheral CAD (coronary artery disease) Brain TIA Depression Tobacco user Myocardial infarction Hypercholesterolemia GERD Procedure History Procedure Procedure Date Comments PCI - Percutaneous coronary intervention 2018 EMG - Electromyography Bilateral knee arthrosc[facility] Un[facility]able [facility]. No evidence of polyneuropathy, myopathy, or radiculopathy in the left arm or leg Allergies and Sensitivities: No Known Medication Allergies Social history: Patient states that he smokes 1 to 2 cigarettes/day. He denies alcohol or illicit drug use Family history: Noncontributory Current Home Meds: (Last Updated 02/07 13:55) DULoxetine (DULoxetine 60 mg oral delayed release capsule) 60 mg PO Daily QUEtiapine (QUEtiapine 100 mg oral tablet) 100 mg PO Daily acetaminophen-HYDROcodone (acetaminophen-HYDROcodone 325 mg-5 mg oral tablet) 1 tab PO q6h PRN: as needed for pain as needed for PAIN amitriptyline (amitriptyline 25 mg oral tablet) TAKE ONE TABLET BY MOUTH AT BEDTIME aspirin (aspirin 81 mg oral delayed release tablet) 81 mg PO Daily cholecalciferol (Vitamin D3 1000 intl units (25 mcg) oral capsule) 1,000 Int_Unit PO Daily clopidogrel (clopidogrel 75 mg oral tablet) 75 mg PO Daily gabapentin (gabapentin 600 mg oral tablet) 1,200 mg PO tid lisinopril (lisinopril 20 mg oral tablet) 20 mg PO Daily metFORMIN (MetFORMIN (Eqv-Glucophage XR) 500 mg oral tablet, extended release) TAKE 2 TABLETS BY MOUTH DAILY metoprolol (Metoprolol Tartrate 25 mg oral tablet) 12.5 mg PO bid nitroglycerin (nitroglycerin 0.4 mg sublingual tablet) PRN: chest pain 1 tab SL pantoprazole (pantoprazole 40 mg oral delayed release tablet) 40 mg PO bid for heartburn rosuvastatin (rosuvastatin 5 mg oral tablet) 5 mg PO Daily Initial Wt: 02/07 109.0 kg 240 lb Studies (relevant to the procedure): X-rays done include 3 views of each knee as well as long-leg alignment films. On the 3-view series, he has severe osteoarthritis, [id number] in the medial compartment of both knees with evidence of some early bone loss in the medial tibial plateau on the left knee. Tricompartmental osteophyte formation is noted. 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 Admission Exam Per Admitting Provider Physical Exam: (relevant to the procedure, including heart and lung evaluation) General: Alert and oriented x3 with proper grooming and hygiene Eyes: Pupils are equal react to light with accommodation. Extraocular movements are intact Throat: Deferred due to COVID-19 precautions Cardiac: Regular rate and rhythm with no murmurs or gallops appreciated Lungs: Clear to auscultation throughout no wheezing, rales or rhonchi Abdomen: Mildly obese, nondistended, nontender with normoactive bowel sounds Extremities: Left knee: Extension to 40 degrees flexion to 108 degrees. Tenderness to palpation of the medial lateral joint space of the knee is flexed. Patella is not mobile due to arthritic change within the patellofemoral joint. There is no laxity with varus or valgus stressing. Patient is neurovascular intact in left lower extremity. Neuro: Cranial nerves II through XII are intact no motor or sensory deficit Skin: Normal appearance no open skin areas or discharge Principal Diagnosis Left Total knee arthroplasty Discharge Exam General: Pt laying in hospital bed AA&O, in NAD, calm and cooperative during exam Lower Extremity: Dressing in tact but saturated. Bloody drainage noted coming from Silver[place]. Removed and reapplied silverlong dressing. Incisions clean, dry and with minimal drainage and no surrounding erythema, warmth or purulent drainage. Pt has full ROM of ankle and all 5 digits. Pt has 5/5 strength with resisted DF/PF. SLR in tact. Calf supple and non tender. NVI with sensation to light touch distally and good distal pulses present. Lower extremity noted to have good color and temperature with no signs of vascular or lymphatic insufficiency. Discharge Data Allergies Allergy/AdvReac Type Severity Reaction Status Date / Time levofloxacin Allergy Intermediate Per Verified 02/16/22 07:19 records- redness/rash (pt denies) Procedures Performed Operation Date: 02/16/22 09:20 Actual Procedures p Left Total Knee Arthroplasty(Left) - González Jimenez MD Ordered Studies 02/16/22 05:00 US - OR guided needle placemen Routine Hospital Course (1) Osteoarthritis of left knee: Patient had an uneventful overnight stay following Left Total knee Arthroplasty. He is planning on going home today with in home PT. Weight bearing as tolerated with walker to assist in ambulation Knee immobilizer when OOB x 48 hours after surgery. Can remove for PT/OT Dressing saturated, changed to new silverlon today. Home health/PT x 2 weeks with [facility] Frequently ice and elevate You may shower on Post op Day 3. Leave Silverlon dressing in tact. No baths, hot tubs or swimming pools. Keep incision clean and dry. DVT prophylaxis: Resume Plaxiv, Aspirin 81mg twice a day for 6 weeks, LEILA compression stockings for 3 weeks Pain control: oxycodone 5mg q 6 hours as needed, Tylenol 500-1000mg q 8 hours, diclofenac Keflex as prescribed for infection prophylaxis. Follow up as scheduled in 2 weeks with [facility]. Please call out office sooner if you have any questions or concerns Total Time Total Time Spent Total Time Spent (In Minutes): 15 Discharge Plan Discharge Items Patient Disposition: Home - Home Health Services Reason For Visit: Bilateral Primary Osteoarthritis of Knee Discharge Diagnosis: Bilateral knee osteoarthritis Activity: As commented below Lifting: None Bathing: Keep incision dry Bathing Comment: May shower tomorrow Sexual Activity: Wait until after follow-up appointment Exercise/Sports: Wait until after follow-up appointment Driving/Machine Use: No driving until cleared by pre certification specialist Weightbearing: Left weightbearing Weightbearing Comment: as tolerated with immobilizer and walker assistance Non-emergency contact: Surgeon Call non-emergency contact if: you have any medication questions, your temperature is above 101.5, your wound has increased drainage and your wound pain has increased Follow-up/Referrals: PCP,NO [Primary Care Provider] - Diet: Carb Consistent or DM2 Addtl Attending Provider Instructions: Post-operative Instructions Dear Patient and Family/Friends, Before you are discharged from the hospital, it is important to know what to expect when you get home after surgery. To that end, we have created this sheet of discharge instructions which covers many commonly asked questions. Make sure you go through this sheet in its entirety with your nurse before you are discharged. Please note that we will go over the specifics of your surgery and recovery when you return for your first post-operative visit. Sincerely, Dr. Jimenez Medications 1. Oxycodone 5 mg: take 1-2 tabs every 4-6 hours as needed for post operative pain control. A prescription for this medication will be sent to your pharmacy. 2. Diclofenac Sodium 75 mg: take 1 tab twice daily for pain and inflammation relief post operatively. This will also be sent to your pharmacy with 1 refill. 3. Aspirin 81 mg: take 1 tab twice daily for the first 30 days post operatively for blood clot prevention. Please purchase. 4. Extra Strengtht Tylenol 500 mg: take 2 tabs every 6-8 hours as needed for additional pain control. Please purchase. 5. Cephalexin 500 mg: take 1 tab three times daily for 7 days post operatively for infection prevention. A prescription will be sent to your pharmacy. Pain Expect to be in a fair amount of pain after surgery. Remember, our goal is not to eliminate your pain, but to make it tolerable. It is a good idea to stay ahead of your pain by taking the medications you were prescribed once you get home. Typically, the pain starts improving 3-7 days after surgery. You should start weaning off the narcotic pain medication (oxycodone, hydrocodone, hydromorphone, morphine) as soon as your pain improves. Please call our office if your pain is not adequately controlled. Ice Ice your operative site at least 5 times a day for 15-30 minutes at a time. Make sure you have a thin cloth between the ice or cooling unit and your skin to prevent maza bite. This is especially important if you received a nerve block. Continue icing your operative site for the first 5-7 days after surgery, then as needed. Diet/Nausea/Vomiting Start by drinking clear liquids and eating crackers. If you can tolerate this, then you may resume your normal diet. If you feel nauseated or vomit, take Zofran/ondansetron (if prescribed). Please call our office if you have intractable nausea or vomiting, or, if after hours, you may go to the Emergency Room for help. Constipation Constipation is a common side effect of narcotic pain medication. If you have not had a bowel movement within 2 days after surgery, we recommend purchasing an over the counter laxative such as Milk of Magnesia, Dulcolax, or Miralax from a local pharmacy, and taking it as instructed. Call our clinic if any questions. Slings and Braces If you were placed in a sling or brace, it must be worn at all times, including sleep. You may remove your sling or brace for physical therapy, home exercises, and showering. The length of time you will be in your brace and range of motion restrictions depends on what surgery you had; these details will be reviewed at your first post-operative appointment. Nerve block The anesthesia team sometimes places a nerve block to help with post-operative pain control. This results in significant numbness and inability to move the extremity. The nerve block usually wears off in 8-12 hours, but sometimes can last up to 24 hours. Please call our office if you are still unable to move your extremity after 24 hours, unless you received a pain pump to take home. Nerve blocks typically wear off quickly, so start taking pain medication as soon as you start feeling soreness near your surgical site. Weight bearing and Range of Motion. Do not bear any weight through your operative extremity immediately after surgery. If you had upper extremity surgery, do not lift anything with that arm. If you are in a knee brace, keep it locked in place until your follow-up. We will discuss your weight bearing, range of motion, and lifting restrictions in detail at your first post-operative appointment. Continuous Passive Motion (CPM) Machine If you were prescribed a CPM machine, it will start after your first post- operative appointment, at which time we will give you instructions on the range of motion settings and duration of treatment Physical therapy You will be given a prescription for physical therapy or occupational therapy at your first post-operative appointment. Typically, patients start therapy within 1 week of surgery Wound care and showering We will inspect your wound at your first post-operative visit, and may do a dressing change at that time. Most patients will be in a water-proof dressing that is removed 14 days after surgery. It is normal to see some dried blood on the dressing. Do not remove your dressing, paper strips or sutures yourself unless you are given permission. Showering is allowed the day after surgery. Do not scrub or remove any dressings. The wound should not be submerged underwater (i.e. in a bathtub or p ool) until 4 weeks after surgery LEILA stockings If you were given white stockings, these are to be worn at all times except to shower (on both legs) for the first 2 weeks after surgery. Driving You may not drive while taking narcotic pain medication or while in a cast, splint, sling or brace. You, the patient, need to make the final determination about when you are safe to drive, however, the earliest you may consider driving after surgery is below: Hand/Wrist/Elbow Surgery: 3 days Shoulder Surgery: 2 weeks Hip,/Knee/Ankle Surgery: 4 weeks Fracture repair: 6 weeks Return to Work Your return to work depends on what surgery was done and what type of work you do. Please bring any paperwork your employer needs completed to your first post-operative visit. Also, bring a description of your job duties, as this helps us to understand what risks you may face at work. Travel Avoid long distance travel (greater than 1 hour) in airplanes and cars for the first 6 weeks after surgery. If you must travel, you need to have a Doppler ultrasound done before you travel to rule out a blood clot in your legs. Follow-up You should have a follow-up appointment already scheduled 1-2 days after surgery. If not, please contact our office to make this appointment before you leave the hospital. When to call the office It is normal to have swelling and bruising in the limb that was operated on. This will improve with time. It is also normal to have fevers for the first 2 days after surgery. Reasons you should call your doctor include: Uncontrolled pain; Nausea, vomiting, or constipation that does not improve with medication; Fevers over 101.5, chills, sweats; Drainage or bleeding from the wound; Foul odor; Spreading areas of redness; Any other concerns Pending Studies at Discharge: No Stand-Alone Forms: My [facility], Smoking Cessation Medications and DC Order Prescriptions: New oxycodone 5 mg tablet 5 mg PO Q4H Qty: 28 RF: 0 diclofenac sodium 75 mg tablet,delayed release (DR/EC) 75 mg PO BID 30 Days Qty: 60 RF: 1 cephalexin 500 mg capsule 500 mg PO TID 7 Days Qty: 21 RF: 0 Continued rosuvastatin 5 mg tablet 5 mg PO HS Qty: 90 RF: 3 metoprolol tartrate 25 mg tablet 12.5 mg PO BID Qty: 60 RF: 5 quetiapine 100 mg tablet 100 mg PO HS Qty: 30 RF: 5 gabapentin 600 mg tablet See Rx Instructions PO UD RF: 0 cholecalciferol (vitamin D3) 25 mcg (1,000 unit) capsule 25 mcg PO QAM RF: 0 clopidogrel 75 mg tablet 75 mg PO QAM RF: 0 hydrocodone-acetaminophen 5-325 mg Tablet 1 tab PO Q6H PRN (Reason: Pain) RF: 0 amitriptyline 25 mg Tablet 25 mg PO HS RF: 0 duloxetine 60 mg Capsule,Delayed Release(Dr/Ec) 60 mg PO QAM RF: 0 cholecalciferol (vitamin D3) [Vitamin D3] 25 mcg (1,000 unit) Tablet 25 mcg PO QAM RF: 0 pantoprazole 40 mg tablet,delayed release (DR/EC) 40 mg PO QAM RF: 0 lisinopril 5 mg tablet 20 mg PO QAM RF: 0 metformin 500 mg tablet extended release 24 hr 1,000 mg PO QAM RF: 0 Changed aspirin 81 mg tablet,delayed release (DR/EC) 81 mg PO BID Qty: 0 RF: 0 Discharge Orders: Discharge Order (Routine); Ordered 02/17/22 Ordered By: Maureen Caba Admission Data Admit Date/Time: 02/16/22 11:53 Attending Provider: González Jimenez Admit Provider: González Jimenez Primary Care Provider: PCP,NO Other Providers: [facility]
[2022-02-17] MEDS ORDERED: GABAPENTIN 600 MG TAB PO SCH (12:00)
== END 2022-02-17 13:05 | disposition home health service (06) ==
LOC: ASU 06:35 → 3E 06:35

== ENCOUNTER 2023-05-11 07:31 | Inpatient (IN) ==
[2023-05-11] MEDS ORDERED: predniSONE 50 MG TAB PO STA (07:44)
[2023-05-11] MEDS ORDERED: ALBUT/IPRATROP 3MG/0.5MG NEB 3 ML VIAL NEB STA ×2 (07:44→10:50)
--- NOTE | 2023-05-11 07:49 | Emergency Department Note ---
History of Present Illness General Chief Complaint: Shortness of Breath/Dyspnea Stated Complaint: BREATHING DIFF. Time Seen by Provider: 05/11/23 07:38 History of Present Illness Provider Complaint: shortness of breath and cough Onset (ago): day(s) (2) Severity: moderate Consistency/Duration: + progressively worsening Relieved By: + upright position Exacerbated By: + lying flat, + exertion and + coughing Known history of: COPD and congestive heart failure Associated symptoms: + cough, + wheezing, + sputum production, + orthopnea and + chest congestion; no palpitations or no abdominal pain Treatment prior to arrival: bronchodilator Related Data Home oxygen amount: none Home Medications Medication Instructions Recorded Confirmed Type cholecalciferol (vitamin D3) 25 0 mcg PO QAM 09/16/20 04/11/22 History mcg (1,000 unit) capsule gabapentin 600 mg tablet See Rx Instructions PO UD 09/16/20 05/11/23 History rosuvastatin 5 mg tablet 5 mg PO HS #90 tabs 03/18/21 05/11/23 Rx metoprolol tartrate 25 mg tablet 12.5 mg PO BID #60 tabs 11/21/21 05/11/23 Rx quetiapine 100 mg tablet 100 mg PO HS #30 tabs 12/08/21 05/11/23 Rx cholecalciferol (vitamin D3) 25 0 mcg PO QAM 02/02/22 04/11/22 History mcg (1,000 unit) tablet (Vitamin D3) clopidogrel 75 mg tablet 75 mg PO QAM 02/02/22 05/11/23 History duloxetine 60 mg capsule,delayed 60 mg PO QAM 02/02/22 05/11/23 History release hydrocodone 5 mg-acetaminophen 325 1 tab PO HS PRN Pain 02/02/22 05/11/23 History mg tablet metformin 500 mg tablet,extended 1,000 mg PO QAM 02/02/22 05/11/23 History release 24 hr pantoprazole 40 mg tablet,delayed 40 mg PO QAM 02/02/22 05/11/23 History release lisinopril 20 mg tablet 20 mg PO QAM 04/11/22 05/11/23 History amitriptyline 50 mg tablet 50 mg PO HS 05/11/23 05/11/23 History aspirin 81 mg tablet,delayed 0 mg PO BID 05/11/23 History release Allergies Allergy/AdvReac Type Severity Reaction Status Date / Time No Known Allergies Allergy Unverified 05/11/23 08:46 Past Med/Surg History Medical History Anemia Chronic- hgb baseline 12-13s Atherosclerosis of [place] coronary artery without angina pectoris BPV (benign positional vertigo) CAD (coronary artery disease) PCI to the mid RCA (2016) Chronic back pain Cervical, lumbar (No cervical ROM limitations per pt) Chronic obstructive pulmonary disease Common migraine without aura CVA (cerebral vascular accident) Remote hx (+ TIAs) > residual left sided tingling Depression with anxiety Gastroesophageal reflux disease History of COVID-19 Dx 08/2020 ([place]) > symptoms at time: cold symptoms > resolved Interstitial lung disease Memory loss Multiple pulmonary nodules NSTEMI (non-ST elevated myocardial infarction) Remote hx Osteoarthritis of knee Pre-diabetes Spinal stenosis Surgical History History of arthroscopy of knee History of cardiac cath Stent x1 (2016) History of esophagogastroduodenoscopy (EGD) History of hand surgery REPAIR NERVE/LACERATION RIGHT Family History Brother Heart disease Alcoholism Idiopathic pulmonary fibrosis Mother Diabetes Social History Smoking Status: Light tobacco smoker Tobacco Type: Cigarettes Cigarettes Per Day: 1-2 cig/day (total tobacco use x several years); Second Hand Exposure: No; Do You Dip or Chew Tobacco: Yes (1 CAN PER WEEK > advised none DOS); Hx Alcohol Use: No Hx Substance Use: No Preferred Language: Albanian Communication Ability: Effective Alley Cleaner Required: No Beliefs That Will Affect Care: None marital status: Current Living Situation: Spouse current occupational status: disabled Feels Safe at Home: Yes Assistive Devices: Walker Physical Exam Vital Signs: Vital Signs - 24 hr 05/11/23 07:42 05/11/23 07:42 05/11/23 07:42 Temperature 36.9 C Temperature Source Oral Pulse Rate 110 H Pulse Rate [Apical ] Pulse Rate from Sp O2 Sensor Pulse Rhythm Regular Pulse Rhythm [Apic al] Pulse Strength Normal Pulse Strength [Ap ical] Respiratory Rate 18 Respiratory Effort / Characteristics Non-Labored Non-Labored Respiratory Depth Normal Normal Respiratory Patter n Regular Regular Blood Pressure 145/87 H Blood Pressure [Ri ght Arm] Blood Pressure Roxanna n 106 Blood Pressure Roxanna n [Right Arm] Pulse Oximetry 92 Oxygen Delivery Me thod Room Air Room Air Room Air Oxygen Flow Rate Sepsis Recent Feve r Within 48 Hours No Sepsis New/Unexpla ined Change in Men alexis Status No Sepsis Action Take n by Nursing No Action Required 05/11/23 07:42 05/11/23 07:37 05/11/23 08:14 Temperature Temperature Source Pulse Rate 110 H 112 H Pulse Rate [Apical ] 110 H Pulse Rate from Sp O2 Sensor 106 H Pulse Rhythm Pulse Rhythm [Apic al] Regular Pulse Strength Pulse Strength [Ap ical] Normal Respiratory Rate 18 18 Respiratory Effort / Characteristics Non-Labored Respiratory Depth Normal Respiratory Patter n Regular Blood Pressure 145/87 H Blood Pressure [Ri ght Arm] 145/87 H Blood Pressure Roxanna n 106 Blood Pressure Roxanna n [Right Arm] 106 Pulse Oximetry 92 93 Oxygen Delivery Me thod Room Air Nasal Cannula Oxygen Flow Rate 2 Sepsis Recent Feve r Within 48 Hours Sepsis New/Unexpla ined Change in Men alexis Status Sepsis Action Take n by Nursing 05/11/23 09:16 05/11/23 09:30 05/11/23 09:31 Temperature Temperature Source Pulse Rate 106 H 106 H Pulse Rate [Apical ] Pulse Rate from Sp O2 Sensor 98 H 107 H Pulse Rhythm Pulse Rhythm [Apic al] Pulse Strength Pulse Strength [Ap ical] Respiratory Rate 24 21 Respiratory Effort / Characteristics Respiratory Depth Respiratory Patter n Blood Pressure 125/84 141/78 H Blood Pressure [Ri ght Arm] Blood Pressure Roxanna n 97 84 Blood Pressure Roxanna n [Right Arm] Pulse Oximetry 95 92 Oxygen Delivery Me thod Oxygen Flow Rate 2 Sepsis Recent Feve r Within 48 Hours Sepsis New/Unexpla ined Change in Men alexis Status Sepsis Action Take n by Nursing 05/11/23 09:31 05/11/23 07:40 05/11/23 10:00 Temperature Temperature Source Pulse Rate 103 H 95 H Pulse Rate [Apical ] Pulse Rate from Sp O2 Sensor 105 H 96 H Pulse Rhythm Pulse Rhythm [Apic al] Pulse Strength Pulse Strength [Ap ical] Respiratory Rate 25 H 20 Respiratory Effort / Characteristics Respiratory Depth Respiratory Patter n Blood Pressure 156/94 H Blood Pressure [Ri ght Arm] Blood Pressure Roxanna n 114 Blood Pressure Roxanna n [Right Arm] Pulse Oximetry 94 89 L 96 Oxygen Delivery Me thod Room Air Oxygen Flow Rate 2 Sepsis Recent Feve r Within 48 Hours Sepsis New/Unexpla ined Change in Men alexis Status Sepsis Action Take n by Nursing 05/11/23 11:00 05/11/23 11:31 05/11/23 12:17 Temperature Temperature Source Pulse Rate 99 H 101 H Pulse Rate [Apical ] Pulse Rate from Sp O2 Sensor 95 H 98 H Pulse Rhythm Pulse Rhythm [Apic al] Pulse Strength Pulse Strength [Ap ical] Respiratory Rate 18 22 Respiratory Effort / Characteristics Respiratory Depth Respiratory Patter n Blood Pressure 157/92 H 151/87 H Blood Pressure [Ri ght Arm] Blood Pressure Roxanna n 113 108 Blood Pressure Roxanna n [Right Arm] Pulse Oximetry 96 94 Oxygen Delivery Me thod Oxygen Flow Rate 2 2 Sepsis Recent Feve r Within 48 Hours Sepsis New/Unexpla ined Change in Men alexis Status Sepsis Action Take n by Nursing 05/11/23 13:00 05/11/23 13:01 Temperature Temperature Source Pulse Rate Pulse Rate [Apical ] Pulse Rate from Sp O2 Sensor 107 H 105 H Pulse Rhythm Pulse Rhythm [Apic al] Pulse Strength Pulse Strength [Ap ical] Respiratory Rate 21 Respiratory Effort / Characteristics Respiratory Depth Respiratory Patter n Blood Pressure 131/88 Blood Pressure [Ri ght Arm] Blood Pressure Roxanna n 102 Blood Pressure Roxanna n [Right Arm] Pulse Oximetry 96 95 Oxygen Delivery Me thod Oxygen Flow Rate 2 Sepsis Recent Feve r Within 48 Hours Sepsis New/Unexpla ined Change in Men alexis Status Sepsis Action Take n by Nursing Physical Exam: Physical Exam GENERAL: oriented to person, place, and time. appears well-developed and well- nourished. HENT: Exam performed. - Head: Normocephalic and atraumatic. EYES: Conjunctivae and EOM are normal. Right eye exhibits no discharge. Left eye exhibits no discharge. No scleral icterus. NECK: Normal range of motion. Neck supple. No JVD present. CV: Normal rate, regular rhythm, normal heart sounds and intact distal pulses. There is no peripheral edema. Palpable radial pulses bue. PULM/CHEST: Expiratory wheezes bilaterally. Inspiratory rales at the left base. Rhonchi bilaterally. ABD: The abdomen is soft. There is no tenderness. NEURO: Motor and sensation grossly intact. SKIN: Skin is warm and dry. He is not diaphoretic. PSYCH: normal mood and affect. Behavior is normal. Judgment and thought content normal. Course Course 0738: The patient was evaluated in room C11. A complete history and physical exam was performed Cardiac monitoring: An order was placed for continuous cardiac monitoring. The monitor shows a rate of 110 with sinus rhythm interpreted by me Patient is found to be hypoxic on room air 2 L supplemental oxygen was applied via nasal cannula which improved the patient's oxygen saturations. 0910: Vital signs stable on supplemental oxygen via nasal cannula. Patient's chest x-ray shows a possible infiltrate versus mass. Will obtain CT of the chest given his long smoking history to make sure there is no lung mass. 1050: Vital signs stable on supplemental oxygen via nasal cannula. CT of the chest shows no infiltrate no lung mass. Labs are within normal limits. Is thought that the patient was having a COPD exacerbation. Patient given multiple DuoNebs and steroids in the emergency department will be [facility] team. Dr. Barton notified. Administered Medications Discontinued Medications Albuterol (Albut/Ipratrop 3mg/0.5mg Neb 3 Ml Vial) 3 ml NEB NOW STA; Protocol Stop: 05/11/23 07:45 Last Admin: 05/11/23 07:58 Dose: 3 ml Documented By: MICHAEL Albuterol (Albut/Ipratrop 3mg/0.5mg Neb 3 Ml Vial) 3 ml NEB NOW STA; Protocol Stop: 05/11/23 10:51 Last Admin: 05/11/23 11:45 Dose: 3 ml Documented By: MICHEAL Ioversol (Optiray 320 100ml) 92 ml IV ONCE ONE Stop: 05/11/23 09:47 Last Admin: 05/11/23 09:47 Dose: 92 ml Documented By: CASSY Lorazepam (Lorazepam 0.5 Mg Tab) 0.5 mg PO NOW STA Stop: 05/11/23 08:15 Last Admin: 05/11/23 08:24 Dose: 0.5 mg Documented By: MICHAEL Prednisone (Prednisone 50 Mg Tab) 50 mg PO NOW STA Stop: 05/11/23 07:45 Last Admin: 05/11/23 07:58 Dose: 50 mg Documented By: MICHAEL Medical Decision Making Laboratory Data Attestation: I reviewed the patient's lab results. 05/11/23 07:54 07/07/23 07:54 Lab Results 05/11/23 05/11/23 05/11/23 Range/Units 07:51 07:51 07:53 WBC (4.8-10.8) K/ul RBC (4.70-6.10) M/uL Hgb (14.0-18.0) g/dl Hct (42.0-52.0) % MCV (80.0-100.0) fL MCH (25.0-34.0) pg MCHC (32.0-36.0) g/dL RDW Std Deviation (36.4-46.3) fL RDW Coeff of Huber (11.5-14.5) % Plt Count (130-400) K/uL MPV (9.4-12.4) fL Immature Gran % (Auto) % Neut % (Auto) % Lymph % (Auto) % [place] % (Auto) % Eos % (Auto) % Baso % (Auto) % Neut # (Auto) (1.40-6.50) K/uL Lymph # (Auto) (1.2-3.4) K/uL [place] # (Auto) (0.11-0.59) K/uL Eos # (Auto) (0-0.50) K/uL Baso # (Auto) (0-0.2) K/uL Immature Gran # (Auto) (0.01-0.20) K/uL PT (9.0-12.0) Seconds INR (0.9-1.1) APTT (21.0-31.0) Seconds PTT Ratio VBG pH 7.36 (7.36-7.41) VBG pCO2 51 H (38-50) mmHg VBG pO2 31 mmHg VBG HCO3 29 mmol/L VBG O2 Saturation < 60.0 % VBG Base Excess 2.4 mEq/L Sodium (136-145) mmol/L Potassium (3.5-5.1) mmol/L Chloride (98-107) mmol/L Carbon Dioxide (21-32) mmol/L Anion Gap (3-11) BUN (6-23) mg/dl Creatinine (0.6-1.4) mg/dl Est Cr Clr Drug Dosing ml/min Est GFR ( Amer) ml/min Est GFR (Non-Af Amer) ml/min BUN/Creatinine Ratio (10-20) Glucose (70-99(Fasting)) mg/dl Calcium (8.6-10.3) mg/dl Total Bilirubin (0.2-1.0) mg/dl AST (13-39) U/L ALT (7-52) U/L Alkaline Phosphatase (34-104) U/L Troponin I High Sens (0-20) pg/ml B-Natriuretic Peptide 49 (0-100) pg/ml Total Protein (6.0-8.3) gm/dl Albumin (3.4-5.0) gm/dl Globulin (2.5-4.0) gm/dl Albumin/Globulin Ratio (0.9-2) Lipase (11-82) U/L SARS-CoV-2 (PCR) NEGATIVE (Negative) Influenza Type A (PCR) Negative (Neg) Influenza Type B (PCR) Negative (Neg) RSV (RT-PCR) Negative (Neg) 05/11/23 05/11/23 05/11/23 Range/Units 07:54 07:54 07:54 WBC 10.02 (4.8-10.8) K/ul RBC 4.92 (4.70-6.10) M/uL Hgb 13.8 L (14.0-18.0) g/dl Hct 42.3 (42.0-52.0) % MCV 86.0 (80.0-100.0) fL MCH 28.0 (25.0-34.0) pg MCHC 32.6 (32.0-36.0) g/dL RDW Std Deviation 43.0 (36.4-46.3) fL RDW Coeff of Huber 13.9 (11.5-14.5) % Plt Count 310 (130-400) K/uL MPV 10.5 (9.4-12.4) fL Immature Gran % (Auto) 0.3 % Neut % (Auto) 62.5 % Lymph % (Auto) 21.5 % [place] % (Auto) 11.8 % Eos % (Auto) 3.4 % Baso % (Auto) 0.5 % Neut # (Auto) 6.27 (1.40-6.50) K/uL Lymph # (Auto) 2.15 (1.2-3.4) K/uL [place] # (Auto) 1.18 H (0.11-0.59) K/uL Eos # (Auto) 0.34 (0-0.50) K/uL Baso # (Auto) 0.05 (0-0.2) K/uL Immature Gran # (Auto) 0.03 (0.01-0.20) K/uL PT 11.3 (9.0-12.0) Seconds INR 1.0 (0.9-1.1) APTT 31.9 H (21.0-31.0) Seconds PTT Ratio 1.1 VBG pH (7.36-7.41) VBG pCO2 (38-50) mmHg VBG pO2 mmHg VBG HCO3 mmol/L VBG O2 Saturation % VBG Base Excess mEq/L Sodium 136 (136-145) mmol/L Potassium 4.0 (3.5-5.1) mmol/L Chloride 101 (98-107) mmol/L Carbon Dioxide 28 (21-32) mmol/L Anion Gap 7 (3-11) BUN 17 (6-23) mg/dl Creatinine 1.15 (0.6-1.4) mg/dl Est Cr Clr Drug Dosing 70.4 ml/min Est GFR ( Amer) 74.8 ml/min Est GFR (Non-Af Amer) 64.6 ml/min BUN/Creatinine Ratio 14.8 (10-20) Glucose 144 H (70-99(Fasting)) mg/dl Calcium 9.1 (8.6-10.3) mg/dl Total Bilirubin 0.7 (0.2-1.0) mg/dl AST 24 (13-39) U/L ALT 15 (7-52) U/L Alkaline Phosphatase 75 (34-104) U/L Troponin I High Sens 10.1 (0-20) pg/ml B-Natriuretic Peptide (0-100) pg/ml Total Protein 7.3 (6.0-8.3) gm/dl Albumin 3.9 (3.4-5.0) gm/dl Globulin 3.4 (2.5-4.0) gm/dl Albumin/Globulin Ratio 1.1 (0.9-2) Lipase 4 L (11-82) U/L SARS-CoV-2 (PCR) (Negative) Influenza Type A (PCR) (Neg) Influenza Type B (PCR) (Neg) RSV (RT-PCR) (Neg) Imaging Data Attestation: I personally reviewed and interpreted this imaging study as follows: My Impression: Chest x-ray: Bilateral infiltrates Radiologist's Impression: Chest X-Ray 05/11/23 08:34 XR chest 1V portable CLINICAL HISTORY: Chest pain, nonspecific COMPARISON STUDY: Chest CT December and chest radiograph 2022. FINDINGS: There is no pneumothorax or pleural effusion. Interstitial thickening is unchanged. This is likely chronic. There is no definite consolidation to suggest pneumonia. 3.9 x 1.4 cm right midlung density is noted. Cardiomegaly is unchanged. No evidence for pulmonary edema. IMPRESSION: 1. No definite acute cardiopulmonary findings. 2. 3.9 x 1.4 cm right midlung opacity. This is of questionable significance and may reflect interstitial thickening. However, a small focus of pneumonia or less likely a pulmonary lesion could appear similar. Follow-up PA and lateral chest radiographs are recommended. ACT 112: Negative or not required by law. Electronically signed by: Keron Swift M.D. 05/11/2023 9:[address] 05/11/23 09:[address] WITH CONTRAST CT DOSE: 983.09 mGy.cm HISTORY: Abnormal chest x-ray. Shortness of breath. Smoking history. Lung mass vs pneumonia TECHNIQUE: Multiaxial CT images of the chest were performed following the intravenous administration of contrast. A dose lowering technique was utilized adhering to the principles of ALARA. COMPARISON: Chest x-ray 05/11/2023. Chest CT 12/26/2022. FINDINGS: The central airways are patent. No pneumothorax. No pleural effusion. Emphysema and chronic interstitial thickening again noted. There is subpleural reticulation and honeycombing suggestive of mild fibrotic change. This is similar to the prior study. No new focal lung consolidations to suggest a pneumonia. No evidence for pulmonary edema. Scattered subcentimeter pulmonary nodules measure up to 5 mm. These remain unchanged. No new pulmonary nodules identified. There are healing right posterior eighth and ninth rib fractures. No acute fractures identified within the chest. Normal thyroid gland. Moderate calcified plaque within the coronary arteries. No evidence for an aortic dissection. The heart is normal in size. Normal caliber esophagus. No mediastinal or hilar lymphadenopathy. Limited views of the upper abdomen demonstrate a normal spleen and adrenal glands. Hepatic steatosis is noted. The main pulmonary arteries are patent. IMPRESSION: 1. Healing right posterior rib fractures. No pneumothorax. 2. Emphysema and mild fibrotic change again noted. 3. No new focal lung consolidations to suggest a pneumonia. 4. Stable scattered subcentimeter pulmonary nodules. 5. Hepatic steatosis. ACT 112: Negative or not required by law. Electronically signed by: Diego Lam M.D. 05/11/2023 10:43 AM ECG Data Attestation: I personally reviewed and interpreted this ECG as follows: Interpretation: Sinus tachycardia with a rate of 108. UT QRS and QTc intervals within normal limits. No ST elevation or ST depression. [facility] Narrative 0738: The patient was evaluated in room C11. A complete history and physical exam was performed Cardiac monitoring: An order was placed for continuous cardiac monitoring. The monitor shows a rate of 110 with sinus rhythm interpreted by me Patient is found to be hypoxic on room air 2 L supplemental oxygen was applied via nasal cannula which improved the patient's oxygen saturations. 0910: Vital signs stable on supplemental oxygen via nasal cannula. Patient's chest x-ray shows a possible infiltrate versus mass. Will obtain CT of the chest given his long smoking history to make sure there is no lung mass. 1050: Vital signs stable on supplemental oxygen via nasal cannula. CT of the chest shows no infiltrate no lung mass. Labs are within normal limits. Is thought that the patient was having a COPD exacerbation. Patient given multiple DuoNebs and steroids in the emergency department will be [facility] team. Dr. Barton notified. Impression & Plan Hypoxia, COPD (chronic obstructive pulmonary disease), Diffuse interstitial pulmonary fibrosis Critical Care Time Critical Care Time: Yes Total Critical Care Time: 63 I have personally spent greater than 63 minutes of critical care time in the direct management of this patient. This includes bedside care, interpretation of diagnostic studies, and testing, discussion with consultants, patient, and family members, and other required patient management activities. This 63 minutes is in excess of all separately billable procedures. Discharge Plan Visit Data Chief Complaint: Shortness of Breath/Dyspnea Stated Complaint: BREATHING DIFF. ED Provider: Michael Alberto Discharge Problem: Hypoxia, COPD (chronic obstructive pulmonary disease), Diffuse interstitial pulmonary fibrosis Patient Disposition: Admitted As Inpatient Forms Stand Alone Forms: My [facility] Prescriptions Prescriptions: No Action rosuvastatin 5 mg tablet 5 mg PO HS Qty: 90 3RF metoprolol tartrate 25 mg tablet 12.5 mg PO BID Qty: 60 5RF quetiapine 100 mg tablet 100 mg PO HS Qty: 30 5RF gabapentin 600 mg tablet See Rx Instructions PO UD Rx Instructions: 600 MG PM/1200 MG HS cholecalciferol (vitamin D3) 25 mcg (1,000 unit) capsule 0 mcg PO QAM Rx Instructions: Pharmacist unable to verify lisinopril 20 mg tablet 20 mg PO QAM clopidogrel 75 mg tablet 75 mg PO QAM hydrocodone-acetaminophen 5-325 mg Tablet 1 tab PO HS PRN (Reason: Pain) duloxetine 60 mg Capsule,Delayed Release(Dr/Ec) 60 mg PO QAM cholecalciferol (vitamin D3) [Vitamin D3] 25 mcg (1,000 unit) Tablet 0 mcg PO QAM Rx Instructions: Pharmacist unable to verify pantoprazole 40 mg tablet,delayed release (DR/EC) 40 mg PO QAM metformin 500 mg tablet extended release 24 hr 1,000 mg PO QAM amitriptyline 50 mg tablet 50 mg PO HS aspirin 81 mg tablet,delayed release (DR/EC) 0 mg PO BID Rx Instructions: pharmacist unable to verify Referrals Referrals: Albina Jimenez PA-C [Primary Care Provider] -
[2023-05-11] MEDS ORDERED: LORazepam 0.5 MG TAB PO STA (08:14)
[2023-05-11 08:28] LABS: Base Excess VBG 2.4 mEq/L; HCO3 VBG 29 mmol/L; Oxygen Saturation VBG < 60.0 %; PCO2 VBG 51 mmHg (38-50); PO2 VBG 31 mmHg; pH VBG 7.36 (7.36-7.41)
--- NOTE | 2023-05-11 09:05 | XRay Report ---
XR chest 1V portable CLINICAL HISTORY: Chest pain, nonspecific COMPARISON STUDY: Chest CT December and chest radiograph 2022. FINDINGS: There is no pneumothorax or pleural effusion. Interstitial thickening is unchanged. This is likely chronic. There is no definite consolidation to suggest pneumonia. 3.9 x 1.4 cm right midlung density is noted. Cardiomegaly is unchanged. No evidence for pulmonary edema. IMPRESSION: 1. No definite acute cardiopulmonary findings. 2. 3.9 x 1.4 cm right midlung opacity. This is of questionable significance and may reflect interstit ial thickening. However, a small focus of pneumonia or less likely a pulmonary lesion could appear si milar. Follow-up PA and lateral chest radiographs are recommended. ACT 112: Negative or not required by law. Electronically signed by: Keron Swift M.D. 05/11/2023 9:04 AM
[2023-05-11 09:06] LABS: Influenza A virus by PCR Negative (Neg); Influenza B virus by PCR Negative (Neg); RSV by PCR Negative (Neg); SARS CoV2 RNA(COVID-19) Ceph NEGATIVE (Negative)
[2023-05-11 09:26] LABS: Albumin Globulin Ratio 1.1 (0.9-2); Albumin Level 3.9 gm/dl (3.4-5.0); BUN Creatinine Ratio 14.8 (10-20); Bilirubin,Total 0.7 mg/dl (0.2-1.0); Calcium 9.1 mg/dl (8.6-10.3); Creatinine Clr Calc Pharmacy 70.4 ml/min; Est GFR (African American) 74.8 ml/min; Est GFR (Non-African American) 64.6 ml/min; Globulin 3.4 gm/dl (2.5-4.0); Total Protein 7.3 gm/dl (6.0-8.3)
[2023-05-11 09:32] LABS: Troponin I High Sensitivity 10.1 pg/ml (0-20)
[2023-05-11] MEDS ORDERED: OPTIRAY 320 100ml IV ONE (09:46)
[2023-05-11 09:57] LABS: Basophils # (auto) 0.05 K/uL (0-0.2); Basophils % (auto) 0.5 %; Eosinophils # (auto) 0.34 K/uL (0-0.50); Eosinophils % (auto) 3.4 %; Hematocrit (blood only) 42.3 % (42.0-52.0); Hemoglobin 13.8 g/dl (14.0-18.0); Immature Granulocytes # (auto) 0.03 K/uL (0.01-0.20); Immature Granulocytes % (auto) 0.3 %; Lymphocytes # (auto) 2.15 K/uL (1.2-3.4); Lymphocytes % (auto) 21.5 %; Mean Corpuscular Hgb Conc 32.6 g/dL (32.0-36.0); Mean Platelet Volume 10.5 fL (9.4-12.4); Monocytes # (auto) 1.18 K/uL (0.11-0.59); Monocytes % (auto) 11.8 %; Neutrophils # (auto) 6.27 K/uL (1.40-6.50); Neutrophils % (auto) 62.5 %; Platelet Count 310 K/uL (130-400); RDW Coefficient of Variation 13.9 % (11.5-14.5); Red Blood Count 4.92 M/uL (4.70-6.10); White Blood Count 10.02 K/ul (4.8-10.8)
[2023-05-11 10:02] LABS: Partial Thromboplastin Ratio 1.1; Partial Thromboplastin Time 31.9 Seconds (21.0-31.0); Prothrombin Time 11.3 Seconds (9.0-12.0)
--- NOTE | 2023-05-11 10:44 | CT Scan Report ---
CHEST CT WITH CONTRAST CT DOSE: 983.09 mGy.cm HISTORY: Abnormal chest x-ray. Shortness of breath. Smoking history. Lung mass vs pneumonia TECHNIQUE: Multiaxial CT images of the chest were performed following the intravenous administration of contrast. A dose lowering technique was utilized adhering to the principles of ALARA. COMPARISON: Chest x-ray 05/11/2023. Chest CT 12/26/2022. FINDINGS: The central airways are patent. No pneumothorax. No pleural effusion. Emphysema and chronic interstitial thickening again noted. There is subpleural reticulation and honeycombing suggestive of mild fibrotic change. This is similar to the prior study. No new focal lung consolidations to sugges t a pneumonia. No evidence for pulmonary edema. Scattered subcentimeter pulmonary nodules measure up to 5 mm. These remain unchanged. No new pulmonary nodules identified. There are healing right posteri or eighth and ninth rib fractures. No acute fractures identified within the chest. Normal thyroid gla nd. Moderate calcified plaque within the coronary arteries. No evidence for an aortic dissection. The heart is normal in size. Normal caliber esophagus. No mediastinal or hilar lymphadenopathy. Limited views of the upper abdomen demonstrate a normal spleen and adrenal glands. Hepatic steatosis is noted . The main pulmonary arteries are patent. IMPRESSION: 1. Healing right posterior rib fractures. No pneumothorax. 2. Emphysema and mild fibrotic change again noted. 3. No new focal lung consolidations to suggest a pneumonia. 4. Stable scattered subcentimeter pulmonary nodules. 5. Hepatic steatosis. ACT 112: Negative or not required by law. Electronically signed by: Diego Lam M.D. 05/11/2023 10:43 AM
--- NOTE | 2023-05-11 11:20 | History & Physical Report ---
Date of Service May 11, 2023 Assessment & Plan (1) COPD (chronic obstructive pulmonary disease): Plan: Acute on chronic COPD with hypoxia Afebrile, nodules noted on CTchest Wheezing significantly improved following steroid and nebulizer No PFTs available for review, no history of home inhaler use Incentive spirometry, flutter valve 5-day course of azithromycin 5-day course of prednisone Wean oxygen as needed, do not hyper oxygenate Recommend PFTs as outpatient once at respiratory baseline, likely will benefit from home inhaler regimen Tobacco cessation counseling provided Currently on 3 L of oxygen, no home requirements. History of PCI Continue DAPT Troponin negative, no chest pain or angina with presenting symptoms High sensitive troponin is normal No acute ischemic changes on EKG, sinus tachycardia Continue metoprolol Continue lisinopril Depression/anxiety With recent deaths in the family. Request talking to psych liaison Continue duloxetine, amitriptyline, quetiapine DM Metformin held, converted to basal bolus insulin. Goal BSG [id number]. Glucose checks AC/at bedtime DVT prophylaxis: Lovenox Diet: Heart healthy, DM 2. No history of heart failure or Lasix use CODE STATUS: Full code (2) Diffuse interstitial pulmonary fibrosis: (3) Pre-diabetes: History of Present Illness Primary Care Provider: Albina Jimenez PA-C Wheezing x2 days No fevers, chils, or sweats +cough, nonproductive NO nausea/abdominal pain. No diarrhea or constipation. No chest pain or chest pressure. No pain on deep inspiration. Does feel a little tight on deep breathing Hx PCI with heart stent 2-3 years ago. Kept on DAPT due to high risk and tobacco. No history of lasix need. No home oxygen requirements. On 3L in ER but improved. Did not take any pills this morning. Denies sleep apnea. Medical History: Reviewed Medications: Reviewed Surgical History: Reviewed Family history: Reviewed Allergies: Reviewed. 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 No etoh. Code Status: Allergies Allergy/AdvReac Type Severity Reaction Status Date / Time No Known Allergies Allergy Unverified 05/11/23 08:46 Home Medications Medication Instructions Recorded Confirmed Type cholecalciferol (vitamin D3) 25 0 mcg PO QAM 11/12/20 06/07/22 History mcg (1,000 unit) capsule gabapentin 600 mg tablet See Rx Instructions PO UD 09/16/20 05/11/23 History rosuvastatin 5 mg tablet 5 mg PO HS #90 tabs 03/18/21 05/11/23 Rx metoprolol tartrate 25 mg tablet 12.5 mg PO BID #60 tabs 11/21/21 05/11/23 Rx quetiapine 100 mg tablet 100 mg PO HS #30 tabs 12/08/21 05/11/23 Rx cholecalciferol (vitamin D3) 25 0 mcg PO QAM 02/02/22 04/11/22 History mcg (1,000 unit) tablet (Vitamin D3) clopidogrel 75 mg tablet 75 mg PO QAM 02/02/22 05/11/23 History duloxetine 60 mg capsule,delayed 60 mg PO QAM 02/02/22 05/11/23 History release hydrocodone 5 mg-acetaminophen 325 1 tab PO HS PRN Pain 02/02/22 05/11/23 History mg tablet metformin 500 mg tablet,extended 1,000 mg PO QAM 02/02/22 05/11/23 History release 24 hr pantoprazole 40 mg tablet,delayed 40 mg PO QAM 02/02/22 05/11/23 History release lisinopril 20 mg tablet 20 mg PO QAM 04/11/22 05/11/23 History amitriptyline 50 mg tablet 50 mg PO HS 05/11/23 05/11/23 History aspirin 81 mg tablet,delayed 0 mg PO BID 05/11/23 History release Past Med/Surg History Medical History Anemia Chronic- hgb baseline 12-13s Atherosclerosis of [place] coronary artery without angina pectoris BPV (benign positional vertigo) CAD (coronary artery disease) PCI to the mid RCA (2016) Chronic back pain Cervical, lumbar (No cervical ROM limitations per pt) Chronic obstructive pulmonary disease Common migraine without aura CVA (cerebral vascular accident) Remote hx (+ TIAs) > residual left sided tingling Depression with anxiety Gastroesophageal reflux disease History of COVID-19 Dx 08/2020 ([place]) > symptoms at time: cold symptoms > resolved Interstitial lung disease Memory loss Multiple pulmonary nodules NSTEMI (non-ST elevated myocardial infarction) Remote hx Osteoarthritis of knee Pre-diabetes Spinal stenosis Surgical History History of arthroscopy of knee History of cardiac cath Stent x1 (2017) History of esophagogastroduodenoscopy (EGD) History of hand surgery REPAIR NERVE/LACERATION RIGHT Family History Brother Heart disease Alcoholism Idiopathic pulmonary fibrosis Mother Diabetes Social History Smoking Status: Light tobacco smoker Tobacco Type: Cigarettes Cigarettes Per Day: 1-2 cig/day (total tobacco use x several years); Second Hand Exposure: No; Do You Dip or Chew Tobacco: Yes (1 CAN PER WEEK > advised none DOS); Hx Alcohol Use: No Hx Substance Use: No Preferred Language: [place] Islander 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 NAD. Cooperative. HEENT: Atraumatic, normocephalic. Vision/hearing grossly intact Pulm: Trace expiratory wheezing. No rales or crackles symmetrical chest rise. No increased work of breathing. No respiratory distress. Cardiac: RRR, -mrg. Radial pulses intact and symmetrical. Abdominal: Nontender, nondistended, soft. BS present. Extremities: Warm, dry. No edema Results & Data Results & Data Vital Signs (Past 12 Hours) Vital Signs Temp Pulse Pulse Resp BP BP Pulse Ox 05/11/23 11:00 99 H 18 157/92 H 96 05/11/23 10:00 95 H 20 156/94 H 96 05/11/23 07:40 89 L 05/11/23 09:31 103 H 25 H 94 05/11/23 09:31 141/78 H 05/11/23 09:30 106 H 21 92 05/11/23 09:16 106 H 24 125/84 95 05/11/23 08:14 112 H 05/11/23 07:37 110 H 18 145/87 H 93 05/11/23 07:42 110 H 18 145/87 H 92 05/11/23 07:42 05/11/23 07:42 05/11/23 07:42 36.9 C 110 H 18 145/87 H 92 O2 Del Method O2 Flow Rate 05/11/23 11:00 2 05/11/23 10:00 2 05/11/23 07:40 Room Air 05/11/23 09:31 05/11/23 09:31 05/11/23 09:30 05/11/23 09:16 2 05/11/23 08:14 05/11/23 07:37 Nasal Cannula 2 05/11/23 07:42 Room Air 05/11/23 07:42 Room Air 05/11/23 07:42 Room Air 05/11/23 07:42 Room Air PG Care Time/CCT Total # of Minutes Spent Total Time Spent with Patient: Total time spent is greater than 50% in coordination of care (as documented) at patient's floor/unit and/or counseling patient: Coding Level of Care Code 79778 INT INP/OBS CARE MIN Diagnoses COPD (chronic obstructive pulmonary disease) J44.9 Diffuse interstitial pulmonary fibrosis J84.10 Pre-diabetes R73.03
[2023-05-11] MEDS ORDERED: PLASMA-LYTE A 500 ML IV ONE (12:38)
[2023-05-11] MEDS ORDERED: DEXTROSE 50% 50 ML SYRINGE IV PRN (15:07)
[2023-05-11] MEDS ORDERED: GLUCAGON FOR INJ 1 MG VIAL SQ PRN (15:07)
[2023-05-11] MEDS ORDERED: PHARMACY GLYCEMIC MGMT CONSULT PRN (15:07)
[2023-05-11] MEDS ORDERED: GLUCOSE 10 TAB/TUBE PO PRN (15:07)
[2023-05-11] MEDS ORDERED: ALBUT/IPRATROP 3MG/0.5MG NEB 3 ML VIAL NEB PRN (15:07)
[2023-05-11] MEDS ORDERED: CARBOHYDRATES FOR HYPOGLYCEMIA PO PRN (15:07)
[2023-05-11] MEDS ORDERED: ACETAMINOPHEN 325 MG TAB PO PRN (15:07)
[2023-05-11] MEDS ORDERED: AZITHROMYCIN 250 MG TAB PO ONE (15:07)
[2023-05-11] MEDS ORDERED: HYDROCODONE/ACETAMOPHEN 5/325MG TAB PO PRN (15:07)
[2023-05-11] MEDS ORDERED: GLUCOSE 40% GEL 15 GM TUBE PO PRN (15:07)
[2023-05-11] MEDS: ASPIRIN 81 MG ECTAB PO SCH (15:58)
[2023-05-11] MEDS: INSULIN ASPART PER UNIT CHARGE SC SCH ×2 (18:04→21:43)
[2023-05-11] MEDS ORDERED: GABAPENTIN 600 MG TAB PO SCH (21:00)
[2023-05-11] MEDS ORDERED: AMITRIPTYLINE HCL 50 MG TAB PO SCH (21:00)
[2023-05-11] MEDS ORDERED: ROSUVASTATIN CALCIUM 5 MG TAB PO SCH (21:00)
[2023-05-11] MEDS ORDERED: QUEtiapine FUMARATE 100 MG TABLET PO SCH (21:00)
[2023-05-11] MEDS: LANTUS PER UNIT CHARGE SQ SCH (21:44)
[2023-05-11] MEDS: METOPROLOL TARTRATE 25 MG TAB PO SCH (21:45)
--- NOTE | 2023-05-12 06:54 | Electrocardiogram Report ---
Test Reason : Blood Pressure : / mmHG Vent. Rate : 108 BPM Atrial Rate : 108 BPM P-R Int : 160 ms QRS Dur : 084 ms QT Int : 336 ms P-R-T Axes : 058 -01 061 degrees QTc Int : 450 ms Sinus tachycardia Otherwise normal ECG When compared with ECG of 26-DEC-2022 10:28, Premature ventricular complexes are no longer Present Confirmed by Jamison Pichardo ([id number]) on 05/12/2023 6:54:27 AM Referred By: REFERRED SELF Confirmed By:Jamison Pichardo
[2023-05-12] MEDS ORDERED: BENZONATATE 100 MG CAPSULE PO ONE (08:30)
[2023-05-12 08:43] LABS: Estimated Average Glucose 160 mg/dl; Hemoglobin A1C 7.2 % (4.5-5.6)
[2023-05-12] MEDS: METOPROLOL TARTRATE 25 MG TAB PO SCH (08:49)
[2023-05-12] MEDS: ASPIRIN 81 MG ECTAB PO SCH (08:49)
[2023-05-12] MEDS: INSULIN ASPART PER UNIT CHARGE SC SCH ×2 (08:54→13:08)
[2023-05-12] MEDS: LANTUS PER UNIT CHARGE SQ SCH (08:54)
[2023-05-12] MEDS ORDERED: AZITHROMYCIN 250 MG TAB PO SCH (09:00)
[2023-05-12] MEDS ORDERED: predniSONE 20 MG TAB PO SCH (09:00)
[2023-05-12] MEDS ORDERED: DULoxetine HCL 60 MG CAP PO SCH (09:00)
[2023-05-12] MEDS ORDERED: lisinopril 20 MG TAB PO SCH (09:00)
[2023-05-12] MEDS ORDERED: CLOPIDOGREL BISULFATE 75 MG TAB PO SCH (09:00)
[2023-05-12] MEDS ORDERED: PANTOprazole 40 MG TAB PO SCH (09:00)
--- NOTE | 2023-05-12 09:24 | Discharge Summary ---
Date of Service May 12, 2023 Admission HPI Per Admitting Provider Wheezing x2 days No fevers, chils, or sweats +cough, nonproductive NO nausea/abdominal pain. No diarrhea or constipation. No chest pain or chest pressure. No pain on deep inspiration. Does feel a little tight on deep breathing Hx PCI with heart stent 2-3 years ago. Kept on DAPT due to high risk and tobacco. No history of lasix need. No home oxygen requirements. On 3L in ER but improved. Did not take any pills this morning. Denies sleep apnea. Medical History: Reviewed Medications: Reviewed Surgical History: Reviewed Family history: Reviewed Allergies: Reviewed. 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 No etoh. Code Status: Admission Exam Per Admitting Provider General: A&Ox3. NAD. Cooperative. HEENT: Atraumatic, normocephalic. Vision/hearing grossly intact Pulm: Trace expiratory wheezing. No rales or crackles symmetrical chest rise. No increased work of breathing. No respiratory distress. Cardiac: RRR, -mrg. Radial pulses intact and symmetrical. Abdominal: Nontender, nondistended, soft. BS present. Extremities: Warm, dry. No edema Principal Diagnosis acute on presumed chronic COPD Discharge Exam Constitutional: well appearing, no acute distress HEENT: normocephalic, no conjunctival injection CV: regular rhythm, regular rate, no murmur, no LE edema Respiratory: Expiratory wheezing of RLL. Adequate air movement throughout although mildly diminished. No rhonchi or crackles. No increased work of breathing. Repeat dry cough noted. MSK: no gross deformities noted Skin: warm, dry, no rashes Neuro: alert, oriented, no FND noted Discharge Data Allergies Allergy/AdvReac Type Severity Reaction Status Date / Time No Known Allergies Allergy Unverified 05/11/23 08:46 Consultations 05/11/23 10:49 ED Decision to Admit Stat 05/11/23 11:51 Consult Behavioral Health Liaison Routine Ordered Studies 05/11/23 09:08 CT chest diagnostic w con Stat IMPRESSION: 1. Healing right posterior rib fractures. No pneumothorax. 2. Emphysema and mild fibrotic change again noted. 3. No new focal lung consolidations to suggest a pneumonia. 4. Stable scattered subcentimeter pulmonary nodules. 5. Hepatic steatosis. Hospital Course (1) COPD (chronic obstructive pulmonary disease): Pt is a 67 yo male with PMH of TIAs, migraine w/ aura, CAD s/p PCI, DM, and GERD presenting due to shortness of breath. Acute on ?chronic COPD - Afebrile, nodules noted on CTchest - Wheezing significantly improved following steroid and nebulizer - No PFTs available for review, no history of home inhaler use - discharged to complete 5 day courses of azithromycin and prednisone - discharge with albuterol inhaler PRN, tessalon for symptomatic relief from cough - recommend PFTs as outpatient once at respiratory baseline; may need ma intenance inhalers pending results - tobacco cessation counseling provided History of PCI - continue DAPT; no need for aspirin BID (daily is sufficient) - troponin negative, no chest pain or angina with presenting symptoms - no acute ischemic changes on EKG, sinus tachycardia - continue metoprolol and lisinopril Depression/anxiety - with recent deaths in the family; psych liaison gave him some resources - continue duloxetine, amitriptyline, quetiapine DM - metformin held, converted to basal bolus insulin while inpatient - A1c 7.2% - may resume outpatient regimen upon discharge VTE ppx: Lovenox Diet: Heart healthy, DM 2 Code: Full (2) Diffuse interstitial pulmonary fibrosis: (3) H/O cardiac catheterization: (4) Depression with anxiety: (5) Multiple pulmonary nodules: (6) Diabetes mellitus: Total Time Total Time Spent Total Time Spent (In Minutes): as per attending attestation Discharge Plan Discharge Items Patient Disposition: Home - Self-Care Reason For Visit: AHRF 2/2 COPD Discharge Diagnosis: presumed COPD exacerbation Activity: Per Instructions section Non-emergency contact: Primary Care Provider Call non-emergency contact if: you have any medication questions and your symptoms worsen Follow-up/Referrals: Albina Jimenez PA-C [Primary Care Provider] - (hospital f/u presumed COPD exacerbation) Diet: Carb Consistent or DM2 Addtl Attending Provider Instructions: You were admitted to the hospital for difficulty breathing/shortness of breath. A chest xray and CT scan were perfomed which showed no pneumonia but did note some emphysema and signs of chronic lung disease. To treat this, you were given nebulizer treatments and steroids. You should discuss pulmonary function testing with your PCP. This is the testing used to diagnose COPD. Due to your history of smoking, you should also ask your PCP about annual lung cancer screening with low dose CT scans. You can also decrease your aspirin to once per day instead of twice per day. You may also discuss this with your PCP. A discharge summary will be sent to your primary care physician to ensure continuity of care. Please bring this discharge summary with you to your next office appointment so that your provider can review it at that time. Medications: Your medication list has been reviewed and reconciled upon discharge to ensure accuracy and continuity of care. An updated list of all your medications is included with your hospital discharge paperwork. Please review this list closely and make note of any changes to your medications. - You have been prescribed tessalon perles (benzonatate). These are for symptomatic relief from coughing. - Azithromycin is an antibiotic that was prescribed to help decrease inflammation in your lungs. You should continue this once per day for the next 3 days. You were sent home from the hospital with Sunday's dose but you will have to pick pulling machine tender the rest of the medication at your pharmacy. - You should continue the steroid, prednisone, 2 tablets once per day for the next 4 days. This also helps to decrease inflammation. You were sent home from the hospital with Sunday's dose but you will have to pick pulling machine tender the rest of the medication at your pharmacy. - You have also been prescribed an inhaler called albuterol. This is to be used as needed for shortness of breath. After your pulmonary function tests, you may need a maintenance inhaler that you will take everyday. - Otherwise, continue your medications as prior to your hospitalization. Follow up appointments: - Make a follow up appointment with your PCP within the next week. It is very important that you follow up with them shortly after discharge from the hospital. - Keep all of your follow up appointments as already scheduled. If you cannot make an appointment, notify your provider. CONTACT YOUR PRIMARY CARE PROVIDER if you experience any of the following: - Difficulty following your treatment plan - Difficulty taking any of your medications CALL 911 OR GO TO THE EMERGENCY DEPARTMENT if you experience any of the following: - Sudden, severe abdominal pain or nausea/vomiting - Severe chest pain or chest pain that radiates to your jaw or arm - Sudden, severe shortness of breath or difficulty breathing Pending Studies at Discharge: No Stand-Alone Forms: [facility], Smoking Cessation Medications and DC Order Prescriptions: New aspirin 81 mg Tablet,Delayed Release (Dr/Ec) 81 mg PO DAILY Qty: 30 0RF azithromycin 250 mg tablet 250 mg PO DAILY 2 Days Qty: 2 0RF Rx Instructions: start on day 2 of therapy benzonatate 100 mg capsule 100 mg PO TID PRN (Reason: cough) Qty: 10 0RF albuterol sulfate 90 mcg/actuation HFA aerosol inhaler 2 inh inhalation Q6H PRN (Reason: shortness of breath or wheezing) Qty: 8.5 1RF azithromycin 250 mg Tablet 250 mg PO QAM Qty: 2 0RF albuterol sulfate [Ventolin HFA] 90 mcg/actuation Hfa Aerosol Inhaler 2 puff inhalation Q6H PRN (Reason: shortness of breath or wheezing) Qty: 6.7 0RF prednisone 20 mg tablet 40 mg PO DAILY 3 Days Qty: 6 0RF Continued rosuvastatin 5 mg tablet 5 mg PO HS Qty: 90 3RF metoprolol tartrate 25 mg tablet 12.5 mg PO BID Qty: 60 5RF quetiapine 100 mg tablet 100 mg PO HS Qty: 30 5RF gabapentin 600 mg tablet See Rx Instructions PO UD Rx Instructions: 600 MG PM/1200 MG HS cholecalciferol (vitamin D3) 25 mcg (1,000 unit) capsule 0 mcg PO QAM Rx Instructions: Pharmacist unable to verify lisinopril 20 mg tablet 20 mg PO QAM clopidogrel 75 mg tablet 75 mg PO QAM hydrocodone-acetaminophen 5-325 mg Tablet 1 tab PO HS PRN (Reason: Pain) duloxetine 60 mg Capsule,Delayed Release(Dr/Ec) 60 mg PO QAM cholecalciferol (vitamin D3) [Vitamin D3] 25 mcg (1,000 unit) Tablet 0 mcg PO QAM Rx Instructions: Pharmacist unable to verify pantoprazole 40 mg tablet,delayed release (DR/EC) 40 mg PO QAM metformin 500 mg tablet extended release 24 hr 1,000 mg PO QAM amitriptyline 50 mg tablet 50 mg PO HS Discontinued aspirin 81 mg tablet,delayed release (DR/EC) 0 mg PO BID Rx Instructions: pharmacist unable to verify Discharge Orders: Discharge Order (Routine); Ordered 05/12/23 Ordered By: Mary Kilpatrick/Other Patient Handouts: COPD Using Inhalers, Diagnosing COPD Admission Data Admit Date/Time: 05/11/23 11:50 Attending Provider: Andre Gomes Admit Provider: González Souza Primary Care Provider: Albina Jimenez Other Providers: González Souza Other Interventions: Discharge Summary Assessment (RN) Last Done: 05/12/23 14:55 Supervising Physician Co-Signing Physician Notes I personally examined the patient and verified all roberson points of history and exam, discussed case, and agree with decision making with Dr Kulkarni feeling better breathing better would like to go home. family present. pt smoking, family trying to quit as well vitals noted nad heent nc at mmm breathing unlabored no accessory muscles good effort skin no rashes no pallor or icterus bronchitis - probable COPD exacerbation but last PFTs years ago. treat as bronchitis for now: prednisone, zithromax, prn albuterol. PFTs ~4wks then anticipate LAMA/LABA/ICS if COPD confirmed. extensive d/w pt and family on smoke cessation/stress/depression interface. otherwise as above close outpt follow up Resident Activity Tracking Resident Involvement: Resident Care Provided Care Provided: Adult Hospital Medicine
[2023-05-12] MEDS ORDERED: UMECLIDINIUM BROMIDE 62.5MCG/BLISTER 7 PUFFS/INHALER INH SCH (09:30)
[2023-05-12] MEDS ORDERED: FLUTICASONE/VILANTEROL 100/25MCG 14 PUFFS/INHALER INH SCH (09:45)
[2023-05-12] MEDS ORDERED: ALBUTEROL HFA 8 GM INHALER INH ONE ×2 (12:45→14:00)
[2023-05-12] MEDS ORDERED: AZITHROMYCIN 250 MG TAB PO ONE (12:48)
[2023-05-12] MEDS ORDERED: predniSONE 20 MG TAB PO ONE (12:49)
[2023-05-12] MEDS ORDERED: GABAPENTIN 600 MG TAB PO SCH (14:00)
--- NOTE | 2023-05-12 16:39 | Billing Data ---
Date of Service May 12, 2023 Coding Level of Care Code 40448 IN/OBS DISCH 30 MIN/LESS
[2023-05-13] MEDS ORDERED: predniSONE 20 MG TAB PO SCH (09:00)
[2023-05-13] MEDS ORDERED: LANTUS PER UNIT CHARGE SQ SCH (09:00)
[2023-05-13] MEDS ORDERED: AZITHROMYCIN 250 MG TAB PO SCH (09:00)
[2023-05-13] MEDS ORDERED: ALBUTEROL HFA 8 GM INHALER INH SCH (09:00)
== END 2023-05-12 15:30 | disposition home or self-care (01) | DRG 192 ==
LOC: ED 07:31 → SUATTDRO 11:50 → 3N 11:50

== ENCOUNTER 2025-10-01 15:22 | Inpatient (IN) ==
--- NOTE | 2025-10-01 16:06 | Emergency Department Note ---
History of Present Illness General Chief complaint: Knee Injury/Pain Stated complaint: FELL/HURT KNEE RT Time Seen by Provider: 10/01/25 15:37 Source: patient Mode of arrival: ambulatory Limitations: no limitations History of Present Illness Maximum Pain Intensity: 10 Patient is a 70-year-old male who presents with right knee pain after a fall yesterday. Sustained a ground-level fall after he had a syncopal event yesterday. Landed on his front. Unknown head injury. Since then he has had pain in his right knee and difficulty bearing weight. No obvious deformity or open fracture noted. He is currently being worked up for recurrent syncopal events and recently had an implantable recorder placed. He denies any headache, neck pain, lightheadedness, dizziness, chest pain, shortness of breath, nausea, vomiting, back pain. He is on Plavix at baseline. Home Medications Medication Instructions Recorded Confirmed Type gabapentin 600 mg tablet 600 mg PO TID 09/16/20 10/01/25 History rosuvastatin 5 mg tablet 5 mg PO HS #90 tabs 03/18/21 10/01/25 Rx metoprolol tartrate 25 mg tablet 12.5 mg (1/2 x 25 mg) PO BID #60 11/21/21 10/01/25 Rx tabs quetiapine 100 mg tablet 100 mg PO HS #30 tabs 12/08/21 10/01/25 Rx clopidogrel 75 mg tablet (Plavix) 75 mg PO QAM 02/02/22 10/01/25 History duloxetine 60 mg capsule,delayed 60 mg PO QAM 02/02/22 10/01/25 History release hydrocodone 5 mg-acetaminophen 325 1 tab PO HS PRN Pain 02/02/22 10/01/25 History mg tablet metformin 500 mg tablet,extended 1,000 mg PO QAM 02/02/22 10/01/25 History release 24 hr pantoprazole 40 mg tablet,delayed 40 mg PO BID 02/02/22 10/01/25 History release albuterol sulfate 90 mcg/actuation 2 puff inhalation Q6H PRN 06/02/25 10/01/25 Rx aerosol inhaler (Ventolin HFA) shortness of breath or wheezing #6.7 grams ipratropium 0.5 mg-albuterol 3 mg 3 ml inhalation Q8H PRN shortness 06/02/25 10/01/25 Rx (2.5 mg base)/3 mL nebulization of breath or wheezing #180 mL soln nebulizers (Aeroneb Go Nebulizer) #1 ea 06/02/25 09/03/25 Rx amitriptyline 100 mg tablet 100 mg PO HS 10/01/25 10/01/25 History amlodipine 10 mg tablet 10 mg PO HS 10/01/25 10/01/25 History lisinopril 40 mg tablet 40 mg PO DAILY 10/01/25 10/01/25 History Allergies Allergy/AdvReac Type Severity Reaction Status Date / Time No Known Allergies Allergy Verified 10/01/25 16:12 Past Med/Surg History Problem List (Updated 10/01/25 @ 17:16 by Len Chand MD) Syncope (Acute) Syncope COPD exacerbation (Acute) Shortness of breath (Acute) Acute hypoxemic respiratory failure (Acute) Latent tuberculosis Marijuana smoker in remission Current smoker Obesity Bronchiectasis 07/04/23 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) Diabetes mellitus Hypoxia (Acute) Encounter for pre-operative examination Pancytopenia Hyperkalemia Chronic kidney disease, stage 3 (moderate) CUBA (acute kidney injury) 08/20/20 Influenza-like symptoms (Acute) Non-ST elevation [place] (NSTEMI) (Acute) Chest tightness (Acute) 08/20/20 Dyspnea (Acute) Reactive airway disease (Acute) Pulmonary fibrosis (Acute) Diffuse interstitial pulmonary fibrosis (Chronic 01/22/13) COVID-19 (Acute) Myalgia (Acute) Fever (Acute) Numbness and tingling of left leg 06/07/20 Tingling of left arm and left side of face 06/07/20 Atypical chest pain Dyslipidemia Essential hypertension Vitamin D deficiency (Acute) Stroke syndrome (Acute) Left side "tingling" 02/07/22 Spinal stenosis (Acute) Osteoarthritis of knee (Acute) Multiple pulmonary nodules (Acute) Memory loss (Acute) Interstitial lung disease (Acute) Gastroesophageal reflux disease (Acute) controlled, stable per pt Depression with anxiety (Acute) Common migraine without aura (Acute) Bilateral knee pain (Acute) Atherosclerosis of [place] coronary artery without angina pectoris (Acute) Anemia (Acute) Chronic- hgb baseline 12-13s Abdominal hematoma (Acute) 02/07/22 Vertigo Chest pain 06/19/18 Rib pain on left side (Acute) 06/19/18 Calcific tendonitis of right shoulder (Acute) Medical History (Updated 10/01/25 @ 17:16 by Len Chand MD) Needle phobia Unique anesthetic considerations on preoperative anesthesia assessment Pt reports he would like sedation as soon as possible for pre-op anxiety BPV (benign positional vertigo) rare, controlled, stable per pt Osteoarthritis Depression Multiple pulmonary nodules monitored by [facility] Short-term memory loss GERD (gastroesophageal reflux disease) controlled, stable per pt Spinal stenosis HTN (hypertension) controlled, stable per pt Dyslipidemia Dyspnea on exertion History of pancytopenia pt not sure Combined pulmonary fibrosis and emphysema (CPFE) does not use rescue inhaler/denies maintenance medications. Denies oxygen use. History of myocardial infarction approx 2016/ stent x1. Atypical chest pain hx and reports chest pain on occ - pt reports told could be related to acid reflux, goes away with a drink of water. Occurs frequently but none over the last week. History of anemia History of TIA (transient ischemic attack) multiple - most recent : pt doesn't know, reports a long time ago . History of stroke approx 2016 : residual: left side tingling. Latent tuberculosis monitored by [facility] Polio mentioned April 2024 - [facility]. Hearing loss CKD (chronic kidney disease) stage 3, GFR 30-59 ml/min Poor historian Diabetes mellitus NIDDM History of COVID-19 Dx 08/2020 > denies hospitalization > resolved Chronic back pain Cervical, lumbar (No cervical ROM limitations per pt) CAD (coronary artery disease) stent to the mid RCA (2016) Surgical History S/P cervical spinal fusion History of lumbar surgery Hx of appendectomy History of total knee replacement left 02/16/2222 Grade 2 view, MAC 3, ETT 8 + PNB. *precluded from neuraxial anesthesia as had taken clopidogrel 2 days prior to surgery per operative report. History of hand surgery REPAIR NERVE/LACERATION RIGHT History of esophagogastroduodenoscopy (EGD) History of cardiac cath Stent x1 (2016), [facility]; f/u PCP History of arthroscopy of knee left knee Family History Brother Heart disease Alcoholism Idiopathic pulmonary fibrosis Mother Diabetes Social History Smoking Status: Current every day smoker Tobacco Type: Cigarettes Cigarettes Per Day: 2-3 per day/advised; Second Hand Exposure: No; Do You Dip or Chew Tobacco: Yes; Hx Alcohol Use: Yes Alcohol type: hard liquor Hx Substance Use: No Preferred Language: Namibian Communication Ability: Effective Communication Ability Comment: Some impairment of reading and writing. Practice Support Specialist Required: No Beliefs That Will Affect Care: None marital status: Current Living Situation: Alone current occupational status: disabled Feels Safe at Home: Yes Assistive Devices: Cane Review of Systems Review of systems negative outside of positive findings mentioned in HPI. Physical Exam Vital Signs Vital Signs - 24 hr 10/01/25 15:26 10/01/25 16:00 10/01/25 16:00 Temperature 36.3 C L Temperature Source Temporal Artery Scan Pulse Rate 97 H 94 H Pulse Rate [Apical] 94 H Pulse Rhythm Regular Pulse Rhythm [Apical] Regular Pulse Strength [Apical] Normal Respiratory Rate 18 22 22 Respiratory Effort / Characteristics Non-Labored Spontaneous Respiratory Depth Normal Respiratory Pattern Regular Blood Pressure 125/69 Blood Pressure [Right Arm] 113/72 Blood Pressure Mean 87 Blood Pressure Mean [Right Arm] 85 Blood Pressure Position [Right Arm] Lying Pulse Oximetry 96 95 95 Oxygen Delivery Method Room Air Room Air Sepsis Recent Fever Within 48 Hours No Sepsis New/Unexplained Change in Mental Status No Sepsis Action Taken by Nursing No Action Required 10/01/25 16:11 Temperature Temperature Source Pulse Rate 97 H Pulse Rate [Apical] Pulse Rhythm Pulse Rhythm [Apical] Pulse Strength [Apical] Respiratory Rate Respiratory Effort / Characteristics Respiratory Depth Respiratory Pattern Blood Pressure Blood Pressure [Right Arm] Blood Pressure Mean Blood Pressure Mean [Right Arm] Blood Pressure Position [Right Arm] Pulse Oximetry Oxygen Delivery Method Sepsis Recent Fever Within 48 Hours Sepsis New/Unexplained Change in Mental Status Sepsis Action Taken by Nursing See below Constitutional WD/WN, vitals as above Respiratory normal respiratory effort, lungs clear to auscultation Cardiovascular RRR, no murmur, no edema Vessels: dorsalis pedis pulses present Gastrointestinal (Abdomen) normal bowel sounds, soft, nontender, no hepatosplenomegaly Musculoskeletal no cyanosis or clubbing, extremities motor strength 5/5 Spine: normal cervical ROM, no cervical spinal tenderness, no thoracic spinal tenderness and no lumbar spinal tenderness Mild effusion noted to the right anterior knee joint, flexion is limited secondary to pain, no laxity with varus or valgus stress of the knee joint, no high riding patella or evidence of quadricep rupture unable to assess ligamentous or meniscus injury based on pain tolerance Course Administered Medications Discontinued Medications Hydrocodone Bitart/Acetaminophen (Hydrocodone/Acetaminophen 10/325 Tab) 1 tab PO ONCE ONE Stop: 10/01/25 15:45 Last Admin: 10/01/25 16:43 Dose: 1 tab Documented By: TRELL Medical Decision Making Differential Diagnosis DDx includes but not limited to: Cardiac arrhythmia, orthostatic hypotension, vasovagal event, tibial plateau fracture, patellar fracture, ligamentous injury, bony contusion Medical Records Attestation: I reviewed the patient's medical records. Home Medications Current Medication List: was personally reviewed by me Laboratory Data Attestation: I reviewed the patient's lab results. 10/01/25 15:58 10/01/25 15:58 Lab Results 10/01/25 Range/Units 15:58 WBC 14.48 H (4.8-10.8) K/ul RBC 4.64 L (4.70-6.10) M/uL Hgb 13.3 L (14.0-18.0) g/dL Hct 39.5 L (42.0-52.0) % MCV 85.1 (80.0-100.0) fL MCH 28.7 (25.0-34.0) pg MCHC 33.7 (32.0-36.0) g/dL RDW Std Deviation 44.1 (36.4-46.3) fL RDW Coeff of Huber 14.4 (11.5-14.5) % Plt Count 303 (130-400) K/uL MPV 9.9 (9.4-12.4) fL Immature Gran % (Auto) 0.3 % Neut % (Auto) 66.1 % Lymph % (Auto) 15.2 % Wilkin % (Auto) 16.2 % Eos % (Auto) 1.7 % Baso % (Auto) 0.5 % Neut # (Auto) 9.58 H (1.40-6.50) K/uL Lymph # (Auto) 2.20 (1.20-3.40) K/uL Wilkin # (Auto) 2.35 H (0.11-0.59) K/uL Eos # (Auto) 0.24 (0.00-0.50) K/uL Baso # (Auto) 0.07 (0.00-0.20) K/uL Immature Gran # (Auto) 0.04 (0.01-0.20) K/uL Sodium 133 L (136-145) mmol/L Potassium 4.3 (3.5-5.1) mmol/L Chloride 100 (98-107) mmol/L Carbon Dioxide 24 (21-32) mmol/L Anion Gap 9 (3-11) BUN 27 H (6-23) mg/dl Creatinine 1.65 H (0.6-1.4) mg/dl Est Cr Clr Drug Dosing Not Reportable eGFR 43.85 BUN/Creatinine Ratio 16.4 (10-20) Glucose 169 H (70-99(Fasting)) mg/dl Calcium 9.3 (8.6-10.3) mg/dl Magnesium 2.0 (1.7-2.4) mg/dl Total Bilirubin 0.3 (0.2-1.0) mg/dl AST 19 (13-39) U/L ALT 12 (7-52) U/L Alkaline Phosphatase 58 (34-104) U/L Troponin I High Sens 5.9 (0-20) pg/ml Total Protein 7.8 (6.0-8.3) gm/dl Albumin 4.5 (3.4-5.0) gm/dl Globulin 3.3 (2.5-4.0) gm/dl Albumin/Globulin Ratio 1.4 (0.9-2) Imaging Data Radiologist's Impression: Chest X-Ray 10/01/25 15:35 Technique: A frontal view of the chest was obtained Comparison is made the prior examination dated 04/10/2025 Findings: Again seen are multifocal interstitial opacities throughout both lungs. The heart size is within normal limits. No pleural effusion or pneumothorax is seen. There is no definite pulmonary nodule. No fracture is noted. There is thoracic degenerative disc disease. There is a device projecting over the left heart Impression: Persistent multifocal interstitial opacities throughout both lungs, which could be due to chronic interstitial lung disease. A follow-up chest CT could be considered ACT 112: Positive. There are findings on this exam that require communication between the performing entity and the patient following Patient Test Result Information Act ([place] ACT 112) guidelines. Electronically signed by Yanick Mohan 10-01-2025 4:[address] 10/01/25 15:43 EXAM: CT Head Without Intravenous Contrast INDICATION: Syncope. Fall. TECHNIQUE: Axial computed tomography images of the head/brain without intravenous contrast. Sagittal and/or coronal reformats are provided. Sagittal and coronal reformatted images were created and reviewed. This CT exam was performed using one or more of the following dose reduction techniques: automated exposure control, adjustment of the mA and/or kV according to patient size, and/or use of iterative reconstruction technique. COMPARISON: 12/26/2022 FINDINGS: Limitations: None. Brain and extra-axial spaces: There is age appropriate cortical atrophy and chronic ischemic periventricular white matter hypodensity. No acute infarct, hemorrhage or mass noted. Bones/joints: No acute changes. Soft tissues: No acute abnormality noted. Vasculature: No acute abnormality noted. Sinuses: Moderate chronic right maxillary sinus thickening noted. Mastoid air cells: No mastoid effusion. Orbits: No acute abnormality noted. IMPRESSION: 1. Cerebral atrophy. No acute changes. 2. Chronic right maxillary sinusitis. ACT 112: N/A Electronically signed by Bailee Slater 10-01-2025 4:30 PM Knee X-Ray 10/01/25 15:43 Clinical History: Trauma 3 views of the right knee are submitted for review. Findings: No fracture or dislocation is seen. There is joint space narrowing and osteophyte formation in all 3 compartments. No other osseous abnormality is identified. There are no radiopaque foreign bodies. Impression: Severe right knee osteoarthritis Electronically signed by Yanick Mohan 10-01-2025 4:51 PM ECG Data Attestation: I personally reviewed and interpreted this ECG as follows: Indication: + syncope Rate (beats per minute): 93 Rhythm: + sinus rhythm ECG Intervals/blocks: + First degree AV block, + Normal QRS and + Normal QT ECG Penn Laird: + Normal ECG ST segments: + Normal ST segments Comparison ECG Date: from (04/10/2025) Change: the following changes noted (1st degree AV block is new ) MDM Narrative patient 70-year-old male presents after a syncopal event with right knee pain. No concerning prodrome prior to the syncope. He has had similar events in the past and currently has an implantable loop recorder in place. Unfortunately he does not have the kailash set up for the recorder and I did reach out to [facility] to see if they were able to transmit any readings from his event yesterday. Currently patient is asymptomatic outside of right knee pain. He did report he landed on his right knee. Unknown head injury. CT of the head nonconcerning. X-ray of the right knee consistent with severe osteoarthritis. Suspicion for possible occult fracture. CT of the right knee was then ordered. Patient is medium risk for adverse event per Ip[place] syncope score and will be admitted for observation stay. Impression & Plan Syncope Discharge Plan Visit Data Chief Complaint: Knee Injury/Pain Stated Complaint: FELL/HURT KNEE RT ED Provider: Len Chand Discharge Problem: Syncope Patient Disposition: Admitted As Inpatient Condition: Good Forms Stand Alone Forms: My [facility] [place] Prescriptions Prescriptions: No Action rosuvastatin 5 mg tablet 5 mg PO HS Qty: 90 3RF metoprolol tartrate 25 mg tablet 12.5 mg PO BID Qty: 60 5RF quetiapine 100 mg tablet 100 mg PO HS Qty: 30 5RF gabapentin 600 mg tablet 600 mg PO TID albuterol sulfate [Ventolin HFA] 90 mcg/actuation HFA aerosol inhaler 2 puff inhalation Q6H PRN (Reason: shortness of breath or wheezing) Qty: 6.7 4RF Patient Comments: does not use ipratropium-albuterol 0.5 mg-3 mg(2.5 mg base)/3 mL solution for nebulization 3 ml inhalation Q8H PRN (Reason: shortness of breath or wheezing) Qty: 180 3RF (DME) nebulizers [Aeroneb Go Nebulizer] Misc See Rx Instructions .MEDSUPPLY Qty: 1 0RF Rx Instructions: With tubing and supplies. J44.9. J45.9. clopidogrel [Plavix] 75 mg tablet 75 mg PO QAM hydrocodone-acetaminophen 5-325 mg Tablet 1 tab PO HS PRN (Reason: Pain) duloxetine 60 mg Capsule,Delayed Release(Dr/Ec) 60 mg PO QAM pantoprazole 40 mg tablet,delayed release (DR/EC) 40 mg PO BID metformin 500 mg tablet extended release 24 hr 1,000 mg PO QAM Patient Comments: currently on hold as of 10/15/23 amlodipine 10 mg tablet 10 mg PO HS lisinopril 40 mg Tablet 40 mg PO DAILY amitriptyline 100 mg Tablet 100 mg PO HS Referrals Referrals: Albina Jimenez PA-C [Primary Care Provider] -
[2025-10-01 16:11] LABS: Hematocrit (blood only) 39.5 % (42.0-52.0); Hemoglobin 13.3 g/dL (14.0-18.0); Immature Granulocytes # (auto) 0.04 K/uL (0.01-0.20); Immature Granulocytes % (auto) 0.3 %; Mean Corpuscular Hemoglobin 28.7 pg (25.0-34.0); Mean Corpuscular Volume 85.1 fL (80.0-100.0); Platelet Count 303 K/uL (130-400); RDW Standard Deviation 44.1 fL (36.4-46.3); Red Blood Count 4.64 M/uL (4.70-6.10); White Blood Count 14.48 K/ul (4.8-10.8)
[2025-10-01 16:27] LABS: Alanine Aminotransferase 12 U/L (7-52); Albumin Globulin Ratio 1.4 (0.9-2); Albumin Level 4.5 gm/dl (3.4-5.0); Alkaline Phosphatase 58 U/L (34-104); Anion Gap 9 (3-11); Bilirubin,Total 0.3 mg/dl (0.2-1.0); Blood Urea Nitrogen 27 mg/dl (6-23); Calcium 9.3 mg/dl (8.6-10.3); Carbon Dioxide 24 mmol/L (21-32); Chloride 100 mmol/L (98-107); Globulin 3.3 gm/dl (2.5-4.0); Glucose 169 mg/dl (70-99(Fasting)); Magnesium 2.0 mg/dl (1.7-2.4); Potassium 4.3 mmol/L (3.5-5.1); Sodium 133 mmol/L (136-145); Total Protein 7.8 gm/dl (6.0-8.3)
--- NOTE | 2025-10-01 16:31 | CT Scan Report ---
EXAM: CT Head Without Intravenous Contrast INDICATION: Syncope. Fall. TECHNIQUE: Axial computed tomography images of the head/brain without intravenous contrast. Sagittal and/or coronal reformats are provided. Sagittal and coronal reformatted images were created and reviewed. This CT exam was performed using one or more of the following dose reduction techniques: automated exposure control, adjustment of the mA and/or kV according to patient size, and/or use of iterative reconstruction technique. COMPARISON: 12/26/2022 FINDINGS: Limitations: None. Brain and extra-axial spaces: There is age appropriate cortical atrophy and chronic ischemic periventricular white matter hypodensity. No acute infarct, hemorrhage or mass noted. Bones/joints: No acute changes. Soft tissues: No acute abnormality noted. Vasculature: No acute abnormality noted. Sinuses: Moderate chronic right maxillary sinus thickening noted. Mastoid air cells: No mastoid effusion. Orbits: No acute abnormality noted. IMPRESSION: 1. Cerebral atrophy. No acute changes. 2. Chronic right maxillary sinusitis. ACT 112: N/A Electronically signed by Bailee Slater 10-01-2025 4:30 PM
--- NOTE | 2025-10-01 16:51 | XRay Report ---
Technique: A frontal view of the chest was obtained Comparison is made the prior examination dated 04/10/2025 Findings: Again seen are multifocal interstitial opacities throughout both lungs. The heart size is within normal limits. No pleural effusion or pneumothorax is seen. There is no definite pulmonary nodule. No fracture is noted. There is thoracic degenerative disc disease. There is a device projecting over the left heart Impression: Persistent multifocal interstitial opacities throughout both lungs, which could be due to chronic interstitial lung disease. A follow-up chest CT could be considered ACT 112: Positive. There are findings on this exam that require communication between the performing entity and the patient following Patient Test Result Information Act ([place] ACT 112) guidelines. Electronically signed by Yanick Mohan 10-01-2025 4:51 PM
--- NOTE | 2025-10-01 16:52 | XRay Report ---
Clinical History: Trauma 3 views of the right knee are submitted for review. Findings: No fracture or dislocation is seen. There is joint space narrowing and osteophyte formation in all 3 compartments. No other osseous abnormality is identified. There are no radiopaque foreign bodies. Impression: Severe right knee osteoarthritis Electronically signed by Yanick Mohan 10-01-2025 4:51 PM
[2025-10-01] MEDS: LIDOCAINE 1% LOCAL 20 ML VIAL ONE (18:04)
[2025-10-01] MEDS: LIDOCAINE 1% LOCAL 20 ML VIAL INJ ONE (18:04)
[2025-10-01] MEDS: ACETAMINOPHEN 500 MG TAB PO STA (18:19)
[2025-10-01] MEDS: LACTATED RINGER'S 1,000 ML IV ONE ×2 (18:20→19:23)
--- NOTE | 2025-10-01 18:22 | Orthopedic Consultation ---
Date of Consultation October 01, 2025 Assessment & Plan (1) Hemarthrosis, right knee: Verbal consent was obtained from the patient to perform a right knee joint aspiration. Patient verbalizes we will proceed with a right knee joint aspiration. The right knee was marked with a skin marker. Using the cap of a needle the right superolateral pouch was marked. A 25-gauge needle connected to a prefilled syringe containing 6 mL of 1% lidocaine solution was used to anesthetize the skin and joint after the marked area was cleansed with a Betadine swab and wiped clean with alcohol soaked 4 x 4. Site was then prepped and draped in a sterile fashion. Site was again cleansed with a Betadine swab and local Loss of 4 x 4. An 18-gauge needle connected to a 20 mL syringe was inserted into the right superolateral pouch and 77 mL of bloody fluid was easily extracted. Upon removal of the needles the area was again cleansed with an alcohol soaked 4 x 4, wiped dry with a sterile 4 x 4, covered with a sterile 4 x 4 and compressed with 6 inch Sal bandages. Ice was then applied. Patient tolerated the procedure very well. JACINTA Emanuel served as a witness for this procedure. After this procedure was performed patient was able to perform active straight leg raise test and had significant pain relief in the right knee. (2) Osteoarthritis of right knee: Patient states that he is currently undergoing stress testing for clearance to have his right knee replaced. He states that he has met with Dr. Howell who advised him that he would need cardiac clearance before we could proceed with the total joint arthroplasty. WBAT PT/OT Continue care per primary service. Patient will be admitted by the medicine service for his syncopal episode. Will continue to follow him while he is in house. Dr. Johnson was present for the entire examination and procedure. Will f/u with Dr. Howell as an outpatient Plan I, Dr. Johnson, saw and examined the patient with my PA. I discussed the management with my PA. I reviewed my PAs note and agree with the documented findings and attest to completing the substantive portion of medical decision making and plan of care I developed.My PA preformed the aspiration under my direct supervision. History of Present Illness Reason for Consultation: Right knee pain and swelling Requesting Physician: Margarito Johnson MD History of Present Illness Patient is a 70-year-old male who presents with right knee pain after a fall yesterday. Sustained a ground-level fall after he had a syncopal event yesterday. Landed on his front. Unknown head injury. Since then he has had pain in his right knee and difficulty bearing weight. No obvious deformity or open fracture noted. He is currently being worked up for recurrent syncopal events and recently had an implantable recorder placed. He denies any headache, neck pain, lightheadedness, dizziness, chest pain, shortness of breath, nausea, vomiting, back pain. He is on Plavix at baseline. Allergies Allergy/AdvReac Type Severity Reaction Status Date / Time No Known Allergies Allergy Verified 10/01/25 16:12 Home Medications Medication Instructions Recorded Confirmed Type gabapentin 600 mg tablet 600 mg PO TID 09/16/20 10/01/25 History rosuvastatin 5 mg tablet 5 mg PO HS #90 tabs 03/18/21 10/01/25 Rx metoprolol tartrate 25 mg tablet 12.5 mg (1/2 x 25 mg) PO BID #60 11/21/21 10/01/25 Rx tabs quetiapine 100 mg tablet 100 mg PO HS #30 tabs 12/08/21 10/01/25 Rx clopidogrel 75 mg tablet (Plavix) 75 mg PO QAM 02/02/22 10/01/25 History duloxetine 60 mg capsule,delayed 60 mg PO QAM 02/02/22 10/01/25 History release hydrocodone 5 mg-acetaminophen 325 1 tab PO HS PRN Pain 02/02/22 10/01/25 History mg tablet metformin 500 mg tablet,extended 1,000 mg PO QAM 02/02/22 10/01/25 History release 24 hr pantoprazole 40 mg tablet,delayed 40 mg PO BID 02/02/22 10/01/25 History release albuterol sulfate 90 mcg/actuation 2 puff inhalation Q6H PRN 06/02/25 10/01/25 Rx aerosol inhaler (Ventolin HFA) shortness of breath or wheezing #6.7 grams ipratropium 0.5 mg-albuterol 3 mg 3 ml inhalation Q8H PRN shortness 06/02/25 10/01/25 Rx (2.5 mg base)/3 mL nebulization of breath or wheezing #180 mL soln nebulizers (Aeroneb Go Nebulizer) #1 ea 06/02/25 09/03/25 Rx amitriptyline 100 mg tablet 100 mg PO HS 10/01/25 10/01/25 History amlodipine 10 mg tablet 10 mg PO HS 10/01/25 10/01/25 History lisinopril 40 mg tablet 40 mg PO DAILY 10/01/25 10/01/25 History Patient History Medical History Needle phobia Unique anesthetic considerations on preoperative anesthesia assessment Pt reports he would like sedation as soon as possible for pre-op anxiety BPV (benign positional vertigo) rare, controlled, stable per pt Osteoarthritis Depression Multiple pulmonary nodules monitored by [facility] Short-term memory loss GERD (gastroesophageal reflux disease) controlled, stable per pt Spinal stenosis HTN (hypertension) controlled, stable per pt Dyslipidemia Dyspnea on exertion History of pancytopenia pt not sure Combined pulmonary fibrosis and emphysema (CPFE) does not use rescue inhaler/denies maintenance medications. Denies oxygen use. History of myocardial infarction approx 2016/ stent x1. Atypical chest pain hx and reports chest pain on occ - pt reports told could be related to acid reflux, goes away with a drink of water. Occurs frequently but none over the last week. History of anemia History of TIA (transient ischemic attack) multiple - most recent : pt doesn't know, reports a long time ago . History of stroke approx 2015 : residual: left side tingling. Latent tuberculosis monitored by [facility] Polio mentioned April 2024 - [facility]. Hearing loss CKD (chronic kidney disease) stage 3, GFR 30-59 ml/min Poor historian Diabetes mellitus NIDDM History of COVID-19 Dx 08/2020 > denies hospitalization > resolved Chronic back pain Cervical, lumbar (No cervical ROM limitations per pt) CAD (coronary artery disease) stent to the mid RCA (2016) Surgical History S/P cervical spinal fusion History of lumbar surgery Hx of appendectomy History of total knee replacement left 02/16/2222 Grade 2 view, MAC 3, ETT 8 + PNB. *precluded from neuraxial anesthesia as had taken clopidogrel 2 days prior to surgery per operative report. History of hand surgery REPAIR NERVE/LACERATION RIGHT History of esophagogastroduodenoscopy (EGD) History of cardiac cath Stent x1 (2017), [facility]; f/u PCP History of arthroscopy of knee left knee Family History Brother Heart disease Alcoholism Idiopathic pulmonary fibrosis Mother Diabetes Social History Smoking Status: Current every day smoker Tobacco Type: Cigarettes Cigarettes Per Day: 2-3 per day/advised; Second Hand Exposure: No; Do You Dip or Chew Tobacco: Yes; Hx Alcohol Use: Yes Alcohol type: hard liquor Hx Substance Use: No Preferred Language: Sami Communication Ability: Effective Communication Ability Comment: Some impairment of reading and writing. 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 He has a 2+ effusion noted over the anterior aspect of the knee with tenderness to palpation over the medial and lateral joint space. He is unable to perform active straight leg raise test. He is able to actively dorsi and plantarflex foot. His peripheral pulses are 2+. He does have a tingling sensation to palpation over the plantar surfaces of his toes. Radha test negative. Patient has no significant laxity with varus or valgus stressing. He does have visible varus malalignment. Results & Data Vital Signs (Past 12 Hours) Vital Signs Temp Pulse Pulse Resp BP BP Pulse Ox 10/01/25 18:00 94 H 18 118/77 95 10/01/25 16:11 97 H 10/01/25 16:00 94 H 22 95 10/01/25 16:00 94 H 22 113/72 95 10/01/25 15:26 36.3 C L 97 H 18 125/69 96 O2 Del Method 10/01/25 18:00 Room Air 10/01/25 16:11 10/01/25 16:00 Room Air 10/01/25 16:00 Room Air 10/01/25 15:26 Diagnostic Findings Laboratory Results WBC 14.48 K/ul (4.8-10.8) H 10/01/25 15:58 RBC 4.64 M/uL (4.70-6.10) L 10/01/25 15:58 Hgb 13.3 g/dL (14.0-18.0) L 10/01/25 15:58 Hct 39.5 % (42.0-52.0) L 10/01/25 15:58 MCV 85.1 fL (80.0-100.0) 10/01/25 15:58 MCH 28.7 pg (25.0-34.0) 10/01/25 15:58 MCHC 33.7 g/dL (32.0-36.0) 10/01/25 15:58 RDW Std Deviation 44.1 fL (36.4-46.3) 10/01/25 15:58 RDW Coeff of Huber 14.4 % (11.5-14.5) 10/01/25 15:58 Plt Count 303 K/uL (130-400) 10/01/25 15:58 MPV 9.9 fL (9.4-12.4) 10/01/25 15:58 Immature Gran % (Auto) 0.3 % 10/01/25 15:58 Neut % (Auto) 66.1 % 10/01/25 15:58 Lymph % (Auto) 15.2 % 10/01/25 15:58 Chase % (Auto) 16.2 % 10/01/25 15:58 Eos % (Auto) 1.7 % 10/01/25 15:58 Baso % (Auto) 0.5 % 10/01/25 15:58 Neut # (Auto) 9.58 K/uL (1.40-6.50) H 10/01/25 15:58 Lymph # (Auto) 2.20 K/uL (1.20-3.40) 10/01/25 15:58 Chase # (Auto) 2.35 K/uL (0.11-0.59) H 10/01/25 15:58 Eos # (Auto) 0.24 K/uL (0.00-0.50) 10/01/25 15:58 Baso # (Auto) 0.07 K/uL (0.00-0.20) 10/01/25 15:58 Immature Gran # (Auto) 0.04 K/uL (0.01-0.20) 10/01/25 15:58 Sodium 133 mmol/L (136-145) L 10/01/25 15:58 Potassium 4.3 mmol/L (3.5-5.1) 10/01/25 15:58 Chloride 100 mmol/L (98-107) 10/01/25 15:58 Carbon Dioxide 24 mmol/L (21-32) 10/01/25 15:58 Anion Gap 9 (3-11) 10/01/25 15:58 BUN 27 mg/dl (6-23) H 10/01/25 15:58 Creatinine 1.65 mg/dl (0.6-1.4) H 10/01/25 15:58 Est Cr Clr Drug Dosing Not Reportable 10/01/25 15:58 eGFR 43.85 10/01/25 15:58 BUN/Creatinine Ratio 16.4 (10-20) 10/01/25 15:58 Glucose 169 mg/dl (70-99(Fasting)) H 10/01/25 15:58 Calcium 9.3 mg/dl (8.6-10.3) 10/01/25 15:58 Magnesium 2.0 mg/dl (1.7-2.4) 10/01/25 15:58 Total Bilirubin 0.3 mg/dl (0.2-1.0) 10/01/25 15:58 AST 19 U/L (13-39) 10/01/25 15:58 ALT 12 U/L (7-52) 10/01/25 15:58 Alkaline Phosphatase 58 U/L (34-104) 10/01/25 15:58 Troponin I High Sens 5.9 pg/ml (0-20) 10/01/25 15:58 Total Protein 7.8 gm/dl (6.0-8.3) 10/01/25 15:58 Albumin 4.5 gm/dl (3.4-5.0) 10/01/25 15:58 Globulin 3.3 gm/dl (2.5-4.0) 10/01/25 15:58 Albumin/Globulin Ratio 1.4 (0.9-2) 10/01/25 15:58 Impressions Chest X-Ray 10/01/25 15:35 Technique: A frontal view of the chest was obtained Comparison is made the prior examination dated 04/10/2025 Findings: Again seen are multifocal interstitial opacities throughout both lungs. The heart size is within normal limits. No pleural effusion or pneumothorax is seen. There is no definite pulmonary nodule. No fracture is noted. There is thoracic degenerative disc disease. There is a device projecting over the left heart Impression: Persistent multifocal interstitial opacities throughout both lungs, which could be due to chronic interstitial lung disease. A follow-up chest CT could be considered ACT 112: Positive. There are findings on this exam that require communication between the performing entity and the patient following Patient Test Result Information Act ([place] ACT 112) guidelines. Electronically signed by Yanick Mohan 10-01-2025 4:[address] 10/01/25 15:43 EXAM: CT Head Without Intravenous Contrast INDICATION: Syncope. Fall. TECHNIQUE: Axial computed tomography images of the head/brain without intravenous contrast. Sagittal and/or coronal reformats are provided. Sagittal and coronal reformatted images were created and reviewed. This CT exam was performed using one or more of the following dose reduction techniques: automated exposure control, adjustment of the mA and/or kV according to patient size, and/or use of iterative reconstruction technique. COMPARISON: 12/26/2022 FINDINGS: Limitations: None. Brain and extra-axial spaces: There is age appropriate cortical atrophy and chronic ischemic periventricular white matter hypodensity. No acute infarct, hemorrhage or mass noted. Bones/joints: No acute changes. Soft tissues: No acute abnormality noted. Vasculature: No acute abnormality noted. Sinuses: Moderate chronic right maxillary sinus thickening noted. Mastoid air cells: No mastoid effusion. Orbits: No acute abnormality noted. IMPRESSION: 1. Cerebral atrophy. No acute changes. 2. Chronic right maxillary sinusitis. ACT 112: N/A Electronically signed by Bailee Slater 10-01-2025 4:30 PM Knee X-Ray 10/01/25 15:43 Clinical History: Trauma 3 views of the right knee are submitted for review. Findings: No fracture or dislocation is seen. There is joint space narrowing and osteophyte formation in all 3 compartments. No other osseous abnormality is identified. There are no radiopaque foreign bodies. Impression: Severe right knee osteoarthritis Electronically signed by Yanick Mohan 10-01-2025 4:51 PM Clinical history: Possible tibial plateau fracture Technique: Axial computed tomography images were obtained of the right knee without intravenous contrast. Sagittal and coronal reconstructions were obtained Findings: There is an acute nondisplaced fracture of the medial margin of the medial femoral condyle. No subluxation or dislocation is seen. There is severe tricompartmental osteoarthritis. There are joint bodies posteriorly. No focal osseous lesion is evident There is a large knee effusion The visualized musculature appears unremarkable. No soft tissue mass or fluid collection is seen. No foreign body is evident Impression: 1. Acute nondisplaced fracture of the medial margin of the medial femoral condyle 2. Severe osteoarthritis 3. Large right knee effusion with joint bodies ACT 112: Positive. There are findings on this exam that require communication between the performing entity and the patient following Patient Test Result Information Act ([place] ACT 112) guidelines.
[2025-10-01] MEDS ORDERED: GLUCOSE 40% GEL 15 GM TUBE PO PRN (18:29)
[2025-10-01] MEDS ORDERED: GLUCAGON FOR INJ 1 MG VIAL SQ PRN (18:29)
[2025-10-01] MEDS ORDERED: PHARMACY GLYCEMIC MGMT CONSULT PRN (18:29)
[2025-10-01] MEDS ORDERED: DEXTROSE 50% 50 ML SYRINGE IV PRN (18:29)
[2025-10-01] MEDS ORDERED: CARBOHYDRATES FOR HYPOGLYCEMIA PO PRN (18:29)
[2025-10-01] MEDS ORDERED: GLUCOSE 10 TAB/TUBE PO PRN (18:29)
--- NOTE | 2025-10-01 18:40 | History & Physical Report ---
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 He cannot concretely confirm if he had +LOC-->reports feeling funny with possible prodrome and landed on right knee. Currently has ILR for similar correlating episodes over the past few months. + right knee pain with more difficulty bearing weight on right knee post fall. Has intermittent, persistent cough at baseline correlating with hx of COPD. He is not on home oxygen. ED course of treatment with lab values revealing leukocytosis at 14.48, mild hyponatremia with Na at 133, Cr 1.65 (baseline 1.1-1.2), PCXR with persistent multifocal interstitial opacities with rec for f/u chest CT, head CT with no acute changes and chronic right maxillary sinusitis, R knee xray with severe OA, R knee CT with acute non-displaced fx of medial margin of femoral condyle/large knee effusion with joint bodies. He is without clinical signs of infection. +ROS for dysuria. ##Syncope-->with reported episodes over the past few months, per chart review had event monitor and did not fully comply with duration secondary to running out of stickers, unable to ascertain if he is experiencing high degree block, therefore ILR placed by Dr. 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), recent TTE 07/27/25 with LVEF 60-65% and no significant valvular pathology, 12 lead EKG in ED with NSR, VR 93, QTc 402 -monitor on med/tele -orthostatic VS in ED with marked decrease in BP when standing of 70s/40s and appreciated tachycardia -LR 1 liter bolus X1 -orthostatic VS QS -obtain interrogation from [employer] for ILR ##Leukocystosis no associated clinical signs of infection, +dysuria -resp biofire -UA/UC -Procal, CRP ##Hemiarthrosis right knee -ortho consult in ED -see above for imaging results -Tylenol PRN for pain -Right knee aspiration conducted with ortho in ED -WBAT -PT/OT consult ##CUBA/CKD -Cr 1.65 -LR 1 liter bolus X 1 -Maintenance LR 125ml/hr X 1 -HOLD ACEi (lisinopril ##T2DM -Hold Metformin -BSG ACHS, pharmacy consult for mgmt -gabapentin, cymbalta for associated PN -HbA1c in am ##AoC COPD/emphysema/ILD-->PCXR in ED with persistent multifocal interstitial opacities d/t chronic interstitial lung disease with f/u CT chest recommended, CT of chest 04/10/25 with stable chronic lung disease, mildly progressive mediastinal lymphadenopathy, suggestion for follow up CT in 3-6 mths, due for PFTs 10/2025 with pulm -follows with pulmonology -Albuterol HFA prn -Duoneb Q6H prn SOB/wheezing ##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-rbhm-atyl hx/ETOH dependency -ETOH level -ETOH withdrawal protocol/RASS Q2H -Vit B12 level -Thiamine 100mg po daily -Nicotine patch ##CAD, history of ANDREINA to RCA 2016 Stress echo 2021 negative for ischemia Continue metoprolol, norvasc, Plavix, statin ##Depression/anxiety -cont amitriptyline -cont seroquel ##GERD -cont PPI BID DVT proph: Heparin in setting of CUBA Diet: CC Dispo: Admit to med/tele CODE STATUS: FULL CODE History of Present Illness Chief Complaint: Right knee pain, fall with possible syncope Primary Care Provider: Albina Jimenez PA-C Patient is 70 year old male with PMH significant for AOC/COPD/emphysema, pulmonary fibrosis, DM2, CKD 3, CAD, depression/anxiety presents with c/o ground level fall and episode of passing out that occurred on 09/30/25 at approximately 1700 per his account. Daughter is at the bedside with patient and states patient has had 2 syncopal episodes over the course of the past few months and has been following with cardiology to have this investigated. He currently has an ILR. He reports last evening he was walking into his kitchen to get a drink of water and he suddenly fell down subsequently landing on his right knee. Unsure if he lost consciousness. He states he "felt funny" before the fall. He denies loss of control of bowel/bladder. He denies striking his head or cervical pain. He does correlate some of his syncopal episodes with leaning forward or position changes. Per his daughter, patient was leaning forward with one episode to tend to his dog and felt as though he was going to black out. Has had significant right knee pain since the fall and when he arrived at his daughter's house today for Thanksgiving dinner he was having more difficulty bearing weight on the right leg. Reports he has significant arthritis in the right knee and is schedule to have a stress test in a couple weeks to then pursue right TKA with Dr. Jimenez. He denies SYLVESTER, chest pain, TOVAR, SOB, fever, chills, productive cough with sputum. Does have positive, intermittent cough that is at baseline for him as he has a hx of COPD. He smokes 5-6 cigarettes daily and chews tobacco. He drinks 1-2 rum/coke mixed drinks almost nightly. He denies hx of DTs, seizures or withdrawal symptoms when ceasing ETOH use in the past. Reports he last drank yesterday evening. After lengthy discussion with patient, he elects to be a FULL CODE while hospitalized. Allergies Allergy/AdvReac Type Severity Reaction Status Date / Time No Known Allergies Allergy Verified 10/01/25 16:12 Home Medications Medication Instructions Recorded Confirmed Type gabapentin 600 mg tablet 600 mg PO TID 09/16/20 10/01/25 History rosuvastatin 5 mg tablet 5 mg PO HS #90 tabs 03/18/21 10/01/25 Rx metoprolol tartrate 25 mg tablet 12.5 mg (1/2 x 25 mg) PO BID #60 11/21/21 10/01/25 Rx tabs quetiapine 100 mg tablet 100 mg PO HS #30 tabs 12/08/21 10/01/25 Rx clopidogrel 75 mg tablet (Plavix) 75 mg PO QAM 02/02/22 10/01/25 History duloxetine 60 mg capsule,delayed 60 mg PO QAM 02/02/22 10/01/25 History release hydrocodone 5 mg-acetaminophen 325 1 tab PO HS PRN Pain 02/02/22 10/01/25 History mg tablet metformin 500 mg tablet,extended 1,000 mg PO QAM 02/02/22 10/01/25 History release 24 hr pantoprazole 40 mg tablet,delayed 40 mg PO BID 02/02/22 10/01/25 History release albuterol sulfate 90 mcg/actuation 2 puff inhalation Q6H PRN 06/02/25 10/01/25 Rx aerosol inhaler (Ventolin HFA) shortness of breath or wheezing #6.7 grams ipratropium 0.5 mg-albuterol 3 mg 3 ml inhalation Q8H PRN shortness 06/02/25 10/01/25 Rx (2.5 mg base)/3 mL nebulization of breath or wheezing #180 mL soln nebulizers (Aeroneb Go Nebulizer) #1 ea 06/02/25 09/03/25 Rx amitriptyline 100 mg tablet 100 mg PO HS 10/01/25 10/01/25 History amlodipine 10 mg tablet 10 mg PO HS 10/01/25 10/01/25 History lisinopril 40 mg tablet 40 mg PO DAILY 10/01/25 10/01/25 History Past Med/Surg History Problem List (Updated 10/03/25 @ 07:42 by Maulik Tobin MD) Fracture of condyle of right femur Orthostatic hypotension B12 deficiency Hemarthrosis, right knee Syncope (Acute) Syncope COPD exacerbation (Acute) Shortness of breath (Acute) Acute hypoxemic respiratory failure (Acute) Latent tuberculosis Marijuana smoker in remission Current smoker Obesity Bronchiectasis 07/04/23 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) Diabetes mellitus Hypoxia (Acute) Encounter for pre-operative examination Pancytopenia Hyperkalemia Chronic kidney disease, stage 3 (moderate) CUBA (acute kidney injury) 08/20/20 Influenza-like symptoms (Acute) Non-ST elevation SC (NSTEMI) (Acute) Chest tightness (Acute) 08/20/20 Dyspnea (Acute) Reactive airway disease (Acute) Pulmonary fibrosis (Acute) Diffuse interstitial pulmonary fibrosis (Chronic 01/22/13) COVID-19 (Acute) Myalgia (Acute) Fever (Acute) Numbness and tingling of left leg 06/07/20 Tingling of left arm and left side of face 06/07/20 Atypical chest pain Dyslipidemia Essential hypertension Vitamin D deficiency (Acute) Stroke syndrome (Acute) Left side "tingling" 02/07/22 Spinal stenosis (Acute) Osteoarthritis of knee (Acute) Multiple pulmonary nodules (Acute) Memory loss (Acute) Interstitial lung disease (Acute) Gastroesophageal reflux disease (Acute) controlled, stable per pt Depression with anxiety (Acute) Common migraine without aura (Acute) Bilateral knee pain (Acute) Atherosclerosis of [place] coronary artery without angina pectoris (Acute) Anemia (Acute) Chronic- hgb baseline 12-13s Abdominal hematoma (Acute) 02/07/22 Vertigo Chest pain 06/19/18 Rib pain on left side (Acute) 06/19/18 Calcific tendonitis of right shoulder (Acute) Medical History Needle phobia Unique anesthetic considerations on preoperative anesthesia assessment Pt reports he would like sedation as soon as possible for pre-op anxiety BPV (benign positional vertigo) rare, controlled, stable per pt Osteoarthritis Depression Multiple pulmonary nodules monitored by [facility] Short-term memory loss GERD (gastroesophageal reflux disease) controlled, stable per pt Spinal stenosis HTN (hypertension) controlled, stable per pt Dyslipidemia Dyspnea on exertion History of pancytopenia pt not sure Combined pulmonary fibrosis and emphysema (CPFE) does not use rescue inhaler/denies maintenance medications. Denies oxygen use. History of myocardial infarction approx 2017/ stent x1. Atypical chest pain hx and reports chest pain on occ - pt reports told could be related to acid reflux, goes away with a drink of water. Occurs frequently but none over the last week. History of anemia History of TIA (transient ischemic attack) multiple - most recent : pt doesn't know, reports a long time ago . History of stroke approx 2016 : residual: left side tingling. Latent tuberculosis monitored by [facility] Polio mentioned April 2024 - [facility]. Hearing loss CKD (chronic kidney disease) stage 3, GFR 30-59 ml/min Poor historian Diabetes mellitus NIDDM History of COVID-19 Dx 08/2020 > denies hospitalization > resolved Chronic back pain Cervical, lumbar (No cervical ROM limitations per pt) CAD (coronary artery disease) stent to the mid RCA (2017) Surgical History S/P cervical spinal fusion History of lumbar surgery Hx of appendectomy History of total knee replacement left 02/16/2222 Grade 2 view, MAC 3, ETT 8 + PNB. *precluded from neuraxial anesthesia as had taken clopidogrel 2 days prior to surgery per operative report. History of hand surgery REPAIR NERVE/LACERATION RIGHT History of esophagogastroduodenoscopy (EGD) History of cardiac cath Stent x1 (2017), [facility]; f/u PCP History of arthroscopy of knee left knee Family History Brother Heart disease Alcoholism Idiopathic pulmonary fibrosis Mother Diabetes Social History Smoking Status: Light tobacco smoker Tobacco Type: Cigarettes Cigarettes Per Day: 2-3 per day/advised; Second Hand Exposure: No; Do You Dip or Chew Tobacco: No; Hx Alcohol Use: Yes Alcohol type: hard liquor Hx Substance Use: No Preferred Language: Tajik Communication Ability: Effective Communication Ability Comment: Some impairment of reading and writing. Gunner'S Mate G Required: No Beliefs That Will Affect Care: None marital status: Current Living Situation: Alone Current Living Situation Comment: Home alone current occupational status: disabled Other Information That Helps Us Care for You: No Feels Safe at Home: Yes Assistive Devices: Cane, Oxygen - Continuous and Walker Assistive Devices Comment: Glasses for reading Review of Systems Review of Systems: All systems reviewed & are unremarkable except as noted in HPI & below Respiratory: + chronic, intermittent cough Gastrointestinal: +burning with urination Physical Exam Physical Exam: GENERAL APPEARANCE: A&O. Sitting comfortably on stretcher. NAD. SKIN: Normal color without rashes or lesions. Normal turgor. HEENT: Head AT/NC. Buccal mucosa is moist and pink. NECK: No jugular venous distention. No thyroid enlargement. There is no lymphade nopathy. HEART: RRR without m/g/r. LUNGS: Normal inspiratory effort. Good air entry bilaterally, mild exp wheeze, no rhonchi. ABDOMEN: No guarding or rigidity. Normoactive BS in all four quadrants. Abdomen soft and NT. MSK: No bony gross/deformities throughout. ROM intact. EXTREMITIES: No edema, No peripheral cyanosis. Right knee with patellar effusion and TTP. No crepitus. Neuro: CN 2-12 grossly intact. No focal neuro deficits PSYCHIATRIC: Normal affect. Eye contact is good. Speech is normal rate and content. Responses are appropriate. Results & Data Results & Data Vital Signs (Past 12 Hours) Vital Signs Temp Pulse Pulse Resp BP BP Pulse Ox 10/01/25 18:00 94 H 18 118/77 95 10/01/25 16:11 97 H 10/01/25 16:00 94 H 22 95 10/01/25 16:00 94 H 22 113/72 95 10/01/25 15:26 36.3 C L 97 H 18 125/69 96 O2 Del Method 10/01/25 18:00 Room Air 10/01/25 16:11 10/01/25 16:00 Room Air 10/01/25 16:00 Room Air 10/01/25 15:26 Laboratory Results Labs reviewed: CBC, CMP Code Status & VTE Plan VTE Prophylaxis Plan VTE Prophylaxis will be ordered: Yes Supervising Physician Co-Signing Physician Notes Attending Attestation & Admit Note: Pt seen/examined, chart reviewed, admit care plan d/w PAUL Cortes. I agree w/ the roberson components of her admission documentation. 70yo male with COPD/emphysema, pulmonary fibrosis, ongoing tobacco use, etoh use, DM2, CKD 3, CAD, depression/anxiety, and recent loop recorder implantation due to episodes of near-syncope/syncope. About 24 hours prior to presentation he had a brief episode of syncope in his kitchen. When he fell he struck his right knee. Since the episode he has had right knee pain, swelling, and difficulty ambulating/weight-bearing because of the pain. Thus, he came to the ER for evaluation. Patient does recall feeling "funny" in his head prior to the event yesterday. While I was performing my admission assessment I had nursing check a set of orthostatics. SBP was >100 supine, then fell to the low 70s with standing. He was indeed dizzy during ortho checks. [facility] was consulted and they performed a diagnostic/therapeutic arthrocentesis, removing copious amounts of bloody synovial fluid c/w hemar throsis. The knee does feel better following such, but he is still having a difficult time bearing weight on the RLE. PMH/PSH/allergies/meds/sochx - reviewed +orthostatics gen - lying in bed, difficult to get around on the bed due to RLE pain mouth - MM VERY DRY neck - no JVD heart - RRR, s1 s2 lungs - end-exp wheezes b/l, minimal rales bases, no increased work of breathing abd - soft NT ND BS+ ext - right leg wrapped in AVA wrap from mid-thigh to below the knee; right knee is swollen, decreased active ROM; left leg w/o edema; pulses b/l feet 1+ psych - a/o x 3 neuro - strength 5/5 x 4 exts; no facial droop labs reviewed imaging reviewed CT knee report pending EKG - NSR, first degree AV block, poor R wave progression, no ST changes A/P: 1. episode of syncope with trauma to right knee 2. ambulatory dysfunction 2nd to #1 3. right knee hemarthrosis / contusion 4. loop recorder status; implanted by Dr Wilbert Arshad due to episodes of syncope/near-syncope 5. orthostasis - likely cause of #1 6. volume contraction 7. tobacco & etoh use 8. COPD 9. T2DM 10. CAD -hydrate with isotonic fluids overnight -repeat orthostatic BPs in am -appreciate ortho consult; await formal R knee CT report -ice for right knee prn -tylenol and/or pain meds prn right knee pain -PT/OT evals -check B12 level in am -interrogate loop recorder ([employer] device) -agree with AWSS protocol in light of etoh use -pharmacy glycemic consult for DM control Maulik Tobin MD PG Care Time/CCT Total # of Minutes Spent Total Time Spent with Patient: Total time spent is greater than 50% in coordination of care (as documented) at patient's floor/unit and/or counseling patient: Coding Level of Care Code 45766 INT INP/OBS CARE 3/75MIN Diagnoses Syncope R55 Hemarthrosis, right knee M25.061 Current smoker F17.200 COPD with emphysema J43.9 Combined pulmonary fibrosis and emphysema (CPFE) J43.9; J84.10 Diabetes mellitus E11.9 CUBA (acute kidney injury) N17.9 Chronic kidney disease, stage 3 (moderate) N18.3 Gastroesophageal reflux disease K21.9 Atherosclerosis of [place] coronary artery without angina pectoris I25.10 Dyslipidemia E78.5
--- NOTE | 2025-10-01 18:49 | CT Scan Report ---
Clinical history: Possible tibial plateau fracture Technique: Axial computed tomography images were obtained of the right knee without intravenous contrast. Sagittal and coronal reconstructions were obtained Findings: There is an acute nondisplaced fracture of the medial margin of the medial femoral condyle. No subluxation or dislocation is seen. There is severe tricompartmental osteoarthritis. There are joint bodies posteriorly. No focal osseous lesion is evident There is a large knee effusion The visualized musculature appears unremarkable. No soft tissue mass or fluid collection is seen. No foreign body is evident Impression: 1. Acute nondisplaced fracture of the medial margin of the medial femoral condyle 2. Severe osteoarthritis 3. Large right knee effusion with joint bodies ACT 112: Positive. There are findings on this exam that require communication between the performing entity and the patient following Patient Test Result Information Act ([place] ACT 112) guidelines. Electronically signed by Yanick Mohan 10-01-2025 6:47 PM
[2025-10-01] MEDS: Patient's HEIGHT &/or WEIGHT Needed STA (19:24)
[2025-10-01 19:31] LABS: Chlamydia pneumoniae PCR Not Detected (NotDetected); Coronavirus 229E PCR Not Detected (NotDetected); Coronavirus CoV-2 (COVID19)PCR Not Detected (NotDetected); Coronavirus HKU1 PCR Not Detected (NotDetected); Coronavirus NL63 PCR Not Detected (NotDetected); Coronavirus OC43PCR Not Detected (NotDetected); Human Metapneumovirus PCR Not Detected (NotDetected); Parainfluenza Virus 1 PCR Not Detected (NotDetected); Parainfluenza Virus 2 PCR Not Detected (NotDetected); Parainfluenza Virus 3 PCR Not Detected (NotDetected); Parainfluenza Virus 4 PCR Not Detected (NotDetected); Respiratory Syncytial VirusPCR Not Detected (NotDetected); Rhinovirus/Enterovirus PCR Not Detected (NotDetected)
[2025-10-01] MEDS ORDERED: ACETAMINOPHEN 325 MG TAB PO PRN (19:47)
[2025-10-01 19:51] LABS: Appearance Urine Clear (Clear); Bacteria Urine Automated None Seen (None Seen); Epithelial Cell Urine Auto 0-2 /hpf (0-2); Glucose Urine UA Negative (Negative); RBC Urine Automated 0-2 /hpf (0-2); WBC Urine Automated 0-5 /hpf (0-5)
[2025-10-01] MEDS: INSULIN ASPART PER UNIT CHARGE SC SCH (20:09)
[2025-10-01] MEDS ORDERED: ONDANSETRON INJ 2 MG/ML 2 ML VIAL IV PRN (21:02)
[2025-10-01] MEDS ORDERED: ALBUT/IPRATROP 3MG/0.5MG NEB 3 ML VIAL NEB PRN (21:02)
[2025-10-01] MEDS ORDERED: POLYETHYLENE (MIRALAX) 17 GM PACK PO PRN (21:02)
[2025-10-01] MEDS ORDERED: ALBUTEROL HFA 8 GM INHALER INH PRN (21:02)
[2025-10-01] MEDS ORDERED: ALUMINUM/MAGNESIUM SUSP 30 ML UDC PO PRN (21:02)
[2025-10-01] MEDS: HEPARIN SOD 5,000 UNIT/0.5 ML VIAL SQ SCH (21:54)
[2025-10-01] MEDS: MELATONIN 3 MG TAB PO PRN (21:55)
[2025-10-01] MEDS: METOPROLOL TARTRATE 25 MG TAB PO SCH (21:56)
[2025-10-01] MEDS: AMITRIPTYLINE HCL 100 MG TAB PO SCH (21:56)
[2025-10-01] MEDS: GABAPENTIN 600 MG TAB PO SCH (21:56)
[2025-10-01] MEDS: ROSUVASTATIN CALCIUM 5 MG TAB PO SCH (21:57)
[2025-10-02 06:54] LABS: Hematocrit (blood only) 35.0 % (42.0-52.0); Hemoglobin 11.5 g/dL (14.0-18.0); Immature Granulocytes # (auto) 0.04 K/uL (0.01-0.20); Immature Granulocytes % (auto) 0.4 %; Mean Corpuscular Hemoglobin 28.2 pg (25.0-34.0); Mean Corpuscular Volume 85.8 fL (80.0-100.0); Platelet Count 239 K/uL (130-400); RDW Standard Deviation 43.8 fL (36.4-46.3); Red Blood Count 4.08 M/uL (4.70-6.10); White Blood Count 9.10 K/ul (4.8-10.8)
[2025-10-02 07:18] LABS: Anion Gap 7.0 (3-11); Blood Urea Nitrogen 21.0 mg/dl (6-23); Calcium 8.7 mg/dl (8.6-10.3); Carbon Dioxide 26.0 mmol/L (21-32); Chloride 103.0 mmol/L (98-107); Creatinine Clr Calc Pharmacy 66.9 ml/min; Glucose 127.0 mg/dl (70-99(Fasting)); Potassium 4.3 mmol/L (3.5-5.1); Sodium 136.0 mmol/L (136-145)
[2025-10-02] MEDS: ACETAMINOPHEN 325 MG TAB PO PRN (07:37)
[2025-10-02 07:53] LABS: Hemoglobin A1C 7.2 % (4.5-5.6)
[2025-10-02] MEDS: REMOVE NICODERM PATCH SCH (09:26)
[2025-10-02] MEDS: NICOTINE 7 MG/24 HR TDSY TD SCH (09:27)
[2025-10-02] MEDS: THIAMINE HCL 100 MG TAB PO SCH (09:28)
[2025-10-02] MEDS: FOLIC ACID 1 MG in SYRINGE 9.8 ML IV SCH (09:29)
[2025-10-02] MEDS: CYANOCOBALAMIN 1000 MCG/ML VIAL IM SCH (10:09)
[2025-10-02] MEDS: CLOPIDOGREL BISULFATE 75 MG TAB PO SCH (10:26)
--- NOTE | 2025-10-02 10:32 | Electrocardiogram Report ---
Test Reason : Blood Pressure : */* mmHG Vent. Rate : 93 BPM Atrial Rate : 93 BPM P-R Int : 202 ms QRS Dur : 92 ms QT Int : 324 ms P-R-T Axes : 54 3 65 degrees QTcB Int : 402 ms Normal sinus rhythm 1st degree AV block Poor R wave progression, consider anterior [place] vs. lead placement vs. LVH Abnormal ECG When compared with ECG of 10-Apr-2025 10:57, Non-specific change in ST segment in Inferior leads T wave inversion no longer evident in Inferior leads Confirmed by Miguel Ángel Arshad ([id number]) on 10/02/2025 10:31:50 AM Referred By: REFERRED SELF Confirmed By: Miguel Ángel Arshad
--- NOTE | 2025-10-02 11:00 | Orthopedic Progress Note ---
Date of Service October 02, 2025 Assessment & Plan (1) Hemarthrosis, right knee: Plan: Radiologic imaging shows an avulsion fracture along the osteophytes from his medial femoral condyle. I offered him a knee immobilizer to wear for the next 24 hours however he declined because he states that it would hurt his knee to straighten it the entire way. He can be weightbearing as tolerated with walker assistance. I recommended continued icing. Pain control p.o. medication. May remove compressive wrap tomorrow (2) Osteoarthritis of right knee: Plan: Patient states that he is currently undergoing stress testing for clearance to have his right knee replaced. He states that he has met with Dr. Howell who advised him that he would need cardiac clearance before we could proceed with th e total joint arthroplasty. WBAT PT/OT Continue care per primary service. Patient was admitted by the medicine service for his syncopal episode. Will continue to follow him while he is in house. Will f/u with Dr. Howell as an outpatient Admission and Anticipated Discharge Date Admission Date: October 01, 2025 Supervising Physician Co-Signing Physician Notes I, Dr. Johnson, saw and examined the patient. I discussed the management with my PA. I reviewed my PAs note and agree with the documented findings and attest to completing the substantive portion of medical decision making and plan of care I developed.Patient is willing to try the knee immobilizer. Subjective This 70-year-old male seen today for follow-up after aspirating his right knee in the emergency department yesterday. He states he still has some achiness in his knee but states it is much better than yesterday. States that he is able to lift the leg now. His range of motion is still very limited. Currently denies chest pain, shortness of breath, fever, chills, sweats, nausea, vomiting, diarrhea, difficulty voiding or numbness or tingling in his right lower extremity. Review of Systems Review of Systems: All systems reviewed & are unremarkable except as noted in Subjective Physical Exam Physical Exam: Right knee: Active knee range of motion is from 10 degrees of extension to about 85 degrees of flexion. He has a trace effusion noted over the anterior aspect of the knee with tenderness to palpation over the medial and lateral joint space. He is unable to perform active straight leg raise test. He is able to actively dorsi and plantarflex foot. His peripheral pulses are 2+. He does have a tingling sensation to palpation over the plantar surfaces of his toes. Radha test negative. Patient has no significant laxity with varus or valgus stressing. He does have visible varus malalignment. Results & Data Vital Signs (Past 12 Hours) Vital Signs Temp Pulse Pulse Resp BP Pulse Ox O2 Del Method 10/02/25 08:03 36.7 C 75 16 89/58 L 95 Room Air 10/02/25 05:41 74 10/02/25 04:08 36.4 C L 73 18 107/65 90 Room Air Diagnostic Findings Laboratory Results WBC 9.10 K/ul (4.8-10.8) 10/02/25 05:32 RBC 4.08 M/uL (4.70-6.10) L 10/02/25 05:32 Hgb 11.5 g/dL (14.0-18.0) L 10/02/25 05:32 Hct 35.0 % (42.0-52.0) L 10/02/25 05:32 MCV 85.8 fL (80.0-100.0) 10/02/25 05:32 MCH 28.2 pg (25.0-34.0) 10/02/25 05:32 MCHC 32.9 g/dL (32.0-36.0) 10/02/25 05:32 RDW Std Deviation 43.8 fL (36.4-46.3) 10/02/25 05:32 RDW Coeff of Huber 14.0 % (11.5-14.5) 10/02/25 05:32 Plt Count 239 K/uL (130-400) 10/02/25 05:32 MPV 10.3 fL (9.4-12.4) 10/02/25 05:32 Immature Gran % (Auto) 0.4 % 10/02/25 05:32 Neut % (Auto) 59.7 % 10/02/25 05:32 Lymph % (Auto) 20.2 % 10/02/25 05:32 Howell % (Auto) 15.9 % 10/02/25 05:32 Eos % (Auto) 3.4 % 10/02/25 05:32 Baso % (Auto) 0.4 % 10/02/25 05:32 Neut # (Auto) 5.42 K/uL (1.40-6.50) 10/02/25 05:32 Lymph # (Auto) 1.84 K/uL (1.20-3.40) 10/02/25 05:32 Howell # (Auto) 1.45 K/uL (0.11-0.59) H 10/02/25 05:32 Eos # (Auto) 0.31 K/uL (0.00-0.50) 10/02/25 05:32 Baso # (Auto) 0.04 K/uL (0.00-0.20) 10/02/25 05:32 Immature Gran # (Auto) 0.04 K/uL (0.01-0.20) 10/02/25 05:32 Sodium 136 mmol/L (136-145) 10/02/25 05:32 Potassium 4.3 mmol/L (3.5-5.1) 10/02/25 05:32 Chloride 103 mmol/L (98-107) 10/02/25 05:32 Carbon Dioxide 26 mmol/L (21-32) 10/02/25 05:32 Anion Gap 7 (3-11) 10/02/25 05:32 BUN 21 mg/dl (6-23) 10/02/25 05:32 Creatinine 1.18 mg/dl (0.6-1.4) D 10/02/25 05:32 Est Cr Clr Drug Dosing 66.9 ml/min 10/02/25 05:32 eGFR 65.56 10/02/25 05:32 BUN/Creatinine Ratio 17.8 (10-20) 10/02/25 05:32 Glucose 127 mg/dl (70-99(Fasting)) H 10/02/25 05:32 POC Glucose 125 mg/dl (70-99) H 10/02/25 07:54 Estimat Average Glucose 160 mg/dl 10/02/25 05:32 Hemoglobin A1c 7.2 % (4.5-5.6) H 10/02/25 05:32 Calcium 8.7 mg/dl (8.6-10.3) 10/02/25 05:32 Magnesium 2.0 mg/dl (1.7-2.4) 10/01/25 15:58 Total Bilirubin 0.3 mg/dl (0.2-1.0) 10/01/25 15:58 AST 19 U/L (13-39) 10/01/25 15:58 ALT 12 U/L (7-52) 10/01/25 15:58 Alkaline Phosphatase 58 U/L (34-104) 10/01/25 15:58 Troponin I High Sens 5.9 pg/ml (0-20) 10/01/25 15:58 C-Reactive Protein 5.83 mg/dl (0-0.5) H 10/01/25 15:58 Total Protein 7.8 gm/dl (6.0-8.3) 10/01/25 15:58 Albumin 4.5 gm/dl (3.4-5.0) 10/01/25 15:58 Globulin 3.3 gm/dl (2.5-4.0) 10/01/25 15:58 Albumin/Globulin Ratio 1.4 (0.9-2) 10/01/25 15:58 Vitamin B12 151 pg/ml (180-914) L 10/02/25 05:32 Procalcitonin 0.15 ng/ml (0-0.5) 10/01/25 15:58 Urine Color Yellow 10/01/25 19:39 Urine Appearance Clear (Clear) 10/01/25 19:39 Urine pH 5.5 (4.5-7.5) 10/01/25 19:39 Ur Specific [place] 1.022 (1.000-1.030) 10/01/25 19:39 Urine Protein Trace (Negative) H 10/01/25 19:39 Urine Glucose (UA) Negative (Negative) 10/01/25 19:39 Urine Ketones Trace (Negative) H 10/01/25 19:39 Urine Blood Negative (Negative) 10/01/25 19:39 Urine Nitrite Negative (Negative) 10/01/25 19:39 Urine Bilirubin Negative (Negative) 10/01/25 19:39 Urine Urobilinogen Negative (Negative) 10/01/25 19:39 Ur Leukocyte Esterase Negative (Negative) 10/01/25 19:39 Urine WBC (Auto) 0-5 /hpf (0-5) 10/01/25 19:39 Urine RBC (Auto) 0-2 /hpf (0-2) 10/01/25 19:39 U Hyaline Cast (Auto) 3-5 /lpf (0-2) H 10/01/25 19:39 U Epithel Cells (Auto) 0-2 /hpf (0-2) 10/01/25 19:39 Urine Bacteria (Auto) None Seen (None Seen) 10/01/25 19:39 Urine Comment 10/01/25 19:39 Ethyl Alcohol mg/dL < 10.0 mg/dl (<10.0) 10/01/25 21:34 Adenovirus (PCR) Not Detected (NotDetected) 10/01/25 18:28 B. pertussis DNA (PCR) Not Detected (NotDetected) 10/01/25 18:28 B.parapertussis DNA PCR Not Detected (NotDetected) 10/01/25 18:28 C. pneumoniae DNA (PCR) Not Detected (NotDetected) 10/01/25 18:28 Coronavirus OC43 (PCR) Not Detected (NotDetected) 10/01/25 18:28 Coronavirus HKU1 (PCR) Not Detected (NotDetected) 10/01/25 18:28 Coronavirus 229E (PCR) Not Detected (NotDetected) 10/01/25 18:28 SARS-CoV-2 (PCR) Not Detected (NotDetected) 10/01/25 18:28 Coronavirus NL63 (PCR) Not Detected (NotDetected) 10/01/25 18:28 Human Metapneumovir PCR Not Detected (NotDetected) 10/01/25 18:28 Influenza Type A (PCR) Not Detected (NotDetected) 10/01/25 18:28 Influenza Type B (PCR) Not Detected (NotDetected) 10/01/25 18:28 M. pneumoniae (PCR) Not Detected (NotDetected) 10/01/25 18:28 Parainfluenza 1 (PCR) Not Detected (NotDetected) 10/01/25 18:28 Parainfluenza 2 (PCR) Not Detected (NotDetected) 10/01/25 18:28 Parainfluenza 3 (PCR) Not Detected (NotDetected) 10/01/25 18:28 Parainfluenza 4 (PCR) Not Detected (NotDetected) 10/01/25 18:28 RSV (PCR) Not Detected (NotDetected) 10/01/25 18:28 Entero/Rhino (PCR) Not Detected (NotDetected) 10/01/25 18:28 Impressions Chest X-Ray 10/01/25 15:35 Technique: A frontal view of the chest was obtained Comparison is made the prior examination dated 04/10/2025 Findings: Again seen are multifocal interstitial opacities throughout both lungs. The heart size is within normal limits. No pleural effusion or pneumothorax is seen. There is no definite pulmonary nodule. No fracture is noted. There is thoracic degenerative disc disease. There is a device projecting over the left heart Impression: Persistent multifocal interstitial opacities throughout both lungs, which could be due to chronic interstitial lung disease. A follow-up chest CT could be considered ACT 112: Positive. There are findings on this exam that require communication between the performing entity and the patient following Patient Test Result Information Act ([place] ACT 112) guidelines. Electronically signed by Yanick Mohan 10-01-2025 4:[address] 10/01/25 15:43 EXAM: CT Head Without Intravenous Contrast INDICATION: Syncope. Fall. TECHNIQUE: Axial computed tomography images of the head/brain without intravenous contrast. Sagittal and/or coronal reformats are provided. Sagittal and coronal reformatted images were created and reviewed. This CT exam was performed using one or more of the following dose reduction techniques: automated exposure control, adjustment of the mA and/or kV according to patient size, and/or use of iterative reconstruction technique. COMPARISON: 12/26/2022 FINDINGS: Limitations: None. Brain and extra-axial spaces: There is age appropriate cortical atrophy and chronic ischemic periventricular white matter hypodensity. No acute infarct, hemorrhage or mass noted. Bones/joints: No acute changes. Soft tissues: No acute abnormality noted. Vasculature: No acute abnormality noted. Sinuses: Moderate chronic right maxillary sinus thickening noted. Mastoid air cells: No mastoid effusion. Orbits: No acute abnormality noted. IMPRESSION: 1. Cerebral atrophy. No acute changes. 2. Chronic right maxillary sinusitis. ACT 112: N/A Electronically signed by Bailee Slater 10-01-2025 4:30 PM Knee X-Ray 10/01/25 15:43 Clinical History: Trauma 3 views of the right knee are submitted for review. Findings: No fracture or dislocation is seen. There is joint space narrowing and osteophyte formation in all 3 compartments. No other osseous abnormality is identified. There are no radiopaque foreign bodies. Impression: Severe right knee osteoarthritis Electronically signed by Yanick Mohan 10-01-2025 4:[address] 10/01/25 16:48 Clinical history: Possible tibial plateau fracture Technique: Axial computed tomography images were obtained of the right knee without intravenous contrast. Sagittal and coronal reconstructions were obtained Findings: There is an acute nondisplaced fracture of the medial margin of the medial femoral condyle. No subluxation or dislocation is seen. There is severe tricompartmental osteoarthritis. There are joint bodies posteriorly. No focal osseous lesion is evident There is a large knee effusion The visualized musculature appears unremarkable. No soft tissue mass or fluid collection is seen. No foreign body is evident Impression: 1. Acute nondisplaced fracture of the medial margin of the medial femoral condyle 2. Severe osteoarthritis 3. Large right knee effusion with joint bodies ACT 112: Positive. There are findings on this exam that require communication between the performing entity and the patient following Patient Test Result Information Act ([place] ACT 112) guidelines. Electronically signed by Yanick Mohan 10-01-2025 6:47 PM
--- NOTE | 2025-10-02 13:14 | Pharmacy Report ---
Pharmacy Glycemic Short Note 2 - Date of Service October 02, 2025 - Glycemic Short BSG Results (Last 24 hours): 10/01/25 10/01/25 10/01/25 15:58 18:57 21:19 Glucose 169 H POC Glucose 116 H 164 H 10/02/25 10/02/25 10/02/25 05:32 07:54 12:03 Glucose 127 H POC Glucose 125 H 123 H OUTPATIENT ANTIDIABETIC REGIMEN: * Metformin 1000 mg PO daily HbA1c: 7% (04/11/25) ASSESSMENT: * RS is a 70 year old male who presented to ED w/ knee pain s/p fall (syncopal event) * Well-controlled T2DM with metformin only as an outpatient * Blood sugars reasonably controlled thus far with bolus insulin only PLAN FOR INPATIENT GLYCEMIC CONTROL: * Hold outpatient oral diabetes medications * Basal insulin * Lantus 0-5 units SC HS * Bolus insulin * NovoLog per scale ACHS or Q6hrs while NPO * Goal Range: Low 120 mg/dL - High 160 mg/dL * Correction Factor: 30 mg/dL/unit * Nutritional / Prandial insulin per carb ratio of 1 unit per 10 grams CHO consumed
[2025-10-02] MEDS: HYDROCODONE/ACETAMOPHEN 5/325MG TAB PO PRN (16:15)
--- NOTE | 2025-10-02 19:42 | Hospitalist Progress Note ---
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 Presented after having had a ground level fall and episode of syncope on 09/30/25. Prior to the event had prodromal dizziness/lightheadedness. Right knee took the brunt of the fall. In the ER orthostatics markedly + with standing systolic BP of about 70-75. ##Syncope - -this episode was due to orthostatic hypotension -loop recorder - placed by Dr. Arshad on 09/03/25 - was interrogated today and did NOT show any arrhythmia on the day of his event -recent echo 07/27/25 with LVEF 60-65% and no significant valvular pathology -s/p IV fluids overnight and orthostatics MUCH improved today ##Orthostatic hypotension - -lisinopril on hold -reduce dose of amlodipine to 2.5mg daily (from 10mg daily) -can continue low-dose meto tartrate 12.5mg BID -orthostatics today MUCH improved with standing systolic BP >100 ##Leukocystosis - -no evidence of any infectious process -resp biofire negative -may be 2nd to trauma from his fall and right knee injury -afebrile since admission ##Hemiarthrosis right knee and nondisplaced fracture of right femoral medial condyle - -s/p arthrocentesis with copious bloody fluid aspirated -knee pain improved following such -cont AVA -cont ice prn -cont tylenol prn -added norco prn -appreciate ortho consult & management -for right femoral condyle fracture: -WBAT in knee immobilizer -PT/OT -check a 25-OH vit D level in am ##CUBA/CKD - -Cr 1.65 upon presentation -s/p bolus of fluids in ER followed by maintenance fluids after that -Cr today 1.18 - baseline -can d/c fluids ##T2DM - -a1c 7.2% -Hold Metformin -BSG ACHS -pharmacy glycemic team consulted for mgmt ##COPD/emphysema/ILD - -cxr at admission -- persistent multifocal interstitial opacities d/t chronic interstitial lung disease with f/u CT chest recommended -CT of chest 04/10/25 with stable chronic lung disease, mildly progressive mediastinal lymphadenopathy, suggestion for follow up CT in 3-6 mths -should have repeat CT and repeat PFTs 10/2025 -[place] [facility] [place] Elisa Frye; next appt with him is scheduled for Nov 2025 -Albuterol HFA prn -Duoneb Q6H prn SOB/wheezing ##Nicotene dependency with greater than 69-[id number] hx/ETOH dependency - -ETOH level negative -ETOH withdrawal protocol/RASS Q2H -Thiamine 100mg po daily -Nicotine patch ##B12 deficiency - -level - 151 -given his gait issues/falls/etc replace parenterally -vitamin B12 1000mcg daily x 5 days -folate replacement as well ##CAD, history of ANDREINA to RCA 2016 - -Stress echo 2021 negative for ischemia -Continue metoprolol, Plavix, statin -scheduled for stress test in October (10/16/25 - lexiscan??) ##Depression/anxiety -cont amitriptyline -cont seroquel ##GERD -cont PPI BID ##DVT proph - -heparin [place] updated pt's daughter by phone this evening, 10/02 told daughter that PT advising rehab but patient declining - wanting to go home told her my concerns about his fall risk in light of having to use a knee immobilizer on the right leg she voiced understanding Admission and Anticipated Discharge Date Admission Date: October 01, 2025 Subjective patient's main complaint is that of right knee pain needs something stronger than tylenol ordered norco prn for him after discussing the right knee CT with ortho a knee immobilizer was ordered for him he can WBAT with the immobilizer in place on right leg no dizziness today no lightheadedness today Dr Arshad performed loop recorder interrogation LOOP DID NOT SHOW ANY ARRHYTHMIA/DYSRHYTHMIA AROUND THE TIME OF HIS SYNCOPAL EVENT/FALL PRIOR TO ADMISSION Review of Systems Review of Systems: cv - no chest pain pulm - no dyspnea, some wheezing GI - no abd pain or N/V Physical Exam Physical Exam: gen - sitting in chair, NAD neck - no JVD mouth - MM more moist today heart - RRR, s1 s2, no murmur lungs - mild end-exp wheezing b/l, no rales, no increased work of breathing abd - soft NT ND BS+ ext - right leg wrapped in AVA wraps; right knee with mild swelling; left leg - no edema vasc - pulses b/l feet 2+ psych - a/o x 3 neuro - no tremor of arms/hands Results & Data Results & Data Vital Signs (Past 12 Hours) Vital Signs Temp Pulse Pulse Resp BP Pulse Ox Pulse Ox 10/02/25 19:17 90 10/02/25 16:02 37.0 C 91 H 16 126/79 95 10/02/25 14:31 93 10/02/25 12:28 36.5 C 79 18 103/62 93 10/02/25 11:23 10/02/25 08:03 36.7 C 75 16 89/58 L 95 O2 Del Method O2 Flow Rate 10/02/25 19:17 10/02/25 16:02 Room Air 10/02/25 14:31 0 10/02/25 12:28 Room Air 10/02/25 11:23 Room Air 10/02/25 08:03 Room Air Laboratory Results Laboratory Results - last 48 hr 10/01/25 10/01/25 10/01/25 15:58 18:28 18:57 WBC 14.48 H RBC 4.64 L Hgb 13.3 L Hct 39.5 L MCV 85.1 MCH 28.7 MCHC 33.7 RDW Std Deviation 44.1 RDW Coeff of [place] 14.4 Plt Count 303 MPV 9.9 Immature Gran % (Auto) 0.3 Neut % (Auto) 66.1 Lymph % (Auto) 15.2 [place] % (Auto) 16.2 Eos % (Auto) 1.7 Baso % (Auto) 0.5 Neut # (Auto) 9.58 H Lymph # (Auto) 2.20 [place] # (Auto) 2.35 H Eos # (Auto) 0.24 Baso # (Auto) 0.07 Immature Gran # (Auto) 0.04 Sodium 133 L Potassium 4.3 Chloride 100 Carbon Dioxide 24 Anion Gap 9 BUN 27 H Creatinine 1.65 H Est Cr Clr Drug Dosing Not Reportable eGFR 43.85 BUN/Creatinine Ratio 16.4 Glucose 169 H POC Glucose 116 H Estimat Average Glucose Hemoglobin A1c Calcium 9.3 Magnesium 2.0 Total Bilirubin 0.3 AST 19 ALT 12 Alkaline Phosphatase 58 Troponin I High Sens 5.9 C-Reactive Protein 5.83 H Total Protein 7.8 Albumin 4.5 Globulin 3.3 Albumin/Globulin Ratio 1.4 Vitamin B12 Procalcitonin 0.15 Urine Color Urine Appearance Urine pH Ur Specific [place] Urine Protein Urine Glucose (UA) Urine Ketones Urine Blood Urine Nitrite Urine Bilirubin Urine Urobilinogen Ur Leukocyte Esterase Urine WBC (Auto) Urine RBC (Auto) U Hyaline Cast (Auto) U Epithel Cells (Auto) Urine Bacteria (Auto) Urine Comment Ethyl Alcohol mg/dL Adenovirus (PCR) Not Detected B. pertussis DNA (PCR) Not Detected B.parapertussis DNA PCR Not Detected C. pneumoniae DNA (PCR) Not Detected Coronavirus OC43 (PCR) Not Detected Coronavirus HKU1 (PCR) Not Detected Coronavirus 229E (PCR) Not Detected SARS-CoV-2 (PCR) Not Detected Coronavirus NL63 (PCR) Not Detected Human Metapneumovir PCR Not Detected Influenza Type A (PCR) Not Detected Influenza Type B (PCR) Not Detected M. pneumoniae (PCR) Not Detected Parainfluenza 1 (PCR) Not Detected Parainfluenza 2 (PCR) Not Detected Parainfluenza 3 (PCR) Not Detected Parainfluenza 4 (PCR) Not Detected RSV (PCR) Not Detected Entero/Rhino (PCR) Not Detected 10/01/25 10/01/25 10/01/25 19:39 21:19 21:34 WBC RBC Hgb Hct MCV MCH MCHC RDW Std Deviation RDW Coeff of [place] Plt Count MPV Immature Gran % (Auto) Neut % (Auto) Lymph % (Auto) [place] % (Auto) Eos % (Auto) Baso % (Auto) Neut # (Auto) Lymph # (Auto) [place] # (Auto) Eos # (Auto) Baso # (Auto) Immature Gran # (Auto) Sodium Potassium Chloride Carbon Dioxide Anion Gap BUN Creatinine Est Cr Clr Drug Dosing eGFR BUN/Creatinine Ratio Glucose POC Glucose 164 H Estimat Average Glucose Hemoglobin A1c Calcium Magnesium Total Bilirubin AST ALT Alkaline Phosphatase Troponin I High Sens C-Reactive Protein Total Protein Albumin Globulin Albumin/Globulin Ratio Vitamin B12 Procalcitonin Urine Color Yellow Urine Appearance Clear Urine pH 5.5 Ur Specific [place] 1.022 Urine Protein Trace H Urine Glucose (UA) Negative Urine Ketones Trace H Urine Blood Negative Urine Nitrite Negative Urine Bilirubin Negative Urine Urobilinogen Negative Ur Leukocyte Esterase Negative Urine WBC (Auto) 0-5 Urine RBC (Auto) 0-2 U Hyaline Cast (Auto) 3-5 H U Epithel Cells (Auto) 0-2 Urine Bacteria (Auto) None Seen Urine Comment Ethyl Alcohol mg/dL < 10.0 Adenovirus (PCR) B. pertussis DNA (PCR) B.parapertussis DNA PCR C. pneumoniae DNA (PCR) Coronavirus OC43 (PCR) Coronavirus HKU1 (PCR) Coronavirus 229E (PCR) SARS-CoV-2 (PCR) Coronavirus NL63 (PCR) Human Metapneumovir PCR Influenza Type A (PCR) Influenza Type B (PCR) M. pneumoniae (PCR) Parainfluenza 1 (PCR) Parainfluenza 2 (PCR) Parainfluenza 3 (PCR) Parainfluenza 4 (PCR) RSV (PCR) Entero/Rhino (PCR) 10/02/25 10/02/25 10/02/25 05:32 07:54 12:03 WBC 9.10 RBC 4.08 L Hgb 11.5 L Hct 35.0 L MCV 85.8 MCH 28.2 MCHC 32.9 RDW Std Deviation 43.8 RDW Coeff of [place] 14.0 Plt Count 239 MPV 10.3 Immature Gran % (Auto) 0.4 Neut % (Auto) 59.7 Lymph % (Auto) 20.2 [place] % (Auto) 15.9 Eos % (Auto) 3.4 Baso % (Auto) 0.4 Neut # (Auto) 5.42 Lymph # (Auto) 1.84 [place] # (Auto) 1.45 H Eos # (Auto) 0.31 Baso # (Auto) 0.04 Immature Gran # (Auto) 0.04 Sodium 136 Potassium 4.3 Chloride 103 Carbon Dioxide 26 Anion Gap 7 BUN 21 Creatinine 1.18 D Est Cr Clr Drug Dosing 66.9 eGFR 65.56 BUN/Creatinine Ratio 17.8 Glucose 127 H POC Glucose 125 H 123 H Estimat Average Glucose 160 Hemoglobin A1c 7.2 H Calcium 8.7 Magnesium Total Bilirubin AST ALT Alkaline Phosphatase Troponin I High Sens C-Reactive Protein Total Protein Albumin Globulin Albumin/Globulin Ratio Vitamin B12 151 L Procalcitonin Urine Color Urine Appearance Urine pH Ur Specific [place] Urine Protein Urine Glucose (UA) Urine Ketones Urine Blood Urine Nitrite Urine Bilirubin Urine Urobilinogen Ur Leukocyte Esterase Urine WBC (Auto) Urine RBC (Auto) U Hyaline Cast (Auto) U Epithel Cells (Auto) Urine Bacteria (Auto) Urine Comment Ethyl Alcohol mg/dL Adenovirus (PCR) B. pertussis DNA (PCR) B.parapertussis DNA PCR C. pneumoniae DNA (PCR) Coronavirus OC43 (PCR) Coronavirus HKU1 (PCR) Coronavirus 229E (PCR) SARS-CoV-2 (PCR) Coronavirus NL63 (PCR) Human Metapneumovir PCR Influenza Type A (PCR) Influenza Type B (PCR) M. pneumoniae (PCR) Parainfluenza 1 (PCR) Parainfluenza 2 (PCR) Parainfluenza 3 (PCR) Parainfluenza 4 (PCR) RSV (PCR) Entero/Rhino (PCR) Diagnostic Findings Chest X-Ray 10/01/25 15:35 Technique: A frontal view of the chest was obtained Comparison is made the prior examination dated 04/10/2025 Findings: Again seen are multifocal interstitial opacities throughout both lungs. The heart size is within normal limits. No pleural effusion or pneumothorax is seen. There is no definite pulmonary nodule. No fracture is noted. There is thoracic degenerative disc disease. There is a device projecting over the left heart Impression: Persistent multifocal interstitial opacities throughout both lungs, which could be due to chronic interstitial lung disease. A follow-up chest CT could be considered ACT 112: Positive. There are findings on this exam that require communication between the performing entity and the patient following Patient Test Result Information Act ([place] ACT 112) guidelines. Electronically signed by Yanick Mohan 10-01-2025 4:[address] 10/01/25 15:43 EXAM: CT Head Without Intravenous Contrast INDICATION: Syncope. Fall. TECHNIQUE: Axial computed tomography images of the head/brain without intravenous contrast. Sagittal and/or coronal reformats are provided. Sagittal and coronal reformatted images were created and reviewed. This CT exam was performed using one or more of the following dose reduction techniques: automated exposure control, adjustment of the mA and/or kV according to patient size, and/or use of iterative reconstruction technique. COMPARISON: 12/26/2022 FINDINGS: Limitations: None. Brain and extra-axial spaces: There is age appropriate cortical atrophy and chronic ischemic periventricular white matter hypodensity. No acute infarct, hemorrhage or mass noted. Bones/joints: No acute changes. Soft tissues: No acute abnormality noted. Vasculature: No acute abnormality noted. Sinuses: Moderate chronic right maxillary sinus thickening noted. Mastoid air cells: No mastoid effusion. Orbits: No acute abnormality noted. IMPRESSION: 1. Cerebral atrophy. No acute changes. 2. Chronic right maxillary sinusitis. ACT 112: N/A Electronically signed by Bailee Slater 10-01-2025 4:30 PM Knee X-Ray 10/01/25 15:43 Clinical History: Trauma 3 views of the right knee are submitted for review. Findings: No fracture or dislocation is seen. There is joint space narrowing and osteophyte formation in all 3 compartments. No other osseous abnormality is identified. There are no radiopaque foreign bodies. Impression: Severe right knee osteoarthritis Electronically signed by Yanick Mohan 10-01-2025 4:[address] 10/01/25 16:48 Clinical history: Possible tibial plateau fracture Technique: Axial computed tomography images were obtained of the right knee without intravenous contrast. Sagittal and coronal reconstructions were obtained Findings: There is an acute nondisplaced fracture of the medial margin of the medial femoral condyle. No subluxation or dislocation is seen. There is severe tricompartmental osteoarthritis. There are joint bodies posteriorly. No focal osseous lesion is evident There is a large knee effusion The visualized musculature appears unremarkable. No soft tissue mass or fluid collection is seen. No foreign body is evident Impression: 1. Acute nondisplaced fracture of the medial margin of the medial femoral condyle 2. Severe osteoarthritis 3. Large right knee effusion with joint bodies ACT 112: Positive. There are findings on this exam that require communication between the performing entity and the patient following Patient Test Result Information Act ([place] ACT 112) guidelines. Electronically signed by Yanick Mohan 10-01-2025 6:47 PM PG Care Time/CCT Total # of Minutes Spent Total Time Spent with Patient: Total time spent is greater than 50% in coordination of care (as documented) at patient's floor/unit and/or counseling patient: Coding Level of Care Code 66782 SUB INP/OBS CARE 3/50MIN Diagnoses Orthostatic hypotension I95.1 Syncope R55 Fracture of condyle of right femur S72.411A CUBA (acute kidney injury) N17.9 Hemarthrosis, right knee M25.061 B12 deficiency E53.8 Current smoker F17.200 COPD with emphysema J43.9 Combined pulmonary fibrosis and emphysema (CPFE) J43.9; J84.10 Diabetes mellitus E11.9 Chronic kidney disease, stage 3 (moderate) N18.3 Gastroesophageal reflux disease K21.9 Atherosclerosis of [place] coronary artery without angina pectoris I25.10 Dyslipidemia E78.5
[2025-10-02] MEDS: LANTUS PER UNIT CHARGE SC SCH (20:46)
--- NOTE | 2025-10-03 07:32 | Orthopedic Progress Note ---
Date of Service October 03, 2025 Assessment & Plan (1) Hemarthrosis, right knee: Plan: Radiologic imaging shows an avulsion fracture along the osteophytes from his medial femoral condyle. Continue pain control. Weightbearing as tolerated with walker assistance. RICE Immobilizer for no more than 1 week. May remove compressive wrap, replace as needed (2) Osteoarthritis of right knee: Plan: Patient states that he is currently undergoing stress testing for clearance to have his right knee replaced. He states that he has met with Dr. Howell who advised him that he would need cardiac clearance before we could proceed with the total joint arthroplasty. WBAT PT/OT Continue care per primary service. Patient was admitted by the medicine service for his syncopal episode. Will continue to follow him while he is in house. Will f/u with Dr. Howell as an outpatient Admission and Anticipated Discharge Date Admission Date: October 01, 2025 Subjective Feeling much better in immobilizer Physical Exam Physical Exam: RLE: Neurovascularly unchanged. Dressing clean, dry, intact. Immobilizer in place. Results & Data Vital Signs (Past 12 Hours) Vital Signs Temp Pulse Pulse Resp BP Pulse Ox O2 Del Method 10/03/25 03:05 36.4 C L 73 20 117/72 93 Room Air 10/02/25 22:48 36.6 C 80 20 99/65 L 92 Room Air 10/02/25 22:26 81 10/02/25 19:33 36.5 C 91 H 18 128/78 93 Room Air
--- NOTE | 2025-10-03 08:22 | Hospitalist Progress Note ---
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 Presented after having had a ground level fall and episode of syncope on 09/30/25. Prior to the event had prodromal dizziness/lightheadedness. Right knee took the brunt of the fall. In the ER orthostatics markedly + with standing systolic BP of about 70-75. ##Syncope - -this episode was due to orthostatic hypotension -loop recorder - placed by Dr. Arshad on 09/03/25 - was interrogated today and did NOT show any arrhythmia on the day of his event -recent echo 07/27/25 with LVEF 60-65% and no significant valvular pathology -s/p IV fluids overnight and orthostatics with noted improvement -decrease in Amlodipine from 10mg->2.5mg daily ##Orthostatic hypotension - -lisinopril on hold -reduce dose of amlodipine to 2.5mg daily (from 10mg daily) -can continue low-dose metoprolol tartrate 12.5mg BID -orthostatics with improvement ##Leukocystosis - -no evidence of any infectious process -resp biofire negative -may be 2nd to trauma from his fall and right knee injury -afebrile since admission ##Hemiarthrosis right knee and nondisplaced fracture of right femoral medial condyle - -s/p arthrocentesis with copious bloody fluid aspirated -knee pain worse today -cont AVA -cont ice prn -cont tylenol prn -one time dose of Morphine 2mg X 1, d/c [place], add Oxycodone IR 5mg for mild/mod pain, Oxycodone IR 10mg for severe pain -appreciate ortho consult & management -for right femoral condyle fracture: -WBAT in knee immobilizer -PT/OT -Vit D level 27->add Vit D supplementation ##CUBA/CKD - -Cr 1.65 upon presentation, Cr 1.18 -s/p bolus of fluids in ER followed by maintenance fluids with correction ##T2DM - -a1c 7.2% -Hold Metformin -BSG ACHS -pharmacy glycemic team consulted for mgmt ##COPD/emphysema/ILD - -cxr at admission -- persistent multifocal interstitial opacities d/t chronic interstitial lung disease with f/u CT chest recommended -CT of chest 04/10/25 with stable chronic lung disease, mildly progressive mediastinal lymphadenopathy, suggestion for follow up CT in 3-6 mths -should have repeat CT and repeat PFTs 10/2025 -follows with [facility] [place] pulmonology -- Dr Elisa Frye; next appt with him is scheduled for Nov 2025 -Albuterol HFA prn -Duoneb Q6H prn SOB/wheezing ##Nicotene dependency with greater than 42-[id number]-[id number] hx/ETOH dependency - -ETOH level negative -ETOH withdrawal protocol/RASS Q2H -Thiamine 100mg po daily -Nicotine patch ##B12 deficiency - -level - 151 -given his gait issues/falls/etc replace parenterally -vitamin B12 1000mcg daily x 5 days -folate replacement as well ##CAD, history of ANDREINA to RCA 2016 - -Stress echo 2021 negative for ischemia -Continue metoprolol, Plavix, statin -scheduled for stress test in October (10/16/25 - lexiscan??) ##Depression/anxiety -cont amitriptyline -cont seroquel ##GERD -cont PPI BID ##DVT proph - -heparin [place] Disposition: Continued stay pending transfer to rehab Spoke with daughters to update plan as patient having more pain r/t right knee fracture with transfer to rehab being most reasonable and safest option as patient does live alone, patient is agreeable to transfer to rehab as daughters are willing to watch patient's dog. Will update CM. Admission and Anticipated Discharge Date Admission Date: October 01, 2025 Subjective Reports worsening right knee pain this am. Would like to go home. States he needs to get home to his dog. Eating and drinking well. No additional orthostatic changes in BP with decrease in Amlodipine and appropriate oral hydration. Review of Systems Review of Systems: All systems reviewed & are unremarkable except as noted in Subjective Physical Exam Physical Exam: GENERAL APPEARANCE: A&O. Sitting comfortably in bed. NAD. SKIN: Normal color without rashes or lesions. Normal turgor. HEENT: Head AT/NC. Buccal mucosa is moist and pink. NECK: No jugular venous distention. No thyroid enlargement. There is no lymphadenopathy. HEART: RRR without m/g/r. LUNGS: Normal inspiratory effort. CTA in all [place]. ABDOMEN: No guarding or rigidity. Normoactive BS in all four quadrants. Abdomen soft and NT. MSK: No bony gross/deformities throughout. ROM intact. EXTREMITIES: No edema, No peripheral cyanosis. Right knee with brace present. Reproducible pain to distal patella with flexion and extension. +right pedal pulses. Neuro: CN 2-12 grossly intact. No focal neuro deficits PSYCHIATRIC: Normal affect. Eye contact is good. Speech is normal rate and content. Responses are appropriate. Results & Data Results & Data Vital Signs (Past 12 Hours) Vital Signs Temp Pulse Pulse Resp BP Pulse Ox O2 Del Method 10/03/25 03:05 36.4 C L 73 20 117/72 93 Room Air 10/02/25 22:48 36.6 C 80 20 99/65 L 92 Room Air 10/02/25 22:26 81 Laboratory Results Labs reviewed: BMP, Vitamin D level PG Care Time/CCT Total # of Minutes Spent Total Time Spent with Patient: Total time spent is greater than 50% in coordination of care (as documented) at patient's floor/unit and/or counseling patient: Coding Level of Care Code 08392 SUB INP/OBS CARE 2/35MIN Diagnoses Orthostatic hypotension I95.1 Syncope R55 Fracture of condyle of right femur S72.411A CUBA (acute kidney injury) N17.9 Hemarthrosis, right knee M25.061 B12 deficiency E53.8 Current smoker F17.200 COPD with emphysema J43.9 Combined pulmonary fibrosis and emphysema (CPFE) J43.9; J84.10 Diabetes mellitus E11.9 Chronic kidney disease, stage 3 (moderate) N18.3 Gastroesophageal reflux disease K21.9 Atherosclerosis of [place] coronary artery without angina pectoris I25.10 Dyslipidemia E78.5
[2025-10-03 08:48] LABS: Anion Gap 5.0 (3-11); Blood Urea Nitrogen 19.0 mg/dl (6-23); Calcium 9.2 mg/dl (8.6-10.3); Carbon Dioxide 30.0 mmol/L (21-32); Chloride 101.0 mmol/L (98-107); Creatinine Clr Calc Pharmacy 65.7 ml/min; Glucose 131.0 mg/dl (70-99(Fasting)); Potassium 4.7 mmol/L (3.5-5.1); Sodium 136.0 mmol/L (136-145)
[2025-10-03] MEDS: MoRPHine SULFATE 2 MG/ML CARP IV STA (12:39)
[2025-10-04 07:45] LABS: Anion Gap 7.0 (3-11); Blood Urea Nitrogen 20.0 mg/dl (6-23); Calcium 9.0 mg/dl (8.6-10.3); Carbon Dioxide 27.0 mmol/L (21-32); Chloride 100.0 mmol/L (98-107); Creatinine Clr Calc Pharmacy 68.3 ml/min; Glucose 124.0 mg/dl (70-99(Fasting)); Potassium 4.3 mmol/L (3.5-5.1); Sodium 134.0 mmol/L (136-145)
[2025-10-04] MEDS: CHOLECALCIFEROL 25 MCG (1000 UNITS) TAB PO SCH (09:05)
--- NOTE | 2025-10-04 09:19 | Hospitalist Progress Note ---
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 Presented after having had a ground level fall and episode of syncope on 09/30/25. Prior to the event had prodromal dizziness/lightheadedness. Right knee took the brunt of the fall. In the ER orthostatics markedly + with standing systolic BP of about 70-75. ##Syncope - -this episode was due to orthostatic hypotension, received IVF bolus in setting or orthostatic BP changes in ED and has been without since -loop recorder - placed by Dr. Arshad on 09/03/25 - was interrogated today and did NOT show any arrhythmia on the day of his event -recent echo 07/27/25 with LVEF 60-65% and no significant valvular pathology -decrease in Amlodipine from 10mg->2.5mg daily -fasting am cortisol 8.37 ##Orthostatic hypotension - -lisinopril on hold -reduce dose of amlodipine to 2.5mg daily (from 10mg daily) -can continue low-dose metoprolol tartrate 12.5mg BID -orthostatics with improvement ##Leukocystosis - -no evidence of any infectious process -resp biofire negative -may be 2nd to trauma from his fall and right knee injury -afebrile since admission ##Hemiarthrosis right knee and nondisplaced fracture of right femoral medial condyle - -s/p arthrocentesis with copious bloody fluid aspirated -knee pain worse today -cont AVA -cont ice prn -cont tylenol prn -Oxycodone IR 5mg for mild/mod pain, Oxycodone IR 10mg for severe pain -appreciate ortho consult & management -for right femoral condyle fracture: WBAT in knee immobilizer -PT/OT -Vit D 27.0, added Vit D supplement ##CUBA/CKD (resolved) -Cr 1.65 upon presentation s/p IVF replacement-->Cr 1.18 ##T2DM - -a1c 7.2% -Hold Metformin -BSG ACHS -pharmacy glycemic team consulted for mgmt ##COPD/emphysema/ILD - -cxr at admission -- persistent multifocal interstitial opacities d/t chronic interstitial lung disease with f/u CT chest recommended -CT of chest 04/10/25 with stable chronic lung disease, mildly progressive mediastinal lymphadenopathy, suggestion for follow up CT in 3-6 mths -should have repeat CT and repeat PFTs 10/2025 -follows with [facility] [place] pulmonology -- Dr Elisa Frye; next appt with him is scheduled for Nov 2025 -Albuterol HFA prn -Duoneb Q6H prn SOB/wheezing ##Nicotene dependency with greater than 71-kyoc-uhbm hx/ETOH dependency - -ETOH level negative -ETOH withdrawal protocol/RASS Q2H -Thiamine 100mg po daily -Nicotine patch ##B12 deficiency - -level - 151 -given his gait issues/falls/etc replace parenterally -vitamin B12 1000mcg daily x 5 days -folate supplementation ##CAD, history of ANDREINA to RCA 2016 - -Stress echo 2021 negative for ischemia -Continue metoprolol, Plavix, statin -scheduled for stress test in October (10/16/25 - lexiscan??) ##Depression/anxiety -cont amitriptyline -cont seroquel ##GERD -cont PPI BID ##DVT proph - -heparin SC Disposition: Continued stay pending transfer to rehab. Case management updated regarding discharge disposition and his willingness to now go to SNF for rehabilitation versus home with home health PT. Probable d/c 10/05/25. Spoke with daughter, Heavenly, again regarding patient disposition. She is agreeable to watching patient's dog so he can be transferred to rehab upon discharge. Admission and Anticipated Discharge Date Admission Date: October 01, 2025 Subjective Reports he is doing well on current Oxycodone regimen for right knee pain. Spoke with case management this morning and stated that he wanted to go home with home health services. After correspondence with daughter revealed that he was willing now to go to rehab due to his right knee fracture and need for continued rehabilitation. Patient has concerns related to arrangements and having his dog cared for. Daughter willing to take care of dog so patient can go to rehab short-term with transition back to home. Review of Systems Review of Systems: All systems reviewed & are unremarkable except as noted in Subjective Physical Exam Physical Exam: GENERAL APPEARANCE: A&O. Sitting up in chair. NAD. SKIN: Normal color without rashes or lesions. Normal turgor. HEENT: Head AT/NC. Buccal mucosa is moist and pink. NECK: No jugular venous distention. No thyroid enlargement. There is no lymphadenopathy. HEART: RRR without m/g/r LUNGS: Normal inspiratory effort. CTA without w/r/r ABDOMEN: No guarding or rigidity. Normoactive BS in all four quadrants. Abdomen soft and NT. MSK: No bony gross/deformities throughout. ROM intact. EXTREMITIES: No edema, No peripheral cyanosis. right knee with brace present. Neuro: CN 2-12 grossly intact. No focal neuro deficits. PSYCHIATRIC: Normal affect. Eye contact is good. Speech is normal rate and content. Responses are appropriate. Results & Data Results & Data Vital Signs (Past 12 Hours) Vital Signs Temp Pulse Pulse Resp BP Pulse Ox O2 Del Method 10/04/25 08:09 36.7 C 76 16 119/65 90 Room Air 10/04/25 05:51 76 10/04/25 02:46 36.6 C 75 18 116/70 92 Room Air 10/03/25 22:38 36.7 C 84 18 116/72 90 Room Air 10/03/25 22:17 81 Laboratory Results Labs reviewed: Cortisol PG Care Time/CCT Total # of Minutes Spent Total Time Spent with Patient: Total time spent is greater than 50% in coordination of care (as documented) at patient's floor/unit and/or counseling patient: Coding Level of Care Code 28925 SUB INP/OBS CARE 2/35MIN Diagnoses Orthostatic hypotension I95.1 Syncope R55 Fracture of condyle of right femur S72.411A CUBA (acute kidney injury) N17.9 Hemarthrosis, right knee M25.061 B12 deficiency E53.8 Current smoker F17.200 COPD with emphysema J43.9 Combined pulmonary fibrosis and emphysema (CPFE) J43.9; J84.10 Diabetes mellitus E11.9 Chronic kidney disease, stage 3 (moderate) N18.3 Gastroesophageal reflux disease K21.9 Atherosclerosis of [place] coronary artery without angina pectoris I25.10 Dyslipidemia E78.5
--- NOTE | 2025-10-04 09:32 | Orthopedic Progress Note ---
Date of Service October 04, 2025 Assessment & Plan (1) Osteoarthritis of right knee: Plan: Patient has DJD of his right knee. He also had a avulsion injury of the medial femoral condyle osteophyte. This explains his hemarthrosis that was aspirated. Patient states that he is currently undergoing stress testing for clearance to have his right knee replaced. He states that he has met with Dr. Howell who advised him that he would need cardiac clearance before we could proceed with the total joint arthroplasty. WBAT PT/OT Continue knee immobilizer when out of bed. Continue care per primary service. Patient was admitted by the medicine service for his syncopal episode. Will continue to follow him while he is in house. Will f/u with Dr. Howell as an outpatient. Admission and Anticipated Discharge Date Admission Date: October 01, 2025 Subjective Patient is sitting up in his chair. States that today his knee feels better. It continues to be a little painful but the brace is helping. Denies any new injuries or issues with the right knee. Physical Exam Musculoskeletal: Exam of his right lower extremity: The knee immobilizer is in place. No distal edema. Sal bandages in place underneath the immobilizer. Results & Data Vital Signs (Past 12 Hours) Vital Signs Temp Pulse Pulse Resp BP Pulse Ox O2 Del Method 10/04/25 09:24 Room Air 10/04/25 08:09 36.7 C 76 16 119/65 90 Room Air 10/04/25 05:51 76 10/04/25 02:46 36.6 C 75 18 116/70 92 Room Air 10/03/25 22:38 36.7 C 84 18 116/72 90 Room Air 10/03/25 22:17 81 Laboratory Results 10/04/25 10/04/25 10/03/25 Range/Units 07:54 07:10 20:11 Sodium 134 L (136-145) mmol/L Potassium 4.3 (3.5-5.1) mmol/L Chloride 100 (98-107) mmol/L Carbon Dioxide 27 (21-32) mmol/L Anion Gap 7 (3-11) BUN 20 (6-23) mg/dl Creatinine 1.14 (0.6-1.4) mg/dl Est Cr Clr Drug Dosing 68.3 ml/min eGFR 68.33 BUN/Creatinine Ratio 17.5 (10-20) Glucose 124 H (70-99(Fasting)) mg/dl POC Glucose 110 H 137 H (70-99) mg/dl Calcium 9.0 (8.6-10.3) mg/dl Cortisol AM Sample 8.37 (6.2-22.6) mcg/dl 10/03/25 10/03/25 Range/Units 16:50 12:05 Sodium (136-145) mmol/L Potassium (3.5-5.1) mmol/L Chloride (98-107) mmol/L Carbon Dioxide (21-32) mmol/L Anion Gap (3-11) BUN (6-23) mg/dl Creatinine (0.6-1.4) mg/dl Est Cr Clr Drug Dosing ml/min eGFR BUN/Creatinine Ratio (10-20) Glucose (70-99(Fasting)) mg/dl POC Glucose 136 H 110 H (70-99) mg/dl Calcium (8.6-10.3) mg/dl Cortisol AM Sample (6.2-22.6) mcg/dl
[2025-10-05] MEDS: LIDOCAINE 4% CREAM 15 GM TUBE EXT ONE (06:25)
--- NOTE | 2025-10-05 08:24 | Pharmacy Report ---
Pharmacy Glycemic Sign Off Nt - Date of Service October 05, 2025 - Assessment & Plan ASSESSMENT: * Pharmacy was consulted by PAUL Beckman on 10/01/25 for glycemic control and to write orders per [facility] inpatient glycemic control protocol. * Major changes made by pharmacy to antidiabetic regimen include: * Addition of Novolog * Patient has been receiving/requiring 6 units of insulin per day for adequate glycemic control * BSGs ranging 92-154 mg/dl * Regimen has not required any adjustments over the past 48hrs to achieve this level of control * Do not anticipate further changes in patient status that would quickly deteriorate glycemic control (i.e. patient to be NPO for upcoming procedure, steroids tapering, starting tube feedings, etc). PLAN FOR INPATIENT GLYCEMIC CONTROL: No changes needed to current regimen. * Hold basal insulin * Continue NovoLog per scale ACHS/Q6hrs while NPO * Goal range = 120-160 mg/dl * CF = 30 mg/dl/unit * CR = 1 unit for ever 10 g CHO consumed * Pharmacy is signing off of glycemic consult and will no longer be making adjustments to inpatient regimen. Please feel free to re-consult if needed. Thank you.
[2025-10-05] MEDS: LIDOCAINE 2% JELLY 5 ML TUBE EXT STA (10:16)
[2025-10-05] MEDS: LIDOCAINE 2% JELLY 5 ML TUBE EXT ONE (10:36)
--- NOTE | 2025-10-05 12:09 | Orthopedic Progress Note ---
Date of Service October 05, 2025 Assessment & Plan (1) Osteoarthritis of right knee: Plan: Patient has DJD of his right knee. He also had an avulsion injury of the medial femoral condyle osteophyte. Sal wrap rewrapped today for compression and comfort under knee immobilizer Patient states that he is currently undergoing stress testing for clearance to have his right knee replaced. He was scheduled with Dr Jimenez to undergo a knee replacement but took his blood thinner in the morning and had to cancel WBAT PT/OT Continue knee immobilizer when out of bed. Continue care per primary service. Will continue to follow him while he is in house Follow up in [address] More Admission and Anticipated Discharge Date Admission Date: October 01, 2025 Subjective Reports he is doing well on current Oxycodone regimen for right knee pain. He will be going home with Home health, case management managing. He has been able to get up and move with his knee immobilizer on. He says it is sore but he is able to do it. Physical Exam Physical Exam: Patient's knee immobilizer and sal wrap was taken down. Patients skin was indented where the sal wrap was otherwise no breaks in the skin. Patient had full range of motion of his ankle with DF/PF with resistance 4/5. Calf soft and non tender. Quad set in tact. Results & Data Vital Signs (Past 12 Hours) Vital Signs Temp Pulse Pulse Resp BP Pulse Ox O2 Del Method 10/05/25 10:39 84 10/05/25 08:48 36.6 C 72 19 130/66 91 Room Air 10/05/25 02:51 36.5 C 80 20 137/76 93 Room Air
--- NOTE | 2025-10-05 14:58 | Hospitalist Progress Note ---
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 Presented after having had a ground level fall and episode of syncope on 09/30/25. Prior to the event had prodromal dizziness/lightheadedness. Right knee took the brunt of the fall. In the ER orthostatics markedly + with standing systolic BP of about 70-75. #Orthostatic hypotension (improving) Lisinopril remains on hold Reduced dose of amlodipine to 2.5mg daily (from 10mg daily) Continue low-dose metoprolol tartrate 12.5mg BID Orthostatics improving each day: On arrival on 10/01: 112/76 (lying) 83/55 (sitting) 74/50 (standing) On 10/05: 139/85 (lying) 123/74 (sitting) 107/66 (standing) #Syncope Thought to be due to orthostatic hypotension Received IVF bolus in setting or orthostatic BP changes in ED and has been without since Loop recorder - placed by Dr. Arshad on 09/03/25 - was interrogated today and did NOT show any arrhythmia on the day of his event Recent echo 07/27/25 with LVEF 60-65% and no significant valvular pathology Decrease in Amlodipine from 10mg->2.5mg daily Fasting am cortisol 8.37 #Hemiarthrosis right knee and nondisplaced fracture of right femoral medial condyle - S/p arthrocentesis with copious bloody fluid aspirated Knee pain worse today Cont AVA Cont ice prn Cont tylenol prn Oxycodone IR 5mg for mild/mod pain, Oxycodone IR 10mg for severe pain Appreciate ortho consult & management For right femoral condyle fracture: WBAT in knee immobilizer PT/OT consults abreciated Vit D 27.0, added Vit D supplement #T2DM A1c 7.2% Hold metformin [facility] Pharmacy glycemic team consulted for mgmt #COPD | emphysema | ILD - CXR at admission -- persistent multifocal interstitial opacities d/t chronic interstitial lung disease with f/u CT chest recommended CT of chest 04/10/25 with stable chronic lung disease, mildly progressive mediastinal lymphadenopathy, suggestion for follow up CT in 3-6 mths -should have repeat CT and repeat PFTs 10/2025 Follows with [facility] [place] [place] pulmonology -- Dr Elisa Frye; next appt with him is scheduled for Nov 2025 Albuterol HFA prn Duoneb Q6H prn SOB/wheezing #Nicotene dependency with greater than 70-gobc-edme hx/ETOH dependency - ETOH level negative ETOH withdrawal protocol/RASS Q2H Thiamine 100mg po daily Nicotine patch #B12 deficiency Level - 151 Given his gait issues/falls/etc replace parenterally -vitamin B12 1000mcg IM daily x 5 days Folate supplementation #CAD, history of ANDREINA to RCA 2016 - Stress echo 2021 negative for ischemia Continue metoprolol, Plavix, statin Scheduled for stress test in October (10/16/25 - lexiscan??) #Depression/anxiety Cont amitriptyline Cont seroquel #GERD Cont PPI BID #DVT proph Heparin SC Disposition: Continued stay pending transfer to rehab. Case management updated regarding discharge disposition and his willingness to now go to SNF for rehabilitation versus home with home health PT Medically stable for d/c on 10/05 Awaiting insurance auth Spoke with daughter, Heavenly, again regarding patient disposition. She is agreeable to watching patient's dog so he can be transferred to rehab upon discharge. Admission and Anticipated Discharge Date Admission Date: October 01, 2025 Supervising Physician Co-Signing Physician Notes I did not see or examine the patient. I verified all roberson points and agree with Diego Grant PA-C with the following exceptions and/or additions: None Subjective Mr. Lewis still having 8 out of 10 pain in his right knee this morning. He reports it is intermittent, but gets worse at times. Worse when bearing weight. While initially he reports that his lightheadedness has improved when standing, he stands at bedside and reports that he feels dizzy. His only other complaint is productive cough. After working with PT this morning, he reports his oxygen dropped to 79% when walking. Patient reports he does have supplemental oxygen at home, but is unsure if he needs to use it. Last BM yesterday. No recent change in diet. Patient appears amenable to both home health or rehab as needed. ROS: Patient endorses productive cough, dizziness/lightheadedness with standing, abdominal cramping, right knee pain, and numbness and tingling going down the right leg into the foot. Patient denies fevers, headache, hemoptysis, chest pain, SOB at rest, TOVAR, chest palpitations, abdominal pain, N/V/D, or lower back pain. Review of Systems Review of Systems: See HPI above Physical Exam Physical Exam: General: no acute distress; pleasant affect; assessed with PT at bedside; non- toxic appearing; cooperative; SpO2 93% on RA HEENT: normocephalic, atraumatic; PERRLA; vision and hearing intact Neck: supple; trachea midline Skin: warm, dry without signs of tenting; no cyanosis; no rashes, bruising, lesions, or erythema noted CV: chest wall NTP; RRR; S1/S2 normal; no murmurs/rubs/gallops; pulses intact and symmetric at radial, DP, and PT Lungs: no acute respiratory distress; symmetrical chest wall expansion; clear breath sounds across all lung [place] w/o adventitious sounds; no wheezing ABD: Soft, NTP; BS present; no rebound/guarding; no distention MSK: no tics or fasciculations; no edema noted in the LEs b/l, nonerythematous; right knee brace present Neuro: A&Ox3; normal mood and affect; fluent speech; sensation intact and symmetric in the LEs b/l Patient does exhibit drop in SpO2 to around 89-90% when standing at the side of the bed; he does appear unsteady on his feet Results & Data Results & Data Vital Signs (Past 12 Hours) Vital Signs Temp Pulse Pulse Resp BP Pulse Ox O2 Del Method 10/05/25 14:13 88 10/05/25 12:07 36.8 C 87 20 142/72 H 91 Room Air 10/05/25 10:39 84 10/05/25 08:48 36.6 C 72 19 130/66 91 Room Air PG Care Time/CCT Total # of Minutes Spent Total Time Spent with Patient: Total time spent is greater than 50% in coordination of care (as documented) at patient's floor/unit and/or counseling patient: Coding [place] [address] SUB INP/OBS CARE 3/50MIN Patient Type Established Medical Decision Making High Complexity Diagnoses Orthostatic hypotension I95.1 Syncope R55 Fracture of condyle of right femur S72.411A CUBA (acute kidney injury) N17.9 Hemarthrosis, right knee M25.061 B12 deficiency E53.8 Current smoker F17.200 COPD with emphysema J43.9 Combined pulmonary fibrosis and emphysema (CPFE) J43.9; J84.10 Diabetes mellitus E11.9 Chronic kidney disease, stage 3 (moderate) N18.3 Gastroesophageal reflux disease K21.9 Atherosclerosis of [place] coronary artery without angina pectoris I25.10 Dyslipidemia E78.5"
[2025-10-06] MEDS: FOLIC ACID 1 MG TAB PO SCH (08:05)
[2025-10-06 09:05] LABS: Hematocrit (blood only) 36.6 % (42.0-52.0); Hemoglobin 12.2 g/dL (14.0-18.0); Immature Granulocytes # (auto) 0.02 K/uL (0.01-0.20); Immature Granulocytes % (auto) 0.3 %; Mean Corpuscular Hemoglobin 28.7 pg (25.0-34.0); Mean Corpuscular Volume 86.1 fL (80.0-100.0); Platelet Count 310 K/uL (130-400); RDW Standard Deviation 42.5 fL (36.4-46.3); Red Blood Count 4.25 M/uL (4.70-6.10); White Blood Count 7.25 K/ul (4.8-10.8)
[2025-10-06 09:23] LABS: Anion Gap 7.0 (3-11); Blood Urea Nitrogen 17.0 mg/dl (6-23); Calcium 9.0 mg/dl (8.6-10.3); Carbon Dioxide 28.0 mmol/L (21-32); Chloride 99.0 mmol/L (98-107); Creatinine Clr Calc Pharmacy 63.8 ml/min; Glucose 123.0 mg/dl (70-99(Fasting)); Potassium 4.2 mmol/L (3.5-5.1); Sodium 134.0 mmol/L (136-145)
--- NOTE | 2025-10-06 10:47 | Orthopedic Progress Note ---
Date of Service October 06, 2025 Assessment & Plan (1) Osteoarthritis of right knee: Plan: Patient has DJD of his right knee. He also had an avulsion injury of the medial femoral condyle osteophyte. Sal wrap rewrapped today for compression and comfort under knee immobilizer Patient states that he is currently undergoing stress testing for clearance to have his right knee replaced. He was scheduled with Dr Jimenez to undergo a knee replacement but took his blood thinner in the morning and had to cancel WBAT PT/OT Continue knee immobilizer when out of bed. Continue care per primary service. Will continue to follow him while he is in house Follow up in [address] More Admission and Anticipated Discharge Date Admission Date: October 01, 2025 Subjective This 70-year-old male was seen today for follow-up of a right knee hemarthrosis. He states that the fluid is not reaccumulated. He is still having medial and lateral sided knee pain. States that he has been able to get up and move around with the immobilizer in place. Currently he denies chest pain, shortness of breath, fever, chills, sweats, nausea, vomiting, diarrhea or numbness or tingling in the right lower extremity. Review of Systems Review of Systems: All systems reviewed & are unremarkable except as noted in Subjective Physical Exam Physical Exam: Right knee: Active knee range of motion is from 10 degrees of extension to about 95 degrees of flexion. He has a trace effusion noted over the anterior aspect of the knee with tenderness to palpation over the medial and lateral joint space. He is able to perform active straight leg raise test. Quad strength is 4 out of 5. He is able to actively dorsi and plantarflex foot. His peripheral pulses are 2+. He is able to detect light sensation intact over the pads of all digits. Patient has no significant laxity with varus or valgus stressing. He does have visible varus malalignment. Results & Data Vital Signs (Past 12 Hours) Vital Signs Temp Pulse Resp BP Pulse Ox O2 Del Method 10/06/25 10:00 Room Air 10/06/25 07:26 36.6 C 79 20 166/97 H 92 Room Air 10/06/25 04:00 36.4 C L 64 18 127/63 91 Room Air 10/05/25 23:34 36.8 C 85 18 120/68 92 Room Air Diagnostic Findings Laboratory Results WBC 7.25 K/ul (4.8-10.8) 10/06/25 08:38 RBC 4.25 M/uL (4.70-6.10) L 10/06/25 08:38 Hgb 12.2 g/dL (14.0-18.0) L 10/06/25 08:38 Hct 36.6 % (42.0-52.0) L 10/06/25 08:38 MCV 86.1 fL (80.0-100.0) 10/06/25 08:38 MCH 28.7 pg (25.0-34.0) 10/06/25 08:38 MCHC 33.3 g/dL (32.0-36.0) 10/06/25 08:38 RDW Std Deviation 42.5 fL (36.4-46.3) 10/06/25 08:38 RDW Coeff of Huber 13.6 % (11.5-14.5) 10/06/25 08:38 Plt Count 310 K/uL (130-400) 10/06/25 08:38 MPV 9.7 fL (9.4-12.4) 10/06/25 08:38 Immature Gran % (Auto) 0.3 % 10/06/25 08:38 Neut % (Auto) 61.5 % 10/06/25 08:38 Lymph % (Auto) 18.3 % 10/06/25 08:38 [place] % (Auto) 15.0 % 10/06/25 08:38 Eos % (Auto) 4.3 % 10/06/25 08:38 Baso % (Auto) 0.6 % 10/06/25 08:38 Neut # (Auto) 4.46 K/uL (1.40-6.50) 10/06/25 08:38 Lymph # (Auto) 1.33 K/uL (1.20-3.40) 10/06/25 08:38 [place] # (Auto) 1.09 K/uL (0.11-0.59) H 10/06/25 08:38 Eos # (Auto) 0.31 K/uL (0.00-0.50) 10/06/25 08:38 Baso # (Auto) 0.04 K/uL (0.00-0.20) 10/06/25 08:38 Immature Gran # (Auto) 0.02 K/uL (0.01-0.20) 10/06/25 08:38 Sodium 134 mmol/L (136-145) L 10/06/25 08:38 Potassium 4.2 mmol/L (3.5-5.1) 10/06/25 08:38 Chloride 99 mmol/L (98-107) 10/06/25 08:38 Carbon Dioxide 28 mmol/L (21-32) 10/06/25 08:38 Anion Gap 7 (3-11) 10/06/25 08:38 BUN 17 mg/dl (6-23) 10/06/25 08:38 Creatinine 1.21 mg/dl (0.6-1.4) 10/06/25 08:38 Est Cr Clr Drug Dosing 63.8 ml/min 10/06/25 08:38 eGFR 63.62 10/06/25 08:38 BUN/Creatinine Ratio 14.0 (10-20) 10/06/25 08:38 Glucose 123 mg/dl (70-99(Fasting)) H 10/06/25 08:38 POC Glucose 116 mg/dl (70-99) H 10/06/25 07:54 Estimat Average Glucose 160 mg/dl 10/02/25 05:32 Hemoglobin A1c 7.2 % (4.5-5.6) H 10/02/25 05:32 Calcium 9.0 mg/dl (8.6-10.3) 10/06/25 08:38 Magnesium 2.0 mg/dl (1.7-2.4) 10/01/25 15:58 Total Bilirubin 0.3 mg/dl (0.2-1.0) 10/01/25 15:58 AST 19 U/L (13-39) 10/01/25 15:58 ALT 12 U/L (7-52) 10/01/25 15:58 Alkaline Phosphatase 58 U/L (34-104) 10/01/25 15:58 Troponin I High Sens 5.9 pg/ml (0-20) 10/01/25 15:58 C-Reactive Protein 5.83 mg/dl (0-0.5) H 10/01/25 15:58 Total Protein 7.8 gm/dl (6.0-8.3) 10/01/25 15:58 Albumin 4.5 gm/dl (3.4-5.0) 10/01/25 15:58 Globulin 3.3 gm/dl (2.5-4.0) 10/01/25 15:58 Albumin/Globulin Ratio 1.4 (0.9-2) 10/01/25 15:58 Vitamin B12 151 pg/ml (180-914) L 10/02/25 05:32 25-OH Vitamin D Total 27.0 ng/ml (30-100) L 10/03/25 08:11 Procalcitonin 0.15 ng/ml (0-0.5) 10/01/25 15:58 Cortisol AM Sample 8.37 mcg/dl (6.2-22.6) 10/04/25 07:10 Urine Color Yellow 10/01/25 19:39 Urine Appearance Clear (Clear) 10/01/25 19:39 Urine pH 5.5 (4.5-7.5) 10/01/25 19:39 Ur Specific [place] 1.022 (1.000-1.030) 10/01/25 19:39 Urine Protein Trace (Negative) H 10/01/25 19:39 Urine Glucose (UA) Negative (Negative) 10/01/25 19:39 Urine Ketones Trace (Negative) H 10/01/25 19:39 Urine Blood Negative (Negative) 10/01/25 19:39 Urine Nitrite Negative (Negative) 10/01/25 19:39 Urine Bilirubin Negative (Negative) 10/01/25 19:39 Urine Urobilinogen Negative (Negative) 10/01/25 19:39 Ur Leukocyte Esterase Negative (Negative) 10/01/25 19:39 Urine WBC (Auto) 0-5 /hpf (0-5) 10/01/25 19:39 Urine RBC (Auto) 0-2 /hpf (0-2) 10/01/25 19:39 U Hyaline Cast (Auto) 3-5 /lpf (0-2) H 10/01/25 19:39 U Epithel Cells (Auto) 0-2 /hpf (0-2) 10/01/25 19:39 Urine Bacteria (Auto) None Seen (None Seen) 10/01/25 19:39 Urine Comment 10/01/25 19:39 Ethyl Alcohol mg/dL < 10.0 mg/dl (<10.0) 10/01/25 21:34 Adenovirus (PCR) Not Detected (NotDetected) 10/01/25 18:28 B. pertussis DNA (PCR) Not Detected (NotDetected) 10/01/25 18:28 B.parapertussis DNA PCR Not Detected (NotDetected) 10/01/25 18:28 C. pneumoniae DNA (PCR) Not Detected (NotDetected) 10/01/25 18:28 Coronavirus OC43 (PCR) Not Detected (NotDetected) 10/01/25 18:28 Coronavirus HKU1 (PCR) Not Detected (NotDetected) 10/01/25 18:28 Coronavirus 229E (PCR) Not Detected (NotDetected) 10/01/25 18:28 SARS-CoV-2 (PCR) Not Detected (NotDetected) 10/01/25 18:28 Coronavirus NL63 (PCR) Not Detected (NotDetected) 10/01/25 18:28 Human Metapneumovir PCR Not Detected (NotDetected) 10/01/25 18:28 Influenza Type A (PCR) Not Detected (NotDetected) 10/01/25 18:28 Influenza Type B (PCR) Not Detected (NotDetected) 10/01/25 18:28 M. pneumoniae (PCR) Not Detected (NotDetected) 10/01/25 18:28 Parainfluenza 1 (PCR) Not Detected (NotDetected) 10/01/25 18:28 Parainfluenza 2 (PCR) Not Detected (NotDetected) 10/01/25 18:28 Parainfluenza 3 (PCR) Not Detected (NotDetected) 10/01/25 18:28 Parainfluenza 4 (PCR) Not Detected (NotDetected) 10/01/25 18:28 RSV (PCR) Not Detected (NotDetected) 10/01/25 18:28 Entero/Rhino (PCR) Not Detected (NotDetected) 10/01/25 18:28 Impressions Chest X-Ray 10/01/25 15:35 Technique: A frontal view of the chest was obtained Comparison is made the prior examination dated 04/10/2025 Findings: Again seen are multifocal interstitial opacities throughout both lungs. The heart size is within normal limits. No pleural effusion or pneumothorax is seen. There is no definite pulmonary nodule. No fracture is noted. There is thoracic degenerative disc disease. There is a device projecting over the left heart Impression: Persistent multifocal interstitial opacities throughout both lungs, which could be due to chronic interstitial lung disease. A follow-up chest CT could be considered ACT 112: Positive. There are findings on this exam that require communication between the performing entity and the patient following Patient Test Result Information Act ([place] ACT 112) guidelines. Electronically signed by Yanick Mohan 10-01-2025 4:[address] 10/01/25 15:43 EXAM: CT Head Without Intravenous Contrast INDICATION: Syncope. Fall. TECHNIQUE: Axial computed tomography images of the head/brain without intravenous contrast. Sagittal and/or coronal reformats are provided. Sagittal and coronal reformatted images were created and reviewed. This CT exam was performed using one or more of the following dose reduction techniques: automated exposure control, adjustment of the mA and/or kV according to patient size, and/or use of iterative reconstruction technique. COMPARISON: 12/26/2022 FINDINGS: Limitations: None. Brain and extra-axial spaces: There is age appropriate cortical atrophy and chronic ischemic periventricular white matter hypodensity. No acute infarct, hemorrhage or mass noted. Bones/joints: No acute changes. Soft tissues: No acute abnormality noted. Vasculature: No acute abnormality noted. Sinuses: Moderate chronic right maxillary sinus thickening noted. Mastoid air cells: No mastoid effusion. Orbits: No acute abnormality noted. IMPRESSION: 1. Cerebral atrophy. No acute changes. 2. Chronic right maxillary sinusitis. ACT 112: N/A Electronically signed by Bailee Slater 10-01-2025 4:30 PM Knee X-Ray 10/01/25 15:43 Clinical History: Trauma 3 views of the right knee are submitted for review. Findings: No fracture or dislocation is seen. There is joint space narrowing and osteophyte formation in all 3 compartments. No other osseous abnormality is identified. There are no radiopaque foreign bodies. Impression: Severe right knee osteoarthritis Electronically signed by Yanick Mohan 10-01-2025 4:[address] 10/01/25 16:48 Clinical history: Possible tibial plateau fracture Technique: Axial computed tomography images were obtained of the right knee without intravenous contrast. Sagittal and coronal reconstructions were obtained Findings: There is an acute nondisplaced fracture of the medial margin of the medial femoral condyle. No subluxation or dislocation is seen. There is severe tricompartmental osteoarthritis. There are joint bodies posteriorly. No focal osseous lesion is evident There is a large knee effusion The visualized musculature appears unremarkable. No soft tissue mass or fluid collection is seen. No foreign body is evident Impression: 1. Acute nondisplaced fracture of the medial margin of the medial femoral condyle 2. Severe osteoarthritis 3. Large right knee effusion with joint bodies ACT 112: Positive. There are findings on this exam that require communication between the performing entity and the patient following Patient Test Result Information Act ([place] ACT 112) guidelines. Electronically signed by Yanick Mohan 10-01-2025 6:47 PM
--- NOTE | 2025-10-06 13:10 | Hospitalist Progress Note ---
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 Presented after having had a ground level fall and episode of syncope on 09/30/25. Prior to the event had prodromal dizziness/lightheadedness. Right knee took the brunt of the fall. In the ER orthostatics markedly + with standing systolic BP of about 70-75. #Orthostatic hypotension (improving) Lisinopril remains on hold Reduced dose of amlodipine to 2.5mg daily (from 10mg daily) Continue low-dose metoprolol tartrate 12.5mg BID Orthostatics improving each day: On arrival on 10/01: 112/76 (lying) 83/55 (sitting) 74/50 (standing) On 10/05: 139/85 (lying) 123/74 (sitting) 107/66 (standing) #Syncope Thought to be due to orthostatic hypotension Received IVF bolus in setting or orthostatic BP changes in ED and has been without since Loop recorder - placed by Dr. Arshad on 09/03/25 - was interrogated today and did NOT show any arrhythmia on the day of his event Recent echo 07/27/25 with LVEF 60-65% and no significant valvular pathology Decrease in Amlodipine from 10mg->2.5mg daily Fasting am cortisol 8.37 #Hemiarthrosis right knee and nondisplaced fracture of right femoral medial condyle - S/p arthrocentesis with copious bloody fluid aspirated Knee pain worse today Cont AVA Cont ice prn Cont tylenol prn Oxycodone IR 5mg for mild/mod pain, Oxycodone IR 10mg for severe pain Appreciate ortho consult & management For right femoral condyle fracture: WBAT in knee immobilizer PT/OT consults abreciated Vit D 27.0, added Vit D supplement #T2DM A1c 7.2% Hold metformin [facility] Pharmacy glycemic team consulted for mgmt #COPD | emphysema | ILD - CXR at admission -- persistent multifocal interstitial opacities d/t chronic interstitial lung disease with f/u CT chest recommended CT of chest 04/10/25 with stable chronic lung disease, mildly progressive mediastinal lymphadenopathy, suggestion for follow up CT in 3-6 mths -should have repeat CT and repeat PFTs 10/2025 Follows with [facility] [place] pulmonology -- Dr Elisa Frye; next appt with him is scheduled for Nov 2025 Albuterol HFA prn Duoneb Q6H prn SOB/wheezing #Nicotene dependency with greater than [id number] hx/ETOH dependency - ETOH level negative ETOH withdrawal protocol/RASS Q2H Thiamine 100mg po daily Nicotine patch #B12 deficiency Level - 151 Given his gait issues/falls/etc replace parenterally -vitamin B12 1000mcg IM daily x 5 days Folate supplementation #CAD, history of ANDREINA to RCA 2016 - Stress echo 2021 negative for ischemia Continue metoprolol, Plavix, statin Scheduled for stress test in October (10/16/25 - lexiscan??) #Depression/anxiety Cont amitriptyline Cont seroquel #GERD Cont PPI BID #DVT proph Heparin SC Disposition: Medically stable for discharge; awaiting insurance Auth Prior provider spoke with daughter, Heavenly, regarding patient disposition. Daughter encouraged her father to go to rehab, and is agreeable to watching patient's dog so he can be transferred to rehab upon discharge. Admission and Anticipated Discharge Date Admission Date: October 01, 2025 Supervising Physician Co-Signing Physician Notes I did not see or examine the patient. I verified all roberson points and agree with Diego Grant PA-C with the following exceptions and/or additions: None Subjective Mr. Lewis is in good spirits this morning. He is sitting upright in his chair watching TV. He is still having 8 out of 10 pain in his right knee whenever he bends it, but is otherwise doing well. He did okay with walking earlier today, but reports it hurt "a little bit" when he bears weight on the right leg. Otherwise, he has no new complaints. He has numbness and tingling in his foot, but reports this is chronic. No radiation of pain down the leg or up towards the spine. He is amenable to trying the hydrocodone/acetaminophen tablets that he usually takes at home for his knees/back for pain control today. ROS: Patient endorses right knee pain, ambulatory function, and numbness and tingling in the feet bilaterally (chronic). Patient denies fever, chills, chest pain, SOB, cough, abdominal pain, N/V/D, or changes in urinary/bowel habits. Physical Exam Physical Exam: General: no acute distress; pleasant affect; sitting upright in his chair watching TV; non-toxic appearing; cooperative; SpO2 94% on RA HEENT: normocephalic, atraumatic; PERRLA; vision and hearing intact Neck: supple; trachea midline Skin: warm, dry without signs of tenting; no cyanosis; no rashes, bruising, l esions, or erythema noted CV: chest wall NTP; RRR; S1/S2 normal; no murmurs/rubs/gallops; pulses intact and symmetric at radial, DP, and PT Lungs: no acute respiratory distress; symmetrical chest wall expansion; clear breath sounds across all lung [place] w/o adventitious sounds; no wheezing ABD: Soft, NTP; BS present; no rebound/guarding; no distention MSK: no tics or fasciculations; no edema noted in the LEs b/l, nonerythematous Right knee: TTP; no signs of swelling/bruising appreciated Neuro: A&Ox3; normal mood and affect; fluent speech; sensation intact and symmetric in the LEs b/l Results & Data Results & Data Vital Signs (Past 12 Hours) Vital Signs Temp Pulse Resp BP Pulse Ox O2 Del Method 10/06/25 11:23 36.8 C 86 16 107/71 94 Room Air 10/06/25 10:00 Room Air 10/06/25 07:26 36.6 C 79 20 166/97 H 92 Room Air 10/06/25 04:00 36.4 C L 64 18 127/63 91 Room Air PG Care Time/CCT Total # of Minutes Spent Total Time Spent with Patient: Total time spent is greater than 50% in coordination of care (as documented) at patient's floor/unit and/or counseling patient: Coding [place] [address] SUB INP/OBS CARE 11/29MIN Patient Type Established Medical Decision Making Low Complexity Diagnoses Orthostatic hypotension I95.1 Syncope R55 Fracture of condyle of right femur S72.411A CUBA (acute kidney injury) N17.9 Hemarthrosis, right knee M25.061 B12 deficiency E53.8 Current smoker F17.200 COPD with emphysema J43.9 Combined pulmonary fibrosis and emphysema (CPFE) J43.9; J84.10 Diabetes mellitus E11.9 Chronic kidney disease, stage 3 (moderate) N18.3 Gastroesophageal reflux disease K21.9 Atherosclerosis of [place] coronary artery without angina pectoris I25.10 Dyslipidemia E78.5
[2025-10-06] MEDS: HYDROCODONE/ACETAMOPHEN 5/325MG TAB PO PRN (14:03)
--- NOTE | 2025-10-07 09:33 | Orthopedic Progress Note ---
Date of Service October 07, 2025 Assessment & Plan (1) Osteoarthritis of right knee: Plan: Patient doing well status post aspiration. Patient has DJD of his right knee. He also had an avulsion injury of the medial femoral condyle osteophyte. Continue the knee immobilizer for comfort. Most likely weightbearing at nighttime when at rest. Elevate WBAT Continue PT/OT Continue care per primary service. Okay for discharge from orthopedic standpoint Awaiting insurance authorization for SNF. Findings discussed with Dr. Jimenez. Follow-up as scheduled as an outpatient. Orthopedically stable, will sign off. Admission and Anticipated Discharge Date Admission Date: October 01, 2025 Subjective Patient is doing well. Sitting in a chair. Denies any significant knee pain today. States its much better since when he first came in. Physical Exam Musculoskeletal: Exam of his right lower extremity: Knee immobilizer is in place. No distal edema. Full ankle range of motion with normal strength already distal pulses are 2+ and sensations intact. Calf is supple and nontender. He is able to lift his right leg. We did not remove the brace because he just had it put on. Results & Data Vital Signs (Past 12 Hours) Vital Signs Temp Pulse Pulse Resp BP Pulse Ox O2 Del Method 10/07/25 07:43 36.4 C L 77 20 157/71 H 92 Room Air 10/07/25 07:17 73 10/07/25 02:21 36.4 C L 71 16 124/72 91 Room Air 10/06/25 22:18 36.4 C L 76 18 144/95 H 91 Room Air 10/06/25 22:09 78
[2025-10-07] MEDS: POLYETHYLENE (MIRALAX) 17 GM PACK PO STA (11:44)
[2025-10-07 12:07] LABS: Appearance Urine Clear (Clear); Bacteria Urine Automated None Seen (None Seen); Epithelial Cell Urine Auto 0-2 /hpf (0-2); Glucose Urine UA Negative (Negative); RBC Urine Automated >20 /hpf (0-2); WBC Urine Automated 0-5 /hpf (0-5)
--- NOTE | 2025-10-07 16:02 | Discharge Summary ---
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 Presented after having had a ground level fall and episode of syncope on 09/30/25. Prior to the event had prodromal dizziness/lightheadedness. Right knee took the brunt of the fall. In the ER orthostatics markedly + with standing systolic BP of about 70-75. #Orthostatic hypotension (improving) Lisinopril remains on hold Reduced dose of amlodipine to 2.5mg daily (from 10mg daily) Continue low-dose metoprolol tartrate 12.5mg BID Orthostatics improving each day: On arrival on 10/01: 112/76 (lying) 83/55 (sitting) 74/50 (standing) On 10/05: 139/85 (lying) 123/74 (sitting) 107/66 (standing) #Syncope Thought to be due to orthostatic hypotension Received IVF bolus in setting or orthostatic BP changes in ED and has been without since Loop recorder - placed by Dr. Arshad on 09/03/25 - was interrogated today and did NOT show any arrhythmia on the day of his event Recent echo 07/27/25 with LVEF 60-65% and no significant valvular pathology Decrease in Amlodipine from 10mg->2.5mg daily Fasting am cortisol 8.37 #Hemiarthrosis right knee and nondisplaced fracture of right femoral medial condyle - S/p arthrocentesis with copious bloody fluid aspirated Knee pain worse today Cont SAL Cont ice prn Cont tylenol prn Oxycodone IR 5mg for mild/mod pain, Oxycodone IR 10mg for severe pain Appreciate ortho consult & management For right femoral condyle fracture: WBAT in knee immobilizer PT/OT consults abreciated Vit D 27.0, added Vit D supplement #T2DM A1c 7.2% Hold metformin [facility] Pharmacy glycemic team consulted for mgmt #COPD | emphysema | ILD - CXR at admission -- persistent multifocal interstitial opacities d/t chronic interstitial lung disease with f/u CT chest recommended CT of chest 04/10/25 with stable chronic lung disease, mildly progressive mediastinal lymphadenopathy, suggestion for follow up CT in 3-6 mths -should have repeat CT and repeat PFTs 10/2025 Follows with [facility] [place] -- Dr Elisa Frye; next appt with him is scheduled for Nov 2025 Albuterol HFA prn Duoneb Q6H prn SOB/wheezing #Nicotene dependency with greater than [id number] hx/ETOH dependency - ETOH level negative ETOH withdrawal protocol/RASS Q2H Thiamine 100mg po daily Nicotine patch #B12 deficiency Level - 151 Given his gait issues/falls/etc replace parenterally -vitamin B12 1000mcg IM daily x 5 days Folate supplementation #CAD, history of ANDREINA to RCA 2016 - Stress echo 2021 negative for ischemia Continue metoprolol, Plavix, statin Scheduled for stress test in October (10/16/25 - lexiscan??) #Depression/anxiety Cont amitriptyline Cont seroquel #GERD Cont PPI BID #DVT proph Heparin SC Disposition: Discharge home with home health Prior provider spoke with daughter, Heavenly, regarding patient disposition. Daughter encouraged her father to go to rehab, and is agreeable to watching patient's dog so he can be transferred to rehab upon discharge. Admission HPI Per Admitting Provider Patient is 70 year old male with PMH significant for AOC/COPD/emphysema, pulmonary fibrosis, DM2, CKD 3, CAD, depression/anxiety presents with c/o ground level fall and episode of passing out that occurred on 09/30/25 at approximately 1700 per his account. Daughter is at the bedside with patient and states patient has had 2 syncopal episodes over the course of the past few months and has been following with cardiology to have this investigated. He currently has an ILR. He reports last evening he was walking into his kitchen to get a drink of water and he suddenly fell down subsequently landing on his right knee. Unsure if he lost consciousness. He states he "felt funny" before the fall. He denies loss of control of bowel/bladder. He denies striking his head or cervical pain. He does correlate some of his syncopal episodes with leaning forward or position changes. Per his daughter, patient was leaning forward with one episode to tend to his dog and felt as though he was going to black out. Has had significant right knee pain since the fall and when he arrived at his daughter's house today for Thanksgiving dinner he was having more difficulty bearing weight on the right leg. Reports he has significant arthritis in the right knee and is schedule to have a stress test in a couple weeks to then pursue right TKA with Dr. Jimenez. He denies SYLVESTER, chest pain, TOVAR, SOB, fever, chills, productive cough with sputum. Does have positive, intermittent cough that is at baseline for him as he has a hx of COPD. He smokes 5-6 cigarettes daily and chews tobacco. He drinks 1-2 rum/coke mixed drinks almost nightly. He denies hx of DTs, seizures or withdrawal symptoms when ceasing ETOH use in the past. Reports he last drank yesterday evening. After lengthy discussion with patient, he elects to be a FULL CODE while hospitalized. Discharge Exam General: no acute distress; pleasant affect; sitting upright in his chair watching TV; non-toxic appearing; cooperative; SpO2 94% on RA HEENT: normocephalic, atraumatic; PERRLA; vision and hearing intact Neck: supple; trachea midline Skin: warm, dry without signs of tenting; no cyanosis; no rashes, bruising, lesions, or erythema noted CV: chest wall NTP; RRR; S1/S2 normal; no murmurs/rubs/gallops; pulses intact and symmetric at radial, DP, and PT Lungs: no acute respiratory distress; symmetrical chest wall expansion; clear breath sounds across all lung lima w/o adventitious sounds; no wheezing ABD: Soft, NTP; BS present; no rebound/guarding; no distention MSK: no tics or fasciculations; no edema noted in the LEs b/l, nonerythematous Right knee: TTP; no signs of swelling/bruising appreciated Neuro: A&Ox3; normal mood and affect; fluent speech; sensation intact and symmetric in the LEs b/l Discharge Plan Discharge Items Reason For Visit: RIGHT KNEE PAIN, SYNCOPE Condition on Discharge: Good Weightbearing: Right weightbearing Weightbearing Comment: with walker or crutches as needed Non-emergency contact: Surgeon Call non-emergency contact if: you have any medication questions, your symptoms worsen, your pain is not controlled, your temperature is above 101, your wound has increased redness and your wound has increased drainage Follow-up/Referrals: Albina Jimenez PA-C [Primary Care Provider] - González Jimenez MD [Physician] - 10/20/25 9:00 am () Addtl Math Instructor Provider Instructions: Orthopedic instructions: Weightbearing as tolerated on right lower extremity with walker assistance and knee immobilizer on when out of bed. Pain control with p.o. medication Sal bandage on your right knee as needed for comfort. May reapply or rewrap on a daily basis. May remove for bathing. You can discontinue this based on your comfort. Ice to the knee with a easy wrap. Elevate right lower extremity as needed for swelling. Continue your Plavix. Call [phone] with any increased pain, swelling, questions or concerns. Follow up as scheduled with Dr Jimenez in 2-3 weeks for reassessment and evaluation and discussion of total knee arthroplasty. Medications and DC Order Prescriptions: No Action rosuvastatin 5 mg tablet 5 mg PO HS Qty: 90 3RF metoprolol tartrate 25 mg tablet 12.5 mg PO BID Qty: 60 5RF quetiapine 100 mg tablet 100 mg PO HS Qty: 30 5RF gabapentin 600 mg tablet 600 mg PO TID albuterol sulfate [Ventolin HFA] 90 mcg/actuation HFA aerosol inhaler 2 puff inhalation Q6H PRN (Reason: shortness of breath or wheezing) Qty: 6.7 4RF Patient Comments: does not use ipratropium-albuterol 0.5 mg-3 mg(2.5 mg base)/3 mL solution for nebulization 3 ml inhalation Q8H PRN (Reason: shortness of breath or wheezing) Qty: 180 3RF (DME) nebulizers [Aeroneb Go Nebulizer] Misc See Rx Instructions .MEDSUPPLY Qty: 1 0RF Rx Instructions: With tubing and supplies. J44.9. J45.9. clopidogrel [Plavix] 75 mg tablet 75 mg PO QAM hydrocodone-acetaminophen 5-325 mg Tablet 1 tab PO HS PRN (Reason: Pain) duloxetine 60 mg Capsule,Delayed Release(Dr/Ec) 60 mg PO QAM pantoprazole 40 mg tablet,delayed release (DR/EC) 40 mg PO BID metformin 500 mg tablet extended release 24 hr 1,000 mg PO QAM Patient Comments: currently on hold as of 10/15/23 amlodipine 10 mg tablet 10 mg PO HS lisinopril 40 mg Tablet 40 mg PO DAILY amitriptyline 100 mg Tablet 100 mg PO HS Krames/Other Patient Handouts: Type 2 Diabetes Admission Data Admit Date/Time: 10/01/25 18:10 Attending Provider: Maulik Tobin Admit Provider: Maulik Tobin Primary Care Provider: Albina Jimenez Providers: Maulik Tobin; [facility]; Agency,Care; [facility]; [facility], Hospital Stay Data Consultations 10/01/25 17:08 ED Decision to Admit Stat Diagnostic Imagining Performed 10/01/25 15:43 CT head/brain wo con Stat 10/01/25 16:48 CT knee RT wo con Stat Coding Diagnoses Orthostatic hypotension I95.1 Syncope R55 Fracture of condyle of right femur S72.411A CUBA (acute kidney injury) N17.9 Hemarthrosis, right knee M25.061 B12 deficiency E53.8 Current smoker F17.200 COPD with emphysema J43.9 Combined pulmonary fibrosis and emphysema (CPFE) J43.9; J84.10 Diabetes mellitus E11.9 Chronic kidney disease, stage 3 (moderate) N18.3 Gastroesophageal reflux disease K21.9 Atherosclerosis of three affiliated coronary artery without angina pectoris I25.10 Dyslipidemia E78.5
--- NOTE | 2025-10-07 17:51 | Hospitalist Progress Note ---
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 Presented after having had a ground level fall and episode of syncope on 09/30/25. Prior to the event had prodromal dizziness/lightheadedness. Right knee took the brunt of the fall. In the ER orthostatics markedly + with standing systolic BP of about 70-75. #Orthostatic hypotension (resolved) Lisinopril remains on hold Reduced dose of amlodipine to 2.5mg daily (from 10mg daily) Continue low-dose metoprolol tartrate 12.5mg BID Orthostatics improving each day: On arrival on 10/01: 112/76 (lying) 83/55 (sitting) 74/50 (standing) On 10/05: 139/85 (lying) 123/74 (sitting) 107/66 (standing) #Syncope Thought to be due to orthostatic hypotension Received IVF bolus in setting or orthostatic BP changes in ED and has been without since Loop recorder - placed by Dr. Arshad on 09/03/25 - was interrogated today and did NOT show any arrhythmia on the day of his event Recent echo 07/27/25 with LVEF 60-65% and no significant valvular pathology Decrease in Amlodipine from 10mg->2.5mg daily Fasting am cortisol 8.37 #Hemiarthrosis right knee and nondisplaced fracture of right femoral medial c ondyle - S/p arthrocentesis with copious bloody fluid aspirated Knee pain worse today Cont AVA Cont ice prn Cont tylenol prn Oxycodone IR 5mg for mild/mod pain, Oxycodone IR 10mg for severe pain Appreciate ortho consult & management For right femoral condyle fracture: WBAT in knee immobilizer PT/OT consults abreciated Vit D 27.0, added Vit D supplement #T2DM A1c 7.2% Hold metformin [facility] Pharmacy glycemic team consulted for mgmt #COPD | emphysema | ILD - CXR at admission -- persistent multifocal interstitial opacities d/t chronic interstitial lung disease with f/u CT chest recommended CT of chest 04/10/25 with stable chronic lung disease, mildly progressive mediastinal lymphadenopathy, suggestion for follow up CT in 3-6 mths -should have repeat CT and repeat PFTs 10/2025 Follows with [facility] [place] pulmonology -- Dr Elisa Frye; next appt with him is scheduled for Nov 2025 Albuterol HFA prn Duoneb Q6H prn SOB/wheezing #Nicotene dependency with greater than [id number] hx/ETOH dependency - ETOH level negative ETOH withdrawal protocol/RASS Q2H Thiamine 100mg po daily Nicotine patch #B12 deficiency Level - 151 Given his gait issues/falls/etc replace parenterally -vitamin B12 1000mcg IM daily x 5 days Folate supplementation #CAD, history of ANDREINA to RCA 2016 - Stress echo 2021 negative for ischemia Continue metoprolol, Plavix, statin Scheduled for stress test in October (10/16/25 - lexiscan??) #Depression/anxiety Cont amitriptyline Cont seroquel #GERD Cont PPI BID #DVT proph Heparin SC #Urinary retention Klein catheter inserted on 10/05 after patient was bladder scanned retaining 650 cc Patient then began reporting dysuria/burning sensation on 10/07 Klein catheter removed Urinalysis obtained, but did not show signs of infection Patient reported resolution of his dysuria after Klein catheter removed Bladder scan PRN Disposition: Medically stable for discharge; awaiting insurance Auth Addendum at 1520 on 10/07: Notified by nursing staff that patient was planning to leave AMA. Reassessed patient at bedside. Patient reports he is tired of waiting for his insurance authorization, and expresses a strong desire to go home. Empathized with patient, and ensured him that his frustration with not hearing back from insurance authorization today was valid. Patient lives alone in a double wide trailer. No steps leading into the trailer. He does have 2 daughters (Heavenly and Rose Mary) who provide additional support at home. Ambulated with patient in the hallway, and he still exhibits significant postural sway, compensation for right knee, and balance issues when ambulating with walker. Strongly encourage patient to stay for rehab. Reached out to CM, who report still no updates as of 1599 on 10/07 regarding insurance authorization (still pending). Spoke with the phone with the patient's daughter (Heavenly) who also encourage patient to remain in the hospital. Patient does appear of sound mind at this time and acknowledges that he is a high fall risk. He verbalizes that, if he were to fall alone at home, he would attempted get up on his own; if he was unable to get up on his own he does have a life alert necklace/cell phone. Patient reports that if he does not hear back from insurance authorization tomorrow morning, he will plan to leave hospital on home health. Updated nursing staff, daughter, and case management. Daughter (Heavenly) has been updated intermittently throughout patient's hospital stay. Daughter has repeatedly encouraged her father to go to rehab, and is agreeable to watching patient's dog so he can be transferred to rehab upon discharge. Admission and Anticipated Discharge Date Admission Date: October 01, 2025 Subjective Mr. Lewis is doing well this morning. He reports his right knee is "sore" but his pain is down to a 5 out of 10 today. He still has pain whenever he ambulates on his right knee. No BM yet in the hospital and reports that his last BM was on "Thanksgiving". Additionally, he reports that he is having a burning sensation/dysuria whenever he urinates with the Klein catheter. He denies prior history of UTIs. ROS: Patient endorses right knee pain, generalized fatigue, constipation, lower back pain (chronic), dysuria, and burning with urination. Patient denies fever, chills, chest pain, chest palpitations, SOB, cough, abdominal pain, N/V/D, or blood in the urine/stool. Review of Systems Review of Systems: See HPI above Physical Exam Physical Exam: General: no acute distress; pleasant affect; sitting upright in his chair watching TV; non-toxic appearing; cooperative; SpO2 93% on RA HEENT: normocephalic, atraumatic; PERRLA; vision and hearing intact Neck: supple; trachea midline Skin: warm, dry without signs of tenting; no cyanosis; no rashes, bruising, lesions, or erythema noted CV: chest wall NTP; RRR; S1/S2 normal; no murmurs/rubs/gallops; pulses intact and symmetric at radial, DP, and PT Lungs: no acute respiratory distress; symmetrical chest wall expansion; clear breath sounds across all lung lima w/o adventitious sounds; no wheezing ABD: Soft, NTP; BS present; no rebound/guarding; no distention MSK: no tics or fasciculations; no edema noted in the LEs b/l, nonerythematous : Negative suprapubic tenderness; negative CVA tenderness bilaterally; Klein in place draining dark orange urine Right knee: TTP; no signs of swelling/bruising appreciated Neuro: A&Ox3; normal mood and affect; fluent speech; sensation intact and symmetric in the LEs b/l Gait: Patient exhibits postural sway, and narrow foot work when ambulating with walker; he tends to compensate and take weight off his right leg, leading to issues with balance Results & Data Results & Data Vital Signs (Past 12 Hours) Vital Signs Temp Pulse Pulse Resp BP Pulse Ox O2 Del Method 10/07/25 16:44 80 10/07/25 15:14 36.7 C 78 18 126/75 93 Room Air 10/07/25 11:28 36.5 C 78 18 129/79 97 Room Air 10/07/25 07:43 36.4 C L 77 20 157/71 H 92 Room Air 10/07/25 07:17 73 PG Care Time/CCT Total # of Minutes Spent Total Time Spent with Patient: Total time spent is greater than 50% in coordination of care (as documented) at patient's floor/unit and/or counseling patient: Coding [place] [address] SUB INP/OBS CARE 3/50MIN Patient Type Established History Comprehensive Exam Comprehensive Medical Decision Making High Complexity Diagnoses Orthostatic hypotension I95.1 Syncope R55 Fracture of condyle of right femur S72.411A CUBA (acute kidney injury) N17.9 Hemarthrosis, right knee M25.061 B12 deficiency E53.8 Current smoker F17.200 COPD with emphysema J43.9 Combined pulmonary fibrosis and emphysema (CPFE) J43.9; J84.10 Diabetes mellitus E11.9 Chronic kidney disease, stage 3 (moderate) N18.3 Gastroesophageal reflux disease K21.9 Atherosclerosis of [place] coronary artery without angina pectoris I25.10 Dyslipidemia E78.5
[2025-10-07 23:51] VITALS: RESP 18
[2025-10-08 07:48] VITALS: TEMP 97.9
[2025-10-08] MEDS: POLYETHYLENE (MIRALAX) 17 GM PACK PO SCH (08:40)
--- NOTE | 2025-10-08 10:20 | Discharge Summary ---
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 Presented after having had a ground level fall and episode of syncope on 09/30/25. Prior to the event had prodromal dizziness/lightheadedness. Right knee took the brunt of the fall. In the ER orthostatics markedly + with standing systolic BP of about 70-75. #Orthostatic hypotension (resolved) Lisinopril remains on hold Reduced dose of amlodipine to 2.5mg daily (from 10mg daily) Continue low-dose metoprolol tartrate 12.5mg BID Orthostatics improving each day: On arrival on 10/01: 112/76 (lying) 83/55 (sitting) 74/50 (standing) On 10/05: 139/85 (lying) 123/74 (sitting) 107/66 (standing) #Syncope Thought to be due to orthostatic hypotension Received IVF bolus in setting or orthostatic BP changes in ED and has been without since Loop recorder - placed by Dr. Arshad on 09/03/25 - was interrogated today and did NOT show any arrhythmia on the day of his event Recent echo 07/27/25 with LVEF 60-65% and no significant valvular pathology Fasting am cortisol 8.37 Amlodipine decreased from 10mg->2.5mg daily Will continue amlodipine 2.5 mg on discharge #Hemiarthrosis right knee and nondisplaced fracture of right femoral medial condyle - S/p arthrocentesis with copious bloody fluid aspirated Knee pain worse today Cont SAL Cont ice prn Cont tylenol prn Appreciate ortho consult & management For right femoral condyle fracture: WBAT in knee immobilizer Vit D 27.0, added Vit D supplement on discharge PT/OT consults appreciated While acute rehab was recommended, patient's insurance declined rehab Will plan to go home with [facility] PT/OT home health #T2DM A1c 7.2% Hold metformin [facility] Pharmacy glycemic team consulted for mgmt #COPD | emphysema | ILD - CXR at admission -- persistent multifocal interstitial opacities d/t chronic interstitial lung disease with f/u CT chest recommended CT of chest 04/10/25 with stable chronic lung disease, mildly progressive mediastinal lymphadenopathy, suggestion for follow up CT in 3-6 mths Should have repeat CT and repeat PFTs 10/2025 Follows with [facility] -- Dr Elisa Frye; next appt with him is scheduled for Nov 2025 Albuterol HFA prn Duoneb Q6H prn SOB/wheezing #Nicotene dependency with greater than [id number] hx/ETOH dependency - ETOH level negative ETOH withdrawal protocol/RASS Q2H Thiamine 100mg po daily Nicotine patch while inpatient #B12 deficiency Level - 151 Given his gait issues/falls/etc replace parenterally Vitamin B12 1000mcg IM daily x 5 days Folate supplementation #CAD, history of ANDREINA to RCA 2016 - Stress echo 2021 negative for ischemia Continue metoprolol, Plavix, statin Scheduled for stress test in October (10/16/25 - lexiscan??) #Depression/anxiety Cont amitriptyline Cont seroquel #GERD Cont PPI BID #DVT proph Heparin SC #Urinary retention (resolved) Klein catheter inserted on 10/05 after patient was bladder scanned retaining 650 cc Patient then began reporting dysuria/burning sensation on 10/07 Klein catheter removed Urinalysis obtained, but did not show signs of infection Patient reported resolution of his dysuria after Klein catheter removed He denies any urinary retention at time of discharge, and says he is urinating without difficulty Day of discharge 10/08: Patient is mildly hypertensive at 143/83; vitals otherwise stable. Mr. Lewis is doing well this morning. He reports the pain in his right knee is a 5 out of 10, but has been improving each day. He reports that his current pain medications are working, but he does not have a current prescription for pain medications at home and is requesting we send additional medications home if he is discharged today. Patient was updated at bedside that his insurance had denied acute rehab stay; rather than appeal, patient expressed a strong desire to return home with home health PT/OT at this time. Additionally, patient reports that his urinary symptoms have fully resolved (no burning with urination, no dysuria, no urinary retention). ROS: Patient endorses right knee pain and ambulatory function. Patient denies fever, chills, night sweats, chest pain, chest palpitations, SOB, cough, abdominal pain, N/V/D, urinary retention, burning with urination, dysuria, blood in the urine or stool, or change in urinary/bowel habits. Disposition: Patient's insurance denied SNF stay for acute rehab; patient e xpresses a desire to return home at this time on home health Daughter ([facility]) has been updated intermittently throughout patient's hospital stay. Notes For Next Care Provider Patient hospitalized for recurrent syncopal episode/falling at home. Thought to be due to orthostatic hypotension. BP medications adjusted prior to discharge, and patient did well in the hospital. However, he presented with a right medial condyle knee fracture, and was recommended for acute rehab upon discharge. Insurance authorization was denied, and we will plan to send patient home with home health. Patient should follow-up with orthopedics in the next 2 to 3 weeks H/o COPD / ILD - Should have repeat CT and repeat PFTs 10/2025 Admission Exam Per Admitting Provider GENERAL APPEARANCE: A&O. Sitting comfortably on stretcher. NAD. SKIN: Normal color without rashes or lesions. Normal turgor. HEENT: Head AT/NC. Buccal mucosa is moist and pink. NECK: No jugular venous distention. No thyroid enlargement. There is no lymphadenopathy. HEART: RRR without m/g/r. LUNGS: Normal inspiratory effort. Good air entry bilaterally, mild exp wheeze, no rhonchi. ABDOMEN: No guarding or rigidity. Normoactive BS in all four quadrants. Abdomen soft and NT. MSK: No bony gross/deformities throughout. ROM intact. EXTREMITIES: No edema, No peripheral cyanosis. Right knee with patellar effusion and TTP. No crepitus. Neuro: CN 2-12 grossly intact. No focal neuro deficits PSYCHIATRIC: Normal affect. Eye contact is good. Speech is normal rate and content. Responses are appropriate. Discharge Exam General: no acute distress; pleasant affect; sitting upright in his chair watching TV; non-toxic appearing; cooperative; SpO2 94% on RA HEENT: normocephalic, atraumatic; PERRLA; vision and hearing intact Neck: supple; trachea midline Skin: warm, dry without signs of tenting; no cyanosis; no rashes, bruising, lesions, or erythema noted CV: chest wall NTP; RRR; S1/S2 normal; no murmurs/rubs/gallops; pulses intact and symmetric at radial, DP, and PT Lungs: no acute respiratory distress; symmetrical chest wall expansion; clear breath sounds across all lung lima w/o adventitious sounds; no wheezing ABD: Soft, NTP; BS present; no rebound/guarding; no distention MSK: no tics or fasciculations; no edema noted in the LEs b/l, nonerythematous : Negative suprapubic tenderness; negative CVA tenderness bilaterally Right knee: TTP; no signs of swelling/bruising appreciated; nonerythematous, not warm to touch Neuro: A&Ox3; normal mood and affect; fluent speech; sensation intact and symmetric in the LEs b/l Gait: Patient exhibits postural sway, and narrow foot work when ambulating with walker; he tends to compensate and take weight off his right leg, leading to issues with balance Discharge Plan Discharge Items Patient Disposition: Home - Home Health Services Reason For Visit: RIGHT KNEE PAIN, SYNCOPE Discharge Diagnosis: Right knee pain, ambulatory dysfunction Condition on Discharge: Good Activity: As commented below Activity Comment: Gradually increase activity per PT/OT recommendations Weightbearing: Right weightbearing Weightbearing Comment: with walker or crutches as needed Non-emergency contact: Surgeon Call non-emergency contact if: you have any medication questions, your symptoms worsen, your pain is not controlled, your temperature is above 101, your wound has increased redness and your wound has increased drainage Follow-up/Referrals: Albina Jimenez PA-C [Primary Care Provider] - 10/13/25 10:00 am (This appointment will be with Kathy Calderon at the [address] [place] [address] Drive office) González Jimenez MD [Physician] - 10/20/25 9:00 am () Diet: Carb Consistent or DM2 Addtl Attending Provider Instructions: You were hospitalized at [facility] from 10/01 to 10/08 after recurrent episodes of falling/passing out at home. It it is believed that these episodes are due to something called "orthostatic hypotension". This is when your blood pressure becomes low when standing or walking, and you pass out. We adjusted your current blood measurement medications, and your blood pressure gradually improved over the course of your hospital stay. Additionally, imaging of your right knee on arrival revealed an avulsion fracture along the medial femoral condyle in your right knee. You were assessed by our orthopedics team, who performed a procedure called an "arthrocentesis" to remove the blood from around your kneecap. While both our Physical and Occupational Therapy teams felt that you would need acute rehab upon discharge from the hospital, as you are a high falls risk and have not returned to your ambulatory baseline, your insurance authorization was denied for acute rehab at [facility]. Rather than appeal this decision, through shared decision making we opted to proceed with discharge with [facility] PT/OT home health. Please note that you are still a high fall risk at home. Please continue to wear your life alert necklace at all times, and reviewed the attached pamphlet for ways to prevent falls at home. New prescriptions: Cholecalciferol (Vitamin D3 supplements) 25 mg capsules daily Hydrocodoneacetaminophen 5/325 mg You may take 1 tablet every 6 hours as needed for pain control Please note that hydrocodone is an opioid analgesic. Do not drive or operate heavy machinery while taking this medication. Changes to current blood pressure medications: Amlodipine 10 mg -> 2.5 mg daily Continue metoprolol 12.5 mg twice daily as before Hold lisinopril until seen by PCP for follow-up Please plan to follow-up with your PCP in the next 7 to 10 days for a transitional care appointment. If you develop any new or worsening symptoms, such as fever, chills, right knee pain/swelling/redness, recurrent falls, passing out, confusion, chest pain, or trouble breathing, please return to the emergency department immediately. It was a pleasure taking care of you. Please reach out with any questions or concerns. Sincerely, The Hospital medicine team at [facility] Addtl Regional [facility]ster Provider Instructions: Orthopedic instructions: Weightbearing as tolerated on right lower extremity with walker assistance and knee immobilizer on when out of bed. Pain control with p.o. medication Sal bandage on your right knee as needed for comfort. May reapply or rewrap on a daily basis. May remove for bathing. You can discontinue this based on your comfort. Ice to the knee with a easy wrap. Elevate right lower extremity as needed for swelling. Continue your Plavix. Call [phone] with any increased pain, swelling, questions or concerns. Fol low up as scheduled with Dr Jimenez in 2-3 weeks for reassessment and evaluation and discussion of total knee arthroplasty. Pending Studies at Discharge: No Stand-Alone Forms: My [facility] Guesty, Smoking Cessation Medications and DC Order Prescriptions: New amlodipine 5 mg Tablet 2.5 mg PO HS Qty: 30 0RF Rx Instructions: Take half a tablet (2.5 mg) at night cholecalciferol (vitamin D3) 25 mcg (1,000 unit) Capsule 25 mcg PO QAM Qty: 30 0RF Rx Instructions: Take 1 capsule by mouth daily hydrocodone-acetaminophen 5-325 mg Tablet 1 tab PO Q6H PRN (Reason: severe pain (scale score 7-10)) Qty: 14 0RF Rx Instructions: Take 1 tablet every 6 hours as needed for severe pain (scale 7-10) Continued rosuvastatin 5 mg tablet 5 mg PO HS Qty: 90 3RF metoprolol tartrate 25 mg tablet 12.5 mg PO BID Qty: 60 5RF quetiapine 100 mg tablet 100 mg PO HS Qty: 30 5RF gabapentin 600 mg tablet 600 mg PO TID albuterol sulfate [Ventolin HFA] 90 mcg/actuation HFA aerosol inhaler 2 puff inhalation Q6H PRN (Reason: shortness of breath or wheezing) Qty: 6.7 4RF Patient Comments: does not use ipratropium-albuterol 0.5 mg-3 mg(2.5 mg base)/3 mL solution for nebulization 3 ml inhalation Q8H PRN (Reason: shortness of breath or wheezing) Qty: 180 3RF (DME) nebulizers [Aeroneb Go Nebulizer] Misc See Rx Instructions .MEDSUPPLY Qty: 1 0RF Rx Instructions: With tubing and supplies. J44.9. J45.9. clopidogrel [Plavix] 75 mg tablet 75 mg PO QAM duloxetine 60 mg Capsule,Delayed Release(Dr/Ec) 60 mg PO QAM pantoprazole 40 mg tablet,delayed release (DR/EC) 40 mg PO BID metformin 500 mg tablet extended release 24 hr 1,000 mg PO QAM Patient Comments: currently on hold as of 10/15/23 amitriptyline 100 mg Tablet 100 mg PO HS Held lisinopril 40 mg Tablet 40 mg PO DAILY Hold Instructions: Resume on 10/22/25. Hold medication until seen by PCP for follow-up Discontinued hydrocodone-acetaminophen 5-325 mg Tablet 1 tab PO HS PRN (Reason: Pain) amlodipine 10 mg tablet 10 mg PO HS Discharge Orders: Discharge Order (Routine); Ordered 10/08/25 Ordered By: Diego Kilpatrick/Other Patient Handouts: Preventing Falls in the Home, Type 2 Diabetes Admission Data Admit Date/Time: 10/01/25 18:10 Attending Provider: Maulik Tobin Admit Provider: Maulik Tobin Primary Care Provider: Albina Jimenez Other Providers: Maulik Tobin; [facility]; [facility]; [facility]; [facility], Other Interventions: Discharge Summary Assessment (RN) Last Done: 10/08/25 11:30 Hospital Stay Data Consultations 10/01/25 17:08 ED Decision to Admit Stat Diagnostic Imagining Performed 10/01/25 15:43 CT head/brain wo con Stat 10/01/25 16:48 CT knee RT wo con Stat Discharge Instructions Given to Patient (Per Discharging Provider) You were hospitalized at [facility] from 10/01 to 10/08 after recurrent episodes of falling/passing out at home. It it is believed that these episodes are due to something called "orthostatic hypotension". This is when your blood pressure becomes low when standing or walking, and you pass out. We adjusted your current blood measurement medications, and your blood pressure gradually improved over the course of your hospital stay. Additionally, imaging of your right knee on arrival revealed an avulsion fracture along the medial femoral condyle in your right knee. You were assessed by our orthopedics team, who performed a procedure called an "arthrocentesis" to remove the blood from around your kneecap. While both our Physical and Occupational Therapy teams felt that you would need acute rehab upon discharge from the hospital, as you are a high falls risk and have not returned to your ambulatory baseline, your insurance authorization was denied for acute rehab at [facility]. Rather than appeal this decision, through shared decision making we opted to proceed with discharge with [facility] PT[facility]OT home health. Please note that you are still a high fall risk at home. Please continue to wear your life alert necklace at all times, and reviewed the attached pamphlet for ways to prevent falls at home. New prescriptions: Cholecalciferol (Vitamin D3 supplements) 25 mg capsules daily Hydrocodoneacetaminophen 5/325 mg You may take 1 tablet every 6 hours as needed for pain control Please note that hydrocodone is an opioid analgesic. Do not drive or operate heavy machinery while taking this medication. Changes to current blood pressure medications: Amlodipine 10 mg -> 2.5 mg daily Continue metoprolol 12.5 mg twice daily as before Hold lisinopril until seen by PCP for follow-up Please plan to follow-up with your PCP in the next 7 to 10 days for a transitional care appointment. If you develop any new or worsening symptoms, such as fever, chills, right knee pain/swelling/redness, recurrent falls, passing out, confusion, chest pain, or trouble breathing, please return to the emergency department immediately. It was a pleasure taking care of you. Please reach out with any questions or concerns. Sincerely, The Hospital medicine team at [facility] Total Time Total Time Spent Total Time Spent (In Minutes): 35 C[place] [address] INP/OBS DISCH >30 MIN Patient Type Established History Comprehensive Exam Comprehensive Medical Decision Making Moderate Complexity Diagnoses Orthostatic hypotension I95.1 Syncope R55 Fracture of condyle of right femur S72.411A CUBA (acute kidney injury) N17.9 Hemarthrosis, right knee M25.061 B12 deficiency E53.8 Current smoker F17.200 COPD with emphysema J43.9 Combined pulmonary fibrosis and emphysema (CPFE) J43.9; J84.10 Diabetes mellitus E11.9 Chronic kidney disease, stage 3 (moderate) N18.3 Gastroesophageal reflux disease K21.9 Atherosclerosis of [place] coronary artery without angina pectoris I25.10 Dyslipidemia E78.5
[2025-10-08 11:38] VITALS: PULSE 81; O2SAT 95
[2025-10-08 11:50] VITALS: BP 126/88
== END 2025-10-08 15:14 | disposition home health service (06) | DRG 312 ==
LOC: ED 15:22 → 2N 18:10 → SUATTDRO 18:10 → 2N 20:30